=== PATIENT | female | born 1990 | race Caucasian/White ===

== ENCOUNTER 2023-10-29 19:27 | Emergency (ER) | payer OTHER, SELFPAY ==
[2023-10-29 19:37] VITALS: BP 180/134; PULSE 102; RESP 20; TEMP 38.8; O2SAT 100
--- NOTE | 2023-10-29 19:49 | ED.URI ---
HPI - URI/Sore Throat General Chief Complaint: Upper Respiratory Infection Stated Complaint: cough,runny nose,chest congestion Time Seen by Provider: 10/29/23 19:48 Source: patient, RN notes reviewed and old records reviewed Mode of arrival: ambulatory Limitations: no limitations History of Present Illness HPI Narrative: 33-year-old female presents to [facility] for complaint of headache, cough, runny nose, myalgias for 2 days. Patient denies nausea, vomiting, diarrhea, sore throat, any known exposure to illness, allergies, ear pain. Patient endorses history of hypertension and endorses compliance of medication. However, patient does endorse that she did not take her medication today. Related Data Home Medications Medication Instructions Recorded Confirmed losartan 100 mg tablet 100 mg PO DAILY 10/13/20 10/29/23 amlodipine 10 mg tablet 10 mg PO DAILY 10/29/23 10/29/23 Allergies Allergy/AdvReac Type Severity Reaction Status Date / Time No Known Allergies Allergy Verified 10/29/23 19:47 Review of Systems Review of Systems: All systems reviewed & are unremarkable except as noted in HPI and below Constitutional: Constitutional: Reports no additional constitutional complaints Eyes: Eyes: Reports no additional eye complaints ENT: Reports system reviewed and no additional complaints, except as documented, Denies dizziness, Reports headache(s) and Denies sore throat Cardiovascular: Cardiovascular: Reports no additional cardiovascular complaints, Denies chest pain, Denies syncope, Reports rapid heart rate, Denies lightheadedness and Denies dyspnea Respiratory: Respiratory: Reports no additional respiratory complaints, Denies cough and Denies dyspnea Gastrointestinal: Gastrointestinal: Denies change in stool character, Denies diarrhea and Denies vomiting Musculoskeletal: Musculoskeletal: Reports myalgias Integumentary/Breasts: Skin/Breast: Reports system reviewed and no additional complaints, except as docu and Reports as per HPI Neurologic: Reports system reviewed and no additional complaints, except as documented, Reports Normal hearing present, Denies dizziness, Reports headache(s), Denies numbness and Denies tingling Psychiatric: Psychiatric: Reports no additional psychiatric complaints [facility] Social History Social History Smoking status: Never smoker Comments At the time of my signature, I reviewed and agree with the nursing past medical, surgical, social, and family history. There is no relevant family history pertinent to the patient complaint. Exam Const: General: cooperative, healthy appearing, comfortable, no acute distress, alert and well nourished Nutritional Appearance: well nourished Orientation/consciousness: patient oriented x3 Limitations: no limitations HENMT: Head: normal to inspection Ears: external ears normal Face/Nose/Sinus: Normal external nose present, Normal nares present, Nasal discharge present clear, normal facial exam, No erythema and No edema Face and sinus: normal facial exam, no erythema and no edema Mouth: Yes Normal oral and palatal mucosa present Teeth and gingiva: dentition normal and gingiva normal Throat: posterior oropharynx normal, tonsils normal and uvula midline Eyes: General: appearance normal, both eyes and all related structures Conjunctivae: conjunctivae normal Neck: Neck: normal visual inspection, full ROM and no meningeal signs Lymphatic: no lymphadenopathy noted and no lymphedema noted Chest: Chest palpation & inspection: normal inspection of the chest Resp: Effort & Inspection: normal respiratory effort and able to speak in complete sentences Auscultation: clear to auscultation bilaterally Cardio: Jugular venous distension: no JVD Rate: regular rate Rhythm: regular rhythm and other ( tachycardic) GI: GI Palp: No abdominal tenderness, Yes Soft to palpation and No Tenderness to palpation pres
[2023-10-29] MEDS: ACETAMINOPHEN 500 MG TABLET 1000 MG PO (20:04)
[2023-10-29 20:13] VITALS: TEMP 38.8
[2023-10-29] MEDS: ACETAMINOPHEN 500 MG TABLET PO (20:13)
== END 2023-10-29 20:30 | disposition home or self-care (01) ==
PROVIDERS: Nurse Practitioner; Emergency Provider Nurse Practitioner Family; PCP Internal Medicine Cardiovascular Disease
DX: J10.1 Influenza due to other identified influenza virus with other respiratory manifestations (principal); I10 Essential (primary) hypertension; Z20.822 Contact with and (suspected) exposure to COVID-19
CPT/HCPCS: 87426; 87804; 99213; A9270; G0463

== ENCOUNTER 2024-08-18 11:35 | Emergency (ER) | payer OTHER, SELFPAY ==
[2024-08-18 11:44] VITALS: BP 154/118; PULSE 82; RESP 16; TEMP 36.6; O2SAT 100
--- NOTE | 2024-08-18 12:33 | ED_ITS ---
HPI - General Adult General Chief complaint: Unspecified Stated complaint: hemorrhoid Time Seen by Provider: 08/18/24 12:34 Source: patient, RN notes reviewed and old records reviewed Mode of arrival: ambulatory Limitations: no limitations History of Present Illness HPI narrative: Patient presents with complaints of rectal pain. She reports that she has had hemorrhoids in the past. She states current symptoms have been present for 2 days. She denies any constipation, diarrhea, heavy lifting. She voices no other concerns or complaints. She does denies any bleeding. She denies any injury Related Data Home Medications ?Medication ?Instructions ?Recorded ?Confirmed ?Last Taken ?Type amlodipine 10 mg tablet 10 mg PO DAILY 10/29/23 10/29/23 Unknown History Allergies Allergy/AdvReac Type Severity Reaction Status Date / Time No Known Allergies Allergy Verified 08/18/24 12:00 Review of Systems Review of Systems: All systems reviewed & are unremarkable except as noted in HPI and below Constitutional: Constitutional: Reports no additional constitutional complaints ENT: Reports system reviewed and no additional complaints, except as documented Cardiovascular: Cardiovascular: Reports no additional cardiovascular complaints Respiratory: Respiratory: Reports no additional respiratory complaints Gastrointestinal: Gastrointestinal: Reports as per HPI and Reports no additional gastrointestinal complaints [facility] Social History Social History Smoking status: Never smoker Comments At the time of my signature, I reviewed and agree with the nursing past medical, surgical, social, and family history. There is no relevant family history pertinent to the patient complaint. Exam Const: General: cooperative, no acute distress, alert and awake Orientation/consciousness: oriented to person, oriented to place and oriented to time HENMT: Head: normal to inspection Resp: Effort & Inspection: normal respiratory effort and able to speak in complete sentences Auscultation: clear to auscultation bilaterally, no crackles, no rales, no rhonchi and no wheezes Cardio: Palpation: normal PMI Rate: regular rate Rhythm: regular rhythm Heart sounds: S1 normal heart sound present and S2 normal heart sound present GI: Rectal Exam: hemorrhoids Neuro: General: oriented to person, oriented to place and oriented to time Cranial nerves: Yes CN's II-XII intact bilaterally Psych: Appearance: grossly normal Thought process: Normal thought process present Insight: Good insight present (Psych) Judgement: Good judgement present (Psych) Course Course Level of Care: Express Care Visit Vital Signs Vital signs: Vital Signs Temperature 97.8 F 08/18/24 11:44 Pulse Rate 82 08/18/24 11:44 Respiratory Rate 16 08/18/24 11:44 Blood Pressure 154/118 H 08/18/24 11:44 Pulse Oximetry 100 08/18/24 11:44 Oxygen Delivery Room Air 08/18/24 11:44 Temperature 97.8 F 08/18/24 11:44 Pulse Rate 82 08/18/24 11:44 Respiratory Rate 16 08/18/24 11:44 Blood Pressure 154/118 H 08/18/24 11:44 Pulse Oximetry 100 08/18/24 11:44 Oxygen Delivery Room Air 08/18/24 11:44 Reviewed Medical Decision Making MDM Narrative Medical decision making narrative: Discharge instructions reviewed with patient, as well as provided in writing per nursing staff. The instructions also include specific and strict return/GO TO THE ER as well as f/u information. All questions have been answered, and the patient deny any further questions with discharge and discharge plan. Some parts of this dictation were generated by voice recognition software and may contain typographical and/or grammatical inaccuracies. Differential Diagnosis Differential Diagnosis: History and exam consistent with hemorrhoids. Elevated blood pressure noted. Patient admits that she forgot to take her blood pressure medicine earlier today. She was given a list of primary care providers. She she is advised to follow up, go to emergency department with new or worse symptoms. Discharge instructions reviewed with patient, as well as provided in writing per nursing staff. The instructions also include specific and strict return/GO TO THE ER as well as f/u information. All questions have been answered, and the patient deny any further questions with discharge and discharge plan. Some parts of this dictation were generated by voice recognition software and may contain typographical and/or grammatical inaccuracies. Medical Records Medical records reviewed: Yes I reviewed the external patient's medical records. Vital Signs Vital Signs: Vital Signs Temperature 97.8 F 08/18/24 11:44 Pulse Rate 82 08/18/24 11:44 Respiratory Rate 16 08/18/24 11:44 Blood Pressure 154/118 H 08/18/24 11:44 Pulse Oximetry 100 08/18/24 11:44 Oxygen Delivery Room Air 08/18/24 11:44 Temperature 97.8 F 08/18/24 11:44 Pulse Rate 82 08/18/24 11:44 Respiratory Rate 16 08/18/24 11:44 Blood Pressure 154/118 H 08/18/24 11:44 Pulse Oximetry 100 08/18/24 11:44 Oxygen Delivery Room Air 08/18/24 11:44 reviewed Lab Data Lab results reviewed: Yes I reviewed the patient's lab results. Lab results narrative: reviewed Discharge Plan Discharge Clinical Impression: Acute hemorrhoid, Elevated blood pressure reading Patient Disposition: Home, Self-Care Condition: Stable Instructions: Antibiotic Form, Rectal Pain (ED) Additional Instructions: Use medications as directed. Follow with primary care provider. Emergency department for new or worsening symptoms Patient Language: Gibraltarian Prescriptions: New hydrocortisone [Proctosol HC] 2.5 % cream with perineal applicator 1 applic RECTAL HS PRN (Reason: hemorrhoids) 15 Days Qty: 30 0RF No Action amlodipine 10 mg tablet 10 mg PO DAILY Follow-up/Referrals: PHYSICIAN,SENIOR COURT OFFICE ASSISTANT [Primary Care Provider] - Stand Alone Forms: Work/School Release IP Time of Disposition: 12:50
[2024-08-18 12:50] VITALS: BP 167/116
== END 2024-08-18 12:56 | disposition home or self-care (01) ==
PROVIDERS: Emergency Provider Nurse Practitioner Family
DX: K64.9 Unspecified hemorrhoids (principal); R03.0 Elevated blood-pressure reading, without diagnosis of hypertension
CPT/HCPCS: 99213; G0463

== ENCOUNTER 2025-03-23 16:36 | Emergency (ER) | payer OTHER, SELFPAY ==
--- NOTE | ~2025-03-23 | US_ITS ---
EXAMINATION: US OB <=14 wk fetus w TV DATE: 03/23/2025 18:03 INDICATION: 7 week with 1 day pelvic pain TECHNIQUE: Real-time pelvic ultrasound utilizing both a transvaginal and transabdominal probe was pe rformed. The interpreting radiologist was not present for the study. COMPARISON: None. FINDINGS: The uterus measures 9.5 x 5.2 x 5.9 cm. There is an intrauterine gestational sac. A 3 mm yolk sac is identified. Possible 2 mm pole which correlates with an estimated gestational age of 5 weeks a nd 5 days. No evident heart motion which could be due to early stage of or failed pre gnancy. 6 x 2 mm anechoic subchorionic hematoma. The right ovary measures 2.3 x 2.1 x 1.9 cm. The left ovary measures 2.6 x 1.9 x 1.7 cm. There is a s mall amount of anechoic free fluid in the pelvis. IMPRESSION: 1. Single intrauterine gestational sac with 2 mm yolk sac and possible 2 mm pole which is witho ut definitive heart motion which could be due to early stage of , failed or artifa ctual appearance of a pole which remains too small to visualize. 2. Gestational age by ultrasound based upon presumptive pole measurement of 5 weeks 5 day(s) d ay(s) with ultrasound estimated date of delivery (MAKEDA) of 11/18/2025. 3. Small subchorionic hematoma. Reviewed, dictated and finalized at location A. IMPRESSION: 1. Single intrauterine gestational sac with 2 mm yolk sac and possible 2 mm fet al pole which is without definitive heart motion which could be due to early st age of , failed or artifactual appearance of a pole wh ich remains too small to visualize. 2. Gestational age by ultrasound based upon presumptive pole measurement of 5 weeks 5 day(s) day(s) with ultrasound estimated date of delivery (MAKEDA) of 11/18/2025. 3. Small subchorionic hematoma.
[2025-03-23 16:38] VITALS: BP 131/86; PULSE 60; RESP 16; O2SAT 100
--- OUTSIDE RECORDS SUMMARY | 2025-03-23 16:38 | XMS_ITS | Encounter Summary ---
Author Organization [facility] Facility Care Team Providers Care Qc Manager Name Role Phone Cayla Ding MD Primary Care Provider [phone] Gorge Ding MD Primary Care Provider No, Physician Primary Care Provider [phone] Chelsey Fajardo MD Unavailable Encounter Details Date Type Department Care Team (Latest Contact Info) Description 07/01/2018 Orders Only [facility] CLINCONV ProviderElena MD [address] [place], [place] [id number] Social History Tobacco Use Types Packs/Day Years Used Date Smoking Tobacco: Never Assessed Comments Unknown Sex and Gender Information Value Date Recorded Sex Assigned at Not on file 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 10/06/2022 11/22/2022 01/04/2023 3:05 AM C DT documented as of this encounter Care Teams Qc Manager Relationship Specialty Start Date End Date Cayla Ding MD PCP - General 03/30/18 07/29/19 Gorge Ding MD [address] [facility] [address] [place] [address] PCP - General 07/30/19 11/21/22 No, Physician PCP - General 11/22/22 Chelsey Fajardo MD [address] [address] [place] [address] Consulting Physician Obstetrics and Gynecology 04/24/24 documented as of this encounter
--- OUTSIDE RECORDS SUMMARY | 2025-03-23 16:38 | XMS_ITS | Encounter Summary ---
Author Organization [facility] Facility Care Team Providers Care Registered Nurse Post Partum Name Role Phone Cayla Ding MD Primary Care Provider [phone] Gorge Ding MD Primary Care Provider [phone] No, Physician Primary Care Provider [phone] Chelsey Fajardo MD Unavailable Encounter Details Date Type Department Care Team (Latest Contact Info) Description 02/28/2018 Orders Only [facility] CLINCONV ProviderElena MD [address] [place], [place] [phone] Social History Tobacco Use Types Packs/Day Years Used Date Smoking Tobacco: Never Assessed Comments Unknown Sex and Gender Information Value Date Recorded Sex Assigned at Not on file 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 10/06/2022 11/22/2022 01/04/2023 3:05 AM C DT documented as of this encounter Care Teams Registered Nurse Post Partum Relationship Specialty Start Date End Date Cayla Ding MD PCP - General 03/30/18 07/29/19 Gorge Ding MD [address] [facility] [address] [place], [place] [phone] PCP - General 07/30/19 11/21/22 No, Physician PCP - General 11/22/22 Chelsey Fajardo MD [address] [facility] [address] [place] [address] Consulting Physician Obstetrics and Gynecology 04/24/24 documented as of this encounter
--- OUTSIDE RECORDS SUMMARY | 2025-03-23 16:38 | XMS_ITS | Encounter Summary ---
Author Organization [facility] Healthcare Address [address] [place] [address] Care Team Providers Care Weatherization Coordinator Name Role Phone No, Physician Primary Care Provider Chelsey Fajardo MD Unavailable [phone] Reason for Referral * Diagnostic Imaging (Routine) - Pending Review Specialty Diagnoses / Procedures Referred By Contac t Referred To Contact Diagnoses Establish gestational age, ultrasound Procedures US OB Under 14 Weeks W Endovaginal Denia Chaney MD [address] [place] [id number] Phone: tel: fax: [facility] Medical [facility] Obstetrical Gynecology [address] [place] [phone] Phone: tel: fax: Referral ID Status Reason Start Date Expiration Date V isits Requested Visits Authorized [id number] Pending Review 03/16/2025 04/15/2026 1 1 Encounter Details Date Type Department Care Team (Late st Contact Info) Description 03/16/2025 Telephone [facility] Medical [facility] Obstetrical Gynecology [address] [place] [phone] Chelsey Fajardo MD [address] [place] [phone] Social History Tobacco Use Types Packs/Day Years Used Date Smoking Tobacco: Never Smokeless Tobacco: Never Alcohol Use Standard Drinks/Week Comments Yes 0 (1 standard drink = 0.6 oz pur e alcohol) [facility] Utilities Answer Date Recorded In the past 12 months has th e electric, gas, oil, or water company threatened to shut off services in your home? No 09/11/2023 Social Connection and Isolat ion Panel [NHANES] Answer Date Recorded In a typical week, how many times do you talk on the phone with family, friends, or neighbors? More than three times a week 09/11/2023 How often do you get togethe r with friends or relatives? More than three times a week 09/11/2023 How often do you attend chur ch or bahai services? More than 4 times per year 09/11/2023 Do you belong to any clubs o r organizations such as latter-day groups, unions, fraternal or athletic groups, or school groups? No 09/11/2023 How often do you attend meet ings of the clubs or organizations you belong to? Never 09/11/2023 Are you , , di vorced, , never , or living with a partner? Never 09/11/2023 Overall Financial Resource Strain (CARDIA) Answe r Date Recorded How hard is it for you to pa y for the very basics like food, housing, medical care, and heating? Not hard at all 09/11/2023 Hunger Vital Sign Answer Date Recorded Within the past 12 months, y ou worried that your food would run out before you got the money to buy more. Never true 09/11/19 24 Within the past 12 months, t he food you bought just didn't last and you didn't have money to get more. Never true 09/11/2023 PRAPARE - Transportation Answer Date Re corded In the past 12 months, has l ack of transportation kept you from medical appointments or from getting medications? No 11/2023 In the past 12 months, has l ack of transportation kept you from meetings, work, or from getting things needed for daily living? No 09/11/2023 Housing Stability Vital Sign Answer [place] e Recorded In the last 12 months, was t here a time when you were not able to pay the mortgage or rent on time? No 09/11/2023 In the last 12 months, how many places have you lived? 1 09/11/2023 In the last 12 months, was t here a time when you did not have a steady place to sleep or slept in a mcfp (including now)? No 09/11/2023 [place] Depression Scale Answer Date Recorded [place] Depression Scale Total 15 07/19/2023 The thought of harming myself has occurred to me . Never 07/19/2023 Personal Safety Answer Date Recorded Have you ever been in or are you currently in a harmful physical or emotional relationship or is someone making you feel afraid or unsafe? Denies 03/16/2025 Comments Unknown Sex and Gender Information Value Date Recorded Sex Assigned at Not on file Legal Sex Female 6:08 AM RN SANE Gender Identity Not on file Sexual Orientation Not on file documented as of this encounter Miscellaneous Notes * Telephone Encounter - Nani Kaur RN - 03/16/2025 3:03 PM CDT US ordered. Informed the pt we need to know the name of her medication prior to know its okay to continue or not. She will send in a [employer] chart message [employer] once she is home. Pt will also check her BP at home. * Telephone Encounter - Rocio Courtney - 03/16/2025 11:55 AM CDT Last OV: 05/25/24 Next OV: 04/15/25 New OB Need dating u/s order please LMP 01/31/25. +hpt Pt states that she is high risk d/t placenta abruption with last . Pt is also concerned about her blood pressure. Pt states that she's on medication, wasn't sure what it's called but takes 200mg daily. Pt states that she hasn't taken her blood pressure in a while. Preferred Communication: documented in this encounter Plan of Treatment Scheduled Orders Name Type Priority Associated Diagnoses Orde r Schedule US OB Under 14 Weeks W Endovaginal Imaging Schedule Routine, Read Routine (OP Routine) Establish gestational age, ultrasound Expected: 03/16/2025, Expires: 03/16/2026 documented as of this encounter Visit Diagnoses Diagnosis Establish gestational age, ultrasound- Primary Encounter for routine screening for malformation using ultrasonics documented in this encounter Care Teams Weatherization Coordinator Relationship Specialty Start Date End Date No, Physician PCP - General 11/22/22 Chelsey Fajardo MD [address] [place] [id number] Consulting Physician Obstetrics and Gynecology 04/24/24 documented as of this encounter
--- OUTSIDE RECORDS SUMMARY | 2025-03-23 16:38 | XMS_ITS | Encounter Summary ---
Author Organization [facility] Facility Care Team Providers Care Hoof And Shoe Inspector Name Role Phone Cayla Ding MD Primary Care Provider [phone] Gorge Ding MD Primary Care Provider No, Physician Primary Care Provider [phone] Chelsey Fajardo MD Unavailable [phone] Encounter Details Date Type Department Care Team (Latest Contact Info) Description 03/06/2018 Orders Only [facility] CLINCONV ProviderElena MD [address] [place], [place] [phone] Social History Tobacco Use Types Packs/Day Years Used Date Smoking Tobacco: Never Assessed Comments Unknown Sex and Gender Information Value Date Recorded Sex Assigned at Not on file 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 10/06/2022 11/22/2022 01/04/2023 3:05 AM C DT documented as of this encounter Care Teams Hoof And Shoe Inspector Relationship Specialty Start Date End Date Cayla Dnig MD PCP - General 03/30/18 07/29/19 Gorge Ding MD [address] [facility] [address] [place], [place] [id number] PCP - General 07/30/19 11/21/22 No, Physician PCP - General 11/22/22 Chelsey Fajardo MD [address] [facility] [address] [place] [address] Consulting Physician Obstetrics and Gynecology 04/24/24 documented as of this encounter
--- OUTSIDE RECORDS SUMMARY | 2025-03-23 16:38 | XMS_ITS ---
Author Organization Unknown Plan of Treatment Description Planned Activity Planned Timing [facility] is a provider organization who partners directly with Health Plans and provides integrated primary care, behavioral health, and social service agency director for an attributed population Letter encounter to patientTelephone encounter Mar 04, 2025Jul 2024 Encounters Encounter Type Performer Location Encounter Date Encoun ter Notes virtual - - [id number] no notes Patient Care team information Name Category Status Period Participants - - Proposed period not known -
--- OUTSIDE RECORDS SUMMARY | 2025-03-23 16:38 | XMS_ITS | Data Portability ---
Author Organization [facility] , [facility] Address [address] [place] [address] Assessment No assessment recorded. Plan of Treatment Reminders Order Date Submit Date Provider Last Modified By Organization Details Last Modified Time Details Appointments None recorded. Lab test, urine 2023 024 [email or web address] [facility], [address] [place], [address], 4 16:01:13 beta-HCG, quantitati ve, serum or plasma 2023 024 JASON [employer], [address] [place], [address], 4 10:51:23 Referral None recorded. Procedures None recorded. Surgeries None recorded. Imaging None recorded. Medication Orders None recorded. Patient TargetsNo targets recorded. Patient InstructionsNo instructions recorded. Reason for Referral None Reported. Results Created Date Observation Date Name Description Value Unit Range Abnormal Flag Note LastModifiedBy Organization Detail LastModifiedTime 02/20/20 24 02/21/2024 HCG, TOTAL , QUANT HCG, total, quant < 2 mIU/m L < 5 Refer ence Range s are for femal es aged 18 years - Adult Nonpr egnan t or preme nopau quinton <5 Postm enopa usal <10 Value s from diffe rent assay metho ds may vary. The use of this assay to monit or or to diagn ose patie nts with cance r or any other condi tion unrel ated to pregn ashley has not been valid ated by the manuf actur er of this assay . Not Available [employer] [address] [place], [address], 02/21/2024 10:51:23 02/20/20 24 02/20/2024 pregn ashley test, urine HCG negati ve Not Available [facility] [address] [place], [address], 02/20/2024 15:53:28 Result Notes None recorded. Procedures Surgical History Date Name Laterality Status Provider Name and Address Organization Details Recorded Time laparoscopic sleeve gastrectomy completed Navya Lopez Tingz 02/20/2024 15:48:22 Imaging Results None recorded. Procedure Notes None recorded. Medical Equipment None Reported. Allergies No known drug allergies Medications Name Sig Start Date Stop Date Status Note LastModified by Organization Details LastModified Time labetalol 200 mg tablet 02/19 completed Not Available Not Available Not Available nifedipine ER 90 mg tablet,exten ded release 02/19 completed Not Available Not Available Not Available nifedipine ER 30 mg tablet,exten ded release 02/19 completed Not Available Not Available Not Available amlodipine 5 mg tablet 02/19 completed Not Available Not Available Not Available OneTouch Ultra Test strips USE TO TEST BLOOD SUGAR FOUR TIMES DAILY 02/19 completed Not Available Not Available Not Available amlodipine 10 mg tablet active Not Available Not Available Not Available Mary 30 mg tablet TAKE 1 TABLET BY MOUTH NOW 02/19 completed Not Available Not Available Not Available OneTouch Ultra2 Meter USE TO TEST BLOOD SUGAR FOUR TIMES DAILY 02/19 completed Not Available Not Available Not Available OneTouch Delica Plus Lancet 33 gauge USE TO TEST BLOOD SUGAR FOUR TIMES DAILY 02/19 completed Not Available Not Available Not Available Vitals Date Recorded Body weight Body mass index (BMI) Body height Systolic And Diastolic Provider Name and Address Organization Details Last Updated DateTime 02/20/2024 36232.43 g 24.8 kg/m2 167.64 cm 140/110 mm[Hg] Navya Conwaydallassam Tingz 02/20/2024 15:49:49 Social History Question Answer Notes LastModified by Organizat ion Details LastModified Time Tobacco Smoking Status Never Smoker Navya Gutierrezicz null, [facility] 02/20/2024 15:37:18 How Many Years Have You Consumed Alcohol? 5 Information not available 02/20/2024 Are You Blind Or Do You Have Difficulty Seeing? No Information not available 02/20/2024 Are You Deaf Or Do You Have Serious Difficulty Hearing? No Information not available 02/20/2024 What Type Of Diet Are You Following? REGULAR Information not available 02/20/2024 How Many Children Do You Have? 3 Information not available 02/20/2024 Are There Any Occupational Health Risks Where You Work? No Information not available 02/20/2024 What Is Your Relationship Status? Single Information not available 02/20/2024 Are You Sexually Active? Yes Information not available 02/20/2024 Sex: Unknown Functional Status Question Answer Note LastModified by [employer] [place] ion Details LastModified Time Do you use any illicit or recreational drugs? No Information not available 02/20/2024 What is your level of alcohol consumption? Occasional Information not available 02/20/2024 Are you currently employed? Yes Information not available 02/20/2024 What is your exercise level? None Information not available 02/20/2024 Mental Status None recorded. Family History Relationship Description Onset Age of this Age Resolved Age Notes LastModified by Organization Details LastModified Time Mother Hypertensive disorder apietiukiewic z Not available 02/20/2024 15:37:06 Maternal Grandmother Hypertensive disorder apietiukiewic z Not available 02/20/2024 15:37:06 Medical History Condition Response High Blood Pressure Y Gynecological History Statement/Question Response Flow Moderate Date of LMP 01/13/2024 Frequency of Cycle (Q days) 28 Date of Last Pap Smear Duration of Flow (days) 4 Current Control Method Seeking Pre gnancy Age at Menarche 16 Obstetrics History GPAL:G 5 P 3 1 1 3 Type Value Full Term 3 Spontaneous 1 Premature 1 Living 3 Total 5 Past Encounters Encounter ID Performer Location Encounter Start Date Encounter Closed Date Diagnosis/Indication Diagnosis SNOMED-CT Code Diagnosis ICD10 Code Diagnosis Note [id number] ANGELA DOHERTY, ROAD BUILDER [facility] [address] [place] [address] 02/20/2024 15:20:05 02/20/2024 16:59:33 test positive [id number] Z32.01 LMP: 01/13/2024, Positive home UPT 02/13, then started bleeding 02/15 like a normal . 02/16 got negative UPTUPT negative in [facility] , will signs records releaseEdu cation provided on miscarriag e and chemical . Patient is TTC, hx of 33 week demise due to placenta abruptionP t is Trying to Conceive. Education given.-- Reviewed normal fecundity, peak fertility around time of ovulation, and monitoring menses. -- Pt reports menses come every month and last around 5 days. She is not tracking her menses, she will start tracking.- - Discussed intercours e during ovulation Q other day.-- Recommende d starting PNV.-- Discussed following up within 2-4 weeks of first pos UPT and in 1 year if pt has not had positive UPT. Essential hypertension 25450174 I10 CHTN-Conrade ntly on amlodipine , stopped taking when she found out she was . BP elevated today, has not taken medication . Denies any SOB, BP or headaches. Discussed importance of taking BP medication . Also discussed talking with PCP about changing her medication to one that can be used in . Advised that when she finds out she is it is not recommende d to just stop BP medication . Pt voices understand ing and will call PCP to discuss. Health Concerns Section Related Observation LastModified by Organization Detai ls LastModified Time None Recorded Concern Status LastModified by Organization Details LastModified Time None Recorded Advance Directives Directive None Recorded Payers Insurance Date Sequence Insurance Name Policy Number Policy Zurita Covered Member ID Zurita Member ID Guarantor Name 03/25/2024 1 [place] [employer] Edilson Donovan [id number] Edilson Donovan 03/25/2024 2 [facility] - DOS ON OR AFTER 21 (MEDICAID REPLACEMENT - HMO) Edilson Donovan [id number] Edilson Donovan Notes Date Note Type Note Provider Name and Address Organization Details Recorded Time 02/20/2024 text/html Patient is here because she had a Pos Preg test on 02/14/24, she started spotting on Saturday and then started bleeding. The patient took another test Saturday which was negative. She also did a UPT here today which was also negative. Patient's blood pressure is 140/110 now, however patient forgot her B/P Meds today and states this is not abnormal for her. ANGELA DOHERTY, ROAD BUILDER [address] [place], [address], [facility] 02/20/2024 16:47:25 OBGyn Episode Ob Episode Information Episode Created Date Number of Fetuses Patient Bloodtype Patient rh Status Prepregnancy Weight lbs Domestic Partner Domestic Partner Phone Father Name Grain Combiner Status 02/20/20 1 CLOSED Fetus Data First Name Last Name Admitted to NICU Weight (g) Sex Living Outcome Pediatric Complications Fetus ID Race Codes Race Delivery Type 2863.07 2704 F Full Term Lupillo Calculation Initial Lupillo Date Initial Exam Date Initial Exam Provider Initial Ultrasound Date Last Menstrual Period Date Ultra Sound Weeks Gestation 0 Eighteen To Twenty Week Lupillo Update Ultra Sound Date Fundal Height At Umbil Quickening Date Ultra Sound Latest Weeks Gestation Final Lupillo Confirmed By Final Lupillo Confirmed Date Final Lupillo Date Ultra Sound Latest Days Gestation 0 0 Menstrual History Last Menstrual Date Menses Monthly On Bcp Conception Prior Menses Frequency Hcg Plus Date Menarche Onset Age Delivery Information Delivery Date Delivery Type Labor Anesthesia Weeks Gestation Incision Type Labor Labor Length Hrs Delivered By Post Complications Tubal Sterilization Discharge Date Comments 0 Discharge Information Feeding Method Contraceptive Method Maternal HG B and HCT Levels Ob Episode Information Episode Created Date Number of Fetuses Patient Bloodtype Patient rh Status Prepregnancy Weight lbs Domestic Partner Domestic Partner Phone Father Name Grain Combiner Status 02/20/20 1 CLOSED Fetus Data First Name Last Name Admitted to NICU Weight (g) Sex Living Outcome Pediatric Complications Fetus ID Race Codes Race Delivery Type F Prematur e Lupillo Calculation Initial Lupillo Date Initial Exam Date Initial Exam Provider Initial Ultrasound Date Last Menstrual Period Date Ultra Sound Weeks Gestation 0 Eighteen To Twenty Week Lupillo Update Ultra Sound Date Fundal Height At Umbil Quickening Date Ultra Sound Latest Weeks Gestation Final Lupillo Confirmed By Final Lupillo Confirmed Date Final Lupillo Date Ultra Sound Latest Days Gestation 0 0 Menstrual History Last Menstrual Date Menses Monthly On Bcp Conception Prior Menses Frequency Hcg Plus Date Menarche Onset Age Delivery Information Delivery Date Delivery Type Labor Anesthesia Weeks Gestation Incision Type Labor Labor Length Hrs Delivered By Post Complications Tubal Sterilization Discharge Date Comments 3 33 [place], baby was still born. Discharge Information Feeding Method Contraceptive Method Maternal HG B and HCT Levels Ob Episode Information Episode Created Date Number of Fetuses Patient Bloodtype Patient rh Status Prepregnancy Weight lbs Domestic Partner Domestic Partner Phone Father Name Grain Combiner Status 02/20/20 24 1 CLOSED Fetus Data First Name Last Name Admitted to NICU Weight (g) Sex Living Outcome Pediatric Complications Fetus ID Race Codes Race Delivery Type 2267.96 F Full Term Lupillo Calculation Initial Lupillo Date Initial Exam Date Initial Exam Provider Initial Ultrasound Date Last Menstrual Period Date Ultra Sound Weeks Gestation 0 Eighteen To Twenty Week Lupillo Update Ultra Sound Date Fundal Height At Umbil Quickening Date Ultra Sound Latest Weeks Gestation Final Lupillo Confirmed By Final Lupillo Confirmed Date Final Lupillo Date Ultra Sound Latest Days Gestation 0 0 Menstrual History Last Menstrual Date Menses Monthly On Bcp Conception Prior Menses Frequency Hcg Plus Date Menarche Onset Age Delivery Information Delivery Date Delivery Type Labor Anesthesia Weeks Gestation Incision Type Labor Labor Length Hrs Delivered By Post Complications Tubal Sterilization Discharge Date Comments 6 Discharge Information Feeding Method Contraceptive Method Maternal HG B and HCT Levels Ob Episode Information Episode Created Date Number of Fetuses Patient Bloodtype Patient rh Status Prepregnancy Weight lbs Domestic Partner Domestic Partner Phone Father Name Grain Combiner Status 02/20/20 1 CLOSED Fetus Data First Name Last Name Admitted to NICU Weight (g) Sex Living Outcome Pediatric Complications Fetus ID Race Codes Race Delivery Type 3572.03 7 M Full Term Lupillo Calculation Initial Lupillo Date Initial Exam Date Initial Exam Provider Initial Ultrasound Date Last Menstrual Period Date Ultra Sound Weeks Gestation 0 Eighteen To Twenty Week Lupillo Update Ultra Sound Date Fundal Height At Umbil Quickening Date Ultra Sound Latest Weeks Gestation Final Lupillo Confirmed By Final Lupillo Confirmed Date Final Lupillo Date Ultra Sound Latest Days Gestation 0 0 Menstrual History Last Menstrual Date Menses Monthly On Bcp Conception Prior Menses Frequency Hcg Plus Date Menarche Onset Age Delivery Information Delivery Date Delivery Type Labor Anesthesia Weeks Gestation Incision Type Labor Labor Length Hrs Delivered By Post Complications Tubal Sterilization Discharge Date Comments 5 Discharge Information Feeding Method Contraceptive Method Maternal HG B and HCT Levels
--- OUTSIDE RECORDS SUMMARY | 2025-03-23 16:38 | XMS_ITS | Encounter Summary ---
Author Organization [facility] Facility Care Team Providers Care Hospitality Job Titles Name Role Phone Cayla Ding MD Primary Care Provider [phone] Gorge Ding MD Primary Care Provider No, Physician Primary Care Provider [phone] Chelsey Fajardo MD Unavailable [phone] Encounter Details Date Type Department Care Team (Latest Contact Info) Description 04/24/2018 Orders Only [facility] ProviderElena MD [address] [place], [place] [id number] Social History Tobacco Use Types Packs/Day Years Used Date Smoking Tobacco: Never Assessed Comments Unknown Sex and Gender Information Value Date Recorded Sex Assigned at Not on file Legal Sex Female 6:08 AM 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 Historical Provider [facility] DONY ANDERS Final Result documented in this encounter Visit Diagnoses Not on filedocumented in this encounter Additional Health Concerns Infection Onset Date Last Indicated Resolved Time COVID19 10/20/2020 09/26/202210/0610/06/2022 3:05 AM PHLEBOTOMY SUPPORT TECH COVID: Recovered Comment:Added based on recent COVID infection. 10/06/2022 11/22/2022 01/04/2023 3:05 AM C DT documented as of this encounter Care Teams Hospitality Job Titles Relationship Specialty Start Date End Date Cayla Ding MD PCP - General 03/30/18 07/29/19 Gorge Ding MD [address] [facility] [address] [place], [place] [id number] PCP - General 07/30/19 11/21/22 No, Physician PCP - General 11/22/22 Chelsey Fajardo MD [address] [facility] [address] [place] [address] Consulting Physician Obstetrics and Gynecology 04/24/24 documented as of this encounter
--- OUTSIDE RECORDS SUMMARY | 2025-03-23 16:38 | XMS_ITS | Referral Summary ---
Author Organization [facility] Address [address] [place] [address] Care Team Providers Care Tonnage Compilation Clerk Name Role Phone No, Physician Primary Care Provider [phone] Chelsey Fajardo MD Unavailable [phone] Encounters Date Type Department Care Team Description 03/16/2025 7:50 PM CDT - 03/16/2025 9:18 PM CDT Emergency [facility] Emergency Department [address] [place], [place] [id number] Abdominal pain in early (Primary Dx) Discharge Disposition: Discharge to home or self care 03/16/[address] [facility] Obstetrical Gynecology [address] [phone] Chelsey Fajardo MD 02/16/2025 7:18 PM CDT - 02/16/2025 10:44 PM CDT Emergency [facility] Emergency Department [address] [place] [address] Chato Luna DO Acute pancreatitis without infection or necrosis, unspecified pancreatitis type (Primary Dx) Discharge Disposition: Discharge to home or self care from Last 3 Months Allergies No known active allergies Medications vit 73-qsdd-cuato-dha 27mg iron- 800 mcg-250 mg capsule Take by mouth Active OneTouch Ultra2 Meter misc USE TO TEST BLOOD SUGAR FOUR TIMES DAILY 3 Active OneTouch Delica Plus Lancet 33 gauge misc USE TO TEST BLOOD SUGAR FOUR TIMES DAILY 3 Active amLODIPine (NORVASC) 10 mg tablet Take 1 tablet (10 mg total) by mouth daily 30 tablet 4 Active aspirin 81 mg enteric coated tablet Take 1 tablet (81 mg total) by mouth daily 30 tablet 11 4 04/24/20 25 Active ondansetron ODT (ZOFRAN-ODT) 4 mg disintegrating tablet Take 1 tablet (4 mg total) by mouth every 4 (four) hours as needed for nausea 20 tablet 5 Active traMADoL (ULTRAM) 50 mg tablet Take 1 tablet (50 mg total) by mouth every 6 (six) hours as needed for pain 15 tablet 5 Active Active Problems Problem Noted Date Diagnosed Date 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 IV Pepcid Right upper quadrant ultrasound Repeat amylase and lipase levels Monitor LFT levels demise affecting delivery 06/01/2023 Overview (06/01/2023): 06/01/232029 (KR) Patient presented with painful contractions, and was found to have a demise, clinical picture consistent with placental abruption and DIC on presentation. Lack of cardiac activity was confirmed on ultrasound by two physicians Edilson accepts moving forward with induction of labor She does desire PCEA for pain management if Plt stable Expressed condolences, and at this time, she and her partner are still actively processing this news. Offered support. Will need to further address desires for laboratory and genetic evaluation for contributory causes to demise, as well as the option for autopsy Disseminated intravascular coagulopathy 06/01/20 Overview (06/01/2023): 06/01/232029 (KR) Patient's presentation is consistent with placental abruption consistent with demise Admission labs notable for: hgb7.9, fibrinogen 96, Cr 1.3, LFTs WNL, glucose WNL, PT/PTT/INR prolonged, Plt 159 2nd large bore IV being placed Massive transfusion protocol ordered - will plan to transfuse 2u pRBCs, 1u FFP, and plan for plt infusion pending further assessment IUFD at 20 weeks or more of gestation 06/01/2023 Poor growth affecting management of mother in third trimester 05/27/2023 HTN in , chronic 12/26/2022 Supervision of other normal , antepartu m 12/20/2022 Chronic hypertension 12/20/2022 Assessment & Plan (09/11/2023 3:18 AM RECLAMATION KETTLE TENDER): Continue home regimen IV hydralazine p.r.n. History of gastric surgery 12/20/2022 Overview (12/20/2022): Gastric sleeve Social History Tobacco Use Types Packs/Day Years Used Date Smoking Tobacco: Never Smokeless Tobacco: Never Tobacco Cessation:Counseling Given: Not Answered Alcohol Use Standard Drinks/Week Comments Yes 0 (1 standard drink = 0.6 oz pur e alcohol) [facility] Utilities Answer Date Recorded In the past 12 months has [employer] gas, oil, or water [employer] threatened to shut off services in your [...] often do you attend chur ch or islam services? More than 4 times per year 09/11/2023 Do you belong to any clubs o r organizations such as congregational groups, unions, fraternal or athletic groups, or [...] place to sleep or slept in a snf (including now)? No 09/11/2023 [place] Depression Scale Answer Date Recorded [place] Depression Scale Total 15 07/19/2023 The thought [...] on file Legal Sex Female 6:08 AM RECLAMATION KETTLE TENDER Gender Identity Not on file Sexual Orientation Not on file Last Filed Vital Signs Vital Sign Reading Time Taken Comments Blood Pressure 142/100 03/16/2025 9:15 PM CDT Pulse 60 03/16/2025 9:15 PM CDT Temperature 36.2 C (97.2 F) 03/16/2025 6:37 PM CDT Respiratory Rate 16 03/16/2025 9:15 PM CDT Oxygen Saturation 100% 03/16/2025 9:15 PM CDT Inhaled Oxygen Concentration - - Weight 73 kg (160 lb 15 oz) 03/16/2025 6:37 PM C DT Height 167.6 cm (5' 6) 03/16/2025 6:37 PM CDT Body Mass Index 25.98 03/16/2025 6:37 PM CDT Plan of Treatment Not on file Procedures Procedure Name Priority Date/Time Associated Diagnosis Comments US OB TRANSVAGINAL ED 03/16/2025 7: 53 PM CDT POCT HCG, URINE Routine 03/16/2025 6:56 PM CDT EGFR STAT 03/16/2025 6:54 PM CDT HCG, BLOOD, QUANTITATIVE STAT 03/16/2025 6:54 PM CDT URINALYSIS, MICROSCOPIC ONLY STAT 03/16/2025 6:54 PM CDT DIFFERENTIAL AUTO STAT 03/16/2025 6:5 4 PM CDT LIPASE STAT 03/16/2025 6:54 PM CDT COMPREHENSIVE METABOLIC PANEL STAT 03/16/2025 6:54 PM CDT CBC WITH AUTO DIFFERENTIAL STAT 03/16/2025 6:54 PM CDT URINALYSIS AND REFLEX TO MICROSCOPIC AND CULTURE STAT 03/16/2025 6:[address] ABDOMEN PELVIS W CONTRAST ED 02/16/2025 8:36 PM CDT TROPONIN T HIGH-SENSITIVITY 2-HOUR Timed 02/16/2025 8:05 PM CDT ETHANOL STAT 02/16/2025 7:55 PM CDT TRIGLYCERIDES STAT 02/16/2025 7:55 PM CDT URINALYSIS, MICROSCOPIC ONLY STAT 02/16/2025 7:44 PM CDT DRUGS OF ABUSE SCREEN, URINE WITH REFLEX CONFIRMATION STAT 02/16/2025 7:44 PM CDT URINALYSIS AND REFLEX TO MICROSCOPIC AND CULTURE STAT 02/16/2025 7:44 PM CDT POCT HCG, URINE Routine 02/16/2025 7:40 PM CDT ECG 12-LEAD STAT 02/16/2025 7:34 PM CDT EGFR STAT 02/16/2025 6:17 PM CDT DIFFERENTIAL AUTO STAT 02/16/2025 6:1 7 PM CDT TROPONIN T HIGH-SENSITIVITY SERIES (BASELINE, 2HR, 4HR, 6HR) STAT 02/16/2025 6:17 PM CDT LIPASE STAT 02/16/2025 6:17 PM CDT COMPREHENSIVE METABOLIC PANEL STAT 02/16/2025 6:17 PM CDT CBC WITH AUTO DIFFERENTIAL STAT 02/16/2025 6:17 PM CDT HIGH RISK HPV DNA DETECTION WITH GENOTYPING Routine 05/25/2024 1:44 PM CDT Well woman exam with routine gynecological exam HEPATITIS C ANTIBODY Routine 12/06/2022 2:36 PM CDT Missed menses from Last 3 Months or Most Recently Relevant to Health Maintenance Results * US Ob Transvaginal (03/16/2025 7:53 PM CDT) Anatomical Region Laterality Modality Abdomen N/A Ultrasound 03/16/2025 9:00 PM CDT Narrative 03/16/2025 9:06 PM CDT EXAM DESCRIPTION: US OB TRANSVAGINAL REASON FOR STUDY: + preg, pelvic pain Beta-hC TECHNIQUE: Transvaginal images acquired of the pelvis. COMPARISON: CT of the abdomen and pelvis dated 02/16/2025. FINDINGS: Clinical gestational age: 6 weeks 2 days Clinical estimated Due Date: 11/07/2025 Intrauterine gestational sac: Present Yolk sac: Not identified Subchorionic bleed: No Placenta: Not identified Mean sac diameter: 0.32 cm [place]-rump length: Not applicable heart rate: Not applicable Gestational age by this ultrasound: 5 weeks and 0 days MAKEDA by this ultrasound: 11/16/2025 Uterus: The uterus is anteverted , measuring 8.0 x 5.4 x 6.1 cm. Right Ovary/Adnexa: The right ovary measures 3.2 x 2.4 x 2.4 cm. There is documentation of color Doppler flow in the right ovary. The right ovary appears unremarkable. No adnexal mass. Left Ovary/Adnexa: The left ovary measures 2.3 x 1.9 x 1.9 cm. There is documentation of color Doppler flow in the left ovary. The left ovary appears unremarkable. No adnexal mass. Free Fluid: None. Other Findings: None. IMPRESSION: In this patient with a positive beta hCG, there is a potential gestational sac suggestive of an early intrauterine . Correlation with serial beta hCG is recommended as well as follow-up ultrasound to confirm presence of a yolk sac or pole as clinically indicated. THIS IS AN ELECTRONICALLY VERIFIED FINAL REPORT 03/16/2025 9:06 PM - Electronically signed by Sim Sullivan M.D. MF: PHILLIP Report ID: [id number] Reading Location: [id number] Procedure Note Sim Sullivan, - 03/16/2025 EXAM DESCRIPTION: US OB TRANSVAGINAL REASON FOR STUDY: + preg, pelvic pain Beta-hC TECHNIQUE: Transvaginal images acquired of the pelvis. COMPARISON: CT of the abdomen and pelvis dated 02/16/2025. FINDINGS: Clinical gestational age: 6 weeks 2 days Clinical estimated Due Date: 11/07/2025 Intrauterine gestational sac: Present Yolk sac: Not identified Subchorionic bleed: No Placenta: Not identified Mean sac diameter: 0.32 cm [place]-rump length: Not applicable heart rate: Not applicable Gestational age by this ultrasound: 5 weeks and 0 days MAKEDA by this ultrasound: 11/16/2025 Uterus: The uterus is anteverted , measuring 8.0 x 5.4 x 6.1 cm. Right Ovary/Adnexa: The right ovary measures 3.2 x 2.4 x 2.4 cm. Thereis documentation of color Doppler flow in the right ovary. The right ovary appears unremarkable. No adnexal mass. Left Ovary/Adnexa: The left ovary measures 2.3 x 1.9 x 1.9 cm. There is documentation of color Doppler flow in the left ovary. The left ovaryappears unremarkable. No adnexal mass. Free Fluid: None. Other Findings: None. IMPRESSION: In this patient with a positive beta hCG, there is a potential gestational sac suggestive of an early intrauterine .Correlation with serial beta hCG is recommended as well as follow-up ultrasound toconfirm presence of a yolk sac or pole as clinically indicated. THIS IS AN ELECTRONICALLY VERIFIED FINAL REPORT 03/16/2025 9:06 PM - Electronically signed by Sim Sullivan M.D. MF: PHILLIP Report ID: [id number] Reading Location: [place] [address] us Sonal PHAM IMG OB US PROCEDURES Final Result * (ABNORMAL) POCT hCG, urine (03/16/2025 6:56 PM CDT) HCG, ur, POC Positive(A) Negative Comment:Testing performed by : [address] [address] POC Performer [id number] MIGEL VELAZQUEZ Comment:Testing performed by : [address] [address] Urine 03/16/2025 6:56 PM CDT 03/16/2025 6:56 PM CDT us Notinfile Unknown LAB POCT ORDERABLES - DEVICE F inal Result Performing Organization Address [facility] Co de Phone Number MIGEL [facility] [place] [address] * eGFR (03/16/2025 6:54 PM CDT) Pathologist [facility] eGFR >90 >=60 mL/min/1. 73 m2 Comment: Interpretive Data Reference Interval Normal >/= 90 mL/min/1.73m2 Mildly decreased* 60 - 89 mL/min/1.73m2 Mildly to moderately decreased 45 - 59 mL/min/1.73m2 Moderately to severely decreased 30 - 44 mL/min/1.73m2 Severely decreased 15 - 29 mL/min/1.73m2 Kidney Failure < 15 mL/min/1.73m2 *Relative to young adult level Estimated glomerular filtration rate is determined by the 2020 CKD-EPI equation recommended by the National Kidney Foundation (A Unifying Approach to GFR Estimation: Recommendations of the NKF-ASK Task Force on Reassessing the Inclusion of Race in Diagnosing Kidney Disease, JASN 2020). The CKD-EPI equation should not be used for patients with unstable renal function and has not been validated in children and those over 70. Current interpretive data was last reviewed 2021. Testing performed by: [address] [address] Blood 03/16/2025 6:54 PM CDT 03/16/2025 7:02 PM CDT Sonal PHAM LAB BLOOD ORDERABLES Final Result Performing Organization Address [facility] Co de Phone Number [place] [address] [facility] [place] [address] * Differential, auto (03/16/2025 6:54 PM CDT) Pathologist [facility] Neutrophil abs 2.77 1.50 - 6.50 K/cumm Comment:Testing performed by : [address] [address] Imm gran abs 0.01 0.00 - 0.10 K/cumm MIGEL Comment:Testing performed by : [address] [address] Lymphocyte abs 1.53 0.80 - 3.30 K/cumm CERNER Comment:Testing performed by : [address] [address] Monocyte abs 0.48 0.20 - 0.80 K/cumm CERNER Comment:Testing performed by : [address] [address] Eosinophil abs 0.02 0.00 - 0.50 K/cumm [facility] Comment:Testing performed by : [address], [place]., [address] Basophil abs 0.01 0.00 - 0.10 K/cumm [facility] Comment:Testing performed by : [address] [address] Neutrophil pct 57.5 % [facility] Comment: Interpretive Data Percent cell count reference ranges are not reported, since discordance with absolute values may lead to misinterpretation of CBC data. Current Interpretive Data was last revised on 2017. Testing performed by: [address] [address] Imm gran pct 0.2 % [facility] Comment: Interpretive Data Percent cell count reference ranges are not reported, since discordance with absolute values may lead to misinterpretation of CBC data. Current Interpretive Data was last revised on 2017. Testing performed by: [address] [address] Lymphocyte pct 31.7 % [facility] Comment: Interpretive Data Percent cell count reference ranges are not reported, since discordance with absolute values may lead to misinterpretation of CBC data. Current Interpretive Data was last revised on 2017. Testing performed by: [address] [address] Monocyte pct 10.0 % CERNER Comment: Interpretive Data Percent cell count reference ranges are not reported, since discordance with absolute values may lead to misinterpretation of CBC data. Current Interpretive Data was last revised on 2017. Testing performed by: [address] [address] Eosinophil pct 0.4 % [facility] Comment: Interpretive Data Percent cell count reference ranges are not reported, since discordance with absolute values may lead to misinterpretation of CBC data. Current Interpretive Data was last revised on 2017. Testing performed by: [address] [address] Basophil pct 0.2 % MIGEL VELAZQUEZ Comment: Interpretive Data Percent cell count reference ranges are not reported, since discordance with absolute values may lead to misinterpretation of CBC data. Current Interpretive Data was last revised on 2017. Testing performed by: [address] [address] Blood 03/16/2025 6:54 PM CDT 03/16/2025 7:02 PM CDT Sonal PHAM LAB BLOOD ORDERABLES Final Result MIGEL [address] [facility] Department [place] [address] * (ABNORMAL) Urinalysis reflex to microscopic and culture Urine (03/16/2025 6:54 PM CDT) Color, ur Yellow Yellow Comment:Testing performed by : [address] [address] Clarity, ur Clear Clear MIGEL VELAZQUEZ Comment:Testing performed by : [address] [address] Specific gravity, ur 1.023 1.003 - 1.030 MIGEL Comment:Testing performed by : [address] [address] pH, urine 8.0 MIGEL Comment: Interpretive Data U rine pH is affected by diet, medications, systemic acid-base disturbances, and renal tubular function. pH may affect urinary stone formation. For example, urine pH below 6.0 may help reduce the tendency for calcium phosphate stones and pH greater than 6.0 may reduce the tendency for uric acid stone formation. Source: [facility] [place] Current Interpretive Data was last revised on 2017 Testing performed by: [address] [address] Protein, ur ql Trace(A) Negative MIGEL Comment:Testing performed by : [address], [place]., [address] Glucose, ur ql Negative Negative MIGEL Comment:Testing performed by : [address], [place]., [address] Ketones, ur Negative Negative MIGEL Comment:Testing performed by : [address], [place]., [address] Bilirubin, ur Negative Negative MIGEL Comment:Testing performed by : [address], [place]., [address] Blood, ur Negative Negative MIGEL Comment:Testing performed by : [address], [place]., [address] Urobilinogen, ur 2.0(A) <2.0 mg/dL MIGEL Comment:Testing performed by : [address], [place]., [address] Nitrite, ur Negative Negative MIGEL Comment:Testing performed by : [address], [place]., [address] Leukocyte esterase, ur 1+(A) Negative MIGEL Comment:Testing performed by : [address], [place]., [address] UA reflex comment Reflex to microscopic UA will be performed. MIGEL Comment:Testing performed by : [address], [place]., [address] Urine 03/16/2025 6:54 PM CDT 03/16/2025 7:02 PM CDT us Sonal PHAM LAB MICROBIOLOGY - GENERAL ORDERABLES Final Result MIGEL [address] [facility] Department [place] [address] * (ABNORMAL) CBC with auto differential (03/16/2025 6:54 PM CDT) WBC 4.82 3.80 - 9.90 K/cumm Comment:Testing performed by : [address], [place]., [address] Hgb 9.8(L) 11.9 - 15.5 g/dL MIGEL Comment:Testing performed by : [address] [address] Hct 30.4(L) 35.6 - 45.5 % MIGEL Comment:Testing performed by : [address] [address] Plt 282 150 - 400 K/cumm MIGEL Comment:Testing performed by : [address], [address] MPV 9.6 9.1 - 12.3 fL MIGEL Comment:Testing performed by : [address], [address] RBC 3.47(L) 3.90 - 5.20 M/cumm MIGEL Comment:Testing performed by : [address], [address] MCV 87.6 81.3 - 96.4 fL MIGEL Comment:Testing performed by : [address] [address] MCH 28.2 27.1 - 33.3 pg MIGEL Comment:Testing performed by : [address], [address] MCHC 32.2(L) 32.3 - 35.7 g/dL MIGEL Comment:Testing performed by : [address], [address] RDW CV 23.4(H) 11.1 - 14.9 % MIGEL Comment:Testing performed by : [address], [address] RDW SD 74.1(H) 35.7 - 48.1 fL MIGEL Comment:Testing performed by : [address], [address] NRBC abs 0.00 0.00 - 0.01 K/cumm MIGEL Comment:Testing performed by : [address], [address] Blood Venous blood specimen / Unknown 03/16/2025 6:54 PM CDT 03/16/2025 7:02 PM CDT Sonal PHAM LAB BLOOD ORDERABLES Final Result Performing Organization Address [facility] Co de Phone Number [place] [address] * (ABNORMAL) Urinalysis, microscopic only (03/16/2025 6:54 PM CDT) WBC, ur 0-5 0 - 5 /HPF Comment:Testing performed by : [facility], [address] [place] [address]., [address] RBC, ur 0-2 0 - 2 /HPF MIGEL Comment:Testing performed by : [facility], [address] [place] [address]., [address] Epithelial cells, squamous, ur 21-50(A) 0 - 5 /HPF MIGEL Comment:Testing performed by : [address] [address] Culture Reflex Comment Reflex conditions for urine culture (WBC >10) not met. MIGEL Comment:Testing performed by : [address] [address] Urine 03/16/2025 6:54 PM CDT 03/16/2025 7:02 PM CDT Sonal PHAM LAB URINE ORDERABLES Final Result Performing Organization Address [facility] de Phone Number MIGEL [address] [place] [address] * (ABNORMAL) hCG, blood, quantitative (03/16/2025 6:54 PM CDT) hCG, quant 946.0(H) 0.0 - 5.0 IUnits/L Comment: Interpretive Data Male: < 5 IU/L Non- premenopausal Female: <5 IU/L The Nilo hCG Beta Quant assay procedure was used. Results from different manufacturers or methods may not be comparable. Serial testing should be performed using the same method. Interpretive Data was last revised on 2023 Testing performed by: [address] [address] Blood 03/16/2025 6:54 PM CDT 03/16/2025 7:02 PM CDT Sonal PHAM LAB BLOOD ORDERABLES Final Result Performing Organization Address City/[facility]/ZIP Co de Phone Number [address] [place] [address] * Lipase (03/16/2025 6:54 PM CDT) Pathologist [facility] Lipase 37 10 - 99 Units/L Comment:Testing performed by : [address] [address] Blood Venous blood specimen / Unknown 03/16/2025 6:54 PM CDT 03/16/2025 7:02 PM CDT Sonal PHAM LAB BLOOD ORDERABLES Final Result Performing Organization Address City/[facility] Co de Phone Number [address] [address] * (ABNORMAL) Comprehensive metabolic panel (03/16/2025 6:54 PM CDT) Pathologist [facility] Sodium 135 135 - 145 mmol/L Comment:Testing performed by : [address] [address] Potassium, pl 4.2 3.3 - 4.9 mmol/L MIGEL Comment:Testing performed by : [address] [address] Chloride 106 97 - 110 mmol/L MIGEL Comment:Testing performed by : [address] [address] CO2 20(L) 22 - 32 mmol/L MIGEL Comment:Testing performed by : [address] [address] Anion gap 9 2 - 15 mmol/L MIGEL Comment:Testing performed by : [address] [address] BUN 5(L) 6 - 25 mg/dL MIGEL Comment:Testing performed by : [address] [address] Creatinine 0.76 0.60 - 1.10 mg/dL MIGEL Comment:Testing performed by : [address] [address] Glucose 106 70 - 199 mg/dL MIGEL Comment: Interpretive Data Fasting glucose >/= 126 mg/dl is diagnostic for diabetes. Fasting is defined as no caloric intake for at least 8 hours. Fasting glucose between 100 mg/dl to 125 mg/dl is diagnostic of prediabetes. In a patient with classic symptoms of hyperglycemia or hyperglycemic crisis, a random glucose >/= 200 mg/dl is diagnostic for diabetes. In the absence of unequivocal hyperglycemia, results should be confirmed by repeat testing. The classification and Diagnosis of Diabetes Diabetes Care 2021; 46: S19-S40. Current interpretive data was last revised 2022. Testing performed by: [address] [address] Calcium 8.4(L) 8.5 - 10.3 mg/dL MIGEL Comment:Testing performed by : [address] [address] Bilirubin, total 0.2 0.1 - 1.2 mg/dL MIGEL Comment:Testing performed by : [address] [address] Protein, pl 6.8 6.5 - 8.5 g/dL MIGEL Comment:Testing performed by : [address] [address] Albumin 3.7 3.5 - 5.0 g/dL MIGEL Comment:Testing performed by : [address] [address] Alk phos 114 40 - 130 Units/L MIGEL Comment:Testing performed by : [address] [address] ALT 17 7 - 45 Units/L MIGEL Comment:Testing performed by : [address] [address] AST 36 10 - 45 Units/L MARIELAELSA VELAZQUEZ Comment:Testing performed by : [facility], [address] [place]., [address] Blood 03/16/2025 6:54 PM CDT 03/16/2025 7:02 PM CDT us Sonal PHAM LAB BLOOD ORDERABLES Final Result MIGEL MARCUS [address] [facility] Department [place] [address] * CT Abdomen Pelvis W Contrast (02/16/2025 8:36 PM CDT) Anatomical Region Laterality Modality Body N/A Computed Tomogra phy 02/16/2025 9:47 PM CDT Narrative 02/16/2025 9:56 PM CDT EXAM DESCRIPTION: CT ABDOMEN PELVIS W CONTRAST REASON FOR STUDY: Abdominal pain, acute, nonlocalized abd pain and nausea since Saturday, back pain started today. Feels like past episodes of pancreatitis. TECHNIQUE: CT scan of the abdomen and pelvis performed with intravenous and without oral contrast using helical scanning technique with dynamic intravenous contrast injection. Reconstructed coronal and sagittal MPR images reviewed. All images stored on PACS. Automated exposure control was used as a dose optimization technique for this examination. CONTRAST TYPE/DOSE: 100mL of IOVERSOL 350 MG IODINE/ML INTRAVENOUS SYRINGE injected via intravenous COMPARISON: CT of the abdomen and pelvis dated 06/19/2024. FINDINGS: LOWER CHEST: Stable 8 mm pleural-based left lower lobe pulmonary nodule dating back to 2010 which is considered benign. No significant pulmonary abnormalities. No effusion. LIVER: Normal size. No identified cystic or solid masses. GALLBLADDER: No stones identified. No wall thickening or inflammatory changes. BILE DUCTS: No intrahepatic or extrahepatic ductal dilatation. SPLEEN: Normal size. No focal lesions. PANCREAS: No identified cystic or solid masses. No significant calcifications. No adjacent inflammation or peripancreatic fluid collections. Pancreatic duct not dilated. ADRENALS: Normal. KIDNEYS/URINARY TRACT: No identified significant cystic or solid masses. No visualized stones. No hydronephrosis or hydroureter. Symmetric enhancement. Urinary bladder is unremarkable. GI: Sliding-type hiatal hernia. Postsurgical changes of sleeve gastrectomy. No dilated bowel loops. No obvious wall thickening. Normal appendix. No significant diverticular disease. PERITONEUM: No ascites or free air. Small fat containing umbilical and supraumbilical ventral abdominal wall hernias. RETROPERITONEUM: No mass or adenopathy. REPRODUCTIVE: No significant abnormality. VASCULATURE: No abdominal aortic aneurysm. MUSCULOSKELETAL: No significant abnormality. OTHER: No other abnormality. IMPRESSION: 1. No acute intra-abdominal/pelvic abnormality. 2. Additional findings; as detailed. THIS IS AN ELECTRONICALLY VERIFIED FINAL REPORT 02/16/2025 9:56 PM - Electronically signed by Sim Sullivan M.D. MF: PHILLIP Report ID: [id number] Reading Location: [place] [address] Procedure Note Sim Sullivan, DO - 02/16/2025 EXAM DESCRIPTION: CT ABDOMEN PELVIS W CONTRAST REASON FOR STUDY: Abdominal pain, acute, nonlocalized abd pain and nausea since Saturday, back pain started today. Feels like past episodes of pancreatitis. TECHNIQUE: CT scan of the abdomen and pelvis performed with intravenousand without oral contrast using helical scanning technique with dynamic intravenous contrast injection. Reconstructed coronal and sagittal MPRimages reviewed. All images stored on PACS. Automated exposure control was usedas a dose optimization technique for this examination. CONTRAST TYPE/DOSE: 100mL of IOVERSOL 350 MG IODINE/ML INTRAVENOUSSYRINGE injected via intravenous COMPARISON: CT of the abdomen and pelvis dated 06/19/2024. FINDINGS: LOWER CHEST: Stable 8 mm pleural-based left lower lobepulmonary nodule dating back to 2010 which is considered benign. No significant pulmonary abnormalities. No effusion. LIVER: Normal size. No identified cystic or solid masses. GALLBLADDER: No stones identified. No wall thickening or inflammatory changes. BILE DUCTS: No intrahepatic or extrahepatic ductal dilatation. SPLEEN: Normal size. No focal lesions. PANCREAS: No identified cystic or solid masses. No significant calcifications. No adjacent inflammation or peripancreatic fluidcollections. Pancreatic duct not dilated. ADRENALS: Normal. KIDNEYS/URINARY TRACT: No identified significant cystic or solid masses.No visualized stones. No hydronephrosis or hydroureter. Symmetricenhancement. Urinary bladder is unremarkable. GI: Sliding-type hiatal hernia. Postsurgical changes of sleevegastrectomy. No dilated bowel loops. No obvious wall thickening. Normal appendix. No significant diverticular disease. PERITONEUM: No ascites or free air. Small fat containing umbilical and supraumbilical ventral abdominal wall hernias. RETROPERITONEUM: No mass or adenopathy. REPRODUCTIVE: No significant abnormality. VASCULATURE: No abdominal aortic aneurysm. MUSCULOSKELETAL: No significant abnormality. OTHER: No other abnormality. IMPRESSION: 1. No acute intra-abdominal/pelvic abnormality. 2. Additional findings; as detailed. THIS IS AN ELECTRONICALLY VERIFIED FINAL REPORT 02/16/2025 9:56 PM - Electronically signed by Sim Sullivan M.D. MF: PHILLIP Report ID: [id number] Reading Location: [place] [address] [address] Maxine PHAM IMG CT PROCEDURES Final Resu lt * Troponin T high-sensitivity 2-hour (02/16/2025 8:05 PM CDT) Trop T hs <6 <=14 ng/L Comment: Interpretive Data For further hscTnT resources including the diagnostic algorithm and an aid in interpretation, copy and paste this link: [email or web address].[email or web address]/[email or web address] Current Interpretive Data last revised 2020. Testing performed by: [address] [address] Trop T hs delta 0 ng/L MIGEL VELAZQUEZ Comment:Testing performed by : [address] [address] Trop T hs interp Insignificant MIGEL VELAZQUEZ Comment:Testing performed by : [address] [address] Blood 02/16/2025 8:05 PM CDT 02/16/2025 8:08 PM CDT us Solomon Charles MD LAB BLOOD ORDERABLE S Final Result Performing Organization Address [facility] Co de Phone Number MIGEL [facility] [place] [address] * Triglycerides (02/16/2025 7:55 PM CDT) Triglycerides 73 <=149 mg/dL Comment: Interpretive Data Ages < or = 9 years Acceptable: <75 mg/dL Borderline high: 75-99 mg/dL High: >or= 100 mg/dL Ages 10 to 20 years Acceptable: <90 mg/dL Borderline high: 90-129 mg/dL High: >or= 130 mg/dL Ages > or = 20 years Desirable: <150 mg/dL Borderline high: 150-199 mg/dL High: 200-499 mg/dL Very high: >or= 499 mg/dL Literature References: 1. Expert Panel on Integrated Guidelines for Cardiovascular Health and Risk Reduction in Children and Adolescents. Pediatrics 2011;128:S213 2. NCEP Expert Panel. Circulation 2004;110:227 Current Interpretive Data was last revised on 2018. Testing performed by: [address] [address] Blood 02/16/2025 7:55 PM CDT 02/16/2025 7:58 PM CDT us Maxine PHAM LAB BLOOD ORDERABLES Final R esult Performing Organization Address [facility] Co de Phone Number MIGEL [address] [address] * Ethanol (02/16/2025 7:55 PM CDT) Ethanol <10 <=10 mg/dL Comment: Interpretive Data Legal limit of intoxication > or = 80 mg/dL Levels > or = 400 mg/dL are potentially TOXIC. Current interpretive data was last revised on 2018. Testing performed by: [address] [address] Blood 02/16/2025 7:55 PM CDT 02/16/2025 7:58 PM CDT us Maxine PHAM LAB BLOOD ORDERABLES Final R esult MIGEL [address] [facility] Department [place] [address] * Drugs of Abuse Screen, Urine with Reflex Confirmation (02/16/2025 7:44 PM CDT) [facility] Amphetamine, ur Not Detected CutOff 500ng/mL Comment: Interpretive Data - Amphetamines: Samples containing greater than 500 ng/mL d-methamphetamine or other cross-reacting amphetamine compounds are reported as positive. Amphetamine immunoassays are subject to significant false positive rates due to cross-reactivity of non-amphetamine drugs. Confirmatory testing required for definitive results. Current Interpretive Data was last reviewed 2023. Testing performed by: [address] [address] Barbiturates, ur Not Detected CutOff 200ng/mL MIGEL Comment: Interpretive Data - Barbiturates: Samples containing greater than 200 ng/mL secobarbital or other cross-reacting barbiturate compounds are reported as positive. False positive and false negative results are possible. Confirmatory testing required for definitive results. Current Interpretive Data was last reviewed 2023. Testing performed by: [address] [address] Benzodiazepines, ur Not Detected CutOff 100ng/mL MIGEL Comment: Interpretive Data - Benzodiazepines: Samples containing greater than 100 ng/mL nordiazepam or other cross-reacting compounds are reported as positive. False positive and false negative results are possible. Confirmatory testing required for definitive results. Current Interpretive Data was last reviewed 2023. Testing performed by: [address] [address] Cannabinoids, ur Not Detected CutOff 50 ng/mL MIGEL Comment: Interpretive Data - Cannabinoids: Samples containing greater than 50 ng/mL delta-9 THC -COOH or other cross- reacting compounds are reported as positive. False positive and false negative results are possible. Confirmatory testing required for definitive results. Current Interpretive Data was last reviewed 2023. Testing performed by: [address] [address] Cocaine, ur Not Detected CutOff 150ng/mL [facility] Comment: Interpretive Data - Cocaine: Samples containing greater than 150 ng/mL benzoylecgonine or other cross- reacting compounds are reported as positive. False positive and false negative results are possible. Confirmatory testing required for definitive results. Current Interpretive Data was last reviewed 2023. Testing performed by: [address] [address] Fentanyl, Ur Not Detected CutOff 5 ng/mL [facility] Comment: Interpretive Data - Fentanyl: Samples containing greater than 1 ng/mL fentanyl or other cross-reacting fentanyl compounds are reported as positive. False positive and false negative results are possible. Confirmatory testing required for definitive results. Current Interpretive Data was last reviewed 2023. Testing performed by: [address] [address] Methadone, ur Not Detected CutOff 300ng/mL [facility] Comment: Interpretive Data - Methadone: Samples containing greater than 300 ng/mL d,l-methadone or other cross-reacting compounds are reported as positive. False positive and false negative results are possible. Confirmatory testing required for definitive results. Current Interpretive Data was last reviewed 2023. Testing performed by: [address] [address] Opiates, ur Not Detected CutOff 300ng/mL [facility] Comment: Interpretive Data - Opiates: Samples containing greater than 300 ng/mL morphine or other cross-reacting compounds are reported as positive. False positive and false negative results are possible. Confirmatory testing required for definitive results. Current Interpretive Data was last reviewed 2023. Testing performed by: [address] [address] Oxycodone, ur Not Detected CutOff 100ng/mL [facility] Comment: Interpretive Data - Oxycodone: Samples containing greater than 100 ng/mL oxycodone or other cross-reacting compounds are reported as positive. False positive and false negative results are possible. Confirmatory testing required for definitive results. Current Interpretive Data was last reviewed 2023. Testing performed by: [address] [address] Phencyclidine, ur Not Detected CutOff 25 ng/mL MIGEL Comment: Interpretive Data - Phencyclidine: Samples containing greater than 25 ng/mL phencyclidine or other cross-reacting compounds are reported as positive. False positive and false negative results are possible. Confirmatory testing required for definitive results. Current Interpretive Data was last reviewed 2023. Testing performed by: [address] [address] Urine Creatinine 333 mg/dL MIGEL Comment: Interpretive Data Urine Creatinine: < 10 mg/dL is extremely dilute = or > 10 but < 20 mg/dL is dilute = or > 20 mg/dL is normal Current Interpretive Data was last revised on 2017. Testing performed by: [address] [address] Urine 02/16/2025 7:44 PM CDT 02/16/2025 7:47 PM CDT Narrative MIGEL - 02/16/2025 8:11 PM CDT Drug of Abuse screening is performed by immunoassay for medical purposes only. This is not to be used for Pain Management purposes. If Detected, confirmation testing will be performed for Amphetamines, Cocaine, Fentanyl, Methadone, Opiates, Oxycodone or Phencyclidine. Maxine PHAM LAB URINE ORDERABLES Final R esult MIGEL [address] [facility] Department [place] [address] * (ABNORMAL) Urinalysis reflex to microscopic and culture Urine (02/16/2025 7:44 PM CDT) Color, ur Yellow Yellow Comment:Testing performed by : [address] [address] Clarity, ur Clear Clear MIGEL Comment:Testing performed by : [address] [address] Specific gravity, ur 1.029 1.003 - 1.030 MIGEL Comment:Testing performed by : [address] [address] pH, urine 6.5 MIGEL Comment: Interpretive Data U rine pH is affected by diet, medications, systemic acid-base disturbances, and renal tubular function. pH may affect urinary stone formation. For example, urine pH below 6.0 may help reduce the tendency for calcium phosphate stones and pH greater than 6.0 may reduce the tendency for uric acid stone formation. Source: [facility] [place] Current Interpretive Data was last revised on 2017 Testing performed by: [facility], [address] [place] [address], [place]., [address] Protein, ur ql Trace(A) Negative MIGEL Comment:Testing performed by : [facility], [address] [place] [address], [place]., [address] Glucose, ur ql Negative Negative MIGEL Comment:Testing performed by : [address], [place]., [address] Ketones, ur Trace(A) Negative MIGEL Comment:Testing performed by : [address], [place]., [address] Bilirubin, ur Negative Negative MIGEL Comment:Testing performed by : [address], [place]., [address] Blood, ur Negative Negative MIGEL Comment:Testing performed by : [address], [place]., [address] Urobilinogen, ur 2.0(A) <2.0 mg/dL MIGEL Comment:Testing performed by : [address], [place]., [address] Nitrite, ur Negative Negative MIGEL Comment:Testing performed by : [address], [place]., [address] Leukocyte esterase, ur 2+(A) Negative MIGEL Comment:Testing performed by : [address], [place]., [address] UA reflex comment Reflex to microscopic UA will be performed. MIGEL Comment:Testing performed by : [address], [place]., [address] Urine 02/16/2025 7:44 PM CDT 02/16/2025 7:47 PM CDT Chato Luna DO LAB MICROBIOLOGY - GENERAL ORD ERABLES Final Result Performing Organization Address [facility] Co de Phone Number MIGEL [address] [facility] [place] [address] * (ABNORMAL) Urinalysis, microscopic only (02/16/2025 7:44 PM CDT) WBC, ur 0-5 0 - 5 /HPF Comment:Testing performed by : [address] [address] RBC, ur 3-5(A) 0 - 2 /HPF MIGEL Comment:Testing performed by : [address] [address] Epithelial cells, squamous, ur >50(A) 0 - 5 /HPF MIGEL Comment:Testing performed by : [address] [address] Mucous, ur Present(A) MIGEL Comment:Testing performed by : [address] [address] Culture Reflex Comment Reflex conditions for urine culture (WBC >10) not met. MIGEL Comment:Testing performed by : [address] [address] Urine 02/16/2025 7:44 PM CDT 02/16/2025 7:47 PM CDT Chato Luna DO LAB URINE ORDERABLES Final Res ult Performing Organization Address City/[facility] Co de Phone Number MIGEL [address] [employer] [place] [address] * POCT hCG, urine (02/16/2025 7:40 PM CDT) HCG, ur, POC Negative Negative Lot Number [id number] QC Backgroud Clear Acceptable QC Control Line Acceptable Urine 02/16/2025 7:40 PM CDT Chato Luna DO POINT OF CARE TEST ORDERABLES Final Result * ECG 12 lead (02/16/2025 7:34 PM CDT) Ventricular Rate EKG/Min 81 BPM [facility] Atrial Rate 81 BPM [facility] TN-Interval (MSEC) 120 ms [facility] QRS-Interval (MSEC) 76 ms [facility] QT-Interval (MSEC) 400 ms [facility] QTc 464 ms [facility] P [place] 65 degrees [facility] R [place] 37 degrees [facility] T [place] 26 degrees [facility] Diagnosis Normal sinus rhythm Nonspecific T wave abnormality Abnormal ECG When compared with ECG of 10-SEP-2023 18:47, No significant change was found Confirmed by SULTAN COLINDRES M.D. ([id number]) on 02/17/2025 8:09:10 AM [facility] 02/16/2025 7:34 PM CDT 02/17/2025 8:09 AM CDT Chato Luna DO ECG ORDERABLES Final Result Performing Organization Address [facility]/ZIP Co de Phone Number [facility] * Troponin T high-sensitivity series (baseline, 2hr, 4hr, 6hr) (02/16/2025 6:17 PM CDT) Pathologist [facility] Trop T hs <6 <=14 ng/L Comment: Interpretive Data For further hscTnT resources including the diagnostic algorithm and an aid in interpretation, copy and paste this link: [email or web address].[email or web address]/[email or web address] Current Interpretive Data last revised 2020. Testing performed by: [facility], [address] [place] [address]., [address] Blood 02/16/2025 6:17 PM CDT 02/16/2025 6:20 PM CDT Chato Luna DO LAB BLOOD ORDERABLES Final Res ult MIGEL [address] [facility] Department [place] [address] * eGFR (02/16/2025 6:17 PM CDT) Pathologist [facility] eGFR 87 >=60 mL/min/1. 73 m2 Comment: Interpretive Data Reference Interval Normal >/= 90 mL/min/1.73m2 Mildly decreased* 60 - 89 mL/min/1.73m2 Mildly to moderately decreased 45 - 59 mL/min/1.73m2 Moderately to severely decreased 30 - 44 mL/min/1.73m2 Severely decreased 15 - 29 mL/min/1.73m2 Kidney Failure < 15 mL/min/1.73m2 *Relative to young adult level Estimated glomerular filtration rate is determined by the 2020 CKD-EPI equation recommended by the National Kidney Foundation (A Unifying Approach to GFR Estimation: Recommendations of the NKF-ASK Task Force on Reassessing the Inclusion of Race in Diagnosing Kidney Disease, JASN 2020). The CKD-EPI equation should not be used for patients with unstable renal function and has not been validated in children and those over 70. Current interpretive data was last reviewed 2021. Testing performed by: [address] [address] Blood 02/16/2025 6:17 PM CDT 02/16/2025 6:20 PM CDT us Chato Luna DO LAB BLOOD ORDERABLES Final Res ult MIGEL VELAZQUEZ [address] [facility] Department of Laboratories [place], [place] [id number] * Differential, auto (02/16/2025 6:17 PM CDT) Pathologist [facility] Neutrophil abs 2.27 1.50 - 6.50 K/cumm Comment:Testing performed by : [address] [address] Imm gran abs 0.01 0.00 - 0.10 K/cumm MIGEL Comment:Testing performed by : [address] [address] Lymphocyte abs 1.39 0.80 - 3.30 K/cumm MIGEL Comment:Testing performed by : [address] [address] Monocyte abs 0.42 0.20 - 0.80 K/cumm [facility] Comment:Testing performed by : [address] [address] Eosinophil abs 0.02 0.00 - 0.50 K/cumm [facility] Comment:Testing performed by : [address], [place]., [address] Basophil abs 0.01 0.00 - 0.10 K/cumm [facility] Comment:Testing performed by : [address] [address] Neutrophil pct 55.2 % [facility] Comment: Interpretive Data Percent cell count reference ranges are not reported, since discordance with absolute values may lead to misinterpretation of CBC data. Current Interpretive Data was last revised on 2017. Testing performed by: [address] [address] Imm gran pct 0.2 % [facility] Comment: Interpretive Data Percent cell count reference ranges are not reported, since discordance with absolute values may lead to misinterpretation of CBC data. Current Interpretive Data was last revised on 2017. Testing performed by: [address] [address] Lymphocyte pct 33.7 % [facility] Comment: Interpretive Data Percent cell count reference ranges are not reported, since discordance with absolute values may lead to misinterpretation of CBC data. Current Interpretive Data was last revised on 2017. Testing performed by: [address] [address] Monocyte pct 10.2 % [facility] Comment: Interpretive Data Percent cell count reference ranges are not reported, since discordance with absolute values may lead to misinterpretation of CBC data. Current Interpretive Data was last revised on 2017. Testing performed by: [address] [address] Eosinophil pct 0.5 % [facility] Comment: Interpretive Data Percent cell count reference ranges are not reported, since discordance with absolute values may lead to misinterpretation of CBC data. Current Interpretive Data was last revised on 2017. Testing performed by: [address] [address] Basophil pct 0.2 % MIGEL Comment: Interpretive Data Percent cell count reference ranges are not reported, since discordance with absolute values may lead to misinterpretation of CBC data. Current Interpretive Data was last revised on 2017. Testing performed by: [address] [address] Blood 02/16/2025 6:17 PM CDT 02/16/2025 6:20 PM CDT us Chato Luna DO LAB BLOOD ORDERABLES Final Res ult MIGEL [address] [facility] Department [place] [address] * (ABNORMAL) CBC with auto differential (02/16/2025 6:17 PM CDT) WBC 4.12 3.80 - 9.90 K/cumm Comment:Testing performed by : [address] [address] Hgb 11.0(L) 11.9 - 15.5 g/dL MIGEL Comment:Testing performed by : [address] [address] Hct 33.4(L) 35.6 - 45.5 % MIGEL Comment:Testing performed by : [address] [address] Plt 245 150 - 400 K/cumm MIGEL Comment:Testing performed by : [address] [address] MPV 9.9 9.1 - 12.3 fL MIGEL Comment:Testing performed by : [address] [address] RBC 3.91 3.90 - 5.20 M/cumm MIGEL Comment:Testing performed by : [address] [address] MCV 85.4 81.3 - 96.4 fL MIGEL Comment:Testing performed by : [address] [address] MCH 28.1 27.1 - 33.3 pg MIGEL VELAZQUEZ Comment:Testing performed by : [address] [address] MCHC 32.9 32.3 - 35.7 g/dL MIGEL VELAZQUEZ Comment:Testing performed by : [address] [address] RDW CV 21.9(H) 11.1 - 14.9 % MIGEL VELAZQUEZ Comment:Testing performed by : [address] [address] RDW SD 66.5(H) 35.7 - 48.1 fL MIGEL VELAZQUEZ Comment:Testing performed by : [address] [address] NRBC abs 0.00 0.00 - 0.01 K/cumm MIGEL VELAZQUEZ Comment:Testing performed by : [address] [address] Blood Venous blood specimen / Unknown 02/16/2025 6:17 PM CDT 02/16/2025 6:20 PM CDT Chato nuvoTV LAB BLOOD ORDERABLES Final Res ult Performing Organization Address City/[facility]/ZIP Co de Phone Number [address] [place] [email or web address] [address] * (ABNORMAL) Lipase (02/16/2025 6:17 PM CDT) Lipase 216(H) 10 - 99 Units/L Comment:Testing performed by : [address] [address] Blood Venous blood specimen / Unknown 02/16/2025 6:17 PM CDT 02/16/2025 6:20 PM CDT Barre LAB BLOOD ORDERABLES Final Res ult [address] [employer] [place] [address] * (ABNORMAL) Comprehensive metabolic panel (02/16/2025 6:17 PM CDT) Sodium 135 135 - 145 mmol/L Comment:Testing performed by : [address] [address] Potassium, pl 4.6 3.3 - 4.9 mmol/L MIGEL Comment: Hemolyzed; Potassium value may be falsely elevated by as much as 1.0 mmol/L. Suggest redraw and reanalysis. Testing performed by: [address], [place]., [address] Chloride 105 97 - 110 mmol/L [facility] Comment:Testing performed by : [address], [place]., [address] CO2 20(L) 22 - 32 mmol/L MIGEL Comment:Testing performed by : [address], [place]., [address] Anion gap 10 2 - 15 mmol/L [facility] Comment:Testing performed by : [address] [address] BUN 6 6 - 25 mg/dL [facility] Comment:Testing performed by : [address] [address] Creatinine 0.89 0.60 - 1.10 mg/dL [facility] Comment:Testing performed by : [address] [address] Glucose 112 70 - 199 mg/dL [facility] Comment: Interpretive Data Fasting glucose >/= 126 mg/dl is diagnostic for diabetes. Fasting is defined as no caloric intake for at least 8 hours. Fasting glucose between 100 mg/dl to 125 mg/dl is diagnostic of prediabetes. In a patient with classic symptoms of hyperglycemia or hyperglycemic crisis, a random glucose >/= 200 mg/dl is diagnostic for diabetes. In the absence of unequivocal hyperglycemia, results should be confirmed by repeat testing. The classification and Diagnosis of Diabetes Diabetes Care 202; 46: S19-S40. Current interpretive data was last revised 2022. Testing performed by: [address], [place]., [address] Calcium 8.6 8.5 - 10.3 mg/dL MIGEL VELAZQUEZ Comment:Testing performed by : [facility], [address] [place] [address]., [address] Bilirubin, total 0.4 0.1 - 1.2 mg/dL MIGEL VELAQZUEZ Comment:Testing performed by : [address] [address] Protein, pl 7.3 6.5 - 8.5 g/dL MIGEL Comment:Testing performed by : [address] [address] Albumin 3.9 3.5 - 5.0 g/dL MIGEL Comment:Testing performed by : [address] [address] Alk phos 143(H) 40 - 130 Units/L MIGEL Comment:Testing performed by : [address] [address] ALT 35 7 - 45 Units/L MIGEL Comment:Testing performed by : [address] [address] AST 85(H) 10 - 45 Units/L MIGEL Comment: Hemolyzed; result may be falsely elevated Testing performed by: [address] [address] Blood 02/16/2025 6:17 PM CDT 02/16/2025 6:20 PM CDT us Chato Luna DO LAB BLOOD ORDERABLES Final Res ult MIGEL [address] [facility] Department [place] [address] * (ABNORMAL) High Risk HPV DNA Detection with Genotyping (Molecular component) (05/25/2024 1:44 PM CDT) Pathologist [facility] HPV HR 16 Not Detected Not Detected [facility] Comment:Testing performed by : [facility], [address] [place]., [address] HPV HR 18 Not Detected Not Detected MIGEL VELAZQUEZ Comment:Testing performed by : [facility], [address] [place]., [address] HPV HR Non 16/18 Detected(A) Not Detected MIGEL VELAZQUEZ Comment: Interpretive Data Nucleic acid amplification for detection of high-risk Human Papilloma virus (HPV) is performed by the Nilo Wiliam 6800 HPV test. This assay specifically detects HPV-16 and HPV-18 genotypes. The following HPV genotypes are detected as high-risk HPV: HPV-31, 33, 35, ,39, 45, 51, 52, 56, 58, 59, 66, and 68. This assay has been approved by the [place] Food and Drug Administration for detection of HPV in cervical specimens collected by a physician using an endocervical brush/spatula or cervical broom and placed in the ThinPrep Pap Test PreservCyt collection containers. The performance characteristics of this test have been verified by the [facility] Molecular Infectious Disease laboratory. Correlate with separately reported cytology results, as applicable. Interpretive data last revised 23 Testing performed by: [facility], [address] [place]., [address] Endocervical 05/25/2024 1:44 PM CDT 05/26/2024 2:45 PM CDT Narrative MIGEL - 05/26/2024 10:40 PM CDT Clinical history and diagnosis->LP: 2017 Number of vials->1 Testing type->Screening Last menstrual period (date if known)->04/24/2024 Chelsey Fajardo MD LAB BODY FLUIDS AND STOOLS ORDERABLES Final Result MIGEL [address] [facility] Department [place] [address] [facility] * Hepatitis C antibody (12/06/2022 2:36 PM CDT) Hep C Ab Nonreactive Nonreactive MIGEL VELAZQUEZ Comment: Interpretive Data Nonreactive: Antibodies to HCV not detected. Does NOT exclude the possibility of recent exposure to HCV. Equivocal: Equivocal for HCV antibodies. Supplemental molecular testing will be automatically performed to determine infection status in accordance with current CDC screening recommendations. Reactive: Positive for HCV antibodies. This may represent current or past HCV infection. Supplemental molecular testing will be automatically performed to determine current infection status in accordance with current CDC screening recommendations. Interpretive data was last revised on 2019. Blood 12/06/2022 2:36 PM CDT 12/06/2022 6:29 PM CDT Neris Celestin CNM LAB MICROBIOLOGY - GENERAL OR DERABLES Final Result MIGEL [address] [facility] Department [place] [address] from Last 3 Months or Most Recently Relevant to Health Maintenance Insurance [facility] [place] [address] Advance Directives For more information, please contact: [phone] * Full Code (Latest Code Status on File) Date Activated Date Inactivated Comments 06/02/2023 4:53 AM 06/05/2023 10:00 PM * Full Code Date Activated Date Inactivated Comments 06/01/2023 7:55 PM 06/02/2023 1:58 AM Full CPR in case of cardiopulmonary arrest Care Teams Tonnage Compilation Clerk Relationship Specialty Start Date End Date No, Physician PCP - General 11/22/22 Chelsey Fajardo MD [address] [place] [id number] Consulting Physician Obstetrics and Gynecology 04/24/24
--- OUTSIDE RECORDS SUMMARY | 2025-03-23 16:38 | XMS_ITS | Clinical Summary ---
Author Organization [facility] Address [address] [place] [address] Phone Care Team Providers Care Assistant Office Manager Name Role Phone Gorge Ding MD Primary Care Provider [phone] Allergies No known active allergies Medications losartan (COZAAR) 100 mg tablet Take 100 mg by mouth daily. 03/20/2018 Active HYDROcodone-acet aminophen (HYCET) 7.5-325 mg/15 mL Solution Take 15 mL by mouth every 6 hours as needed for Pain, Moderate. Max Daily Amount: 60 mL 360 mL 07/08/2018 Active ondansetron (ZOFRAN) 4 mg Tablet Take 1 Tablet (4 mg) by mouth every 8 hours as needed for Nausea or Nausea/Emes is. 50 Tablet 07/08/2018 Active Active Problems Problem Noted Date Diagnosed Date S/P laparoscopic sleeve gastrectomy 07/07/2018 Generalized abdominal pain 07/07/2018 Severe obesity (BMI 35.0-39.9) with comorbidity 07/07/2018 Essential hypertension Family History Medical History Relation Name Comments No Known Problems Father No Known Problems Mother Relation Name Status Comments Father Alive Mother Alive Social History Tobacco Use Types Packs/Day Years Used Date Smoking Tobacco: Never Smokeless Tobacco: Never Alcohol Use Standard Drinks/Week Comments Yes 0 (1 standard drink = 0.6 oz pur e alcohol) occasionally Comments No Sex and Gender Information Value Date Recorded Sex Assigned at Not on file Legal Sex Female 11:41 PM CDT Gender Identity Not on file Sexual Orientation Not on file Last Filed Vital Signs Vital Sign Reading Time Taken Comments Blood Pressure 129/97 07/08/2018 10:57 AM CDT Pulse 68 07/08/2018 10:57 AM CDT Temperature 36.8 C (98.2 F) 07/08/2018 10:57 AM CDT Respiratory Rate 16 07/08/2018 10:57 AM CDT Oxygen Saturation 100% 07/08/2018 10:57 AM CDT Inhaled Oxygen Concentration - - Weight 105.7 kg (233 lb) 07/07/2018 1:00 PM CDT Height 165.1 cm (5' 5) 07/07/2018 1:00 PM CDT Body Mass Index 38.77 07/07/2018 1:00 PM CDT Plan of Treatment Health Maintenance Due Date Last Done Comments DTAP/TDAP/TD VACCINES (1 - Tdap) 2009 HEPATITIS B VACCINES (1 of 3 - 19+ 3-dose series) 2009 HPV/Cotest (21-29) 2011 CERVICAL CANCER SCREENING 2020 HPV/Cotest (30-65) 2020 PAP SMEAR 2020 INFLUENZA VACCINE (#1) 2025 HPV VACCINES Aged Out No longer eligi ble based on patient's age to complete this topic Medical Devices Implanted Type Area Competitive Intelligence Analyst Device Identifier Shelf Expiration Date Model / Serial / Lot Seamguard Endogia 60 Blck [id number] - [id number] Implanted:Qty : 1 on 07/07/2018 by Bernardino Byrne MD at [facility] N/A: Abdomen [employer] [id number] / / Description:Natalie castillo, nurse Fernanda Kinney not available. Seamguard Endogia 60 Blck [id number] - [id number] Implanted:Qty : 1 on 07/07/2018 by Bernardino Byrne MD at [facility] N/A: Abdomen [employer] [id number] / / Description:Natalie Kinney not available to update record. Seamguard Endogia 60 Prpl [id number] - [id number] Implanted:Qty : 1 on 07/07/2018 by Bernradino Byrne MD at [facility] N/A: Abdomen [employer] [id number] / / Seamguard Endogia 60 Prpl [id number] - [id number] Implanted:Qty : 1 on 07/07/2018 by Bernardino Byrne MD at [facility] N/A: Abdomen [employer] [id number] / / Seamguard Endogia 60 Prpl [id number] - [id number] Implanted:Qty : 1 on 07/07/2018 by Bernardino Byrne MD at [facility] N/A: Abdomen [employer] [id number] / / Insurance [employer] (INTERNAL) [facility] Internal Plans Advance Directives For more information, please contact: [phone] * Full Code (Latest Code Status on File) Date Activated Date Inactivated Comments 07/07/2018 11:58 AM 07/08/2018 7:07 PM Care Teams Assistant Office Manager Relationship Specialty Start Date End Date Gorge Ding MD [address] [facility] [address] [place] [address] PCP - General Internal Medicine 06/30/18
--- OUTSIDE RECORDS SUMMARY | 2025-03-23 16:39 | XMS_ITS | Clinical Summary ---
Author Organization [facility] Address [facility] [place] [address] Care Team Providers Care Rehab Tech Name Role Phone Unavailable Primary Care Provider Unavailabl e Allergies No known active allergies Medications No known medications Active Problems No known active problems Encounters Date Type Department Care Team Description 03/22/2025 6:52 PM CDT - 03/22/2025 7:00 PM CDT Emergency [facility] [place] [address] Radha Machado PA Discharge Disposition: Left Against Medical Advice 03/22/2025 Travel from Last 3 Months Family History Medical History Relation Comments Hypertension Mother Relation Status Comments Mother Social History Tobacco Use Types Packs/Day Years Used Date Smoking Tobacco: Never Smokeless Tobacco: Never Alcohol Use Standard Drinks/Week Comments No 0 (1 standard drink = 0.6 oz pur e alcohol) Comments No Sex and Gender Information Value Date Recorded Sex Assigned at Not on file Legal Sex Female 8:12 PM CDT Gender Identity Not on file Sexual Orientation Not on file Last Filed Vital Signs Vital Sign Reading Time Taken Comments Blood Pressure 151/92 09/03/2017 1:58 PM DRY HEAT CABINET ATTENDANT Pulse 70 09/03/2017 1:58 PM DRY HEAT CABINET ATTENDANT Temperature 37.1 C (98.8 F) 09/03/2017 1:58 PM DRY HEAT CABINET ATTENDANT Respiratory Rate 20 09/03/2017 1:58 PM DRY HEAT CABINET ATTENDANT Oxygen Saturation 100% 09/03/2017 1:58 PM DRY HEAT CABINET ATTENDANT Inhaled Oxygen Concentration - - Weight 94.3 kg (208 lb) 09/03/2017 1:58 PM DRY HEAT CABINET ATTENDANT Height 167.6 cm (5' 6) 09/03/2017 1:58 PM DRY HEAT CABINET ATTENDANT Body Mass Index 33.57 09/03/2017 1:58 PM DRY HEAT CABINET ATTENDANT Plan of Treatment Health Maintenance Due Date Last Done Comments Cervical Cancer Screening Pa p Smear (Age 30 to 64) Every 3 Years 1990 Annual Physical 1993 Hepatitis C 2008 Hepatitis B Vaccines (1 of 3 - 19+ 3-dose series) 2009 Cervical Cancer Screening Pa p with HPV Testing (Age 30 to 64) Every 5 Years 2020 Cervical Cancer Screening wi th HPV 2020 COVID-19 Vaccine (3 - 2023-2 5 season) 2024 11/29/2021, 10/23/2021 DTaP, Tdap and Td Vaccines ( 2 - Td or Tdap) 03/17/2025 03/17/2015 HPV Vaccines Aged Out No longer eligi ble based on patient's age to complete this topic Meningococcal B Vaccine Aged Out No l onger eligible based on patient's age to complete this topic Meningococcal Vaccine Aged Out No philly abdulaziz eligible based on patient's age to complete this topic Pneumococcal Vaccine: Pediatrics (0 to 5 Years) and At-Risk Patients (6 to 49 Years) Aged Out No longer eligible b ased on patient's age to complete this topic RSV Immunizations Under 20 Months Aged Out No longer eligible b ased on patient's age to complete this topic Insurance
--- OUTSIDE RECORDS SUMMARY | 2025-03-23 16:39 | XMS_ITS | Encounter Summary ---
Author Organization [facility] Address [facility] [place] [address] Care Team Providers Care Show Design Supervisor Name Role Phone Unavailable Primary Care Provider Unavailabl e Encounter Details Date Type Department Care Team (Late st Contact Info) Description 03/22/2025 6:52 PM CDT - 03/22/2025 7:00 PM CDT Emergency [facility] [place] [address] Radha Machado PA [address] [place] [address] Discharge Disposition: Left Against Medical Advice Social History Tobacco Use Types Packs/Day Years [...] on file documented as of this encounter ED Notes * VERO Hilario - 03/22/2025 6:59 PM CDT I signed up for patient who was not found in the emergency room when called multiple times for triage. Staff myself were unable to locate patient. I did attempt to call patient on phone number on file without any answer. I was unable to evaluate patient prior to elopement Patient left before triage/treatment complete. VERO Hilario 03/22/25 2901 Cosigned by Leo Medeiros MD at 03/22/2025 7:38 PM CDT * Renae Kign RN - 03/22/2025 6:52 PM CDT Pt called x3 for triage with no answer and not seen in ED WR documented in this encounter Plan of Treatment Not on file documented as of this encounter Visit Diagnoses Not on filedocumented in this encounter
--- OUTSIDE RECORDS SUMMARY | 2025-03-23 16:39 | XMS_ITS | Clinical Summary ---
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 History of gastric surgery 12/20/2022 Overview (12/20/2022): Gastric sleeve Encounters Date Type Department Care Team Description 03/16/2025 7:50 PM CDT - 03/16/2025 9:18 PM CDT Emergency [facility] Emergency Department [address] [place] [address] Abdominal pain in early (Primary Dx) Discharge Disposition: Discharge to home or self care 03/16/2025 Telephone [facility] Obstetrical Gynecology [address] [facility] [address] [place] [address] Chelsey Fajardo MD 02/16/2025 7:18 PM CDT - 02/16/2025 10:44 PM CDT Emergency [facility] Emergency Department [address] [place] [address] Chato Luna, Acute pancreatitis without infection or necrosis, unspecified pancreatitis type (Primary Dx) Discharge Disposition: Discharge to home or self care from Last 3 Months Surgical History Surgery Date Site/Laterality Comments BARIATRIC SURGERY 09/09/2018 - 09/08/2019 gastric sleeve US ABDOMEN COMPLETE W LIVER DOPPLER (C) 10/05/2018 Right Medical History Medical History Date Comments Hypertension Menorrhagia Headache Family History Medical History Relation Name Comments Breast cancer Father's Sister Diabetes Maternal Grandfather Diabetes Maternal Grandmother Heart failure Maternal Grandmother Hypertension Maternal Grandmother Hypertension Mother Colon cancer Neg Hx Ovarian cancer Neg Hx Uterine cancer Neg Hx Relation Name Status Comments Father Alive Father's Sister Maternal Grandfather Alive Maternal Grandmother Alive Mother Alive Social History Tobacco Use Types Packs/Day Years Used Date Smoking Tobacco: Never Smokeless Tobacco: Never Tobacco Cessation:Counseling Given: Not Answered Alcohol Use Standard Drinks/Week Comments Yes 0 (1 standard drink = 0.6 oz pur e alcohol) [facility] Utilities Answer Date Recorded In the past 12 months has [employer], [employer], oil, or water [employer] threatened to shut off services in your [...] week 09/11/2023 How often do you attend [facility] or jainism services? More than 4 times per year 09/11/2023 Do you belong to any clubs o r organizations such as anabaptist groups, unions, fraternal or athletic groups, or [...] in a mcfp (including now)? 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 Gender Identity Not on file Sexual Orientation Not on file Obstetrics History Para Term AB IAB SAB Ectopic Multiple Livin g Live Births 5 4 2 2 1 1 0 3 3 Date Outcome GA Total Labor Labor/2nd/3rd Weight Sex Type Anes PTL Pamela A1 A5 Name Clin SAB 2009 36w 0d 2.863 kg (6 lb 5 oz) F Vag-Sp ont Epidur al N Livin g Complications:Premature Rupt ure of Membranes Delivery Location:Other 2014 Term 37w 0d 3.289 kg (7 lb 4 oz) M Vag-Sp ont Epidur al N Livin g Red Diaz MD Complications:None Delivery Location:[facility] 2015 Term 37w 0d 2.381 kg (5 lb 4 oz) F Vag-Sp ont Epidur al N Livin g Complications:None Delivery Location:[facility] 2022 33w 2d 0h 02m 0h 02m/ 1.765 kg (3 lb 14.3 oz) Vagina l None Y Demis e 0 0 TAYLO R,SERGIO NEYSP ENDIN G FD Shayna anBelem MD Complications:None Delivery Location:[facility] Main C ampus ([facility] 58LD) Comments Age of 1st cycle: 16 Age of 1st delivery: 20 Last Filed Vital Signs Vital Sign Reading [...] 03/16/2025 6:37 PM CDT Plan of Treatment Health Maintenance Due Date Last Done Comments Varicella Vaccines (1 of 2 - 13+ 2-dose series) 2003 Hepatitis B Screening 2008 Covid-19 Vaccine (2 - 2023-2 5 season) 2024 10/23/2021 Depression Screening 07/19/2024 07/19/2023 DTaP/Tdap/Td Vaccine (3 - Td or Tdap) 03/17/2025 03/17/2015, 03/17/2015 Influenza Vaccine (#1) 2025 , 08/12/2006 Cervical Cancer Screening 05/25/20252023, 05/25/2024, 03/15/2017 Regular Well Visit/Exam 18-64 05/25/2025, 12/06/2022, 06/05/2019 Hepatitis C Screening Completed 12/06/2022 HPV Vaccines Aged Out No longer eligi ble based on patient's age to complete this topic Pneumococcal vaccine <65 Aged Out No longer eligible based on patient's age to complete this topic Procedures Procedure Name Priority Date/Time Associated Diagnosis [...] Not identified Mean sac diameter: 0.32 cm [place]roydon-rump length: Not applicable heart rate: Not applicable [...] Sim Sullivan M.D. MF: PHILLIP Report ID: [id number] Reading Location: [id number] Procedure Note Sim Sullivan, DO - 03/16/2025 EXAM DESCRIPTION: US OB TRANSVAGINAL REASON FOR STUDY: + preg, pelvic pain Beta-hC TECHNIQUE: Transvaginal images acquired of the pelvis. COMPARISON: CT of the abdomen and pelvis dated 02/16/2025. FINDINGS: Clinical gestational age: 6 weeks 2 days Clinical estimated Due Date: 11/07/2025 Intrauterine gestational sac: Present Yolk sac: Not identified Subchorionic bleed: No Placenta: Not identified Mean sac diameter: 0.32 cm Croydon-rump length: Not applicable heart rate: Not applicable [...] Sim Sullivan M.D. MF: PHILLIP Report ID: [id number] Reading Location: [id number] us Sonal PHAM IMG OB US PROCEDURES Final Result * (ABNORMAL) POCT hCG, urine (03/16/2025 6:56 PM CDT) [facility] HCG, ur, POC Positive(A) Negative Comment:Testing performed by : [facility], [address] [place] [address]., [address] POC Performer [phone] MIGEL VELAZQUEZ Comment:Testing performed by : [facility], [address] [place] [address]., [address] Urine 03/16/2025 6:56 PM CDT 03/16/2025 6:56 PM CDT us Notinfile Unknown LAB POCT ORDERABLES - DEVICE F inal Result MIGEL VELAZQUEZ [address] [facility] Department [place] [address] * eGFR (03/16/2025 6:54 PM CDT) [facility] eGFR >90 >=60 mL/min/1. 73 m2 Comment: [...] was last reviewed 2021. Testing performed by: [address] [address] Blood 03/16/2025 6:54 PM CDT 03/16/2025 7:02 PM CDT us Sonal PHAM LAB BLOOD ORDERABLES Final Result MIGEL [address] [facility] Department [place] [address] * Differential, auto (03/16/2025 6:54 PM CDT) Neutrophil abs 2.77 1.50 - 6.50 K/cumm Comment:Testing performed by : [address] [address] Imm gran abs 0.01 0.00 - 0.10 K/cumm MIGEL Comment:Testing performed by : [address] [address] Lymphocyte abs 1.53 0.80 - 3.30 K/cumm MIGEL Comment:Testing performed by : [address] [address] Monocyte abs 0.48 0.20 - 0.80 K/cumm MIGEL Comment:Testing performed by : [address] [address] Eosinophil abs 0.02 0.00 - 0.50 K/cumm [facility] Comment:Testing performed by : [address] [address] Basophil abs 0.01 0.00 - 0.10 K/cumm [facility] Comment:Testing performed by : [address] [address] Neutrophil pct 57.5 % BANNERELSA Comment: Interpretive Data Percent cell count reference ranges are not reported, since discordance with absolute values may lead to misinterpretation of CBC data. Current Interpretive Data was last revised on 2017. Testing performed by: [address] [address] Imm gran pct 0.2 % MIGEL Comment: Interpretive Data Percent cell count reference ranges are not reported, since discordance with absolute values may lead to misinterpretation of CBC data. Current Interpretive Data was last revised on 2017. Testing performed by: [address] [address] Lymphocyte pct 31.7 % CERELSA Comment: Interpretive Data Percent cell count reference ranges are not reported, since discordance with absolute values may lead to misinterpretation of CBC data. Current Interpretive Data was last revised on 2017. Testing performed by: [address] [address] Monocyte pct 10.0 % MIGEL Comment: Interpretive Data Percent cell count reference ranges are not reported, since discordance with absolute values may lead to misinterpretation of CBC data. Current Interpretive Data was last revised on 2017. Testing performed by: [address] [address] Eosinophil pct 0.4 % MIGEL Comment: Interpretive Data Percent cell count reference ranges are not reported, since discordance with absolute values may lead to misinterpretation of CBC data. Current Interpretive Data was last revised on 2017. Testing performed by: [address] [address] Basophil pct 0.2 % MIGEL Comment: Interpretive Data Percent cell count reference ranges are not reported, since discordance with absolute values may lead to misinterpretation of CBC data. Current Interpretive Data was last revised on 2017. Testing performed by: [address] [address] Blood 03/16/2025 6:54 PM CDT 03/16/2025 7:02 PM CDT Sonal PHAM LAB BLOOD ORDERABLES Final Result MIGEL [address] [facility] Department [place] [address] * (ABNORMAL) Urinalysis reflex to microscopic and culture Urine (03/16/2025 6:54 PM CDT) Color, ur Yellow Yellow Comment:Testing performed by : [address] [address] Clarity, ur Clear Clear MIGEL Comment:Testing performed by : [address] [address] Specific gravity, ur 1.023 1.003 - 1.030 MIGEL Comment:Testing performed by : [facility], [address] [place] [address], [place]., [address] pH, urine 8.0 MIGEL Comment: Interpretive Data U rine pH is affected by diet, medications, systemic acid-base disturbances, and renal tubular function. pH may affect urinary stone formation. For example, urine pH below 6.0 may help reduce the tendency for calcium phosphate stones and pH greater than 6.0 may reduce the tendency for uric acid stone formation. Source: [facility] Apieron Current Interpretive Data was last revised on 2017 Testing performed by: [facility], [address] [place] [address], [place]., [address] Protein, ur ql Trace(A) Negative MIGEL Comment:Testing performed by : [address], [place]., [address] Glucose, ur ql Negative Negative MIGEL Comment:Testing performed by : [address], [place]., [address] Ketones, ur Negative Negative MIGEL Comment:Testing performed by : [address], [place]., [address] Bilirubin, ur Negative Negative MIGEL Comment:Testing performed by : [address], [place]., [address] Blood, ur Negative Negative MIGEL Comment:Testing performed by : [address], [place]., [address] Urobilinogen, ur 2.0(A) <2.0 mg/dL MIGEL Comment:Testing performed by : [address] [address] Nitrite, ur Negative Negative MIGEL Comment:Testing performed by : [address] [address] Leukocyte esterase, ur 1+(A) Negative MIGEL Comment:Testing performed by : [address] [address] UA reflex comment Reflex to microscopic UA will be performed. MIGEL Comment:Testing performed by : [address], [place]., [address] Urine 03/16/2025 6:54 PM CDT 03/16/2025 7:02 PM CDT us Sonal PHAM LAB MICROBIOLOGY - GENERAL ORDERABLES Final Result MIGEL [address] [facility] Department [place] [address] * (ABNORMAL) CBC with auto differential (03/16/2025 6:54 PM CDT) WBC 4.82 3.80 - 9.90 K/cumm Comment:Testing performed by : [address] [address] Hgb 9.8(L) 11.9 - 15.5 g/dL MIGEL Comment:Testing performed by : [address] [address] Hct 30.4(L) 35.6 - 45.5 % MIGEL Comment:Testing performed by : [address] [address] Plt 282 150 - 400 K/cumm MIGEL Comment:Testing performed by : [address] [address] MPV 9.6 9.1 - 12.3 fL MIGEL Comment:Testing performed by : [address] [address] RBC 3.47(L) 3.90 - 5.20 M/cumm MIGEL Comment:Testing performed by : [address] [address] MCV 87.6 81.3 - 96.4 fL MIGEL Comment:Testing performed by : [address] [address] MCH 28.2 27.1 - 33.3 pg MIGEL VELAZQUEZ Comment:Testing performed by : [address] [address] MCHC 32.2(L) 32.3 - 35.7 g/dL MIGEL Comment:Testing performed by : [address] [address] RDW CV 23.4(H) 11.1 - 14.9 % MIGEL Comment:Testing performed by : [address] [address] RDW SD 74.1(H) 35.7 - 48.1 fL MIGEL Comment:Testing performed by : [address] [address] NRBC abs 0.00 0.00 - 0.01 K/cumm MIGEL Comment:Testing performed by : [address] [address] Blood Venous blood specimen / Unknown 03/16/2025 6:54 PM CDT 03/16/2025 7:02 PM CDT Sonal PHAM LAB BLOOD ORDERABLES Final Result Performing Organization Address City/[facility]/ZIP Co de Phone Number MIGEL [address] [facility] [place] [address] * (ABNORMAL) Urinalysis, microscopic only (03/16/2025 6:54 PM CDT) WBC, ur 0-5 0 - 5 /HPF Comment:Testing performed by : [address] [address] RBC, ur 0-2 0 - 2 /HPF MIGEL Comment:Testing performed by : [address] [address] Epithelial cells, squamous, ur 21-50(A) 0 - 5 /HPF MIGEL Comment:Testing performed by : [address] [address] Culture Reflex Comment Reflex conditions for urine culture (WBC >10) not met. MIGEL Comment:Testing performed by : [address] [address] Urine 03/16/2025 6:54 PM CDT 03/16/2025 7:02 PM CDT Sonal PHAM LAB URINE ORDERABLES Final Result Performing Organization Address City/[facility]/ZIP Co de Phone Number MIGEL [address] [place] [address] * (ABNORMAL) hCG, blood, quantitative (03/16/2025 6:54 PM CDT) [facility] hCG, quant 946.0(H) 0.0 - 5.0 IUnits/L Comment: Interpretive Data Male: < 5 IU/L Non- premenopausal Female: <5 IU/L The Nilo hCG Beta Quant assay procedure was used. Results from different manufacturers or methods may not be comparable. Serial testing should be performed using the same method. Interpretive Data was last revised on 2023 Testing performed by: [address] [address] Blood 03/16/2025 6:54 PM CDT 03/16/2025 7:02 PM CDT Sonal PHAM LAB BLOOD ORDERABLES Final Result Performing Organization Address City/[facility]/ZIP Co de Phone Number MARIELA[address] [address] * Lipase (03/16/2025 6:54 PM CDT) [facility] Lipase 37 10 - 99 Units/L Comment:Testing performed by : [address] [address] Blood Venous blood specimen / Unknown 03/16/2025 6:54 PM CDT 03/16/2025 7:02 PM CDT Sonal PHAM LAB BLOOD ORDERABLES Final Result [address] [address] * (ABNORMAL) Comprehensive metabolic panel (03/16/2025 6:54 PM CDT) [facility] Sodium 135 135 - 145 mmol/L Comment:Testing performed by : [address] [address] Potassium, pl 4.2 3.3 - 4.9 mmol/L [facility] Comment:Testing performed by : [address] [address] Chloride 106 97 - 110 mmol/L [facility] Comment:Testing performed by : [address], [place]., [address] CO2 20(L) 22 - 32 mmol/L [facility] Comment:Testing performed by : [address], [place]., [address] Anion gap 9 2 - 15 mmol/L [facility] Comment:Testing performed by : [address], [place]., [address] BUN 5(L) 6 - 25 mg/dL [facility] Comment:Testing performed by : [address], [place]., [address] Creatinine 0.76 0.60 - 1.10 mg/dL [facility] Comment:Testing performed by : [address] [address] Glucose 106 70 - 199 mg/dL [facility] Comment: Interpretive Data Fasting glucose >/= 126 [...] was last revised 2022. Testing performed by: [address] [address] Calcium 8.4(L) 8.5 - 10.3 mg/dL [facility] Comment:Testing performed by : [address] [address] Bilirubin, total 0.2 0.1 - 1.2 mg/dL [facility] Comment:Testing performed by : [address] [address] Protein, pl 6.8 6.5 - 8.5 g/dL MIGEL Comment:Testing performed by : [facility], [address] [place] [address]., [address] Albumin 3.7 3.5 - 5.0 g/dL MIGEL Comment:Testing performed by : [address] [address] Alk phos 114 40 - 130 Units/L MIGEL Comment:Testing performed by : [address] [address] ALT 17 7 - 45 Units/L MIGEL Comment:Testing performed by : [address] [address] AST 36 10 - 45 Units/L MIGEL Comment:Testing performed by : [address] [address] Blood 03/16/2025 6:54 PM CDT 03/16/2025 7:02 PM CDT Sonal PHAM LAB BLOOD ORDERABLES Final Result MIGEL [address] [facility] Department of Laboratories [place], [place] [id number] * CT Abdomen Pelvis W Contrast (02/16/2025 [...] Sim Sullivan M.D. MF: PHILLIP Report ID: [id number] Reading Location: [place] [address] Procedure Note Sim Sullivan, - 02/16/2025 EXAM DESCRIPTION: CT ABDOMEN PELVIS [...] left lower lobepulmonary nodule dating back to 2011 which is considered benign. No significant pulmonary [...] Sim Sullivan M.D. MF: PHILLIP Report ID: [id number] Reading Location: [place] [address] PROCEDURES Final Resu lt * Troponin T high-sensitivity 2-hour (02/16/2025 8:05 PM CDT) Trop T hs <6 <=14 ng/L Comment: Interpretive Data For further hscTnT resources including the diagnostic algorithm and an aid in interpretation, copy and paste this link: https://nrl.testcatalog.org/show/hsTrop Current Interpretive Data last revised 2020. Testing performed by: [facility], [address] [place] [address]., [address] Trop T hs delta 0 ng/L MIGEL VELAZQUEZ Comment:Testing performed by : [facility], [address] [place] [address]., [address] Trop T hs interp Insignificant MIGEL VELAZQUEZ Comment:Testing performed by : [facility], [address] [place] [address]., [address] Blood 02/16/2025 8:05 PM CDT 02/16/2025 8:08 PM CDT us Solomon Charles MD LAB BLOOD ORDERABLE S Final Result MIGEL [facility] [place] [address] * Triglycerides (02/16/2025 7:55 PM CDT) Triglycerides [...] last revised on 2018. Testing performed by: [facility], [address] [place] [address]., [address] Blood 02/16/2025 7:55 PM CDT 02/16/2025 7:58 PM CDT us Maxine PHAM LAB BLOOD ORDERABLES Final R esult MIGEL [facility] [place] [address] * Ethanol (02/16/2025 7:55 PM CDT) Ethanol <10 <=10 mg/dL Comment: Interpretive Data Legal limit of intoxication > or = 80 mg/dL Levels > or = 400 mg/dL are potentially TOXIC. Current interpretive data was last revised on 2018. Testing performed by: [facility], [address] [place] [address]., [address] Blood 02/16/2025 7:55 PM CDT 02/16/2025 7:58 PM CDT us Maxine PHAM LAB BLOOD ORDERABLES Final R esult MIGEL VELAZQUEZ [address] [facility] Department [place] [address] * Drugs of Abuse Screen, Urine with Reflex Confirmation (02/16/2025 7:44 PM CDT) Amphetamine, ur Not Detected CutOff 500ng/mL Comment: Interpretive Data - Amphetamines: Samples containing greater than 500 ng/mL d-methamphetamine or other cross-reacting amphetamine compounds are reported as positive. Amphetamine immunoassays are subject to significant false positive rates due to cross-reactivity of non-amphetamine drugs. Confirmatory testing required for definitive results. Current Interpretive Data was last reviewed 2023. Testing performed by: [address] [address] Barbiturates, ur Not Detected CutOff 200ng/mL MIGEL VELAZQUEZ Comment: Interpretive Data - Barbiturates: Samples containing greater than 200 ng/mL secobarbital or other cross-reacting barbiturate compounds are reported as positive. False positive and false negative results are possible. Confirmatory testing required for definitive results. Current Interpretive Data was last reviewed 2023. Testing performed by: [address] [address] Benzodiazepines, ur Not Detected CutOff 100ng/mL MIGEL Comment: Interpretive Data - Benzodiazepines: Samples containing greater than 100 ng/mL nordiazepam or other cross-reacting compounds are reported as positive. False positive and false negative results are possible. Confirmatory testing required for definitive results. Current Interpretive Data was last reviewed 2023. Testing performed by: [facility], [address] [place] [address]., [address] Cannabinoids, ur Not Detected CutOff 50 ng/mL [facility] Comment: Interpretive Data - Cannabinoids: Samples containing greater than 50 ng/mL delta-9 THC -COOH or other cross- reacting compounds are reported as positive. False positive and false negative results are possible. Confirmatory testing required for definitive results. Current Interpretive Data was last reviewed 2023. Testing performed by: [facility], [address] [place] [address], [place]., [address] Cocaine, ur Not Detected CutOff 150ng/mL [facility] Comment: Interpretive Data - Cocaine: Samples containing greater than 150 ng/mL benzoylecgonine or other cross- reacting compounds are reported as positive. False positive and false negative results are possible. Confirmatory testing required for definitive results. Current Interpretive Data was last reviewed 2023. Testing performed by: [address], [place]., [address] Fentanyl, Ur Not Detected CutOff 5 ng/mL [facility] Comment: Interpretive Data - Fentanyl: Samples containing greater than 1 ng/mL fentanyl or other cross-reacting fentanyl compounds are reported as positive. False positive and false negative results are possible. Confirmatory testing required for definitive results. Current Interpretive Data was last reviewed 2023. Testing performed by: [address] [address] Methadone, ur Not Detected CutOff 300ng/mL [facility] Comment: Interpretive Data - Methadone: Samples containing greater than 300 ng/mL d,l-methadone or other cross-reacting compounds are reported as positive. False positive and false negative results are possible. Confirmatory testing required for definitive results. Current Interpretive Data was last reviewed 2023. Testing performed by: [address], [place]., [address] Opiates, ur Not Detected CutOff 300ng/mL [facility] Comment: Interpretive Data - Opiates: Samples containing greater than 300 ng/mL morphine or other cross-reacting compounds are reported as positive. False positive and false negative results are possible. Confirmatory testing required for definitive results. Current Interpretive Data was last reviewed 2023. Testing performed by: [address] [address] Oxycodone, ur Not Detected CutOff 100ng/mL MIGEL Comment: Interpretive Data - Oxycodone: Samples containing greater than 100 ng/mL oxycodone or other cross-reacting compounds are reported as positive. False positive and false negative results are possible. Confirmatory testing required for definitive results. Current Interpretive Data was last reviewed 2023. Testing performed by: [address] [address] Phencyclidine, ur Not Detected CutOff 25 ng/mL MIGEL Comment: Interpretive Data - Phencyclidine: Samples containing greater than 25 ng/mL phencyclidine or other cross-reacting compounds are reported as positive. False positive and false negative results are possible. Confirmatory testing required for definitive results. Current Interpretive Data was last reviewed 2023. Testing performed by: [address] [address] Urine Creatinine 333 mg/dL MIGEL Comment: Interpretive Data Urine Creatinine: < 10 mg/dL is extremely dilute = or > 10 but < 20 mg/dL is dilute = or > 20 mg/dL is normal Current Interpretive Data was last revised on 2017. Testing performed by: [address] [address] Urine 02/16/2025 7:44 PM CDT 02/16/2025 7:47 PM CDT Narrative MIGEL - 02/16/2025 8:11 PM CDT Drug of Abuse screening is performed by immunoassay for medical purposes only. This is not to be used for Pain Management purposes. If Detected, confirmation testing will be performed for Amphetamines, Cocaine, Fentanyl, Methadone, Opiates, Oxycodone or Phencyclidine. us Maxine PHAM LAB URINE ORDERABLES Final R esult MIGEL [address] [facility] Department [place] [address] * (ABNORMAL) Urinalysis reflex to microscopic and culture Urine (02/16/2025 7:44 PM CDT) Color, ur Yellow Yellow Comment:Testing performed by : [address] [address] Clarity, ur Clear Clear MIGEL Comment:Testing performed by : [address] [address] Specific gravity, ur 1.029 1.003 - 1.030 MIGEL Comment:Testing performed by : [address] [address] pH, urine 6.5 MIGEL Comment: Interpretive Data U rine pH is affected by diet, medications, systemic acid-base disturbances, and renal tubular function. pH may affect urinary stone formation. For example, urine pH below 6.0 may help reduce the tendency for calcium phosphate stones and pH greater than 6.0 may reduce the tendency for uric acid stone formation. Source: [facility] Apieron Current Interpretive Data was last revised on 2017 Testing performed by: [address] [address] Protein, ur ql Trace(A) Negative MIGEL Comment:Testing performed by : [address] [address] Glucose, ur ql Negative Negative MIGEL Comment:Testing performed by : [address] [address] Ketones, ur Trace(A) Negative MIGEL Comment:Testing performed by : [address] [address] Bilirubin, ur Negative Negative MIGEL Comment:Testing performed by : [address] [address] Blood, ur Negative Negative MIGEL Comment:Testing performed by : [address] [address] Urobilinogen, ur 2.0(A) <2.0 mg/dL MIGEL Comment:Testing performed by : [address] [address] Nitrite, ur Negative Negative MIGEL Comment:Testing performed by : [address] [place] [address] Leukocyte esterase, ur 2+(A) Negative MIGEL Comment:Testing performed by : [address] [address] UA reflex comment Reflex to microscopic UA will be performed. MIGEL Comment:Testing performed by : [address] [address] Urine 02/16/2025 7:44 PM CDT 02/16/2025 7:47 PM CDT Chato Luna DO LAB MICROBIOLOGY - GENERAL ORD ERABLES Final Result Performing Organization Address [facility] Co de Phone Number MIGEL [address] [facility] Department [place] [address] * (ABNORMAL) Urinalysis, microscopic only (02/16/2025 7:44 PM CDT) WBC, ur 0-5 0 - 5 /HPF Comment:Testing performed by : [address] [address] RBC, ur 3-5(A) 0 - 2 /HPF MIGEL Comment:Testing performed by : [address] [address] Epithelial cells, squamous, ur >50(A) 0 - 5 /HPF MIGEL Comment:Testing performed by : [address] [address] Mucous, ur Present(A) MIGEL Comment:Testing performed by : [address] [address] Culture Reflex Comment Reflex conditions for urine culture (WBC >10) not met. MIGEL Comment:Testing performed by : [address] [address] Urine 02/16/2025 7:44 PM CDT 02/16/2025 7:47 PM CDT [employer] Chato Luna DO LAB URINE ORDERABLES Final Res ult Performing Organization Address [facility]/ZIP Co de Phone Number MIGEL [address] [facility] Department [place] [address] * POCT hCG, urine (02/16/2025 7:40 PM CDT) HCG, ur, POC Negative Negative Lot Number [id number] QC Backgroud Clear Acceptable QC Control Line Acceptable Urine 02/16/2025 7:40 PM CDT Chato Luna DO POINT OF CARE TEST ORDERABLES Final Result * ECG 12 lead (02/16/2025 7:34 PM CDT) Pathologist [facility] Ventricular Rate EKG/Min 81 BPM [facility] Atrial Rate 81 BPM [facility] UT-Interval (MSEC) 120 ms [facility] QRS-Interval (MSEC) 76 ms [facility] QT-Interval (MSEC) 400 ms [facility] QTc 464 ms [facility] P [place] 65 degrees [facility] R [place] 37 degrees [facility] T [place] 26 degrees [facility] Diagnosis Normal sinus rhythm Nonspecific T wave abnormality Abnormal ECG When compared with ECG of 10-SEP-2023 18:47, No significant change was found Confirmed by SULTAN COLINDRES M.D. ([id number]) on 02/17/2025 8:09:10 AM [facility] 02/16/2025 7:34 PM CDT 02/17/2025 8:09 AM CDT Chato Luna DO ECG ORDERABLES Final Result [facility] * Troponin T high-sensitivity series (baseline, 2hr, 4hr, 6hr) (02/16/2025 6:17 PM CDT) Pathologist [facility] Trop T hs <6 <=14 ng/L Comment: Interpretive Data For further hscTnT resources including the diagnostic algorithm and an aid in interpretation, copy and paste this link: [email or web address].testcatalog.org/[email or web address] Current Interpretive Data last revised 2020. Testing performed by: [address] [address] Blood 02/16/2025 6:17 PM CDT 02/16/2025 6:20 PM CDT Chato Luna DO LAB BLOOD ORDERABLES Final Res ult Performing Organization Address City/[facility]/ZIP Co de Phone Number MIGEL [address] [place] [address] * eGFR (02/16/2025 6:17 PM CDT) eGFR 87 >=60 mL/min/1. 73 m2 Comment: [...] was last reviewed 2021. Testing performed by: [address] [address] Blood 02/16/2025 6:17 PM CDT 02/16/2025 6:20 PM CDT Chato Luna DO LAB BLOOD ORDERABLES Final Res ult MIGEL [facility] [place] [address] * Differential, auto (02/16/2025 6:17 PM CDT) [facility] Neutrophil abs 2.27 1.50 - 6.50 K/cumm Comment:Testing performed by : [address] [address] Imm gran abs 0.01 0.00 - 0.10 K/cumm [facility] Comment:Testing performed by : [address], [place]., [address] Lymphocyte abs 1.39 0.80 - 3.30 K/cumm [facility] Comment:Testing performed by : [address], [place]., [address] Monocyte abs 0.42 0.20 - 0.80 K/cumm [facility] Comment:Testing performed by : [address] [address] Eosinophil abs 0.02 0.00 - 0.50 K/cumm [facility] Comment:Testing performed by : [address] [address] Basophil abs 0.01 0.00 - 0.10 K/cumm [facility] Comment:Testing performed by : [address] [address] Neutrophil pct 55.2 % [facility] Comment: Interpretive Data Percent cell count reference ranges are not reported, since discordance with absolute values may lead to misinterpretation of CBC data. Current Interpretive Data was last revised on 2017. Testing performed by: [address] [address] Imm gran pct 0.2 % [facility] Comment: Interpretive Data Percent cell count reference ranges are not reported, since discordance with absolute values may lead to misinterpretation of CBC data. Current Interpretive Data was last revised on 2017. Testing performed by: [address] [address] Lymphocyte pct 33.7 % [facility] Comment: Interpretive Data Percent cell count reference ranges are not reported, since discordance with absolute values may lead to misinterpretation of CBC data. Current Interpretive Data was last revised on 2017. Testing performed by: [address] [address] Monocyte pct 10.2 % [facility] Comment: Interpretive Data Percent cell count reference ranges are not reported, since discordance with absolute values may lead to misinterpretation of CBC data. Current Interpretive Data was last revised on 2017. Testing performed by: [address] [address] Eosinophil pct 0.5 % MIGEL VELAZQUEZ Comment: Interpretive Data Percent cell count reference ranges are not reported, since discordance with absolute values may lead to misinterpretation of CBC data. Current Interpretive Data was last revised on 2017. Testing performed by: [address] [address] Basophil pct 0.2 % MIGEL Comment: Interpretive Data Percent cell count reference ranges are not reported, since discordance with absolute values may lead to misinterpretation of CBC data. Current Interpretive Data was last revised on 2017. Testing performed by: [address] [address] Blood 02/16/2025 6:17 PM CDT 02/16/2025 6:20 PM CDT us Chato Luna DO LAB BLOOD ORDERABLES Final Res ult MIGEL [address] [facility] Department [place] [address] * (ABNORMAL) CBC with auto differential (02/16/2025 6:17 PM CDT) WBC 4.12 3.80 - 9.90 K/cumm Comment:Testing performed by : [address] [address] Hgb 11.0(L) 11.9 - 15.5 g/dL MIGEL VELAZQUEZ Comment:Testing performed by : [address] [address] Hct 33.4(L) 35.6 - 45.5 % MIGEL VELAZQUEZ Comment:Testing performed by : [address] [address] Plt 245 150 - 400 K/cumm MIGEL VELAZQUEZ Comment:Testing performed by : [address] [address] MPV 9.9 9.1 - 12.3 fL MIGEL VELAZQUEZ Comment:Testing performed by : [address] [address] RBC 3.91 3.90 - 5.20 M/cumm MIGEL VELAZQUEZ Comment:Testing performed by : [address] [address] MCV 85.4 81.3 - 96.4 fL MIGEL Comment:Testing performed by : [address] [address] MCH 28.1 27.1 - 33.3 pg MIGEL Comment:Testing performed by : [address] [address] MCHC 32.9 32.3 - 35.7 g/dL MIGEL Comment:Testing performed by : [address], [address] RDW CV 21.9(H) 11.1 - 14.9 % MIGEL Comment:Testing performed by : [address] [address] RDW SD 66.5(H) 35.7 - 48.1 fL MIGEL Comment:Testing performed by : [address], [address] NRBC abs 0.00 0.00 - 0.01 K/cumm MIGEL Comment:Testing performed by : [address] [address] Blood Venous blood specimen / Unknown 02/16/2025 6:17 PM CDT 02/16/2025 6:20 PM CDT us Chato Luna DO LAB BLOOD ORDERABLES Final Res ult MIGEL VELAZQUEZ [address] [facility] Department of Laboratories [place], [place] [id number] * (ABNORMAL) Lipase (02/16/2025 6:17 PM CDT) Lipase 216(H) 10 - 99 Units/L Comment:Testing performed by : [address] [address] Blood Venous blood specimen / Unknown 02/16/2025 6:17 PM CDT 02/16/2025 6:20 PM CDT us Chato Cheryl DO LAB BLOOD ORDERABLES Final Res ult MIGEL 45[address] [facility] Department [place] [address] * (ABNORMAL) Comprehensive metabolic panel (02/16/2025 6:17 PM CDT) Sodium 135 135 - 145 mmol/L Comment:Testing performed by : [address] [address] Potassium, pl 4.6 3.3 - 4.9 mmol/L MIGEL Comment: Hemolyzed; Potassium value may be falsely elevated by as much as 1.0 mmol/L. Suggest redraw and reanalysis. Testing performed by: [address] [address] Chloride 105 97 - 110 mmol/L MIGEL Comment:Testing performed by : [address] [address] CO2 20(L) 22 - 32 mmol/L MIGEL Comment:Testing performed by : [address] [address] Anion gap 10 2 - 15 mmol/L MIGEL Comment:Testing performed by : [address] [address] BUN 6 6 - 25 mg/dL MIGEL Comment:Testing performed by : [address] [address] Creatinine 0.89 0.60 - 1.10 mg/dL MIGEL Comment:Testing performed by : [address] [address] Glucose 112 70 - 199 mg/dL MIGEL Comment: Interpretive [...] was last revised 2022. Testing performed by: [address] [address] Calcium 8.6 8.5 - 10.3 mg/dL MIGEL Comment:Testing performed by : [address] [address] Bilirubin, total 0.4 0.1 - 1.2 mg/dL MIGEL Comment:Testing performed by : [address] [address] Protein, pl 7.3 6.5 - 8.5 g/dL MIGEL Comment:Testing performed by : [address] [address] Albumin 3.9 3.5 - 5.0 g/dL MIGEL Comment:Testing performed by : [address] [address] Alk phos 143(H) 40 - 130 Units/L MIGEL Comment:Testing performed by : [address] [address] ALT 35 7 - 45 Units/L MIGEL Comment:Testing performed by : [address] [address] AST 85(H) 10 - 45 Units/L MIGEL Comment: Hemolyzed; result may be falsely elevated Testing performed by: [address] [address] Blood 02/16/2025 6:17 PM CDT 02/16/2025 6:20 PM CDT us Chato Luna DO LAB BLOOD ORDERABLES Final Res ult MIGEL VELAZQUEZ [address] [facility] [place] [address] * (ABNORMAL) High Risk HPV DNA Detection with Genotyping (Molecular component) (05/25/2024 1:44 PM CDT) HPV HR 16 Not Detected Not Detected [facility] Comment:Testing performed by : [facility], [address] [place]., [address] HPV HR 18 Not Detected Not Detected MIGEL VELAZQUEZ Comment:Testing performed by : [facility], [address] [facility], [address] HPV HR Non 16/18 Detected(A) Not Detected [...] this test have been verified by the [facility] Molecular Infectious Disease laboratory. Correlate with separately reported cytology results, as applicable. Interpretive data last revised 23 Testing performed by: [facility], [address] [place]., [address] Endocervical 05/25/2024 1:44 PM CDT 05/26/2024 2:45 PM CDT Narrative MIGEL - 05/26/2024 10:40 PM CDT Clinical history and diagnosis->LP: 2017 Number of vials->1 Testing type->Screening Last menstrual period (date if known)->04/24/2024 Chelsey Fajardo MD LAB BODY FLUIDS AND STOOLS ORDERABLES Final Result Performing Organization Address City/State/[facility] de Phone Number MIGEL [address] [facility] [place] [address] [facility] * Hepatitis C antibody (12/06/2022 2:36 [...] MICROBIOLOGY - GENERAL OR DERABLES Final Result Performing Organization Address [facility] de Phone Number MIGEL [address] [facility] [place] [address] from Last 3 Months or Most Recently Relevant to Health Maintenance Insurance [facility] Advance Directives For more information, please contact: [phone] * Full Code (Latest Code Status on File) Date Activated Date Inactivated Comments 06/02/2023 4:53 AM 06/05/2023 10:00 PM * Full Code Date Activated Date Inactivated Comments 06/01/2023 7:55 PM 06/02/2023 1:58 AM Full CPR in case of cardiopulmonary arrest Care Teams Workers Compensation Consultant Relationship Specialty Start Date End Date No, Physician PCP - General 11/22/22 Chelsey Fajardo MD [address] [place] [id number] Consulting Physician Obstetrics and Gynecology 04/24/24
--- OUTSIDE RECORDS SUMMARY | 2025-03-23 16:39 | XMS_ITS | Encounter Summary ---
Author Organization [facility] Address [address] [place] [id number] Care Team Providers Care Otr Owner Operator Name Role Phone Unavailable Primary Care Provider Unavailabl e Encounter Details Date Type Department Care Team (Latest Contact Info) Description 03/22/2025 Travel Social History Tobacco Use Types Packs/Day Years [...]
[2025-03-23 16:53] LABS: BEDSIDEPREGUCG Positive (Negative)
[2025-03-23 17:07] LABS: Add Urine Microscopic? YES; Appearance Urine Clear (Clear); Glucose Urine UA Negative (Negative); Leukocyte Esterase Ur 1+ LEU/UL (Negative); Need Manual Microscopic Reviewed; Nitrate Urine Negative (Negative); Non Pathogenic Casts 0-2; Specific Grav Ur 1.024 (1.001-1.035)
--- OUTSIDE RECORDS SUMMARY | 2025-03-23 17:55 | XMS_ITS | Clinical Summary ---
Author Organization [facility] Address [address] [place] [address] Phone Care Team Providers Care Appliance Sales Associate Name Role Phone Gorge Ding MD Primary Care Provider [phone] Allergies No known active allergies Medications losartan [...] this topic Medical Devices Implanted Type Area President [employer] Device Identifier Shelf Expiration Date Model / Serial / Lot Seamguard Endogia 60 Blck [id number] - [id number] Implanted:Qty : 1 on 07/07/2018 by Bernardino Byrne MD at [facility] N/A: Abdomen [employer] [id number] / / Description:Natalie castillo, nurse Fernanda Kinney not available. Seamguard Endogia 60 Blck [id number] - [id number] Implanted:Qty : 1 on 07/07/2018 by Bernardino Byrne MD at [facility] N/A: Abdomen [employer] [id number] / / Description:Natalie Kinney not available to update record. Seamguard Endogia 60 Prpl [id number] - [id number] Implanted:Qty : 1 on 07/07/2018 by Bernardino Byrne MD at [facility] N/A: Abdomen [employer] [id number] [id number] / / Seamguard Endogia 60 Prpl [id number] - [id number] Implanted:Qty : 1 on 07/07/2018 by Bernardino Byrne MD at [facility] N/A: Abdomen [employer] [id number] 0P / / Seamguard Endogia 60 Prpl [id number] - [id number] Implanted:Qty : 1 on 07/07/2018 by Bernardino Byrne MD at [facility] N/A: Abdomen [employer] [id number] 0P / / Insurance [employer] (INTERNAL) [facility] Internal Plans Advance Directives For more information, please contact: [phone] * Full Code (Latest Code Status on File) Date Activated Date Inactivated Comments 07/07/2018 11:58 AM 07/08/2018 7:07 PM Care Teams Appliance Sales Associate Relationship Specialty Start Date End Date Gorge Ding MD [address] [facility] [address] [place] [address] PCP - General Internal Medicine 06/30/18
--- OUTSIDE RECORDS SUMMARY | 2025-03-23 17:55 | XMS_ITS | Encounter Summary ---
Author Organization [facility] Address [facility] [place] [address] Care Team Providers Care Rescue Boat Operator Name Role Phone Unavailable Primary Care Provider Unavailabl e Encounter Details Date Type Department Care Team (Late st Contact Info) Description 03/22/2025 6:52 PM CDT - 03/22/2025 7:00 PM CDT Emergency [facility] [place] [address] Radha Machado PA [address] [place] [address] Discharge Disposition: Left Against Medical Advice Social [...] left before triage/treatment complete. VERO Hilario 03/22/25 1657 Cosigned by Leo Medeiros MD at 03/22/2025 7:38 PM CDT * Renae King RN - 03/22/2025 6:52 PM CDT Pt called x3 for triage with no answer and not seen in ED WR documented in this encounter Plan of Treatment Not on file documented as of this encounter Visit Diagnoses Not on filedocumented in this encounter
--- OUTSIDE RECORDS SUMMARY | 2025-03-23 17:55 | XMS_ITS ---
Author Organization Unknown Plan of Treatment Description Planned Activity Planned Timing [facility] is a provider organization who partners directly with Health Plans and provides integrated primary care, behavioral health, and secondary social studies teacher for an attributed population Letter encounter to patientTelephone encounter Mar 04, 2025Jul 2024 Encounters Encounter Type Performer Location Encounter Date Encoun ter Notes virtual - - [id number] no notes Patient Care team information Name Category Status Period Participants - - Proposed period not known -
--- OUTSIDE RECORDS SUMMARY | 2025-03-23 17:55 | XMS_ITS | Referral Summary ---
Author Organization [facility] Address [address] [place] [address] Care Team Providers Care Us Customs And Border Officer Name Role Phone No, Physician Primary Care Provider [phone] Chelsey Fajardo MD Unavailable [phone] Encounters Date Type Department Care Team Description 03/16/2025 7:50 PM CDT - 03/16/2025 9:18 PM CDT Emergency [facility] Emergency Department [address] [place], [place] [address] Abdominal pain in early (Primary Dx) Discharge Disposition: Discharge to home or self care 03/16/[address] [facility] Obstetrical Gynecology [address] [address] Chelsey Fajardo MD 02/16/2025 7:18 PM CDT - 02/16/2025 10:44 PM CDT Emergency [facility] Emergency Department [address] [place] [id number] Chato Luna DO Acute pancreatitis without infection or necrosis, unspecified pancreatitis type (Primary Dx) Discharge Disposition: Discharge to home or self care from Last 3 Months Allergies No known active allergies Medications vit [id number] 27mg iron- 800 mcg-250 mg capsule Take [...] 09/11/2023 Assessment & Plan (09/11/2023 3:18 AM DIRECTOR OF QUALITY): As seen on CT imaging NPO IV [...] 12/20/2022 Assessment & Plan (09/11/2023 3:18 AM DIRECTOR OF QUALITY): Continue home regimen IV hydralazine p.r.n. History of gastric surgery 12/20/2022 Overview (12/20/2022): Gastric sleeve Social History Tobacco Use Types Packs/Day Years Used Date Smoking Tobacco: Never Smokeless Tobacco: Never Tobacco Cessation:Counseling Given: Not Answered Alcohol Use Standard Drinks/Week Comments Yes 0 (1 standard drink = 0.6 oz pur e alcohol) [facility] Utilities Answer Date Recorded In the past 12 months has [employer], gas, oil, or water [employer] threatened to shut off services in your [...] often do you attend chur ch or pentecostalism services? More than 4 times per year 09/11/2023 Do you belong to any clubs o r organizations such as jewish groups, unions, fraternal or athletic groups, or [...] place to sleep or slept in a fci (including now)? No 09/11/2023 Aragon Depression Scale Answer Date Recorded Aragon Depression Scale Total 15 07/19/2023 The thought [...] on file Legal Sex Female 6:08 AM DIRECTOR OF QUALITY Gender Identity Not on file Sexual Orientation [...] Not identified Mean sac diameter: 0.32 cm [place]-rump length: Not applicable heart rate: Not applicable [...] Sim Sullivan M.D. MF: PHILLIP Report ID: [id number] Reading Location: [id number] Procedure Note Sim Sullivan, - 03/16/2025 EXAM [...] Not identified Mean sac diameter: 0.32 cm [place]-rump length: Not applicable heart rate: Not applicable [...] Sim Sullivan M.D. MF: PHILLIP Report ID: [id number] Reading Location: [place] [address] us Sonal PHAM IMG OB US PROCEDURES Final Result * (ABNORMAL) POCT hCG, urine (03/16/2025 6:56 PM CDT) HCG, ur, POC Positive(A) Negative Comment:Testing performed by : [address] [address] POC Performer [id number] MIGEL VELAZQUEZ Comment:Testing performed by : [address] [address] Urine 03/16/2025 6:56 PM CDT 03/16/2025 6:56 PM CDT us Notinfile Unknown LAB POCT ORDERABLES - DEVICE F inal Result Performing Organization Address [facility] Co de Phone Number MIGEL [facility] [place] [address] * eGFR (03/16/2025 6:54 PM CDT) Pathologist [facility] eGFR >90 >=60 mL/min/1. 73 m2 Comment: [...] was last reviewed 2021. Testing performed by: [address] [address] Blood 03/16/2025 6:54 PM CDT 03/16/2025 7:02 PM CDT Sonal PHAM LAB BLOOD ORDERABLES Final Result Performing Organization Address [facility] Co de Phone Number [place] [phone] [facility] [place] [address] * Differential, auto (03/16/2025 6:54 PM CDT) Pathologist [facility] Neutrophil abs 2.77 1.50 - 6.50 K/cumm Comment:Testing performed by : [address] [address] Imm gran abs 0.01 0.00 - 0.10 K/cumm MIGEL Comment:Testing performed by : [address] [address] Lymphocyte abs 1.53 0.80 - 3.30 K/cumm CERNER Comment:Testing performed by : [address] [address] Monocyte abs 0.48 0.20 - 0.80 K/cumm CERNER Comment:Testing performed by : [address] [address] Eosinophil abs 0.02 0.00 - 0.50 K/cumm [facility] Comment:Testing performed by : [address], [place]., [address] Basophil abs 0.01 0.00 - 0.10 K/cumm [facility] Comment:Testing performed by : [address] [address] Neutrophil pct 57.5 % [facility] Comment: Interpretive Data Percent cell count reference ranges are not reported, since discordance with absolute values may lead to misinterpretation of CBC data. Current Interpretive Data was last revised on 2017. Testing performed by: [address] [address] Imm gran pct 0.2 % [facility] Comment: Interpretive Data Percent cell count reference ranges are not reported, since discordance with absolute values may lead to misinterpretation of CBC data. Current Interpretive Data was last revised on 2017. Testing performed by: [address] [address] Lymphocyte pct 31.7 % [facility] Comment: Interpretive Data Percent cell count reference ranges are not reported, since discordance with absolute values may lead to misinterpretation of CBC data. Current Interpretive Data was last revised on 2017. Testing performed by: [address] [address] Monocyte pct 10.0 % CERNER Comment: Interpretive Data Percent cell count reference ranges are not reported, since discordance with absolute values may lead to misinterpretation of CBC data. Current Interpretive Data was last revised on 2017. Testing performed by: [address] [address] Eosinophil pct 0.4 % [facility] Comment: Interpretive Data Percent cell count reference ranges are not reported, since discordance with absolute values may lead to misinterpretation of CBC data. Current Interpretive Data was last revised on 2017. Testing performed by: [address] [address] Basophil pct 0.2 % MIGEL VELAZQUEZ Comment: Interpretive Data Percent cell count reference ranges are not reported, since discordance with absolute values may lead to misinterpretation of CBC data. Current Interpretive Data was last revised on 2017. Testing performed by: [address] [address] Blood 03/16/2025 6:54 PM CDT 03/16/2025 7:02 PM CDT Sonal PHAM LAB BLOOD ORDERABLES Final Result MIGEL [address] [facility] Department [place] [address] * (ABNORMAL) Urinalysis reflex to microscopic and culture Urine (03/16/2025 6:54 PM CDT) Color, ur Yellow Yellow Comment:Testing performed by : [address] [address] Clarity, ur Clear Clear MIGEL VELAZQUEZ Comment:Testing performed by : [address] [address] Specific gravity, ur 1.023 1.003 - 1.030 MIGEL Comment:Testing performed by : [address] [address] pH, urine 8.0 MIGEL Comment: Interpretive Data U rine pH is affected by diet, medications, systemic acid-base disturbances, and renal tubular function. pH may affect urinary stone formation. For example, urine pH below 6.0 may help reduce the tendency for calcium phosphate stones and pH greater than 6.0 may reduce the tendency for uric acid stone formation. Source: [facility] Current Interpretive Data was last revised on 2017 Testing performed by: [address] [address] Protein, ur ql Trace(A) Negative MIGEL Comment:Testing performed by : [address], [place]., [address] Glucose, ur ql Negative Negative MIGEL Comment:Testing performed by : [address], [place]., [address] Ketones, ur Negative Negative MIGEL Comment:Testing performed by : [address], [place]., [address] Bilirubin, ur Negative Negative MIGEL Comment:Testing performed by : [address], [place]., [address] Blood, ur Negative Negative MIGEL Comment:Testing performed by : [address], [place]., [address] Urobilinogen, ur 2.0(A) <2.0 mg/dL MIGEL Comment:Testing performed by : [address], [place]., [address] Nitrite, ur Negative Negative MIGEL Comment:Testing performed by : [address], [place]., [address] Leukocyte esterase, ur 1+(A) Negative MIGEL Comment:Testing performed by : [address], [place]., [address] UA reflex comment Reflex to microscopic UA will be performed. MIGEL Comment:Testing performed by : [address], [place]., [address] Urine 03/16/2025 6:54 PM CDT 03/16/2025 7:02 PM CDT us Sonal PHAM LAB MICROBIOLOGY - GENERAL ORDERABLES Final Result MIGEL [address] [facility] Department [place] [address] * (ABNORMAL) CBC with auto differential (03/16/2025 6:54 PM CDT) WBC 4.82 3.80 - 9.90 K/cumm Comment:Testing performed by : [address], [place]., [address] Hgb 9.8(L) 11.9 - 15.5 g/dL MIGEL Comment:Testing performed by : [address] [address] Hct 30.4(L) 35.6 - 45.5 % MIGEL Comment:Testing performed by : [address] [address] Plt 282 150 - 400 K/cumm MIGEL Comment:Testing performed by : [address], [address] MPV 9.6 9.1 - 12.3 fL MIGEL Comment:Testing performed by : [address], [address] RBC 3.47(L) 3.90 - 5.20 M/cumm MIGEL Comment:Testing performed by : [address], [address] MCV 87.6 81.3 - 96.4 fL MIGEL Comment:Testing performed by : [address] [address] MCH 28.2 27.1 - 33.3 pg MIGEL Comment:Testing performed by : [address], [address] MCHC 32.2(L) 32.3 - 35.7 g/dL MIGEL Comment:Testing performed by : [address], [address] RDW CV 23.4(H) 11.1 - 14.9 % MIGEL Comment:Testing performed by : [address], [address] RDW SD 74.1(H) 35.7 - 48.1 fL MIGEL Comment:Testing performed by : [address], [address] NRBC abs 0.00 0.00 - 0.01 K/cumm MIGEL Comment:Testing performed by : [address], [address] Blood Venous blood specimen / Unknown 03/16/2025 6:54 PM CDT 03/16/2025 7:02 PM CDT Sonal PHAM LAB BLOOD ORDERABLES Final Result Performing Organization Address [facility] Co de Phone Number MIGEL [facility] [place] [address] * (ABNORMAL) Urinalysis, microscopic only (03/16/2025 6:54 PM CDT) WBC, ur 0-5 0 - 5 /HPF Comment:Testing performed by : [facility], [address] [place] [address]., [address] RBC, ur 0-2 0 - 2 /HPF MIGEL Comment:Testing performed by : [facility], [address] [place] [address]., [address] Epithelial cells, squamous, ur 21-50(A) 0 - 5 /HPF MIGEL Comment:Testing performed by : [address] [address] Culture Reflex Comment Reflex conditions for urine culture (WBC >10) not met. MIGEL Comment:Testing performed by : [address] [address] Urine 03/16/2025 6:54 PM CDT 03/16/2025 7:02 PM CDT Sonal PHAM LAB URINE ORDERABLES Final Result Performing Organization Address [facility] de Phone Number MIGEL [address] [place] [address] * (ABNORMAL) hCG, blood, quantitative (03/16/2025 6:54 [...] last revised on 2023 Testing performed by: [address] [address] Blood 03/16/2025 6:54 PM CDT 03/16/2025 7:02 PM CDT Sonal PHAM LAB BLOOD ORDERABLES Final Result Performing Organization Address City/[facility]/ZIP Co de Phone Number [address] [place] [address] * Lipase (03/16/2025 6:54 PM CDT) Pathologist [facility] Lipase 37 10 - 99 Units/L Comment:Testing performed by : [address] [address] Blood Venous blood specimen / Unknown 03/16/2025 6:54 PM CDT 03/16/2025 7:02 PM CDT Sonal PHAM LAB BLOOD ORDERABLES Final Result Performing Organization Address [facility] Co de Phone Number [address] [address] * (ABNORMAL) Comprehensive metabolic panel (03/16/2025 6:54 PM CDT) Pathologist [facility] Sodium 135 135 - 145 mmol/L Comment:Testing performed by : [address] [address] Potassium, pl 4.2 3.3 - 4.9 mmol/L MIGEL Comment:Testing performed by : [address] [address] Chloride 106 97 - 110 mmol/L MIGEL Comment:Testing performed by : [address] [address] CO2 20(L) 22 - 32 mmol/L MIGEL Comment:Testing performed by : [address] [address] Anion gap 9 2 - 15 mmol/L MIGEL Comment:Testing performed by : [address] [address] BUN 5(L) 6 - 25 mg/dL MIGEL Comment:Testing performed by : [address] [address] Creatinine 0.76 0.60 - 1.10 mg/dL MIGEL Comment:Testing performed by : [address] [address] Glucose 106 70 - 199 mg/dL MIGEL [...] was last revised 2022. Testing performed by: [address] [address] Calcium 8.4(L) 8.5 - 10.3 mg/dL MIGEL Comment:Testing performed by : [address] [address] Bilirubin, total 0.2 0.1 - 1.2 mg/dL MIGEL Comment:Testing performed by : [address] [address] Protein, pl 6.8 6.5 - 8.5 g/dL MIGEL Comment:Testing performed by : [address] [address] Albumin 3.7 3.5 - 5.0 g/dL MIGEL Comment:Testing performed by : [address] [address] Alk phos 114 40 - 130 Units/L MIGEL Comment:Testing performed by : [address] [address] ALT 17 7 - 45 Units/L MIGEL Comment:Testing performed by : [address] [address] AST 36 10 - 45 Units/L MARIELAELSA VELAZQUEZ Comment:Testing performed by : [facility], [address] [place]., [address] Blood 03/16/2025 6:54 PM CDT 03/16/2025 7:02 PM CDT us Sonal PHAM LAB BLOOD ORDERABLES Final Result MIGEL MARCUS [address] [facility] Department [place] [address] * CT Abdomen Pelvis W Contrast (02/16/2025 [...] Sim Sullivan M.D. MF: PHILLIP Report ID: [id number] Reading Location: [place] [address] Procedure Note Sim Sullivan, DO - 02/16/2025 [...] Sim Sullivan M.D. MF: PHILLIP Report ID: [id number] Reading Location: [place] [address] IM[address] PROCEDURES Final Resu lt * Troponin T high-sensitivity 2-hour (02/16/2025 8:05 PM CDT) Trop T hs <6 <=14 ng/L Comment: Interpretive Data For further hscTnT resources including the diagnostic algorithm and an aid in interpretation, copy and paste this link: https://nrl.testcatalog.org/show/hsTrop Current Interpretive Data last revised 2020. Testing performed by: [address] [address] Trop T hs delta 0 ng/L MIGEL VELAZQUEZ Comment:Testing performed by : [address] [address] Trop T hs interp Insignificant MIGEL VELAZQUEZ Comment:Testing performed by : [address] [address] Blood 02/16/2025 8:05 PM CDT 02/16/2025 8:08 PM CDT us Solomon Charles MD LAB BLOOD ORDERABLE S Final Result Performing Organization Address [facility] Co de Phone Number MIGEL [facility] [place] [address] * Triglycerides (02/16/2025 7:55 PM CDT) Triglycerides [...] last revised on 2018. Testing performed by: [address] [address] Blood 02/16/2025 7:55 PM CDT 02/16/2025 7:58 PM CDT us Maxine PHAM LAB BLOOD ORDERABLES Final R esult Performing Organization Address [facility] Co de Phone Number MIGEL [address] [address] * Ethanol (02/16/2025 7:55 PM CDT) Ethanol <10 <=10 mg/dL Comment: Interpretive Data Legal limit of intoxication > or = 80 mg/dL Levels > or = 400 mg/dL are potentially TOXIC. Current interpretive data was last revised on 2018. Testing performed by: [address] [address] Blood 02/16/2025 7:55 PM CDT 02/16/2025 7:58 PM CDT us Mxaine PHAM LAB BLOOD ORDERABLES Final R esult MIGEL [address] [facility] Department [place] [address] * Drugs of Abuse Screen, Urine with Reflex Confirmation (02/16/2025 7:44 PM CDT) [facility] Amphetamine, ur Not Detected CutOff 500ng/mL Comment: Interpretive Data - Amphetamines: Samples containing greater than 500 ng/mL d-methamphetamine or other cross-reacting amphetamine compounds are reported as positive. Amphetamine immunoassays are subject to significant false positive rates due to cross-reactivity of non-amphetamine drugs. Confirmatory testing required for definitive results. Current Interpretive Data was last reviewed 2023. Testing performed by: [address] [address] Barbiturates, ur Not Detected CutOff 200ng/mL MIGEL Comment: Interpretive Data - Barbiturates: Samples containing greater than 200 ng/mL secobarbital or other cross-reacting barbiturate compounds are reported as positive. False positive and false negative results are possible. Confirmatory testing required for definitive results. Current Interpretive Data was last reviewed 2023. Testing performed by: [address] [address] Benzodiazepines, ur Not Detected CutOff 100ng/mL MIGEL Comment: Interpretive Data - Benzodiazepines: Samples containing greater than 100 ng/mL nordiazepam or other cross-reacting compounds are reported as positive. False positive and false negative results are possible. Confirmatory testing required for definitive results. Current Interpretive Data was last reviewed 2023. Testing performed by: [address] [address] Cannabinoids, ur Not Detected CutOff 50 ng/mL MIGEL Comment: Interpretive Data - Cannabinoids: Samples containing greater than 50 ng/mL delta-9 THC -COOH or other cross- reacting compounds are reported as positive. False positive and false negative results are possible. Confirmatory testing required for definitive results. Current Interpretive Data was last reviewed 2023. Testing performed by: [address] [address] Cocaine, ur Not Detected CutOff 150ng/mL [facility] Comment: Interpretive Data - Cocaine: Samples containing greater than 150 ng/mL benzoylecgonine or other cross- reacting compounds are reported as positive. False positive and false negative results are possible. Confirmatory testing required for definitive results. Current Interpretive Data was last reviewed 2023. Testing performed by: [address] [address] Fentanyl, Ur Not Detected CutOff 5 ng/mL [facility] Comment: Interpretive Data - Fentanyl: Samples containing greater than 1 ng/mL fentanyl or other cross-reacting fentanyl compounds are reported as positive. False positive and false negative results are possible. Confirmatory testing required for definitive results. Current Interpretive Data was last reviewed 2023. Testing performed by: [address] [address] Methadone, ur Not Detected CutOff 300ng/mL [facility] Comment: Interpretive Data - Methadone: Samples containing greater than 300 ng/mL d,l-methadone or other cross-reacting compounds are reported as positive. False positive and false negative results are possible. Confirmatory testing required for definitive results. Current Interpretive Data was last reviewed 2023. Testing performed by: [address] [address] Opiates, ur Not Detected CutOff 300ng/mL [facility] Comment: Interpretive Data - Opiates: Samples containing greater than 300 ng/mL morphine or other cross-reacting compounds are reported as positive. False positive and false negative results are possible. Confirmatory testing required for definitive results. Current Interpretive Data was last reviewed 2023. Testing performed by: [address] [address] Oxycodone, ur Not Detected CutOff 100ng/mL [facility] Comment: Interpretive Data - Oxycodone: Samples containing greater than 100 ng/mL oxycodone or other cross-reacting compounds are reported as positive. False positive and false negative results are possible. Confirmatory testing required for definitive results. Current Interpretive Data was last reviewed 2023. Testing performed by: [address] [address] Phencyclidine, ur Not Detected CutOff 25 ng/mL MIGEL Comment: Interpretive Data - Phencyclidine: Samples containing greater than 25 ng/mL phencyclidine or other cross-reacting compounds are reported as positive. False positive and false negative results are possible. Confirmatory testing required for definitive results. Current Interpretive Data was last reviewed 2023. Testing performed by: [address] [address] Urine Creatinine 333 mg/dL MIGEL Comment: Interpretive Data Urine Creatinine: < 10 mg/dL is extremely dilute = or > 10 but < 20 mg/dL is dilute = or > 20 mg/dL is normal Current Interpretive Data was last revised on 2017. Testing performed by: [address] [address] Urine 02/16/2025 7:44 PM CDT 02/16/2025 7:47 PM CDT Narrative MIGEL - 02/16/2025 8:11 PM CDT Drug of Abuse screening is performed by immunoassay for medical purposes only. This is not to be used for Pain Management purposes. If Detected, confirmation testing will be performed for Amphetamines, Cocaine, Fentanyl, Methadone, Opiates, Oxycodone or Phencyclidine. Maxine PHAM LAB URINE ORDERABLES Final R esult MIGEL [address] [facility] Department [place] [address] * (ABNORMAL) Urinalysis reflex to microscopic and culture Urine (02/16/2025 7:44 PM CDT) Color, ur Yellow Yellow Comment:Testing performed by : [address] [address] Clarity, ur Clear Clear MIGEL Comment:Testing performed by : [address] [address] Specific gravity, ur 1.029 1.003 - 1.030 MIGEL Comment:Testing performed by : [address] [address] pH, urine 6.5 MIGEL Comment: Interpretive Data U rine pH is affected by diet, medications, systemic acid-base disturbances, and renal tubular function. pH may affect urinary stone formation. For example, urine pH below 6.0 may help reduce the tendency for calcium phosphate stones and pH greater than 6.0 may reduce the tendency for uric acid stone formation. Source: [facility] Current Interpretive Data was last revised on 2017 Testing performed by: [facility], [address] [place] [address], [place]., [address] Protein, ur ql Trace(A) Negative MIGEL Comment:Testing performed by : [facility], [address] [place] [address], [place]., [address] Glucose, ur ql Negative Negative MIGEL Comment:Testing performed by : [address], [place]., [address] Ketones, ur Trace(A) Negative MIGEL Comment:Testing performed by : [address], [place]., [address] Bilirubin, ur Negative Negative MIGEL Comment:Testing performed by : [address], [place]., [address] Blood, ur Negative Negative MIGEL Comment:Testing performed by : [address], [place]., [address] Urobilinogen, ur 2.0(A) <2.0 mg/dL MIGEL Comment:Testing performed by : [address], [place]., [address] Nitrite, ur Negative Negative MIGEL Comment:Testing performed by : [address], [place]., [address] Leukocyte esterase, ur 2+(A) Negative MIGEL Comment:Testing performed by : [address], [place]., [address] UA reflex comment Reflex to microscopic UA will be performed. MIGEL Comment:Testing performed by : [address], [place]., [address] Urine 02/16/2025 7:44 PM CDT 02/16/2025 7:47 PM CDT Chato Luna DO LAB MICROBIOLOGY - GENERAL ORD ERABLES Final Result Performing Organization Address [facility] Co de Phone Number MIGEL [address] [facility] [place] [address] * (ABNORMAL) Urinalysis, microscopic only (02/16/2025 7:44 PM CDT) WBC, ur 0-5 0 - 5 /HPF Comment:Testing performed by : [address] [address] RBC, ur 3-5(A) 0 - 2 /HPF MIGEL Comment:Testing performed by : [address] [address] Epithelial cells, squamous, ur >50(A) 0 - 5 /HPF MIGEL Comment:Testing performed by : [address] [address] Mucous, ur Present(A) MIGEL Comment:Testing performed by : [address] [address] Culture Reflex Comment Reflex conditions for urine culture (WBC >10) not met. MIGEL Comment:Testing performed by : [address] [address] Urine 02/16/2025 7:44 PM CDT 02/16/2025 7:47 PM CDT Chato Luna DO LAB URINE ORDERABLES Final Res ult Performing Organization Address City/[facility] Co de Phone Number MIGEL [address] [place] [address] * POCT hCG, urine (02/16/2025 7:40 PM CDT) HCG, ur, POC Negative Negative Lot Number [id number] QC Backgroud Clear Acceptable QC Control Line Acceptable Urine 02/16/2025 7:40 PM CDT Chato Luna DO POINT OF CARE TEST ORDERABLES Final Result * ECG 12 lead (02/16/2025 7:34 PM CDT) Ventricular Rate EKG/Min 81 BPM [facility] Atrial Rate 81 BPM [facility] TN-Interval (MSEC) 120 ms [facility] QRS-Interval (MSEC) 76 ms [facility] QT-Interval (MSEC) 400 ms [facility] QTc 464 ms [facility] P [place] 65 degrees [facility] R [place] 37 degrees [facility] T [place] 26 degrees [facility] Diagnosis Normal sinus rhythm Nonspecific T wave abnormality Abnormal ECG When compared with ECG of 10-SEP-2023 18:47, No significant change was found Confirmed by SULTAN COLINDRES M.D. ([id number]) on 02/17/2025 8:09:10 AM [facility] 02/16/2025 7:34 PM CDT 02/17/2025 8:09 AM CDT Chato Luna DO ECG ORDERABLES Final Result Performing Organization Address [facility]/ZIP Co de Phone Number [facility] * Troponin T high-sensitivity series (baseline, 2hr, 4hr, 6hr) (02/16/2025 6:17 PM CDT) Pathologist [facility] Trop T hs <6 <=14 ng/L Comment: Interpretive Data For further hscTnT resources including the diagnostic algorithm and an aid in interpretation, copy and paste this link: [email or web address].testcatalog.org/show/[email or web address] Current Interpretive Data last revised 2020. Testing performed by: [facility], [address] [place] [address]., [id number] Blood 02/16/2025 6:17 PM CDT 02/16/2025 6:20 PM CDT Chato Luna DO LAB BLOOD ORDERABLES Final Res ult MIGEL [address] [facility] Department [place] [address] * eGFR (02/16/2025 6:17 PM CDT) Pathologist [facility] eGFR 87 >=60 mL/min/1. 73 m2 Comment: [...] was last reviewed 2021. Testing performed by: [address] [address] Blood 02/16/2025 6:17 PM CDT 02/16/2025 6:20 PM CDT us Chato Luna DO LAB BLOOD ORDERABLES Final Res ult MIGEL VELAZQUEZ [address] [facility] Department of Laboratories [place], [place] [id number] * Differential, auto (02/16/2025 6:17 PM CDT) Pathologist [facility] Neutrophil abs 2.27 1.50 - 6.50 K/cumm Comment:Testing performed by : [address] [address] Imm gran abs 0.01 0.00 - 0.10 K/cumm MIGEL Comment:Testing performed by : [address] [address] Lymphocyte abs 1.39 0.80 - 3.30 K/cumm MIGEL Comment:Testing performed by : [address] [address] Monocyte abs 0.42 0.20 - 0.80 K/cumm [facility] Comment:Testing performed by : [address] [address] Eosinophil abs 0.02 0.00 - 0.50 K/cumm [facility] Comment:Testing performed by : [address], [place]., [address] Basophil abs 0.01 0.00 - 0.10 K/cumm [facility] Comment:Testing performed by : [address] [address] Neutrophil pct 55.2 % [facility] Comment: Interpretive Data Percent cell count reference ranges are not reported, since discordance with absolute values may lead to misinterpretation of CBC data. Current Interpretive Data was last revised on 2017. Testing performed by: [address] [address] Imm gran pct 0.2 % [facility] Comment: Interpretive Data Percent cell count reference ranges are not reported, since discordance with absolute values may lead to misinterpretation of CBC data. Current Interpretive Data was last revised on 2017. Testing performed by: [address] [address] Lymphocyte pct 33.7 % [facility] Comment: Interpretive Data Percent cell count reference ranges are not reported, since discordance with absolute values may lead to misinterpretation of CBC data. Current Interpretive Data was last revised on 2017. Testing performed by: [address] [address] Monocyte pct 10.2 % [facility] Comment: Interpretive Data Percent cell count reference ranges are not reported, since discordance with absolute values may lead to misinterpretation of CBC data. Current Interpretive Data was last revised on 2017. Testing performed by: [address] [address] Eosinophil pct 0.5 % [facility] Comment: Interpretive Data Percent cell count reference ranges are not reported, since discordance with absolute values may lead to misinterpretation of CBC data. Current Interpretive Data was last revised on 2017. Testing performed by: [address] [address] Basophil pct 0.2 % MIGEL Comment: Interpretive Data Percent cell count reference ranges are not reported, since discordance with absolute values may lead to misinterpretation of CBC data. Current Interpretive Data was last revised on 2017. Testing performed by: [address] [address] Blood 02/16/2025 6:17 PM CDT 02/16/2025 6:20 PM CDT us Chato Luna DO LAB BLOOD ORDERABLES Final Res ult MIGEL [address] [facility] Department [place] [address] * (ABNORMAL) CBC with auto differential (02/16/2025 6:17 PM CDT) WBC 4.12 3.80 - 9.90 K/cumm Comment:Testing performed by : [address] [address] Hgb 11.0(L) 11.9 - 15.5 g/dL MIGEL Comment:Testing performed by : [address] [address] Hct 33.4(L) 35.6 - 45.5 % MIGEL Comment:Testing performed by : [address] [address] Plt 245 150 - 400 K/cumm MIGEL Comment:Testing performed by : [address] [address] MPV 9.9 9.1 - 12.3 fL MIGEL Comment:Testing performed by : [address] [address] RBC 3.91 3.90 - 5.20 M/cumm MIGEL Comment:Testing performed by : [address] [address] MCV 85.4 81.3 - 96.4 fL MIGEL Comment:Testing performed by : [address] [address] MCH 28.1 27.1 - 33.3 pg MIGEL VELAZQUEZ Comment:Testing performed by : [address] [address] MCHC 32.9 32.3 - 35.7 g/dL MIGEL VELAZQUEZ Comment:Testing performed by : [address] [address] RDW CV 21.9(H) 11.1 - 14.9 % MIGEL VELAZQUEZ Comment:Testing performed by : [address] [address] RDW SD 66.5(H) 35.7 - 48.1 fL MIGEL VELAZQUEZ Comment:Testing performed by : [address] [address] NRBC abs 0.00 0.00 - 0.01 K/cumm MIGEL VELAZQUEZ Comment:Testing performed by : [address] [address] Blood Venous blood specimen / Unknown 02/16/2025 6:17 PM CDT 02/16/2025 6:20 PM CDT Chato [employer] LAB BLOOD ORDERABLES Final Res ult Performing Organization Address City/[facility]/ZIP Co de Phone Number [address] [employer] [place] [address] * (ABNORMAL) Lipase (02/16/2025 6:17 PM CDT) Lipase 216(H) 10 - 99 Units/L Comment:Testing performed by : [address] [address] Blood Venous blood specimen / Unknown 02/16/2025 6:17 PM CDT 02/16/2025 6:20 PM CDT [employer] LAB BLOOD ORDERABLES Final Res ult [address] [place] [address] * (ABNORMAL) Comprehensive metabolic panel (02/16/2025 6:17 PM CDT) Sodium 135 135 - 145 mmol/L Comment:Testing performed by : [address] [address] Potassium, pl 4.6 3.3 - 4.9 mmol/L MIGEL Comment: Hemolyzed; Potassium value may be falsely elevated by as much as 1.0 mmol/L. Suggest redraw and reanalysis. Testing performed by: [address], [place]., [address] Chloride 105 97 - 110 mmol/L [facility] Comment:Testing performed by : [address], [place]., [address] CO2 20(L) 22 - 32 mmol/L MIGEL Comment:Testing performed by : [address], [place]., [address] Anion gap 10 2 - 15 mmol/L [facility] Comment:Testing performed by : [address] [address] BUN 6 6 - 25 mg/dL [facility] Comment:Testing performed by : [address] [address] Creatinine 0.89 0.60 - 1.10 mg/dL [facility] Comment:Testing performed by : [address] [address] Glucose 112 70 - 199 mg/dL [facility] Comment: Interpretive Data Fasting glucose >/= [...] was last revised 2022. Testing performed by: [address], [place]., [address] Calcium 8.6 8.5 - 10.3 mg/dL MIGEL VELAZQUEZ Comment:Testing performed by : [facility], [address] [place] [address]., [address] Bilirubin, total 0.4 0.1 - 1.2 mg/dL MIGEL VELAZQUEZ Comment:Testing performed by : [address] [address] Protein, pl 7.3 6.5 - 8.5 g/dL MIGEL Comment:Testing performed by : [address] [address] Albumin 3.9 3.5 - 5.0 g/dL MIGEL Comment:Testing performed by : [address] [address] Alk phos 143(H) 40 - 130 Units/L MIGEL Comment:Testing performed by : [address] [address] ALT 35 7 - 45 Units/L MIGEL Comment:Testing performed by : [address] [address] AST 85(H) 10 - 45 Units/L MIGEL Comment: Hemolyzed; result may be falsely elevated Testing performed by: [address] [address] Blood 02/16/2025 6:17 PM CDT 02/16/2025 6:20 PM CDT us Chato Luna DO LAB BLOOD ORDERABLES Final Res ult MIGEL [address] [facility] Department [place] [address] * (ABNORMAL) High Risk HPV DNA Detection with Genotyping (Molecular component) (05/25/2024 1:44 PM CDT) Pathologist [facility] HPV HR 16 Not Detected Not Detected [facility] Comment:Testing performed by : [facility], [address] [place]., [address] HPV HR 18 Not Detected Not Detected MIGEL VELAZQUEZ Comment:Testing performed by : [facility], [address] [place]., [address] HPV HR Non 16/18 Detected(A) Not Detected [...] this test have been verified by the [facility] Molecular Infectious Disease laboratory. Correlate with separately reported cytology results, as applicable. Interpretive data last revised 23 Testing performed by: [facility], [address] [place]., [address] Endocervical 05/25/2024 1:44 PM CDT 05/26/2024 2:45 PM CDT Narrative MIGEL - 05/26/2024 10:40 PM CDT Clinical history and diagnosis->LP: 2017 Number of vials->1 Testing type->Screening Last menstrual period (date if known)->04/24/2024 Chelsey Fajardo MD LAB BODY FLUIDS AND STOOLS ORDERABLES Final Result MIGEL [address] [facility] Department [place] [address] [facility] * Hepatitis C antibody (12/06/2022 2:36 [...] GENERAL OR DERABLES Final Result MIGEL [address] [facility] Department [place] [address] from Last 3 Months or Most Recently Relevant to Health Maintenance Insurance [facility] Advance Directives For more information, please contact: [phone] * Full Code (Latest Code Status on File) Date Activated Date Inactivated Comments 06/02/2023 4:53 AM 06/05/2023 10:00 PM * Full Code Date Activated Date Inactivated Comments 06/01/2023 7:55 PM 06/02/2023 1:58 AM Full CPR in case of cardiopulmonary arrest Care Teams [employer] Relationship Specialty Start Date End Date No, Physician PCP - General 11/22/22 Chelsey Fajardo MD [address] [place] [id number] Consulting Physician Obstetrics and Gynecology 04/24/24
--- OUTSIDE RECORDS SUMMARY | 2025-03-23 17:55 | XMS_ITS | Encounter Summary ---
Author Organization [facility] Facility Care Team Providers Care Database Report Writer Name Role Phone Cayla Ding MD Primary Care Provider [phone] Gorge Ding MD Primary Care Provider No, Physician Primary Care Provider [phone] Chelsey Fajardo MD Unavailable [phone] Encounter Details Date Type Department Care Team (Latest Contact Info) Description 03/06/2018 Orders Only [facility] CLINCON[facility] ProviderElena MD [address] [place], [place] [id number] Social History Tobacco Use Types Packs/Day Years Used Date Smoking Tobacco: Never Assessed Comments Unknown Sex and Gender Information Value Date Recorded Sex Assigned at Not on file Legal Sex Female 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 10/06/2022 11/22/2022 01/04/2023 3:05 AM C DT documented as of this encounter Care Teams Database Report Writer Relationship Specialty Start Date End Date Cayla Ding MD PCP - General 03/30/18 07/29/19 Gorge Ding MD [address] [facility] [address] [place], [place] [id number] PCP - General 07/30/19 11/21/22 No, Physician PCP - General 11/22/22 Chelsey Fajardo MD [address] [facility] [address] [place] [address] Consulting Physician Obstetrics and Gynecology 04/24/24 documented as of this encounter
--- OUTSIDE RECORDS SUMMARY | 2025-03-23 17:55 | XMS_ITS | Encounter Summary ---
Author Organization [facility] Address [address] [place] [address] Care Team Providers Care Slip Feeder Name Role Phone Unavailable Primary Care Provider [...]
--- OUTSIDE RECORDS SUMMARY | 2025-03-23 17:55 | XMS_ITS | Encounter Summary ---
Author Organization [facility] Facility Care Team Providers Care Physician Office Secretary Name Role Phone Cayla Ding MD Primary Care Provider [phone] Gorge Ding MD Primary Care Provider No, Physician Primary Care Provider [phone] Chelsey Fajardo MD Unavailable Encounter Details Date Type Department Care Team (Latest Contact Info) Description 02/28/2018 Orders Only [facility] CLINCONV ProviderElena MD [address] [place], [place] [id number] Social History Tobacco Use Types Packs/Day Years Used Date Smoking Tobacco: Never Assessed Comments Unknown Sex and Gender Information Value Date Recorded Sex Assigned at Not on file Legal Sex Female 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 10/06/2022 11/22/2022 01/04/2023 3:05 AM C DT documented as of this encounter Care Teams Physician Office Secretary Relationship Specialty Start Date End Date Cayla Ding MD PCP - General 03/30/18 07/29/19 Gorge Ding MD [address] [facility] [address] [place], [place] [id number] PCP - General 07/30/19 11/21/22 No, Physician PCP - General 11/22/22 Chelsey Fajardo MD [address] [facility] [address] [place] [address] Consulting Physician Obstetrics and Gynecology 04/24/24 documented as of this encounter
--- OUTSIDE RECORDS SUMMARY | 2025-03-23 17:55 | XMS_ITS | Clinical Summary ---
Author Organization [facility] Address [address] [place] [address] Care Team Providers Care Print Finishing Worker Name Role Phone No, Physician Primary Care Provider [phone] Chelsey Fajardo MD Unavailable [phone] Allergies No known active allergies Medications vit [id number] 27mg iron- 800 mcg-250 mg capsule Take [...] 09/11/2023 Assessment & Plan (09/11/2023 3:18 AM SPEECH LANGUAGE PATHOLOGIST ASSISTANT): As seen on CT imaging NPO IV [...] 12/20/2022 Assessment & Plan (09/11/2023 3:18 AM SPEECH LANGUAGE PATHOLOGIST ASSISTANT): Continue home regimen IV hydralazine p.r.n. History of gastric surgery 12/20/2022 Overview (12/20/2022): Gastric sleeve Encounters Date Type Department Care Team Description 03/16/2025 7:50 PM CDT - 03/16/2025 9:[address] [facility] Emergency Department [address] [place] [address] Abdominal pain in early (Primary Dx) Discharge Disposition: Discharge to home or self care 03/16/2025 Telephone [facility] Obstetrical Gynecology [address] [place] [address] Chelsey Fajardo MD 02/16/2025 7:18 PM CDT - 02/16/2025 10:[address] [facility] Emergency Department [address] [place] [address] Chato Luna, Acute pancreatitis without infection or [...] drink = 0.6 oz pur e alcohol) [facility] Utilities Answer Date Recorded In the past 12 months has [employer], [employer], oil, or water [employer] threatened to shut off services in your [...] week 09/11/2023 How often do you attend [facility] or confucianism services? More than 4 times per year 09/11/2023 Do you belong to any clubs o r organizations such as catholic groups, unions, fraternal or athletic groups, or [...] place to sleep or slept in a [place] facility (including now)? No 09/11/2023 [place] Depression Scale Answer Date Recorded [place] Depression Scale Total 15 07/19/2023 The thought [...] on file Legal Sex Female 6:08 AM SPEECH LANGUAGE PATHOLOGIST ASSISTANT Gender Identity Not on file Sexual Orientation [...] G FD Shayna anBelem MD Complications:None Delivery Location:[facility] Main C ampus ([facility]LD) Comments Age of 1st cycle: 16 [...] Not identified Mean sac diameter: 0.32 cm Garrochales-rump length: Not applicable heart rate: Not applicable [...] Sim Sullivan M.D. MF: PHILLIP Report ID: [id number] Reading Location: [id number] Procedure Note Sim Sullivan, DO - 03/16/2025 [...] Not identified Mean sac diameter: 0.32 cm Garrochales-rump length: Not applicable heart rate: Not applicable [...] Sim Sullivan M.D. MF: PHILLIP Report ID: [id number] Reading Location: [id number] us Sonal PHAM IMG OB US PROCEDURES Final Result * (ABNORMAL) POCT hCG, urine (03/16/2025 6:56 PM CDT) [facility] HCG, ur, POC Positive(A) Negative Comment:Testing performed by : [facility], [address] [place] [address]., [address] POC Performer [id number] MIGEL VELAZQUEZ Comment:Testing performed by : [facility], [address] [place] [address]., [address] Urine 03/16/2025 6:56 PM CDT 03/16/2025 6:56 PM CDT us Notinfile Unknown LAB POCT ORDERABLES - DEVICE F inal Result MIGEL VELAZQUEZ [address] [facility] [place] [address] * eGFR (03/16/2025 6:54 PM CDT) [facility] eGFR >90 >=60 mL/min/1. 73 [...] was last reviewed 2021. Testing performed by: [address] [address] Blood 03/16/2025 6:54 PM CDT 03/16/2025 7:02 PM CDT us Sonal PHAM LAB BLOOD ORDERABLES Final Result MIGEL 228[address] [facility] Department [place] [address] * Differential, auto (03/16/2025 6:54 PM CDT) Neutrophil abs 2.77 1.50 - 6.50 K/cumm Comment:Testing performed by : [address] [address] Imm gran abs 0.01 0.00 - 0.10 K/cumm MIGEL Comment:Testing performed by : [address] [address] Lymphocyte abs 1.53 0.80 - 3.30 K/cumm MIGEL Comment:Testing performed by : [address] [address] Monocyte abs 0.48 0.20 - 0.80 K/cumm MIGEL Comment:Testing performed by : [address] [address] Eosinophil abs 0.02 0.00 - 0.50 K/cumm [facility] Comment:Testing performed by : [address] [address] Basophil abs 0.01 0.00 - 0.10 K/cumm [facility] Comment:Testing performed by : [address] [address] Neutrophil pct 57.5 % [facility] Comment: Interpretive Data Percent cell count reference ranges are not reported, since discordance with absolute values may lead to misinterpretation of CBC data. Current Interpretive Data was last revised on 2017. Testing performed by: [address] [address] Imm gran pct 0.2 % MIGEL Comment: Interpretive Data Percent cell count reference ranges are not reported, since discordance with absolute values may lead to misinterpretation of CBC data. Current Interpretive Data was last revised on 2017. Testing performed by: [address] [address] Lymphocyte pct 31.7 % CERELSA Comment: Interpretive Data Percent cell count reference ranges are not reported, since discordance with absolute values may lead to misinterpretation of CBC data. Current Interpretive Data was last revised on 2017. Testing performed by: [address] [address] Monocyte pct 10.0 % MIGEL Comment: Interpretive Data Percent cell count reference ranges are not reported, since discordance with absolute values may lead to misinterpretation of CBC data. Current Interpretive Data was last revised on 2017. Testing performed by: [address] [address] Eosinophil pct 0.4 % MIGEL Comment: Interpretive Data Percent cell count reference ranges are not reported, since discordance with absolute values may lead to misinterpretation of CBC data. Current Interpretive Data was last revised on 2017. Testing performed by: [address] [address] Basophil pct 0.2 % MIGEL Comment: Interpretive Data Percent cell count reference ranges are not reported, since discordance with absolute values may lead to misinterpretation of CBC data. Current Interpretive Data was last revised on 2017. Testing performed by: [address] [address] Blood 03/16/2025 6:54 PM CDT 03/16/2025 7:02 PM CDT Sonal PHAM LAB BLOOD ORDERABLES Final Result MIGEL 0904 [facility] [place] [address] * (ABNORMAL) Urinalysis reflex to microscopic and culture Urine (03/16/2025 6:54 PM CDT) Color, ur Yellow Yellow Comment:Testing performed by : [address] [address] Clarity, ur Clear Clear MIGEL Comment:Testing performed by : [address] [address] Specific gravity, ur 1.023 1.003 - 1.030 MIGEL Comment:Testing performed by : [facility], [address] [place] [address], [place]., [address] pH, urine 8.0 MIGEL Comment: Interpretive Data U rine pH is affected by diet, medications, systemic acid-base disturbances, and renal tubular function. pH may affect urinary stone formation. For example, urine pH below 6.0 may help reduce the tendency for calcium phosphate stones and pH greater than 6.0 may reduce the tendency for uric acid stone formation. Source: [facility] Current Interpretive Data was last revised on 2017 Testing performed by: [facility], [address] [place] [address], [place]., [address] Protein, ur ql Trace(A) Negative MIGEL Comment:Testing performed by : [address], [place]., [address] Glucose, ur ql Negative Negative MIGEL Comment:Testing performed by : [address], [place]., [address] Ketones, ur Negative Negative MIGEL Comment:Testing performed by : [address], [place]., [address] Bilirubin, ur Negative Negative MIGEL Comment:Testing performed by : [address], [place]., [address] Blood, ur Negative Negative MIGEL Comment:Testing performed by : [address], [place]., [address] Urobilinogen, ur 2.0(A) <2.0 mg/dL MIGEL Comment:Testing performed by : [address] [address] Nitrite, ur Negative Negative MIGEL Comment:Testing performed by : [address] [address] Leukocyte esterase, ur 1+(A) Negative MIGEL Comment:Testing performed by : [address] [address] UA reflex comment Reflex to microscopic UA will be performed. MIGEL Comment:Testing performed by : [address], [place]., [address] Urine 03/16/2025 6:54 PM CDT 03/16/2025 7:02 PM CDT us Sonal PHAM LAB MICROBIOLOGY - GENERAL ORDERABLES Final Result MIGEL 8531 [facility] Department [place] [address] * (ABNORMAL) CBC with auto differential (03/16/2025 6:54 PM CDT) WBC 4.82 3.80 - 9.90 K/cumm Comment:Testing performed by : [address] [address] Hgb 9.8(L) 11.9 - 15.5 g/dL MIGEL Comment:Testing performed by : [address] [address] Hct 30.4(L) 35.6 - 45.5 % MIGEL Comment:Testing performed by : [address] [address] Plt 282 150 - 400 K/cumm MIGEL Comment:Testing performed by : [address] [address] MPV 9.6 9.1 - 12.3 fL MIGEL Comment:Testing performed by : [address] [address] RBC 3.47(L) 3.90 - 5.20 M/cumm MIGEL Comment:Testing performed by : [address] [address] MCV 87.6 81.3 - 96.4 fL MIGEL Comment:Testing performed by : [address] [address] MCH 28.2 27.1 - 33.3 pg MIGEL VELAZQUEZ Comment:Testing performed by : [address] [address] MCHC 32.2(L) 32.3 - 35.7 g/dL MIGEL Comment:Testing performed by : [address] [address] RDW CV 23.4(H) 11.1 - 14.9 % MIGEL Comment:Testing performed by : [address] [address] RDW SD 74.1(H) 35.7 - 48.1 fL MIGEL Comment:Testing performed by : [address] [address] NRBC abs 0.00 0.00 - 0.01 K/cumm MIGEL Comment:Testing performed by : [address] [address] Blood Venous blood specimen / Unknown 03/16/2025 6:54 PM CDT 03/16/2025 7:02 PM CDT Sonal PHAM LAB BLOOD ORDERABLES Final Result Performing Organization Address City/[facility]/ZIP Co de Phone Number MIGEL [address] [facility] [place] [address] * (ABNORMAL) Urinalysis, microscopic only (03/16/2025 6:54 PM CDT) WBC, ur 0-5 0 - 5 /HPF Comment:Testing performed by : [address] [address] RBC, ur 0-2 0 - 2 /HPF MIGEL Comment:Testing performed by : [address] [address] Epithelial cells, squamous, ur 21-50(A) 0 - 5 /HPF MIGEL Comment:Testing performed by : [address] [address] Culture Reflex Comment Reflex conditions for urine culture (WBC >10) not met. MIGEL Comment:Testing performed by : [address] [address] Urine 03/16/2025 6:54 PM CDT 03/16/2025 7:02 PM CDT Sonal PHAM LAB URINE ORDERABLES Final Result Performing Organization Address City/[facility]/ZIP Co de Phone Number MIGEL [address] [place] [address] * (ABNORMAL) hCG, blood, quantitative (03/16/2025 6:54 PM CDT) [facility] hCG, quant 946.0(H) 0.0 - 5.0 IUnits/L Comment: Interpretive Data Male: < 5 IU/L Non- premenopausal Female: <5 IU/L The [employer] hCG Beta Quant assay procedure was used. Results from different manufacturers or methods may not be comparable. Serial testing should be performed using the same method. Interpretive Data was last revised on 2023 Testing performed by: [address] [address] Blood 03/16/2025 6:54 PM CDT 03/16/2025 7:02 PM CDT Sonal PHAM LAB BLOOD ORDERABLES Final Result Performing Organization Address City/[facility]/ZIP Co de Phone Number MARIELA[address] [address] * Lipase (03/16/2025 6:54 PM CDT) [facility] Lipase 37 10 - 99 Units/L Comment:Testing performed by : [address] [address] Blood Venous blood specimen / Unknown 03/16/2025 6:54 PM CDT 03/16/2025 7:02 PM CDT Sonal PHAM LAB BLOOD ORDERABLES Final Result [address] [address] * (ABNORMAL) Comprehensive metabolic panel (03/16/2025 6:54 PM CDT) [facility] Sodium 135 135 - 145 mmol/L Comment:Testing performed by : [address] [address] Potassium, pl 4.2 3.3 - 4.9 mmol/L [facility] Comment:Testing performed by : [address] [address] Chloride 106 97 - 110 mmol/L [facility] Comment:Testing performed by : [address], [place]., [address] CO2 20(L) 22 - 32 mmol/L [facility] Comment:Testing performed by : [address], [place]., [address] Anion gap 9 2 - 15 mmol/L [facility] Comment:Testing performed by : [address], [place]., [address] BUN 5(L) 6 - 25 mg/dL [facility] Comment:Testing performed by : [address], [place]., [address] Creatinine 0.76 0.60 - 1.10 mg/dL [facility] Comment:Testing performed by : [address] [address] Glucose 106 70 - 199 mg/dL [facility] Comment: Interpretive Data Fasting glucose >/= 126 [...] was last revised 2022. Testing performed by: [address] [address] Calcium 8.4(L) 8.5 - 10.3 mg/dL [facility] Comment:Testing performed by : [address] [address] Bilirubin, total 0.2 0.1 - 1.2 mg/dL [facility] Comment:Testing performed by : [address] [address] Protein, pl 6.8 6.5 - 8.5 g/dL MIGEL Comment:Testing performed by : [facility], [address] [place] [address]., [address] Albumin 3.7 3.5 - 5.0 g/dL MIGEL Comment:Testing performed by : [address] [address] Alk phos 114 40 - 130 Units/L MIGEL Comment:Testing performed by : [address] [address] ALT 17 7 - 45 Units/L MIGEL Comment:Testing performed by : [address] [address] AST 36 10 - 45 Units/L MIGEL Comment:Testing performed by : [address] [address] Blood 03/16/2025 6:54 PM CDT 03/16/2025 7:02 PM CDT Sonal PHAM LAB BLOOD ORDERABLES Final Result MIGEL 83[address] [facility] Department of Laboratories [place], [place] [id number] * CT Abdomen Pelvis W Contrast (02/16/2025 [...] Sim Sullivan M.D. MF: PHILLIP Report ID: [id number] Reading Location: [place] [address] Procedure Note Sim Sullivan, - 02/16/2025 EXAM [...] Sim Sullivan M.D. MF: PHILLIP Report ID: [id number] Reading Location: [place] [address] PROCEDURES Final Resu lt * Troponin T high-sensitivity 2-hour (02/16/2025 8:05 PM CDT) Trop T hs <6 <=14 ng/L Comment: Interpretive Data For further hscTnT resources including the diagnostic algorithm and an aid in interpretation, copy and paste this link: https://nrl.testcatalog.org/show/hsTrop Current Interpretive Data last revised 2020. Testing performed by: [facility], [address] [place] [address]., [address] Trop T hs delta 0 ng/L MIGEL VELAZQUEZ Comment:Testing performed by : [facility], [address] [place] [address]., [address] Trop T hs interp Insignificant MIGEL VELAZQUEZ Comment:Testing performed by : [facility], [address] [place] [address]., [address] Blood 02/16/2025 8:05 PM CDT 02/16/2025 8:08 PM CDT us Solomon Charles MD LAB BLOOD ORDERABLE S Final Result MIGEL [facility] [place] [address] * Triglycerides (02/16/2025 7:55 PM CDT) Triglycerides [...] last revised on 2018. Testing performed by: [facility], [address] [place] [address]., [address] Blood 02/16/2025 7:55 PM CDT 02/16/2025 7:58 PM CDT us Maxine PHAM LAB BLOOD ORDERABLES Final R esult MIGEL [facility] [place] [address] * Ethanol (02/16/2025 7:55 PM CDT) Ethanol <10 <=10 mg/dL Comment: Interpretive Data Legal limit of intoxication > or = 80 mg/dL Levels > or = 400 mg/dL are potentially TOXIC. Current interpretive data was last revised on 2018. Testing performed by: [facility], [address] [place] [address]., [address] Blood 02/16/2025 7:55 PM CDT 02/16/2025 7:58 PM CDT us Maxine PHAM LAB BLOOD ORDERABLES Final R esult MIGEL VELAZQUEZ 45[address] [facility] Department [place] [address] * Drugs of Abuse Screen, Urine with [...] was last reviewed 2023. Testing performed by: [address] [address] Barbiturates, ur Not Detected CutOff 200ng/mL MIGEL VELAZQUEZ Comment: Interpretive Data - Barbiturates: Samples containing greater than 200 ng/mL secobarbital or other cross-reacting barbiturate compounds are reported as positive. False positive and false negative results are possible. Confirmatory testing required for definitive results. Current Interpretive Data was last reviewed 2023. Testing performed by: [address] [address] Benzodiazepines, ur Not Detected CutOff 100ng/mL MIGEL Comment: Interpretive Data - Benzodiazepines: Samples containing greater than 100 ng/mL nordiazepam or other cross-reacting compounds are reported as positive. False positive and false negative results are possible. Confirmatory testing required for definitive results. Current Interpretive Data was last reviewed 2023. Testing performed by: [facility], [address] [place] [address]., [address] Cannabinoids, ur Not Detected CutOff 50 ng/mL [facility] Comment: Interpretive Data - Cannabinoids: Samples containing greater than 50 ng/mL delta-9 THC -COOH or other cross- reacting compounds are reported as positive. False positive and false negative results are possible. Confirmatory testing required for definitive results. Current Interpretive Data was last reviewed 2023. Testing performed by: [facility], [address] [place] [address], [place]., [address] Cocaine, ur Not Detected CutOff 150ng/mL [facility] Comment: Interpretive Data - Cocaine: Samples containing greater than 150 ng/mL benzoylecgonine or other cross- reacting compounds are reported as positive. False positive and false negative results are possible. Confirmatory testing required for definitive results. Current Interpretive Data was last reviewed 2023. Testing performed by: [address], [place]., [address] Fentanyl, Ur Not Detected CutOff 5 ng/mL [facility] Comment: Interpretive Data - Fentanyl: Samples containing greater than 1 ng/mL fentanyl or other cross-reacting fentanyl compounds are reported as positive. False positive and false negative results are possible. Confirmatory testing required for definitive results. Current Interpretive Data was last reviewed 2023. Testing performed by: [address] [address] Methadone, ur Not Detected CutOff 300ng/mL [facility] Comment: Interpretive Data - Methadone: Samples containing greater than 300 ng/mL d,l-methadone or other cross-reacting compounds are reported as positive. False positive and false negative results are possible. Confirmatory testing required for definitive results. Current Interpretive Data was last reviewed 2023. Testing performed by: [address], [place]., [address] Opiates, ur Not Detected CutOff 300ng/mL [facility] Comment: Interpretive Data - Opiates: Samples containing greater than 300 ng/mL morphine or other cross-reacting compounds are reported as positive. False positive and false negative results are possible. Confirmatory testing required for definitive results. Current Interpretive Data was last reviewed 2023. Testing performed by: [address] [address] Oxycodone, ur Not Detected CutOff 100ng/mL MIGEL Comment: Interpretive Data - Oxycodone: Samples containing greater than 100 ng/mL oxycodone or other cross-reacting compounds are reported as positive. False positive and false negative results are possible. Confirmatory testing required for definitive results. Current Interpretive Data was last reviewed 2023. Testing performed by: [address] [address] Phencyclidine, ur Not Detected CutOff 25 ng/mL MIGEL Comment: Interpretive Data - Phencyclidine: Samples containing greater than 25 ng/mL phencyclidine or other cross-reacting compounds are reported as positive. False positive and false negative results are possible. Confirmatory testing required for definitive results. Current Interpretive Data was last reviewed 2023. Testing performed by: [address] [address] Urine Creatinine 333 mg/dL MIGEL Comment: Interpretive Data Urine Creatinine: < 10 mg/dL is extremely dilute = or > 10 but < 20 mg/dL is dilute = or > 20 mg/dL is normal Current Interpretive Data was last revised on 2017. Testing performed by: [address] [address] Urine 02/16/2025 7:44 PM CDT 02/16/2025 7:47 [...] LAB URINE ORDERABLES Final R esult MIGEL 55[address] [facility] Department [place] [address] * (ABNORMAL) Urinalysis reflex to microscopic and culture Urine (02/16/2025 7:44 PM CDT) Color, ur Yellow Yellow Comment:Testing performed by : [address] [address] Clarity, ur Clear Clear MIGEL Comment:Testing performed by : [address] [address] Specific gravity, ur 1.029 1.003 - 1.030 MIGEL Comment:Testing performed by : [address] [address] pH, urine 6.5 MIGEL Comment: Interpretive Data U rine pH is affected by diet, medications, systemic acid-base disturbances, and renal tubular function. pH may affect urinary stone formation. For example, urine pH below 6.0 may help reduce the tendency for calcium phosphate stones and pH greater than 6.0 may reduce the tendency for uric acid stone formation. Source: [facility] Current Interpretive Data was last revised on 2017 Testing performed by: [address] [address] Protein, ur ql Trace(A) Negative MIGEL Comment:Testing performed by : [address] [address] Glucose, ur ql Negative Negative MIGEL Comment:Testing performed by : [address] [address] Ketones, ur Trace(A) Negative MIGEL Comment:Testing performed by : [address] [address] Bilirubin, ur Negative Negative MIGEL Comment:Testing performed by : [address] [address] Blood, ur Negative Negative MIGEL Comment:Testing performed by : [address] [address] Urobilinogen, ur 2.0(A) <2.0 mg/dL MIGEL Comment:Testing performed by : [address] [address] Nitrite, ur Negative Negative MIGEL Comment:Testing performed by : [address] [place] [address] Leukocyte esterase, ur 2+(A) Negative MIGEL Comment:Testing performed by : [address] [address] UA reflex comment Reflex to microscopic UA will be performed. MIGEL Comment:Testing performed by : [address] [address] Urine 02/16/2025 7:44 PM CDT 02/16/2025 7:47 PM CDT Chato Luna DO LAB MICROBIOLOGY - GENERAL ORD ERABLES Final Result Performing Organization Address [facility] Co de Phone Number MIGEL [address] [facility] Department [place] [address] * (ABNORMAL) Urinalysis, microscopic only (02/16/2025 7:44 PM CDT) WBC, ur 0-5 0 - 5 /HPF Comment:Testing performed by : [address] [address] RBC, ur 3-5(A) 0 - 2 /HPF MIGEL Comment:Testing performed by : [address] [address] Epithelial cells, squamous, ur >50(A) 0 - 5 /HPF MIGEL Comment:Testing performed by : [address] [address] Mucous, ur Present(A) MIGEL Comment:Testing performed by : [address] [address] Culture Reflex Comment Reflex conditions for urine culture (WBC >10) not met. MIGEL Comment:Testing performed by : [address] [address] Urine 02/16/2025 7:44 PM CDT 02/16/2025 7:47 PM CDT [employer] Chato Luna DO LAB URINE ORDERABLES Final Res ult Performing Organization Address [facility]/ZIP Co de Phone Number MIGEL [address] [facility] Department [place] [address] * POCT hCG, urine (02/16/2025 7:40 PM CDT) HCG, ur, POC Negative Negative Lot Number [id number] QC Backgroud Clear Acceptable QC Control Line Acceptable Urine 02/16/2025 7:40 PM CDT Chato Luna DO POINT OF CARE TEST ORDERABLES Final Result * ECG 12 lead (02/16/2025 7:34 PM CDT) Pathologist [facility] Department Ventricular Rate EKG/Min 81 BPM [facility] Atrial Rate 81 BPM [facility] MS-Interval (MSEC) 120 ms [facility] QRS-Interval (MSEC) 76 ms [facility] QT-Interval (MSEC) 400 ms [facility] QTc 464 ms [facility] P [place] 65 degrees [facility] R [place] 37 degrees [facility] T [place] 26 degrees [facility] Diagnosis Normal sinus rhythm Nonspecific T wave abnormality Abnormal ECG When compared with ECG of 10-SEP-2023 18:47, No significant change was found Confirmed by SULTAN COLINDRES M.D. ([id number]) on 02/17/2025 8:09:10 AM [facility] 02/16/2025 7:34 PM CDT 02/17/2025 8:09 AM CDT Chato Luna DO ECG ORDERABLES Final Result [facility] * Troponin T high-sensitivity series (baseline, 2hr, 4hr, 6hr) (02/16/2025 6:17 PM CDT) Pathologist [facility] Trop T hs <6 <=14 ng/L Comment: Interpretive Data For further hscTnT resources including the diagnostic algorithm and an aid in interpretation, copy and paste this link: [email or web address].testcatalog.org/show/[email or web address] Current Interpretive Data last revised 2020. Testing performed by: [address] [address] Blood 02/16/2025 6:17 PM CDT 02/16/2025 6:20 PM CDT Chato Luna DO LAB BLOOD ORDERABLES Final Res ult Performing Organization Address City/[facility]/ZIP Co de Phone Number MIGEL [address] [place] [address] * eGFR (02/16/2025 6:17 PM CDT) eGFR [...] was last reviewed 2021. Testing performed by: [address] [address] Blood 02/16/2025 6:17 PM CDT 02/16/2025 6:20 PM CDT Chato Luna DO LAB BLOOD ORDERABLES Final Res ult MIGEL [facility] [place] [address] * Differential, auto (02/16/2025 6:17 PM CDT) [facility] Neutrophil abs 2.27 1.50 - 6.50 K/cumm Comment:Testing performed by : [address] [address] Imm gran abs 0.01 0.00 - 0.10 K/cumm [facility] Comment:Testing performed by : [address], [place]., [address] Lymphocyte abs 1.39 0.80 - 3.30 K/cumm [facility] Comment:Testing performed by : [address], [place]., [address] Monocyte abs 0.42 0.20 - 0.80 K/cumm [facility] Comment:Testing performed by : [address] [address] Eosinophil abs 0.02 0.00 - 0.50 K/cumm [facility] Comment:Testing performed by : [address] [address] Basophil abs 0.01 0.00 - 0.10 K/cumm [facility] Comment:Testing performed by : [address] [address] Neutrophil pct 55.2 % [facility] Comment: Interpretive Data Percent cell count reference ranges are not reported, since discordance with absolute values may lead to misinterpretation of CBC data. Current Interpretive Data was last revised on 2017. Testing performed by: [address] [address] Imm gran pct 0.2 % [facility] Comment: Interpretive Data Percent cell count reference ranges are not reported, since discordance with absolute values may lead to misinterpretation of CBC data. Current Interpretive Data was last revised on 2017. Testing performed by: [address] [address] Lymphocyte pct 33.7 % [facility] Comment: Interpretive Data Percent cell count reference ranges are not reported, since discordance with absolute values may lead to misinterpretation of CBC data. Current Interpretive Data was last revised on 2017. Testing performed by: [address] [address] Monocyte pct 10.2 % [facility] Comment: Interpretive Data Percent cell count reference ranges are not reported, since discordance with absolute values may lead to misinterpretation of CBC data. Current Interpretive Data was last revised on 2017. Testing performed by: [address] [address] Eosinophil pct 0.5 % [facility] Comment: Interpretive Data Percent cell count reference ranges are not reported, since discordance with absolute values may lead to misinterpretation of CBC data. Current Interpretive Data was last revised on 2017. Testing performed by: [address] [address] Basophil pct 0.2 % MIGEL Comment: Interpretive Data Percent cell count reference ranges are not reported, since discordance with absolute values may lead to misinterpretation of CBC data. Current Interpretive Data was last revised on 2017. Testing performed by: [address] [address] Blood 02/16/2025 6:17 PM CDT 02/16/2025 6:20 PM CDT us Chato Luna DO LAB BLOOD ORDERABLES Final Res ult MIGEL [address] [facility] [place] [address] * (ABNORMAL) CBC with auto differential (02/16/2025 6:17 PM CDT) WBC 4.12 3.80 - 9.90 K/cumm Comment:Testing performed by : [address] [address] Hgb 11.0(L) 11.9 - 15.5 g/dL [facility] Comment:Testing performed by : [address] [address] Hct 33.4(L) 35.6 - 45.5 % [facility] Comment:Testing performed by : [address] [address] Plt 245 150 - 400 K/cumm [facility] Comment:Testing performed by : [address] [address] MPV 9.9 9.1 - 12.3 fL [facility] Comment:Testing performed by : [address] [address] RBC 3.91 3.90 - 5.20 M/cumm [facility] Comment:Testing performed by : [address] [address] MCV 85.4 81.3 - 96.4 fL MIGEL Comment:Testing performed by : [address] [address] MCH 28.1 27.1 - 33.3 pg MIGEL Comment:Testing performed by : [address] [address] MCHC 32.9 32.3 - 35.7 g/dL MIGEL Comment:Testing performed by : [address], [address] RDW CV 21.9(H) 11.1 - 14.9 % MIGEL Comment:Testing performed by : [address] [address] RDW SD 66.5(H) 35.7 - 48.1 fL MIGEL Comment:Testing performed by : [address], [address] NRBC abs 0.00 0.00 - 0.01 K/cumm MIGEL Comment:Testing performed by : [address] [address] Blood Venous blood specimen / Unknown 02/16/2025 6:17 PM CDT 02/16/2025 6:20 PM CDT us Chato Luna DO LAB BLOOD ORDERABLES Final Res ult MIGEL [facility] [address] [facility] Department of Laboratories [place], [place] [id number] * (ABNORMAL) Lipase (02/16/2025 6:17 PM CDT) Lipase 216(H) 10 - 99 Units/L Comment:Testing performed by : [address] [address] Blood Venous blood specimen / Unknown 02/16/2025 6:17 PM CDT 02/16/2025 6:20 PM CDT us Chato Cheryl DO LAB BLOOD ORDERABLES Final Res ult MIGEL [address] [facility] Department [place] [address] * (ABNORMAL) Comprehensive metabolic panel (02/16/2025 6:17 PM CDT) Sodium 135 135 - 145 mmol/L Comment:Testing performed by : [address] [address] Potassium, pl 4.6 3.3 - 4.9 mmol/L MIGEL Comment: Hemolyzed; Potassium value may be falsely elevated by as much as 1.0 mmol/L. Suggest redraw and reanalysis. Testing performed by: [address] [address] Chloride 105 97 - 110 mmol/L MIGEL Comment:Testing performed by : [address] [address] CO2 20(L) 22 - 32 mmol/L MIGEL Comment:Testing performed by : [address] [address] Anion gap 10 2 - 15 mmol/L MIGEL Comment:Testing performed by : [address] [address] BUN 6 6 - 25 mg/dL MIGEL Comment:Testing performed by : [address] [address] Creatinine 0.89 0.60 - 1.10 mg/dL MIGEL Comment:Testing performed by : [address] [address] Glucose 112 70 - 199 mg/dL MIGEL [...] was last revised 2022. Testing performed by: [address] [address] Calcium 8.6 8.5 - 10.3 mg/dL MIGEL Comment:Testing performed by : [address] [address] Bilirubin, total 0.4 0.1 - 1.2 mg/dL MIGEL Comment:Testing performed by : [address] [address] Protein, pl 7.3 6.5 - 8.5 g/dL MIGEL Comment:Testing performed by : [address] [address] Albumin 3.9 3.5 - 5.0 g/dL MIGEL Comment:Testing performed by : [address] [address] Alk phos 143(H) 40 - 130 Units/L MIGEL Comment:Testing performed by : [address] [address] ALT 35 7 - 45 Units/L MIGEL Comment:Testing performed by : [address] [address] AST 85(H) 10 - 45 Units/L MIGEL Comment: Hemolyzed; result may be falsely elevated Testing performed by: [address] [address] Blood 02/16/2025 6:17 PM CDT 02/16/2025 6:20 PM CDT us Chato Luna DO LAB BLOOD ORDERABLES Final Res ult MIGEL [facility] [address] [facility] [place] [address] * (ABNORMAL) High Risk HPV DNA Detection with Genotyping (Molecular component) (05/25/2024 1:44 PM CDT) HPV HR [address] [facility] Comment:Testing performed by : [facility], [address] [place]., [address] HPV HR 18 Not Detected Not Detected [facility]EL [facility] Comment:Testing performed by : [facility], [address] [facility], [address] HPV HR Non 16/18 Detected(A) Not Detected [...] this test have been verified by the [facility] Molecular Infectious Disease laboratory. Correlate with separately reported cytology results, as applicable. Interpretive data last revised 23 Testing performed by: [facility], [address] [place]., [address] Endocervical 05/25/2024 1:44 PM CDT 05/26/2024 2:45 PM CDT Narrative MIGEL - 05/26/2024 10:40 PM CDT Clinical history and diagnosis->LP: 2017 Number of vials->1 Testing type->Screening Last menstrual period (date if known)->04/24/2024 Chelsey Fajardo MD LAB BODY FLUIDS AND STOOLS ORDERABLES Final Result Performing Organization Address City/State/[facility] de Phone Number MIGEL [address] [facility] [place] [address] [facility] * Hepatitis C antibody (12/06/2022 2:36 PM [...] OR DERABLES Final Result Performing Organization Address [facility] de Phone Number MIGEL [address] [facility] [place] [address] from Last 3 Months or Most Recently Relevant to Health Maintenance Insurance [facility] Advance Directives For more information, please contact: [phone] * Full Code (Latest Code Status on File) Date Activated Date Inactivated Comments 06/02/2023 4:53 AM 06/05/2023 10:00 PM * Full Code Date Activated Date Inactivated Comments 06/01/2023 7:55 PM 06/02/2023 1:58 AM Full CPR in case of cardiopulmonary arrest Care Teams Print Finishing Worker Relationship Specialty Start Date End Date No, Physician PCP - General 11/22/22 Chelsey Fajardo MD [address] [place] [address] Consulting Physician Obstetrics and Gynecology 04/24/24
--- OUTSIDE RECORDS SUMMARY | 2025-03-23 17:55 | XMS_ITS | Encounter Summary ---
Author Organization [facility] Healthcare Address [address] [place] [address] Care Team Providers Care Supervisor Malt House Name Role Phone No, Physician Primary Care Provider [phone] Chelsey Fajardo MD Unavailable [phone] Reason for Referral * Diagnostic Imaging (Routine) - Pending Review Specialty Diagnoses / Procedures Referred By Contac t Referred To Contact Diagnoses Establish gestational age, ultrasound Procedures US OB Under 14 Weeks W Endovaginal Denia Chaney MD [address] [place] [phone] Phone: tel: fax: [facility] Medical [facility] Obstetrical Gynecology [address] [place] [phone] Phone: tel: fax: Referral ID Status Reason Start Date Expiration Date V isits Requested Visits Authorized [id number] Pending Review 03/16/2025 04/15/2026 1 1 Encounter Details Date Type Department Care Team (Late st Contact Info) Description 03/16/2025 Telephone [facility] Medical [facility] Obstetrical Gynecology [address] [place] [phone] Chelsey Fajardo MD [address] [place] [phone] Social History Tobacco Use Types Packs/Day Years Used Date Smoking Tobacco: Never Smokeless Tobacco: Never Alcohol Use Standard Drinks/Week Comments Yes 0 (1 standard drink = 0.6 oz pur e alcohol) [facility] Utilities Answer Date Recorded In the [...] often do you attend chur ch or taoism services? More than 4 times per year 09/11/2023 Do you belong to any clubs o r organizations such as methodist groups, unions, fraternal or athletic groups, or [...] place to sleep or slept in a custodial (including now)? No 09/11/2023 [place] Depression Scale Answer Date Recorded [place] Depression Scale Total 15 07/19/2023 The thought [...] on file Legal Sex Female 6:08 AM ED TRANSPORTER Gender Identity Not on file Sexual Orientation Not on file documented as of this encounter Miscellaneous Notes * Telephone Encounter - Nani Kaur RN - 03/16/2025 3:03 PM CDT US ordered. Informed the pt we need to know the name of her medication prior to know its okay to continue or not. She will send in a HangIt chart message Qustodian once she is home. Pt will also [...] ultrasonics documented in this encounter Care Teams Supervisor Malt House Relationship Specialty Start Date End Date No, Physician PCP - General 11/22/22 Chelsey Fajardo MD [address] [place] [id number] Consulting Physician Obstetrics and Gynecology 04/24/24 documented as of this encounter
--- OUTSIDE RECORDS SUMMARY | 2025-03-23 17:55 | XMS_ITS | Encounter Summary ---
Author Organization [facility] Facility Care Team Providers Care Perfect Binder Operator Name Role Phone Cayla Ding MD Primary Care Provider [phone] Gorge Ding MD Primary Care Provider No, Physician Primary Care Provider [phone] Chelsey Fajardo MD Unavailable [phone] Encounter Details Date Type Department Care Team (Latest Contact Info) Description 07/01/2018 Orders Only [facility] ProviderElena MD [address] [place], [place] [id number] Social History Tobacco Use Types Packs/Day Years Used Date Smoking Tobacco: Never Assessed Comments Unknown Sex and Gender Information Value Date Recorded Sex Assigned at Not on file Legal Sex Female 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 10/06/2022 11/22/2022 01/04/2023 3:05 AM C DT documented as of this encounter Care Teams Perfect Binder Operator Relationship Specialty Start Date End Date Cayla Ding MD PCP - General 03/30/18 07/29/19 Gorge Ding MD [address] [facility] [address] [place] [address] PCP - General 07/30/19 11/21/22 No, Physician PCP - General 11/22/22 Chelsey Fajardo MD [address] [address] [place] [address] Consulting Physician Obstetrics and Gynecology 04/24/24 documented as of this encounter
--- OUTSIDE RECORDS SUMMARY | 2025-03-23 17:55 | XMS_ITS | Clinical Summary ---
Author Organization [facility] Address [facility] [place] [address] Care Team Providers Care Differential Specialist Name Role Phone Unavailable Primary Care Provider Unavailabl e Allergies No known active allergies Medications No known medications Active Problems No known active problems Encounters Date Type Department Care Team Description 03/22/2025 6:52 PM CDT - 03/22/2025 7:00 PM CDT Emergency [facility] [place] [address] Radha Machado PA Discharge Disposition: Left Against [...] Comments Blood Pressure 151/92 09/03/2017 1:58 PM CRANE SERVICE TECHNICIAN Pulse 70 09/03/2017 1:58 PM CRANE SERVICE TECHNICIAN Temperature 37.1 C (98.8 F) 09/03/2017 1:58 PM CRANE SERVICE TECHNICIAN Respiratory Rate 20 09/03/2017 1:58 PM CRANE SERVICE TECHNICIAN Oxygen Saturation 100% 09/03/2017 1:58 PM CRANE SERVICE TECHNICIAN Inhaled Oxygen Concentration - - Weight 94.3 kg (208 lb) 09/03/2017 1:58 PM CRANE SERVICE TECHNICIAN Height 167.6 cm (5' 6) 09/03/2017 1:58 PM CRANE SERVICE TECHNICIAN Body Mass Index 33.57 09/03/2017 1:58 PM CRANE SERVICE TECHNICIAN Plan of Treatment Health Maintenance Due Date [...]
--- OUTSIDE RECORDS SUMMARY | 2025-03-23 17:55 | XMS_ITS | Encounter Summary ---
Author Organization [facility] Facility Care Team Providers Care Cnmt Name Role Phone Cayla Ding MD Primary Care Provider [phone] Gorge Ding MD Primary Care Provider No, Physician Primary Care Provider [phone] Chelsey Fajardo MD Unavailable [phone] Encounter Details Date Type Department Care Team (Latest Contact Info) Description 04/24/2018 Orders Only [facility]INCON[facility] ProviderElena MD [address] [place], [place] [id number] Social History Tobacco Use Types Packs/Day Years Used Date Smoking Tobacco: Never Assessed Comments Unknown Sex and Gender Information Value Date Recorded Sex Assigned at Not on file Legal Sex Female 6:08 AM DESK REPRESENTATIVE Gender Identity Not on file Sexual Orientation [...] Resolved Time COVID19 10/20/2020 09/26/202210/0610/06/2022 3:05 AM DESK REPRESENTATIVE COVID: Recovered Comment:Added based on recent COVID infection. 10/06/2022 11/22/2022 01/04/2023 3:05 AM C DT documented as of this encounter Care Teams Cnmt Relationship Specialty Start Date End Date Cayla Ding MD PCP - General 03/30/18 07/29/19 Gorge Ding MD [address] [facility] [address] [place], [place] [id number] PCP - General 07/30/19 11/21/22 No, Physician PCP - General 11/22/22 Chelsey Fajardo MD [address] [facility] [address] [place] [address] Consulting Physician Obstetrics and Gynecology 04/24/24 documented as of this encounter
--- NOTE | 2025-03-23 18:12 | ED_ITS ---
HPI - General Chief complaint: Abdominal Pain Stated complaint: stomach cramps, 7 weeks Time Seen by Provider: 03/23/25 17:03 History of Present Illness HPI Narrative: Patient presenting with pelvic cramps that started this morning, she is around 7 weeks , high-risk due to prior abruption. No vaginal bleeding. Related Data Home Medications ?Medication ?Instructions ?Recorded ?Confirmed ?Last Taken ?Type amlodipine 10 mg tablet 10 mg PO DAILY 10/29/23 10/29/23 Unknown History Allergies Allergy/AdvReac Type Severity Reaction Status Date / Time No Known Allergies Allergy Verified 03/23/25 16:40 Review of Systems Review of Systems: All systems reviewed & are unremarkable except as noted in HPI and below PMFSH Social History Social History Smoking status: Never smoker Exam Narrative: EXAMINATION OF ORGAN SYSTEMS/BODY AREAS: Constitutional: Vital signs per nursing GENERAL:[No acute distress, non-toxic appearing.] HEAD: Normal with no signs of head trauma. EYES: EOMI, conjunctiva normal ENT: Hearing grossly intact LUNGS: Nonlabored breathing. HEART: [Regular rate and rhythm] ABD: [Soft], [nontender to palpation] EXT: Normal range of motion SKIN: [No rashes or lesions.] NEURO: [Alert and oriented x 3. No gross focal sensory or strength deficits.] PSYCH: Normal affect Course Vital Signs Vital signs: Vital Signs Pulse Rate 60 03/23/25 16:38 Respiratory Rate 16 03/23/25 16:38 Blood Pressure 131/86 03/23/25 16:38 Pulse Oximetry 100 03/23/25 16:38 Oxygen Delivery Room Air 03/23/25 16:38 Pulse Rate 60 03/23/25 16:38 Respiratory Rate 16 03/23/25 16:38 Blood Pressure 131/86 03/23/25 16:38 Pulse Oximetry 100 03/23/25 16:38 Oxygen Delivery Room Air 03/23/25 16:38 MDM - OB/Uterine Contractions MDM Narrative Medical decision making narrative: Patient presents here at 7 weeks with pelvic pain, has not had a confirmed IUP. I did perform bedside ultrasound, did see a yolk sac intrauterine however no heartbeat, therefore obtained Ob ultrasound. This is showing very early versus failed , intrauterine, yolk sac without definitive heartbeat, and a subchorionic hemorrhage. Discussed this with patient and she will need to follow-up with her label press operator with strict return precautions. Patient agreeable to plan Lab Data Labs: Lab Results 03/23/25 03/23/25 Range/Units 16:51 16:52 Urine Color Yellow (Yellow) Urine Appearance Clear (Clear) Urine pH 6.5 (5.0-9.0) Ur Specific [place] 1.024 (1.001-1.035) Urine Protein Negative (Negative) mg/dL Urine Glucose (UA) Negative (Negative) mg/dL Urine Ketones Trace H (Negative) mg/dL Ur Blood (Man) Negative (Negative) Urine Nitrate Negative (Negative) Urine Bilirubin Negative (Negative) Urine Urobilinogen 1.0 (<2.0) mg/dL Add Ur Microanalysis Reviewed Leukocyte Esterase Rfl 1+ H (Negative) ANAND/UL Urine RBC 0-2 (0-2) /hpf Urine WBC 0-5 (0-3) /hpf Ur Squamous Epith Cells Occasional (Few) /hpf Urine Bacteria None seen /hpf Urine Casts 0-2 POC Urine HCG, Qual Positive (Negative) Discharge Plan Discharge Clinical Impression: Pelvic pain during Patient Disposition: Home Condition: Stable Instructions: Abdominal Pain in (ED), Subchorionic Hemorrhage (ED) Additional Instructions: Please follow up with your OB; you can take tylenol for pain; please return if you experience severe pain or bleeding. Patient Language: Bengali Prescriptions: New acetaminophen [Tylenol Extra Strength] 500 mg tablet 1,000 mg PO Q6H PRN (Reason: pain) Qty: 50 0RF No Action hydrocortisone [Proctosol HC] 2.5 % cream with perineal applicator 1 applic RECTAL HS PRN (Reason: hemorrhoids) 15 Days Qty: 30 0RF amlodipine 10 mg tablet 10 mg PO DAILY Follow-up/Referrals: PHYSICIAN,SENIOR ENLISTED ADVISOR [Primary Care Provider] -
== END 2025-03-23 18:43 | disposition home or self-care (01) ==
PROVIDERS: Emergency Medicine; Emergency Provider Emergency Medicine
DX: O26.91 Pregnancy related conditions, unspecified, first trimester (principal); R10.2 Pelvic and perineal pain; Z3A.01 Less than 8 weeks gestation of pregnancy
CPT/HCPCS: 76801; 76817; 81001; 81025; 87086; 99284

== ENCOUNTER 2025-06-15 09:12 | Emergency (ER) | payer OTHER, SELFPAY ==
[2025-06-15 09:16] VITALS: BP 142/105; PULSE 97; RESP 18; TEMP 36.8; O2SAT 100
--- OUTSIDE RECORDS SUMMARY | 2025-06-15 09:33 | XMS_ITS | Encounter Summary ---
Author Organization [facility] Facility Care Team Providers Care Dynamite Shooter Name Role Phone Cayla Ding MD Primary Care Provider [phone] Gorge Ding MD Primary Care Provider No, Physician Primary Care Provider [phone] Chelsey Fajardo MD Unavailable [phone] Encounter Details Date Type Department Care Team (Latest Contact Info) Description 03/06/2018 Orders Only [facility]IN[facility] ProviderElena MD [address] [place] [address] Social History Tobacco Use Types Packs/Day Years Used Date Smoking Tobacco: Never Assessed Comments Unknown Sex and Gender Information Value Date Recorded Sex Assigned at Not on file Legal Sex Female 6:08 AM WELDING OPERATOR Gender Identity Not on file Sexual Orientation Not on file documented as of this encounter Plan of Treatment Upcoming Encounters Date Type Department Care Team (Late st Contact Info) Description 11/18/2025 6:00 PM CDT Hospital Encounter [facility] [address] [place], [place] [phone] Red Dewey MD [address] [address] documented as of this encounter Procedures Procedure Name Priority Date/Time Associated Diagnosis Comments CARDIOLOGY REPORT 06/30/2018 12: 00 AM CDT documented in this encounter Results * CARDIOLOGY REPORT (06/30/2018 12:00 AM CDT) Anatomical Region Laterality Modality Other Narrative 06/30/2018 12:00 AM CDT Ordered by an unspecified provider. us Historical Provider [facility] AND[facility] Final Result documented in this encounter Visit Diagnoses Not on filedocumented in this encounter Additional Health Concerns Infection Onset Date Last Indicated Resolved Time COVID19 10/20/2020 09/26/2022 10/06/2022 3:05 AM WELDING OPERATOR COVID: Recovered Comment:Added based on recent COVID infection. 10/06/2022 11/22/2022 01/04/2023 3:05 AM C DT documented as of this encounter Care Teams Dynamite Shooter Relationship Specialty Start Date End Date Cayla Ding MD PCP - General 03/30/18 07/29/19 Gorge Ding MD [address] [facility] [address] [place], [place] [phone] PCP - General 07/30/19 11/21/22 No, Physician PCP - General 11/22/22 [place] [address] [place] [id number] Consulting Physician Obstetrics and Gynecology 04/24/24 documented as of this encounter
--- OUTSIDE RECORDS SUMMARY | 2025-06-15 09:33 | XMS_ITS | Encounter Summary ---
Author Organization [facility] Facility Care Team Providers Care Bench Grinder Name Role Phone Cayla Ding MD Primary Care Provider [phone] Gorge Ding MD Primary Care Provider No, Physician Primary Care Provider Chelsey Fajardo MD Unavailable [phone] Encounter Details Date Type Department Care Team (Latest Contact Info) Description 02/28/2018 Orders Only [facility] CLINCON[facility] ProviderElena MD [address] [place] [address] Social History Tobacco Use Types Packs/Day Years Used Date Smoking Tobacco: Never Assessed Comments Unknown Sex and Gender Information Value Date Recorded Sex Assigned at Not on file Legal Sex Female 6:08 AM FLAT SURFACER JEWEL Gender Identity Not on file Sexual Orientation Not on file documented as of this encounter Plan of Treatment Upcoming Encounters Date Type Department Care Team (Late st Contact Info) Description 11/18/2025 6:00 PM CDT Hospital Encounter [facility] [address] [place], [place] [phone] Red Dewey MD [address] [address] documented as of this encounter [...] Time COVID19 10/20/2020 09/26/2022 10/06/2022 3:05 AM FLAT SURFACER JEWEL COVID: Recovered Comment:Added based on recent COVID infection. 10/06/2022 11/22/2022 01/04/2023 3:05 AM C DT documented as of this encounter Care Teams Bench Grinder Relationship Specialty Start Date End Date Cayla Ding MD PCP - General 03/30/18 07/29/19 Gorge Ding MD [address] [facility] [address] [place], [place] [phone] PCP - General 07/30/19 11/21/22 No, Physician PCP - General 11/22/22 [place] [address] [place] [phone] Consulting Physician Obstetrics and Gynecology 04/24/24 documented as of this encounter
--- OUTSIDE RECORDS SUMMARY | 2025-06-15 09:33 | XMS_ITS | Encounter Summary ---
Author Organization [facility] Facility Care Team Providers Care Inspector Mechanical Name Role Phone Cayla Ding MD Primary Care Provider [phone] Gorge Ding MD Primary Care Provider No, Physician Primary Care Provider [phone] Chelsey Fajardo MD Unavailable [phone] Encounter Details Date Type Department Care Team (Latest Contact Info) Description 04/24/2018 Orders Only [facility] CLINCON[facility] ProviderElena MD [address] [place] [address] Social History Tobacco Use Types Packs/Day Years Used Date Smoking Tobacco: Never Assessed Comments Unknown Sex and Gender Information Value Date Recorded Sex Assigned at Not on file 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 10/06/2022 11/22/2022 01/04/2023 3:05 AM C DT documented as of this encounter Care Teams Inspector Mechanical Relationship Specialty Start Date End Date Cayla Ding MD PCP - General 03/30/18 07/29/19 Gorge Ding MD [address] [facility] [address] [place], [place] [phone] PCP - General 07/30/19 11/21/22 No, Physician PCP - General 11/22/22 [place] [address] [place] [phone] Consulting Physician Obstetrics and Gynecology 04/24/24 documented as of this encounter
--- OUTSIDE RECORDS SUMMARY | 2025-06-15 09:33 | XMS_ITS | Encounter Summary ---
Author Organization [facility] Facility Care Team Providers Care Skin Care Specialist Name Role Phone Cayla Ding MD Primary Care Provider [phone] Gorge Ding MD Primary Care Provider No, Physician Primary Care Provider [phone] Chelsey Fajardo MD Unavailable [phone] Encounter Details Date Type Department Care Team (Latest Contact Info) Description 07/01/2018 Orders Only [facility] CLINCONV ProviderElena MD [address] [place] [address] Social History Tobacco Use Types Packs/Day Years Used Date Smoking Tobacco: Never Assessed Comments Unknown Sex and Gender Information Value Date Recorded Sex Assigned at Not on file 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 Gender Identity Not on file Sexual Orientation Not on file documented as of this encounter Plan of Treatment Upcoming Encounters Date Type Department Care Team (Late st Contact Info) Description 11/18/2025 6:00 PM CDT Hospital Encounter [facility] [address] [place], [place] [phone] Red Dewey MD [address] [address] documented as of this encounter Procedures Procedure Name Priority Date/Time Associated Diagnosis Comments PROCEDURE - RESULT 07/01/2018 12 :00 AM CDT documented in this encounter Results * PROCEDURE - RESULT (07/01/2018 12:00 AM CDT) Narrative 07/01/2018 12:00 AM CDT Ordered by an unspecified provider. 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 10/06/2022 11/22/2022 01/04/2023 3:05 AM C DT documented as of this encounter Care Teams Skin Care Specialist Relationship Specialty Start Date End Date Cayla Ding MD PCP - General 03/30/18 07/29/19 Gorge Ding MD [address] [facility] [address] [place], [place] [phone] PCP - General 07/30/19 11/21/22 No, Physician PCP - General 11/22/22 Chelsey Fajardo MD [address] [address] Consulting Physician Obstetrics and Gynecology 04/24/24 documented as of this encounter
--- OUTSIDE RECORDS SUMMARY | 2025-06-15 09:33 | XMS_ITS | Clinical Summary ---
Author Organization [facility] Address [address] [address] Care Team Providers Care Link Cutter Name Role Phone Unavailable Primary Care Provider Unavailabl e Source Comments [facility],non-owned Affiliates and Associated Physician Practices is amultiple site organization consisting of ambulatory clinics and hospital sitesin [place], [place], [place] and [place]. This disclosure is being madepursuant to the Care Everywhere program and may not contain all information available regarding this patient. Last updated 18.[facility] Allergies No known active allergies Encounters Date Type Department Care Team Description 03/24/2025 5:20 PM CDT - 03/24/2025 9:36 PM CDT Emergency ER at [address] [address] Augie Mason DO Pelvic pain in female; Asymptomatic bacteriuria during (HCC) Discharge Disposition: Home or Self Care 03/24/2025 Travel from Last 3 Months Social History Tobacco Use Types Packs/Day Years Used Date Smoking Tobacco: Never Assessed Comments Unknown Sex and Gender Information Value Date Recorded Sex Assigned at Not on file Legal Sex Female 9:48 AM CDT Gender Identity Not on file Sexual Orientation Not on file Last Filed Vital Signs Vital Sign Reading Time Taken Comments Blood Pressure 132/85 03/24/2025 4:00 PM CDT Pulse 60 03/24/2025 4:00 PM CDT Temperature 36.6 C (97.9 F) 03/24/2025 4:00 PM CDT Respiratory Rate 16 03/24/2025 4:00 PM CDT Oxygen Saturation 100% 03/24/2025 4:00 PM CDT Inhaled Oxygen Concentration - - Weight 72.6 kg (160 lb) 03/24/2025 4:00 PM CDT Height 167.6 cm (5' 6) 03/24/2025 4:00 PM CDT Body Mass Index 25.82 03/24/2025 4:00 PM CDT Plan of Treatment Health Maintenance Due Date Last Done Comments HIV SCREENING 2005 HEPATITIS C SCREENING 08/27/2008 DTAP/TDAP/TD VACCINES (1 - Tdap) 2009 HEPATITIS B VACCINE (1 of 3 - 19+ 3-dose series) 2009 PAP SMEAR 2011 HPV VACCINE (1 - 3-dose SCDM series) 2017 DEPRESSION SCREENING 09/09/2024 COVID-19 VACCINE (1 - 2023-2 5 season) 2025 INFLUENZA VACCINE (#1) 2025 , 07/26/2023, 07/13/2022 ZOSTER VACCINE (1 of 2) 2040 HIB VACCINE Aged Out No longer eligi ble based on patient's age to complete this topic MENINGOCOCCAL (Group B) VACCINE SHARED DECISION-MAKING Aged Out No longer eligible based on patient's age to complete this topic MENINGOCOCCAL GROUPS A/C/Y/W VACCINE Aged Out No longer eligible b ased on patient's age to complete this topic PNEUMOCOCCAL VACCINE Aged Out No long er eligible based on patient's age to complete this topic Procedures Procedure Name Priority Date/Time Associated Diagnosis Comments US OB LESS 14 WKS W TRANSV W DOPP STAT 03/24/2025 7:31 PM CDT Pelvic pain in female URINALYSIS REFLEX MICROSCOPIC REFLEX CULTURE STAT 03/24/2025 6:33 PM CDT CULTURE URINE STAT 03/24/2025 6:33 PM CDT TYPE + SCREEN PANEL STAT 03/24/2025 6 :12 PM CDT DIFFERENTIAL MANUAL STAT 03/24/2025 6 :12 PM CDT LIPASE BLOOD STAT 03/24/2025 6:12 PM CDT HCG BETA BLOOD QUANTITATIVE STAT 03/24/2025 6:12 PM CDT CBC W AUTO DIFFERENTIAL STAT 03/24/2025 6:12 PM CDT COMPREHENSIVE METABOLIC PANEL STAT 03/24/2025 6:12 PM CDT from Last 3 Months Results * US OB Less 14 Wks W Transv W Dopp (03/24/2025 7:31 PM CDT) Anatomical Region Laterality Modality Pelvis Ultrasound 03/24/2025 7:51 PM CDT Impressions 03/24/2025 7:59 PM CDT IMPRESSION: 1. Single, live intrauterine gestation, 5 weeks 3 days. > Interpreting Provider: Jessica Torres MD on 03/24/2025 7:59 PM Narrative 03/24/2025 7:59 PM CDT PROCEDURE: US OB LESS 14 WKS W TRANSV W DOPP DATE/TIME OF EXAM: 03/24/2025 7:31 PM CLINICAL INFORMATION: None relevant/not provided if blank. Indication: R10.2: Pelvic pain in female Additional History: Beta hCG of 8300 COMPARISON: None. TECHNIQUE: Ultrasound of the pelvis was performed utilizing transabdominal and transvaginal protocol. Grayscale images were obtained; additionally, Color Doppler and pulse wave Spectral Doppler interrogation was performed and interpreted. FINDINGS: The uterus measures 12.4 x 6.2 x 6.6 cm. Within the fundal endometrial canal there is a gestational sac containing a yolk sac and embryonic pole. Based on crown-rump length gestational age is 5 weeks and 3 days with estimated date of delivery of 11/21/2025. Embryonic cardiac motion measures 118 bpm. There is a small anechoic cystic space within the endometrium near the gestational sac. Favor this is incidental cyst rather than small subchorionic hemorrhage. The right ovary measures 3.4 x 1.8 x 1.4 cm and contains a corpus luteum cysts up to 1.4 cm and is normally perfused as seen on color Doppler with spectral analysis. The left ovary measures 2.9 x 2.1 x 1.8 cm and contains small simple follicles and is normally perfused as seen on color Doppler with spectral analysis. There is small posterior free fluid. The maternal urinary bladder is normal. Procedure Note Jessica Torres MD - 03/24/2025 PROCEDURE: US OB LESS 14 WKS W TRANSV W DOPP DATE/TIME OF EXAM: 03/24/2025 7:31 PM CLINICAL INFORMATION: None relevant/not provided if blank. Indication: R10.2: Pelvic pain in female Additional History: Beta hCG of 8300 COMPARISON: None. TECHNIQUE: Ultrasound of the pelvis was performed utilizing transabdominal and transvaginal protocol. Grayscale images were obtained; additionally,Color Doppler and pulse wave Spectral Doppler interrogation was performed and interpreted. FINDINGS: The uterus measures 12.4 x 6.2 x 6.6 cm. Within the fundal endometrial canal there is a gestational sac containing a yolk sac and embryonic pole. Based on crown-rump length gestational age is 5 weeks and 3 days with estimated date of delivery of 11/21/2025. Embryonic cardiac motionmeasures 118 bpm. There is a small anechoic cystic space within the endometrium near the gestational sac. Favor this is incidental cyst rather thansmall subchorionic hemorrhage. The right ovary measures 3.4 x 1.8 x 1.4 cm and contains a corpus luteum cysts up to 1.4 cm and is normally perfused as seen on color Dopplerwith spectral analysis. The left ovary measures 2.9 x 2.1 x 1.8 cm and contains small simple follicles and is normally perfused as seen on color Doppler withspectral analysis. There is small posterior free fluid. The maternal urinary bladder is normal. IMPRESSION: 1. Single, live intrauterine gestation, 5 weeks 3 days. > Interpreting Provider: Jessica Torres MD on 03/24/2025 7:59 PM us Leno Mercer PA-C US ORDERABLES Final Res ult * (ABNORMAL) URINALYSIS REFLEX MICROSCOPIC REFLEX CULTURE (03/24/2025 6:33 PM CDT) Color UA Yellow Yellow, Straw 03/24/2025 6:42 PM CDT [facility] Clarity UA Clear Clear 03/24/2025 6:42 PM CDT [facility] Glucose UA Normal Normal 03/24/2025 6:42 PM CDT [facility] Bilirubin UA Negative Negative 03/24/2025 6:42 PM CDT [facility] Ketone UA Negative Negative 03/24/2025 6:42 PM CDT [facility] Specific [place] UA 1.015 1.005 - 1.030 03/24/2025 6:42 PM CDT [facility] Blood UA Negative Negative 03/24/2025 6:42 PM CDT [facility] pH UA 6.5 5.0 - 8.0 03/24/2025 6:42 PM CDT [facility] Protein UA Negative Negative 03/24/2025 6:42 PM CDT [facility] Urobilinogen UA Normal Normal mg/dL 03/24/2025 6:42 PM CDT [facility] Nitrite UA Negative Negative 03/24/2025 6:42 PM CDT [facility] Leukocyte Esterase UA 75 ANAND/uL(A) Negative 03/24/2025 6:42 PM CDT [facility] RBC UA 3-5 0 - 5 # /hpf 03/24/2025 6:42 PM CDT [facility] WBC UA 0-5 0 - 5 # /hpf 03/24/2025 6:42 PM CDT [facility] Bacteria UA Trace(A) None Seen 03/24/2025 6:42 PM CDT [facility] Squamous Epithelial Cells 3-5 0 - 5 /hpf 03/24/2025 6:42 PM CDT [facility] Mucus UA 1+ /LPF 03/24/2025 6:42 PM CDT [facility] Reflex Status Culture to follow 03/24/2025 6:42 PM CDT [facility] Urine URINE SPECIMEN OBTAINED BY CLEAN CATCH PROCEDURE / Unknown Collection / Unknown 03/24/2025 6:33 PM CDT 03/24/2025 6:36 PM CDT [facility] - 03/24/2025 6:42 PM CDT us Leno Mercer PA-C LAB - URINALYSIS ORDERABL ES Final Result [facility] [address] [place] [address] * CULTURE URINE (03/24/2025 6:33 PM CDT) Pathologist [facility] Culture Urine More than 2 organisms seen at >=50,000 CFU/mL. Recollect if clinically indicated. REJI 03/26/2025 9:40 AM CDT [facility] Urine URINE SPECIMEN OBTAINED BY CLEAN CATCH PROCEDURE / Unknown Collection / Unknown 03/24/2025 6:33 PM CDT 03/24/2025 6:36 PM CDT Narrative [facility] - 03/26/2025 9:40 AM CDT Leno Mercer PA-C LAB - MICROBIOLOGY ORDERA BLES Final Result [facility] [address] [place] [address], [place] [phone] * TYPE + SCREEN PANEL (03/24/2025 6:12 PM CDT) Pathologist [facility] ABO Rh B POS 03/24/2025 7:02 PM CDT [facility] Comment:No history; collect retype. Antibody Screen NEG 7:02 PM CDT [facility] Blood Bank BLOOD SPECIMEN / Unknown Venipuncture / Unknown 03/24/2025 6:12 PM CDT 03/24/2025 6:22 PM CDT Leno Mercer PA-C LAB - BLOOD BANK ORDERABL ES Final Result [facility] [address] [place] [address], [place] [phone] * DIFFERENTIAL MANUAL (03/24/2025 6:12 PM CDT) Pathologist [facility] Neutrophil % 60 41 - 74 % 03/24/2025 6:53 PM CDT [facility] Lymphocyte % 36 17 - 47 % 03/24/2025 6:53 PM CDT [facility] Monocyte % 4 3 - 11 % 03/24/2025 6:53 PM CDT [facility] Neutrophil Absolute 2.64 1.60 - 7.50 x10E9/L 03/24/2025 6:53 PM CDT [facility] Lymphocyte Absolute 1.58 1.00 - 4.40 x10E9/L 03/24/2025 6:53 PM CDT [facility] Monocyte Absolute 0.18 0.15 - 1.00 x10E9/L 03/24/2025 6:53 PM CDT [facility] RBC Morphology NORMAL 03/24/2025 6:53 PM CDT [facility] Blood BLOOD SPECIMEN / Unknown Venipuncture / Unknown 03/24/2025 6:12 PM CDT 03/24/2025 6:22 PM CDT Leno Mercer PA-C LAB - HEMATOLOGY ORDERABL ES Final Result Performing Organization Address City/State/[facility] Co de Phone Number [facility] [address] [place], [place] [id number] * (ABNORMAL) CBC W AUTO DIFFERENTIAL (03/24/2025 6:12 PM CDT) WBC 4.4 4.0 - 10.7 x10E9/L 03/24/2025 6:53 PM CDT [facility] RBC Count 3.37(L) 3.90 - 5.20 x10E12/L 03/24/2025 6:53 PM CDT [facility] Hemoglobin 9.6(L) 11.9 - 15.8 g/dL 03/24/2025 6:53 PM CDT [facility] Hematocrit 29.3(L) 34.8 - 46.1 % 03/24/2025 6:53 PM CDT [facility] MCV 86.9 80.0 - 98.0 fL 03/24/2025 6:53 PM CDT [facility] MCH 28.5 26.7 - 33.6 pg 03/24/2025 6:53 PM CDT [facility] MCHC 32.8 31.7 - 36.3 g/dL 03/24/2025 6:53 PM CDT [facility] RDW-CV 22.7(H) 11.3 - 14.8 % 03/24/2025 6:53 PM CDT [facility] Platelet Count 275 150 - 420 x10E9/L 03/24/2025 6:53 PM CDT [facility] MPV 9.7 7.8 - 11.4 fL 03/24/2025 6:53 PM CDT [facility] Blood BLOOD SPECIMEN / Unknown Venipuncture / Unknown 03/24/2025 6:12 PM CDT 03/24/2025 6:22 PM CDT Leno Mercer PA-C LAB - HEMATOLOGY ORDERABL ES Final Result [facility] [address] [place] [address] * (ABNORMAL) COMPREHENSIVE METABOLIC PANEL (03/24/2025 6:12 PM CDT) Glucose 87 70 - 99 mg/dL 03/24/2025 6:41 PM CDT [facility] Sodium 139 136 - 145 mmol/L 03/24/2025 6:41 PM CDT [facility] Potassium 3.8 3.5 - 5.1 mmol/L 03/24/2025 6:41 PM CDT [facility] Chloride 111(H) 98 - 107 mmol/L 03/24/2025 6:41 PM CDT [facility] CO2 20(L) 22 - 29 mmol/L 03/24/2025 6:41 PM T [facility] Calcium 8.5 8.4 - 10.4 mg/dL 03/24/2025 6:41 PM T [facility] Anion Gap 8 6 - 16 mmol/L 03/24/2025 6:41 PM CDT [facility] BUN 5(L) 5.3 - 18.7 mg/dL 03/24/2025 6:41 PM CDT [facility] Creatinine 0.76 0.57 - 1.11 mg/dL 03/24/2025 6:41 PM T [facility] Alkaline Phosphatase 86 40 - 150 U/L 03/24/2025 6:41 PM CDT [facility] ALT 28 6 - 57 U/L 03/24/2025 6:41 PM CDT [facility] AST 28 10 - 48 U/L 03/24/2025 6:41 PM CDT [facility] Protein Total 6.5 6.4 - 8.3 gm/dL 03/24/2025 6:41 PM CDT [facility] Albumin 3.4 3.1 - 4.5 gm/dL 03/24/2025 6:41 PM CDT [facility] Bilirubin Total 0.2 0.2 - 1.2 mg/dL 03/24/2025 6:41 PM CDT [facility] eGFR by CKD-EPI >90 >=90 mL/min/1.7 3 m2 03/24/2025 6:41 PM CDT [facility] Comment:Estimated Glomerular Filtration Rate (eGFR) calculated using the CKD-EPI Creatinine Equation (2020), per the National Kidney Foundation and [place] Society of Nephrology recommendations. Blood BLOOD SPECIMEN / Unknown Venipuncture / Unknown 03/24/2025 6:12 PM CDT 03/24/2025 6:22 PM CDT Leno Mercer PA-C LAB - CHEMISTRY ORDERABLE S Final Result [facility] [address] [place] [address] * HCG BETA BLOOD QUANTITATIVE (03/24/2025 6:12 PM CDT) [facility] hCG Quantitative 8,303.87 mIU/mL 03/24/20 6:45 PM CDT [facility] Blood BLOOD SPECIMEN / Unknown Venipuncture / Unknown 03/24/2025 6:12 PM CDT 03/24/2025 6:22 PM CDT Narrative [facility] - 03/24/2025 6:45 PM CDT hCG Reference Range, mIU/mL: Non Females 0-6.0 Perimenopausal Females ages 41-55* 0-7.7 Postmenopausal Females age >55* 0-14 Females, Weeks after Last Menstrual Period 0.2-1 week 5-50 1 - 2 weeks 50-500 2 - 3 weeks 100-5000 3 - 4 weeks 500-10,000 4 - 5 weeks 1000-50,000 5 - 6 weeks 10,000-100,000 6 - 8 weeks 15,000-200,000 2 - 3 months 10,000-100,000 Trophoblastic Disease >100,000 *In higher than expected hCG in females > age 40, a serum FSH >20 IU/L makes unlikely. Leno Mercer PA-C LAB - CHEMISTRY ORDERABLE S Final Result Performing Organization Address City/[facility]/ZIP Co de Phone Number [facility] [address] [place] [address] * LIPASE BLOOD (03/24/2025 6:12 PM CDT) Lipase 33 <60 U/L 03/24/2025 7:45 PM CDT [facility] Blood BLOOD SPECIMEN / Unknown Venipuncture / Unknown 03/24/2025 6:12 PM CDT 03/24/2025 6:22 PM CDT Augie Mason DO LAB - CHEMISTRY ORDERABLES Genet l Result Performing Organization Address City/[facility]/ZIP Co de Phone Number [facility] [address] [place] [address] from Last 3 Months Insurance [facility]
--- OUTSIDE RECORDS SUMMARY | 2025-06-15 09:34 | XMS_ITS | Encounter Summary ---
Author Organization [facility] Healthcare Address [address] [place] [address] Care Team Providers Care House Director Name Role Phone No, Physician Primary Care Provider Chelsey Fajardo MD Unavailable [phone] Encounter Details Date Type Department Care Team (Latest Contact Info) Description 04/19/2025 Results Follow-Up [facility] Obstetrical Gynecology [address] [phone] Randa Her, JIM [address] [address] Comprehensive metabolic panel, Varicella Zoster IgG antibody Blood, Urine culture Urine, clean voided, Additional followed-up results: 11 Social History Tobacco Use Types Packs/Day Years Used Date Smoking Tobacco: Never Smokeless Tobacco: Never Alcohol Use Standard Drinks/Week Comments Yes 0 (1 standard drink = 0.6 oz pur e alcohol) [facility] Utilities Answer Date Recorded In the past 12 months has [employer], gas, oil, or water [employer] threatened to shut off services in your home? No 09/11/2023 Social Connection and Isolation Panel Answer Date Recorded In a typical week, how many times do you talk on the phone with family, friends, or neighbors? More than three times a week 09/11/2023 How often do you get togethe r with friends or relatives? More than three times a week 09/11/2023 How often do you attend chur or congregational services? More than 4 times per year 09/11/2023 Do you belong to any clubs o r organizations such as quaker groups, unions, fraternal or athletic groups, or [...] place to sleep or slept in a senior living (including now)? No 09/11/2023 Coronado Depression Scale Answer Date Recorded Coronado Depression Scale Total 1 04/15/2025 The thought of harming myself has occurred to me . Never 04/15/2025 Personal Safety Answer Date Recorded Have you ever been in or are you currently in a harmful physical or emotional relationship or is someone making you feel afraid or unsafe? Denies 03/16/2025 Estimated Date of Delivery Comme nts Yes 11/18/2025 Based on Ultraso und, CRL report under Imaging Sex and Gender Information Value Date Recorded Sex Assigned at Not on file Legal Sex Female 6:08 AM [employer] Gender Identity Not on file Sexual Orientation Not on file documented as of this encounter Plan of Treatment Upcoming Encounters Date Type Department Care Team (Late st Contact Info) Description 11/18/2025 6:00 PM CDT Hospital Encounter [facility] [address] [place] [address] Red Dewey MD [address] [phone] documented as of this encounter Visit Diagnoses Not on filedocumented in this encounter Care Teams House Director Relationship Specialty Start Date End Date No, Physician PCP - General 11/22/22 Chelsey Fajardo MD [facility] [phone] Consulting Physician Obstetrics and Gynecology 04/24/24 documented as of this encounter
--- OUTSIDE RECORDS SUMMARY | 2025-06-15 09:34 | XMS_ITS | Clinical Summary ---
Author Organization [facility] Address [facility] [place] [address] Care Team Providers Care Catalogue Compiler Name Role Phone Unavailable Primary Care Provider Unavailabl e Allergies No known active allergies Medications No known medications Active Problems No known active problems Encounters Date Type Department Care Team Description 03/22/2025 6:52 PM CDT - 03/22/2025 7:00 PM CDT Emergency [facility] [place] [address] Radha Machado PA Discharge Disposition: Left Against [...] Comments Blood Pressure 151/92 09/03/2017 1:58 PM [employer] Pulse 70 09/03/2017 1:58 PM [employer] Temperature 37.1 C (98.8 F) 09/03/2017 1:58 PM [employer]ER Respiratory Rate 20 09/03/2017 1:58 PM [employer]ER Oxygen Saturation 100% 09/03/2017 1:58 PM [employer]ER Inhaled Oxygen Concentration - - Weight 94.3 kg (208 lb) 09/03/2017 1:58 PM [employer]ER Height 167.6 cm (5' 6) 09/03/2017 1:58 PM [employer]ER Body Mass Index 33.57 09/03/2017 1:58 PM [employer]OUR [employer]ER Plan of Treatment Health Maintenance Due Date Last Done Comments Cervical Cancer Screening Pap Smear (Age 30 to 64) Every 3 Years 1990 Annual Physical 1993 Hepatitis C 2008 Hepatitis B Vaccines (1 of 3 - 19+ 3-dose series) 2009 HPV Vaccines (1 - 3-dose SCDM series) 2017 Cervical Cancer Screening Pap with HPV Testing (Age 30 to 64) Every 5 Years 2020 Cervical Cancer Screening with HPV 2020 DTaP, Tdap and Td Vaccines (2 - Td or Tdap) 03/17/2025 03/17/2015 COVID-19 Vaccine (3 - season) 2025 11/29/2021, 10/23/2021 Influenza Adult (#1) 2025 06/09/2024, 07/26/2023, 07/13/2022, Additional history exists Meningococcal B Vaccine Aged Out No l onger eligible based on patient's age to complete this topic Meningococcal Vaccine Aged Out No philly abdulaziz eligible based on patient's age to complete this topic Pneumococcal Vaccine: Pediatrics (0 to 5 Years) and At-Risk Patients (6 to 49 Years) Aged Out No longer eligible based on patient's age to complete this topic RSV Immunizations Under 20 Months Aged Out No longer eligible based on patient's age to complete this topic Insurance
--- OUTSIDE RECORDS SUMMARY | 2025-06-15 09:34 | XMS_ITS | Clinical Summary ---
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 Name Role Phone No, Physician Primary Care Provider [phone] Chelsey Fajardo MD Unavailable [phone] Allergies No known active allergies Medications aspirin 81 mg enteric coated tabletIndication s:Encounter for supervision of other normal in first trimester,Chroni c hypertension Take 1 tablet (81 mg total) by mouth daily 30 tablet 04/15/20 026 Active vitamin ferrous fumarate-folic () 28 mg iron- 800 mcg tabletIndication s: Take 1 tablet by mouth daily 1 po qd 90 tablet 04/15/20 026 Active acetaminophen (TYLENOL) 500 mg tabletIndication s:Encounter for supervision of other normal in first trimester,Chroni c hypertension Take 2 tablets (1,000 mg total) by mouth every 6 (six) hours as needed for pain or headaches 30 tablet 04/15/20 026 Active thiamine (VITAMIN B1) 100 mg tablet Take 1 tablet (100 mg total) by mouth daily 90 tablet 1 05/24/20 25 026 Active cholecalciferol (VITAMIN D-3) 25 mcg (1,000 unit) tablet Take 1 tablet (1,000 Units total) by mouth daily 90 tablet 3 05/24/20 25 026 Active labetaloL (NORMODYNE,TRAND ATE) 300 mg tablet Take 1 tablet (300 mg total) by mouth 3 (three) times a day 90 tablet 3 05/24/20 25 Active miconazole 200 mg suppositoryIndic ations:Vulvovagi nal Candidiasis Insert 1 suppository (200 mg total) into the vagina nightly for 5 days 5 suppository 06/10/20 25 025 Active labetaloL (NORMODYNE,TRAND ATE) 200 mg tabletIndication s:Encounter for supervision of other normal in first trimester,Chroni c hypertension Take 1 tablet (200 mg total) by mouth daily 30 tablet 11 04/15/20 25 025 Discontin ued(Alter starr therapy) Active Problems Problem Noted Date Diagnosed Date Chronic hypertension affecting Overview (05/24/2025): History Diagnosis: during last Pre- medications: labetalol 200mg bid Counseling 05/24/2025: We counseled the patient that chronic hypertension is associated with an increased risk of adverse outcomes, including growth restriction and stillbirth. Additionally, we discussed that hypertension is associated with development of superimposed preeclampsia with severe features and placental abruption, which can result in iatrogenic delivery in up to 30% of individuals with mild chronic hypertension. Baseline serum preeclampsia labs (CBC, creatinine, BUN, AST, ALT) are recommended in all patients with a history of hypertension. A workup for end organ damage is also recommended, including an EKG and urine protein/creatinine ratio. A fundoscopic exam by ophthalmology is recommended as well, if one has not been performed within the last 12 months. Low dose aspirin is recommended to start at 12 weeks for preeclampsia prophylaxis. Preeclampsia symptoms (headache, scotomata, epigastric pain) were reviewed. We reviewed the course of blood pressures in , specifically that patients usually experience a decrease in systemic pressure in the first trimester followed by a gradual rise starting at around 28 weeks. Recent data from the CHAP study recommends a treatment BP goal of <140/90 antepartum to improve maternal and outcomes, especially in reducing the risk of preeclampsia. Mildly elevated blood pressures in patients with chronic hypertension have not been associated with poor outcomes in the fetus or the mother. However, a preeclampsia workup would be recommended if blood pressures are elevated and significantly above usual baseline or in the severe range for . Current medication regimen: increased to labetalol 300mg tid Plan: [x] Low dose ASA 81 mg starting at 12 weeks [x] Baseline preeclampsia labs (CBC, CMP, UPC) - CBC normal. CMP and UPC 104.6. Baseline cr of 1.02, recommend repeat and nephrology referral if remains >1.0 [x] Baseline EKG [] Serial growth ultrasounds every 4 weeks starting at 24 weeks [] Weekly surveillance starting at 30 weeks per hx IUFD problem [] Delivery at 37w0d - 39w6d is recommended, (with the possibility of earlier delivery for uncontrolled hypertension or preeclampsia) Rubella non-immune status, antepartum 05/17/2025 AMA (advanced maternal age) multigravida 35+, second trimester 05/17/2025 Overview (05/24/2025): Age at MAKEDA: 35 Counseling 05/24/2025: We discussed that advanced maternal age (AMA) is associated with increased risks of spontaneous , aneuploidy, gestational diabetes, and hypertensive disorders of . Additionally, we discussed the added risks for individuals over the age of 40 years, including growth restriction and stillbirth. She is s/p low risk NIPT in this . For the increased risk of preeclampsia, we recommend starting low dose aspirin at 12 weeks daily if other moderate risk factors are present. Recommendations: [x] Genetic screening plan: s/p low risk NIPT [x] Low dose ASA starting at 12 weeks Supervision of high-risk , second trime ster 05/17/2025 Overview (05/24/2025): [] OB consult only, [x] Co-management vs. [] Full M Care; [] Red Team [x] Blue Team Referring Provider: Randa Her [phone] [] or Medicare Insurance [x] Dating Criteria: [place] 04/15/25 with MAKEDA 11/18/25 [x] Labs: Rh [B+], Ab [negative], Rubella [non-immune], HIV [non- reactive], HepBSAg [non-reactive], HepBSAb [not done], HepBCAb [not done], RPR [non- reactive], Hep C [non-reactive], Varicella [not done], GC/CT [not done] [x] Aneuploidy Screening: NIPT low risk [] Carrier Screening: [x] Hgb electrophoresis: normal [x] CBC/Hgb: 9.8/30.0/plt 274 [x] Hgb A1c 04/16/25: 5.3 [x] UCx: 04/16/25: negative [x] Pap: 05/25/24: NILM; HPV HR Non 16/18 positive. [x] LD ASA (if indicated): 2nd Trimester [] Anatomy ultrasound: [] CBC/1hr gtt at 24-28wks: [] Rhogam at 28 wks (if Rh neg): 3rd Trimester [] CBC/HIV/RPR/T&S: [] GBS: [] GC/CT (if indicated): [] testing: Counseling [] MOD: [] Place of delivery: [] Epidural: [] Accepts Blood Products: [] Stop ASA: [] MOC: [] Method of feeding: [] Chemistry Physics Teacher (specifically which provider): [] PP Depression Discussed: [] PP visits scheduled: Vaccines [] Flu Shot (May-Aug): [] COVID vaccine: [] Tdap (27-36wks): [] RSV vaccine (32-36wks): [] PP HPV vaccine counseling (<=26 yo): Thrombosis of ovarian vein 04/23/2024 Overview (05/24/2025): History: 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 The patient's VTE history is questionable given she was incidentally diagnosed with an ovarian vein thrombosis 1 year ago. It was not treated nor should it warrant a thrombophilia workup. We reviewed signs and risks of VTE in , but she does not currently warrant further workup or management. Current regimen: none Recommendations: [] No anticoagulation in or further workup Prior with d emise and current in second trimester 06/01/2023 Overview (05/24/2025): History - 05/2023 presented with placental abruption and demise. Had anemia, low fibrinogen, and elevated Cr. Transferred to [facility] and underwent IOL. Had PPH w/ blood loss >2L. Also diagnosed with preeclampsia with severe features. Declined autopsy and cytogenetics. Prior work-up - Autopsy: not performed - Cytogenetics: not performed - Placental pathology: yes:no abnormalities found - -maternal hemorrhage screen: yes:negative - RPR: negative - Antiphospholipid antibodies: negative - Glucose screening: not performed - Toxicology screen: not performed Counseling Counseled patient that stillbirth is one of the most common adverse outcomes, occurring in 1 in 160 deliveries in the [place]. In developed countries, the most prevalent risk factors associated with stillbirth are non- black race, nulliparity, advanced maternal age, obesity, preexisting diabetes, chronic hypertension, smoking, alcohol use, having a using assisted reproductive technology, multiple gestation, male sex, unmarried status, and past obstetric history. Although some of these factors may be modifiable (such as smoking), many are not. Data on management of pregnancies after an unexplained stillbirth are scarce. Women should be encouraged to minimize the risk of stillbirth attributable to modifiable risk factors (eg, optimize glycemic control in the setting of diabetes). She does not have any modifiable risk factors at this time. There is an increased risk of stillbirth was found among women with a history of any stillbirth (2.5%) compared with those with a history of live (0.4%) and the risk of recurrence is higher in women with medical complications such as diabetes or hypertension or in those with obstetric problems with a significant recurrence risk, such as placental abruption. Plan [x] Smoking cessation - n/a [x] Antiphospholipid antibody testing (if not already performed) [] Serial growth scans every 4 weeks starting at 28 weeks [] Once or twice weekly surveillance at 32 0/7 weeks or starting at 1- 2 weeks before the gestational age of the previous stillbirth. Will start at 30 weeks [] Delivery at term (maternal anxiety with a history of stillbirth should be considered and may warrant an early term delivery (37 0/7 weeks to 38 6/7 weeks) History of preeclampsia, placental abruption, an d DIC 06/01/2023 Overview (05/24/2025): History - 05/2023 presented with placental abruption and demise. Had anemia, low fibrinogen, and elevated Cr. Transferred to [facility] and underwent IOL. Had PPH w/ blood loss >2L. Also diagnosed with preeclampsia with severe features. Declined autopsy and cytogenetics. Counseling Patients who have had pre-eclampsia in a prior are at increased risk to develop pre-eclampsia in a subsequent . The earlier preeclampsia is diagnosed in the prior pregnancies, the higher likelihood of recurrence. If diagnosed <30 weeks gestation, the recurrence risk is as high as 40%, while if it was at 37 weeks, the recurrence rate is 20-25%. With these risks, there is also a risk of iatrogenic and growth restriction. We recommend low dose ASA to reduce the risk of preeclampsia starting at 12 weeks gestation. Discussed with patient that placental abruption occurs when the placenta detaches from the wall of the uterus before or after . The most common signs and symptoms are vaginal bleeding and abdominal or back pain. We discussed that the major risk factors for placental abruption are hypertension, smoking, rupture of membranes, cocaine use, fibroids and history of abruption. Her abruption in her last likely occurred because of preeclampsia. The recurrence risk for placental abruption is 15-20% with one prior. She does not currently have any modifiable risk factors. Recommendations: [x] Baseline PIH labs: CMP and UPC wnl. Cr improved from >1.0 to 0.9. Will CTM [x] Low dose ASA at 12 weeks [x] APLS testing negative History of gastric sleeve surgery 12/20/2022 Overview (05/24/2025): History Type of procedure Restrictive. Laparoscopic sleeve gastrectomy in 2019 Peak weight: 200lbs Juan weight: 160lbs Counseling 05/24/2025: We discussed the patient s history of bariatric surgery with a Restrictive procedure. Since obesity is associated with adverse outcomes such as miscarriage, preeclampsia, gestational diabetes, stillbirth, and delivery, bariatric surgery has been associated with an improvement in many of these outcomes. Specifically, the prevalence of preeclampsia and GDM is lower in patients with a history of bariatric surgery compared to obese patients without prior surgery. It is reasonable to avoid for 12-18 months following bariatric surgery as she has done. We reviewed the following risks due to her history of bariatric surgery. There is an increased concern for poor growth There is a concern for increased difficulty in diagnosing a surgical complication of bariatric surgery during due to the overlap of non-specific abdominal symptoms with common obstetric complaints such as nausea and vomiting of , GERD, and uterine contractions. For example, bowel obstruction due to intraabdominal intestinal herniation may be difficult to diagnose. There are also case reports of intussusception with necrosis, volvulus, anastomotic leaks and bleeding. The growing gravid uterus increases intraabdominal pressure and displaces abdominal contents cephalad with a theoretical increased risk of herniation. Lastly, we reviewed that individuals with a history of bariatric surgery have an increased risk of nutritional deficiencies, particularly in iron, folate, vitamin B12, calcium, and Vitamin D. Restrictive bariatric surgery should not cause dumping syndrome, so the standard GTT may be used in these patients. Recommendations: [x] Continue pre- micronutrient supplementation [] Screen for micronutrient deficiencies (CBC with MCV, ferritin, iron, B12, B1, folate, calcium and Vitamin D levels) every trimester and supplement accordingly [x] 1st T: B1, Vitamin D low, ordered supplementation [] 2nd T: [] 3rd T: [x] First trimester HgbA1C [] Screen for GDM at 24-28 weeks, standard GTT OK with restrictive procedures [] Serial ultrasounds every 4 weeks after 24 weeks for growth Estimated Date of Delivery Comme nts Yes 11/18/2025 Based on Ultraso und, CRL report under Imaging Resolved Problems Problem Noted Date Diagnosed Date Resolved Date History of placenta abruption 04/15/2025 05/24/2025 Acute pancreatitis with unin fected necrosis, unspecified pancreatitis type 09/11/2023 04/15/2025 Assessment & Plan (09/11/2023 3:18 AM [employer]): As seen on CT imaging NPO IV fluids Pain management p.r.n. IV Pepcid Right upper quadrant ultrasound Repeat amylase and lipase levels Monitor LFT levels IUFD at 20 weeks or more of gestation 06/01/2023 04/15/2025 Poor growth affecting management of mother in third trimester 05/27/2023 04/15/2025 HTN in , chronic 12/26/2022 Supervision of other normal , antepartum 12/20/2022 04/15/2025 Chronic hypertension 12/20/2022 025 Assessment & Plan (09/11/2023 3:18 AM [employer]): Continue home regimen IV hydralazine p.r.n. Encounters Date Type Department Care Team Description 06/10/2025 Orders Only [facility] Obstetrical Gynecology [address] [phone] Namrata Jansen RN 06/03/2025 1:00 PM CDT Office Visit [facility] Obstetrical Gynecology [facility] [address] [place] [phone] Randa Her NP Supervision of high-risk , second trimester (Primary Dx) 05/31/2025 6:57 PM CDT - 05/31/2025 8:05 PM CDT Hospital Encounter [facility] [address] [place] [address] Red Dewey MD Discharge Disposition: Discharge to home or self care 05/24/2025 11:29 AM CDT - 05/24/2025 11:59 PM CDT Hospital Encounter [facility] [address] [place] [address] Chronic hypertension affecting Discharge Disposition: Discharge to home or self care 05/24/2025 9:35 AM CDT Lab [facility] [address] [place] [address] [place] [address] Chronic hypertension affecting 05/24/2025 8:30 AM CDT Office Visit [facility] Medicine Maternal- Medicine [address] [place] [address] Outpatient Health 7th Floor [address] [place] [address] Chronic hypertension affecting (Primary Dx); Supervision of high-risk , second trimester; Hx of preeclampsia, prior , currently , second trimester; Prior with demise and current in second trimester 05/24/2025 8:00 AM CDT - 05/24/2025 11:59 PM CDT Hospital Encounter [facility] - Ultrasound [address] [facility], 7th Floor, [address] [place] [address] Supervision of high-risk , unspecified trimester Discharge Disposition: Discharge to home or self care 05/24/2025 Orders Only [facility] Medicine Maternal- Medicine [address] [facility] 7th Floor [address] [place] [phone] Angela Benavidez RN 05/19/2025 1:52 PM CDT - 05/19/2025 2:49 PM CDT Hospital Encounter [facility] [address] [place] [phone] Red Dewey MD Discharge Disposition: Discharge to home or self care 05/17/[address] [facility] Medical [facility] Family Medicine at [address] [place] [phone] Carlo Rene MD 1st No Show Letter sent to patient 05/07/2025 Telephone [facility] Medicine Maternal- Medicine [address] [facility] 7th Floor [address] [place] [phone] Donna Lee [facility] Scheduling US/OBC 05/07/2025 Results Follow-Up [facility] [address] [place] [phone] Devonte Merrill MD PANORAMA TEST 05/06/2025 9:00 AM CDT Office Visit [facility] Group Obstetrical Gynecology [address] [place] [phone] Randa Her NP HTN in , chronic (Primary Dx); demise affecting delivery; History of gastric surgery 04/28/2025 3:00 PM CDT Clinical Support [facility] Obstetrical Gynecology [address] [place] [phone] Encounter for supervision of other normal in first trimester (Primary Dx) 04/27/2025 6:04 PM CDT - 04/27/2025 7:21 PM CDT Hospital Encounter [facility] [address] [place] [address] Mira Ring MD Discharge Disposition: Discharge to home or self care 04/19/2025 Results Follow-Up [facility] Obstetrical Gynecology [address] [place] [phone] Randa Her NP Comprehensive metabolic panel, Varicella Zoster IgG antibody Blood, Urine culture Urine, clean voided, Additional followed-up results: 11 04/16/2025 1:00 PM CDT Lab [facility] Outpatient Health [address] [place] [address] [place] [address] Encounter for supervision of other normal in first trimester; Chronic hypertension 04/16/2025 Telephone [facility] Obstetrical Gynecology [address] [place] [phone] Devonte Merrill MD 04/15/2025 1:18 PM CDT - 04/15/2025 11:59 PM CDT Hospital Encounter [facility] [address] [place] [phone] Encounter for supervision of other normal in first trimester Discharge Disposition: Discharge to home or self care 04/15/2025 1:00 PM CDT Office Visit [facility] Obstetrical Gynecology [address] [place] [phone] Randa Her NP HTN in , chronic (Primary Dx); Encounter for supervision of other normal in first trimester; Chronic hypertension; Hx of bariatric surgery 04/15/2025 12:00 PM CDT Lab [facility] Office Building [address] [place] [phone] Encounter for supervision of other normal in first trimester; Hx of bariatric surgery 04/15/2025 11:15 AM CDT Clinical Support [facility] Obstetrical Gynecology [address] [place] [phone] 04/15/2025 10:30 AM CDT Ancillary Procedure [facility] Obstetrical Gynecology [address] [facility] [address] [place] [phone] Establish gestational age, ultrasound 04/15/2025 Telephone [facility] Obstetrical Gynecology [facility] [address] [place] [phone] Red Dewey MD 03/16/2025 7:50 PM CDT - 03/16/2025 9:18 PM CDT Emergency [facility] [address] [place] [address] Abdominal pain in early (Primary Dx) Discharge Disposition: Discharge to home or self care 03/16/2025 Telephone [facility] Obstetrical Gynecology [address] [place] [address] [place] [phone] Chelsey Fajardo MD from Last 3 Months Surgical History Surgery Date Site/Laterality Comments BARIATRIC SURGERY gastric sleeve US ABDOMEN COMPLETE W LIVER DOPPLER (C) 10/05/2018 R ight Medical History Medical History Date Comments Hypertension Menorrhagia Headache Placenta abruptio Iron deficiency anemia during Family History Medical History Relation Name Comments Breast cancer Father's Sister Diabetes Maternal Grandfather Diabetes Maternal Grandmother Holly Quiroz Heart failure Maternal Grandmother Holly Quiroz Hypertension Maternal Grandmother Holly Quiroz Hypertension Mother Colon cancer Neg Hx Ovarian cancer Neg Hx Uterine cancer Neg Hx Relation Name Status Comments Father Alive Father's Sister Maternal Grandfather Alive Maternal Grandmother Holly Quiroz Alive Mother Alive Social History Tobacco Use Types Packs/Day Years Used Date Smoking Tobacco: Never Smokeless Tobacco: Never Tobacco Cessation:Counseling Given: Not Answered Alcohol Use Standard Drinks/Week Comments Yes 0 (1 standard drink = 0.6 oz pur e alcohol) [facility] Utilities Answer Date Recorded In the past 12 months has [employer], gas, oil, or water company threatened to [...] often do you attend chur ch or faith services? More than 4 times per year 09/11/2023 Do you belong to any clubs o r organizations such as episcopalian groups, unions, fraternal or athletic groups, or [...] in a custodial (including now)? No 09/11/2023 Alba Depression Scale Answer Date Recorded Alba Depression Scale Total 1 04/15/2025 The thought [...] on file Legal Sex Female 6:08 AM [employer] Gender Identity Not on file Sexual Orientation Not on file Obstetrics History Para Term AB IAB SAB Ectopic Multiple Livin g Live Births 6 4 2 2 1 1 0 0 3 3 Date Outcome GA Total Labor Labor/2nd/3rd Weight Sex Type Anes PTL Mario A1 A5 Name Clin IAB 2009 36w 0d 2.863 kg (6 lb [...] 0 TAYLO R,SERGIO NEYSP ENDIN G FD Sahyna anBelem MD Complications:None Delivery Location:[facility] Main C ampus ([facility]LD) Current Comments Age of 1st cycle: 16 Age of 1st delivery: 20 Summary Episode Dates Number of Fetuses Estimated Date of Delivery 04/15/2025 - Present (06/15/2025) 1 11/18/2025 (set by Mercedes Oden MD on 05/24/2025 based on Ultrasound on 04/15/2025) Dating Summary Based On MAKEDA GA Diff Last Menstrual Period on 01/31/2025 (Exact Date) 11/07/2025 +1w4d Ultrasound on 04/15/2025 11/18/2025 Working GA:9w0d Comment:CRL report under Isabella ging Overview and Plan :Garcia Support person:Arthur Delivery Plans Planned delivery method:Vaginal Planned delivery location:[facility] Overview Surveillance of EDC by 9 week US B+/I/-/-, HIV and RPR NR Genetics: NIPT LR, male Anatomy: 20 weeks GCT: 26-28 weeks 3rd trim CBC/HIV/RPR Tdap: 27+ weeks GBS: 36 weeks, or sooner if early delivery indicated Social Barriers: none Mode of feeding: Method of contraception: Delivery Planning: TBD cHTN: labs ordered, labetalol 200 mg daily H/o IUFD at 33 weeks: placenta abruption and DIC Iron infusions scheduled for 04/27, 05/04 and 05/11 Vitals Pregravid Weight Height TWG (As of 06/15/2025) Pregrav id BMI 76.7 kg (169 lb) 167.6 cm (5' 6) 0.272 kg (9.6 oz) 27 .29 Date GA Fund Present FHR Mvmt BP Weight Edema Alb Glu Ket Dil/ Eff/Sta 5 10w5d Inpatient data not displayed here. See encounter summary. 5 13w6d Inpatient data not displayed here. See encounter summary. 5 14w4d Inpatient data not displayed here. See encounter summary. 5 15w4d Inpatient data not displayed here. See encounter summary. Notes Progress Notes - Orders Only - 06/10/2025 - GA:17w0d 06/10/2025 - 17w0d - Namrata Bellamy RN Rx sent to pharmacy Progress Notes - Office Visi t - 06/03/2025 - GA:16w0d 06/03/2025 - 16w0d - Randa Her NP Return OB Visit Edilson Donovan is a 34 y.o. at 16w0d Feeling well today. Denies vaginal bleeding, abnormal discharge. Has occasional cramping. Met with MFM last week, Labetalol increased to 300mg daily. Objective BP 100/70 Ht 167.6 cm (5' 6) Wt 169 lb 9.6 oz (76.9 kg) LMP 01/31/2025 (Exact Date) BMI 27.37 kg/m TW.6 oz (0.272 kg) FHR-145 via doppler Assessment and Plan -Discussed anatomy for next visit. -Has iron infusions scheduled. -Reviewed precautions and when to present to [facility]. Surveillance of (prefers Dr. Dewey for delivery) EDC by 9 week US Labs: B+/I/-/-, HIV and RPR NR Genetics: low risk, XY Anatomy: 20 weeks GCT: 26-28 weeks 3rd trim CBC/HIV/RPR Tdap: 27+ weeks GBS: 36 weeks, or sooner if early delivery indicated Social Barriers: none Mode of feeding: Method of contraception: Delivery Planning: TBD Hx of gastric sleeve: labs ordered-reviewed, continue vitamin supplementation Anemia: . Iron infusions scheduled. cHTN: labs WNL UPC-: labetalol 300 mg daily, encouraged bp home monitoring -dASA -serial growth us starting at 24w - weekly testing at 30w per IUFD hx H/o IUFD at 33 weeks: placenta abruption and DIC MFM consult (05/06)- co-management. RTC in 4wk Randa Her NP Cosigned by Red Dewey MD at 06/06/2025 5:57 PM CDT Progress Notes - Orders Only - 05/24/2025 - GA:14w4d 05/24/2025 - w - Marleni Benavidez RN RX labetalol 300mg TID Progress Notes - Office Visi t - 05/24/2025 - GA:14w4d 05/24/2025 - w - Deondre Ortiz MD Maternal Medicine Consult Note Reason for Consult: chronic hypertension Requesting Provider: Randa Her NP Dear Randa Her, We had the pleasure of seeing your patient Edilson Donovan in our office today. As you know, she is a 34 y.o. at 14w4d by 1st trimester Ultrasound here today for a consult regarding chronic hypertension. 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 Today she is doing well, she reports no complaints. Patient denies YBARRA, vision changes, SOB, or RUQ pain. Had some severe range BPs on home cuff over the weekend. In terms of chronic hypertension: - diagnosed during last - currently poorly controlled on labetalol 200mg bid with severes over the weekend. Normal BP in clinic and asx. In terms of history of preeclampsia complicated by placental abruption, DIC, and IUFD - 05/2023 presented with placental abruption and demise. Had anemia, low fibrinogen, and elevated Cr. Transferred to [facility] and underwent IOL. Had PPH w/ blood loss >2L requiring product administration. Also diagnosed with preeclampsia with severe features. Declined autopsy and cytogenetics. Prior work-up - Autopsy: not performed - Cytogenetics: not performed - Placental pathology: yes:no abnormalities found - -maternal hemorrhage screen: yes:negative - RPR: negative - Antiphospholipid antibodies: negative - Glucose screening: not performed - Toxicology screen: not performed In terms of history of gastric sleeve - underwent laparoscopic sleeve gastrectomy in 2019 - peak weight of 200, and now down to 160s - no issues, doing well In terms of ovarian vein thrombosis - incidentally diagnosed in 04/[address] scan Patient Active Problem List Diagnosis History of gastric surgery Prior with demise and current in second trimester History of preeclampsia, placental abruption, and DIC Thrombosis of ovarian vein History of placenta abruption Chronic hypertension affecting Rubella non-immune status, antepartum AMA (advanced maternal age) multigravida 35+, second trimester Supervision of high-risk , second trimester Past Medical History: Diagnosis Date Headache Hypertension Iron deficiency anemia during Menorrhagia Placenta abruptio Past Surgical History: Procedure Laterality Date BARIATRIC SURGERY gastric sleeve US ABDOMEN COMPLETE W LIVER DOPPLER (C) Right 10/05/2018 Past Gynecologic History: Patient's last menstrual period was 01/31/2025 (exact date)., Menses: regular, Prior STIs: none. Her last pap smear was cotest 05/2024 normal. She has no history of infertility, ART treatment, gynecologic surgery, or breast cancer. She has a history of blood transfusions during last delivery as above OB History Para Term AB Living 6 4 2 2 1 3 SAB IAB Ectopic Multiple Live Births 0 1 0 3 # Outcome Date GA Lbr Leandro/2nd Weight Sex Type Anes PTL Lv 6 Current 5 06/02/23 33w2d / 00:02 1.765 kg (3 lb 14.3 oz) Vaginal None Y FD 4 Term 05/19/16 37w0d 2.381 kg (5 lb 4 oz) F Vag-Spont EPI N MARIO 3 Term 03/15/15 37w0d 3.289 kg (7 lb 4 oz) M Vag-Spont EPI N MARIO 2 07/06/10 36w0d 2.863 kg (6 lb 5 oz) F Vag-Spont EPI N MARIO Complications: Premature Rupture of Membranes 1 IAB Obstetric Comments Age of 1st cycle: 16 Age of 1st delivery: 20 Medications: Current Outpatient Medications Medication Instructions acetaminophen (TYLENOL) 1,000 mg, oral, Every 6 hours PRN aspirin 81 mg, oral, Daily cholecalciferol (VITAMIN D-3) 1,000 Units, oral, Daily labetaloL (NORMODYNE,TRANDATE) 300 mg, oral, 3 times daily vitamin ferrous fumarate-folic () 28 mg iron- 800 mcg tablet 1 tablet, oral, Daily, 1 po qd thiamine (VITAMIN B1) 100 mg, oral, Daily Family History: Family History Problem Relation Age of Onset Diabetes Maternal Grandmother Hypertension Maternal Grandmother Heart failure Maternal Grandmother Diabetes Maternal Grandfather Hypertension Mother Breast cancer Father's Sister Colon cancer Neg Hx Ovarian cancer Neg Hx Uterine cancer Neg Hx Specifically, she denies a family history of defects including spina bifida, congenital heart defects, limb defects, or kidney defects. She denies a family history of genetic abnormalities including Down Syndrome, cognitive delays, or learning disabilities including autism spectrum disorders. She denies a family history of inherited disorders including cystic fibrosis, thalassemia, sickle cell disease, or muscular dystrophy. No Known Allergies Social History Tobacco Use Smoking status: Never Smokeless tobacco: Never Substance and Sexual Activity Drug use: Not Currently Sexual activity: Yes Partners: Male control/protection: None Alcohol Use: Not on file Review of Systems All review of systems are negative except for what is documented above Physical Exam Vitals BP 119/75 (BP Location: Left arm, Patient Position: Sitting) Pulse 60 Ht 167.6 cm (5' 6) Wt 168 lb (76.2 kg) LMP 01/31/2025 (Exact Date) SpO2 100% BMI 27.12 kg/m General: Healthy, alert, active, cooperative, and in no distress Heart: regular rate Lungs: no increased work of breathing Abdomen: soft, nontender Extremities: warm, well-perfused without cyanosis, clubbing or edema Pelvic: deferred Heart Rate: + on US Labs: Rh [B+], Ab [negative], Rubella [non-immune], HIV [non-reactive], HepBSAg [non-reactive], HepBSAb [not done], HepBCAb [not done], RPR [non-reactive], Hep C [non-reactive], Varicella [not done], GC/CT [not done] Aneuploidy Screening: NIPT low risk Hgb electrophoresis: normal CBC/Hgb: 9.8/30.0/plt 274 Hgb A1c 04/16/25: 5.3 UCx: 04/16/25: negative Pap: 05/25/24: NILM; HPV HR Non 16/18 positive. Outside Imaging: Ultrasound 04/15/25: Single living intrauterine gestation measuring 9 weeks and 0 days by crown-rump length for an MAKEDA of 11/18/2025. This represents an 11 day discrepancy when compared to the reported last menstrual period. Final MAKEDA based on today's ultrasound measurements. The adnexae appear normal. Ultrasound at our [facility]: Ultrasound 05/24/2025: 14w4d IUP, normal uterus and ovaries Assessment: Ms. Edilson Donovan is a mae 34 y.o. at 14w4d here today for a consult regarding cHTN. 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 Recommendations: Problem List Cardiac and Vasculature Chronic hypertension affecting - Primary Overview History Diagnosis: during last Pre- medications: labetalol 200mg bid Counseling 05/24/2025: We counseled the patient that chronic hypertension is associated with an increased risk of adverse outcomes, including growth restriction and stillbirth. Additionally, we discussed that hypertension is associated with development of superimposed preeclampsia with severe features and placental abruption, which can result in iatrogenic delivery in up to 30% of individuals with mild chronic hypertension. Baseline serum preeclampsia labs (CBC, creatinine, BUN, AST, ALT) are recommended in all patients with a history of hypertension. A workup for end organ damage is also recommended, including an EKG and urine protein/creatinine ratio. A fundoscopic exam by ophthalmology is recommended as well, if one has not been performed within the last 12 months. Low dose aspirin is recommended to start at 12 weeks for preeclampsia prophylaxis. Preeclampsia symptoms (headache, scotomata, epigastric pain) were reviewed. We reviewed the course of blood pressures in , specifically that patients usually experience a decrease in systemic pressure in the first trimester followed by a gradual rise starting at around 28 weeks. Recent data from the CHAP study recommends a treatment BP goal of <140/90 antepartum to improve maternal and outcomes, especially in reducing the risk of preeclampsia. Mildly elevated blood pressures in patients with chronic hypertension have not been associated with poor outcomes in the fetus or the mother. However, a preeclampsia workup would be recommended if blood pressures are elevated and significantly above usual baseline or in the severe range for . Current medication regimen: increased to labetalol 300mg tid Plan: [x] Low dose ASA 81 mg starting at 12 weeks [x] Baseline preeclampsia labs (CBC, CMP, UPC) - CBC normal. CMP and UPC to be collected. Baseline cr of 1.02, recommend repeat and nephrology referral if remains >1.0 [x] Baseline EKG [] Serial growth ultrasounds every 4 weeks starting at 24 weeks [] Weekly surveillance starting at 30 weeks per hx IUFD problem [] Delivery at 37w0d - 39w6d is recommended, (with the possibility of earlier delivery for uncontrolled hypertension or preeclampsia) Relevant Orders Comprehensive metabolic panel Protein / creatinine ratio, urine, random US Ob Detail Anatomy Single Or First Gestation Coag and Thromboembolic Thrombosis of ovarian vein Overview History: 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 The patient's VTE history is questionable given she was incidentally diagnosed with an ovarian vein thrombosis 1 year ago. It was not treated nor should it warrant a thrombophilia workup. We reviewed signs and risks of VTE in , but she does not currently warrant further workup or management. Current regimen: none Recommendations: [] No anticoagulation in or further workup History of preeclampsia, placental abruption, and DIC Overview History - 05/2023 presented with placental abruption and demise. Had anemia, low fibrinogen, and elevated Cr. Transferred to [facility] and underwent IOL. Had PPH w/ blood loss >2L. Also diagnosed with preeclampsia with severe features. Declined autopsy and cytogenetics. Counseling Patients who have had pre-eclampsia in a prior are at increased risk to develop pre-eclampsia in a subsequent . The earlier preeclampsia is diagnosed in the prior pregnancies, the higher likelihood of recurrence. If diagnosed <30 weeks gestation, the recurrence risk is as high as 40%, while if it was at 37 weeks, the recurrence rate is 20-25%. With these risks, there is also a risk of iatrogenic and growth restriction. We recommend low dose ASA to reduce the risk of preeclampsia starting at 12 weeks gestation. Discussed with patient that placental abruption occurs when the placenta detaches from the wall of the uterus before or after . The most common signs and symptoms are vaginal bleeding and abdominal or back pain. We discussed that the major risk factors for placental abruption are hypertension, smoking, rupture of membranes, cocaine use, fibroids and history of abruption. Her abruption in her last likely occurred because of preeclampsia. The recurrence risk for placental abruption is 15-20% with one prior. She does not currently have any modifiable risk factors. Recommendations: [] Baseline PIH labs: CMP and UPC to be collected. Baseline cr of 1.02, recommend repeat and nephrology referral if remains >1.0 [x] Low dose ASA at 12 weeks [x] APLS testing negative Gastrointestinal and Abdominal History of gastric surgery Overview History Type of procedure Restrictive. Laparoscopic sleeve gastrectomy in 2019 Peak weight: 200lbs Juan weight: 160lbs Counseling 05/24/2025: We discussed the patient s history of bariatric surgery with a Restrictive procedure. Since obesity is associated with adverse outcomes such as miscarriage, preeclampsia, gestational diabetes, stillbirth, and delivery, bariatric surgery has been associated with an improvement in many of these outcomes. Specifically, the prevalence of preeclampsia and GDM is lower in patients with a history of bariatric surgery compared to obese patients without prior surgery. It is reasonable to avoid for 12-18 months following bariatric surgery as she has done. We reviewed the following risks due to her history of bariatric surgery. There is an increased concern for poor growth There is a concern for increased difficulty in diagnosing a surgical complication of bariatric surgery during due to the overlap of non-specific abdominal symptoms with common obstetric complaints such as nausea and vomiting of , GERD, and uterine contractions. For example, bowel obstruction due to intraabdominal intestinal herniation may be difficult to diagnose. There are also case reports of intussusception with necrosis, volvulus, anastomotic leaks and bleeding. The growing gravid uterus increases intraabdominal pressure and displaces abdominal contents cephalad with a theoretical increased risk of herniation. Lastly, we reviewed that individuals with a history of bariatric surgery have an increased risk of nutritional deficiencies, particularly in iron, folate, vitamin B12, calcium, and Vitamin D. Restrictive bariatric surgery should not cause dumping syndrome, so the standard GTT may be used in these patients. Recommendations: [x] Continue pre- micronutrient supplementation [] Screen for micronutrient deficiencies (CBC with MCV, ferritin, iron, B12, B1, folate, calcium and Vitamin D levels) every trimester and supplement accordingly [x] 1st T: B1, Vitamin D low, ordered supplementation [] 2nd T: [] 3rd T: [x] First trimester HgbA1C [] Screen for GDM at 24-28 weeks, standard GTT OK with restrictive procedures [] Serial ultrasounds every 4 weeks after 24 weeks for growth Gravid and Supervision of high-risk , second trimester Overview [] OB consult only, [x] Co-management vs. [] Full MFM Care; [] Red Team [x] Blue Team Referring Provider: Randa Her [phone] [] [employer] or Medicare Insurance [x] Dating Criteria: US 04/15/25 with MAKEDA 11/18/25 [x] Labs: Rh [B+], Ab [negative], Rubella [non-immune], HIV [non- reactive], HepBSAg [non-reactive], HepBSAb [not done], HepBCAb [not done], RPR [non- reactive], Hep C [non-reactive], Varicella [not done], GC/CT [not done] [x] Aneuploidy Screening: NIPT low risk [] Carrier Screening: [x] Hgb electrophoresis: normal [x] CBC/Hgb: 9.8/30.0/plt 274 [x] Hgb A1c 04/16/25: 5.3 [x] UCx: 04/16/25: negative [x] Pap: 05/25/24: NILM; HPV HR Non 16/18 positive. [x] LD ASA (if indicated): 2nd Trimester [] Anatomy ultrasound: [] CBC/1hr gtt at 24-28wks: [] Rhogam at 28 wks (if Rh neg): 3rd Trimester [] CBC/HIV/RPR/T&S: [] GBS: [] GC/CT (if indicated): [] testing: Counseling [] MOD: [] Place of delivery: [] Epidural: [] Accepts Blood Products: [] Stop ASA: [] MOC: [] Method of feeding: [] Chemistry Physics Teacher (specifically which provider): [] PP Depression Discussed: [] PP visits scheduled: Vaccines [] Flu Shot (Sep-Aug): [] COVID vaccine: [] Tdap (27-36wks): [] RSV vaccine (32-36wks): [] PP HPV vaccine counseling (<=26 yo): Relevant Orders US Ob Detail Anatomy Single Or First Gestation Prior with demise and current in second trimester Overview History - 05/2023 presented with placental abruption and demise. Had anemia, low fibrinogen, and elevated Cr. Transferred to [facility] and underwent IOL. Had PPH w/ blood loss >2L. Also diagnosed with preeclampsia with severe features. Declined autopsy and cytogenetics. Prior work-up - Autopsy: not performed - Cytogenetics: not performed - Placental pathology: yes:no abnormalities found - -maternal hemorrhage screen: yes:negative - RPR: negative - Antiphospholipid antibodies: negative - Glucose screening: not performed - Toxicology screen: not performed Counseling Counseled patient that stillbirth is one of the most common adverse outcomes, occurring in 1 in 160 deliveries in the [place]. In developed countries, the most prevalent risk factors associated with stillbirth are non- black race, nulliparity, advanced maternal age, obesity, preexisting diabetes, chronic hypertension, smoking, alcohol use, having a using assisted reproductive technology, multiple gestation, male sex, unmarried status, and past obstetric history. Although some of these factors may be modifiable (such as smoking), many are not. Data on management of pregnancies after an unexplained stillbirth are scarce. Women should be encouraged to minimize the risk of stillbirth attributable to modifiable risk factors (eg, optimize glycemic control in the setting of diabetes). She does not have any modifiable risk factors at this time. There is an increased risk of stillbirth was found among women with a history of any stillbirth (2.5%) compared with those with a history of live (0.4%) and the risk of recurrence is higher in women with medical complications such as diabetes or hypertension or in those with obstetric problems with a significant recurrence risk, such as placental abruption. Plan [x] Smoking cessation - n/a [x] Antiphospholipid antibody testing (if not already performed) [] Serial growth scans every 4 weeks starting at 28 weeks [] Once or twice weekly surveillance at 32 0/7 weeks or starting at 1- 2 weeks before the gestational age of the previous stillbirth. Will start at 30 weeks [] Delivery at term (maternal anxiety with a history of stillbirth should be considered and may warrant an early term delivery (37 0/7 weeks to 38 6/7 weeks) AMA (advanced maternal age) multigravida 35+, second trimester Overview Age at MAKEDA: 35 Counseling 05/24/2025: We discussed that advanced maternal age (AMA) is associated with increased risks of spontaneous , aneuploidy, gestational diabetes, and hypertensive disorders of . Additionally, we discussed the added risks for individuals over the age of 40 years, including growth restriction and stillbirth. She is s/p low risk NIPT in this . For the increased risk of preeclampsia, we recommend starting low dose aspirin at 12 weeks daily if other moderate risk factors are present. Recommendations: [x] Genetic screening plan: s/p low risk NIPT [x] Low dose ASA starting at 12 weeks Relevant Orders US Ob Detail Anatomy Single Or First Gestation Thank you for involving the Maternal- Medicine practice in the care of this mae patient. In the interim, Ms. Donovan should continue her routine care with you. We would like to see Ms. Donovan again in approximately 6 weeks' time for a follow up visit and specialized anatomy ultrasound. Should you have any further questions or concerns, please do not hesitate to contact our office. She was discussed with Dr. Oden who is in agreement with the documented assessment and plan. Deondre Ortiz MD Maternal Medicine Fellow Department of Obstetrics and Gynecology, PGY-7 Cosigned by Navya Oden MD at 05/24/2025 3:24 PM CDT Associated attestation - Navya Oden MD - 05/24/2025 3:24 PM CDT I have reviewed the resident/fellow's note. Unfortunately the patient left clinic without being seen/evaluated by an attending. Attempted to call back but was unable to return. Agree with plan documented by Fellow Dr. Ortiz. Adjusting labetalol to 300 mg TID due to multiple severe range BPs reported. Follow up with MFM in 4-6 weeks. Navya Oden MD University Manager Division of Maternal- Medicine Progress Notes - Abstract - 05/17/2025 - GA:13w4d 05/17/2025 - 13w4d - Maggie Sanabria RMA Current OB records are in [facility]. 2022 OB and delivery records are also in [facility]. 2018 gastric sleeve op note is copied below. Further records are under Care Everywhere dated 07/07/18. 04/23/24 admission records for ovarian vein thrombosis are also in [facility]. 06/02/23 and 04/24/24 APLS labs are also in [facility]. 05/17/2025 - 13w4d - Maggie Sanabria RMA DATE OF SURGERY: 07/07/2018 PREOPERATIVE DIAGNOSIS: Morbid Obesity with Comorbidities POSTOPERATIVE DIAGNOSIS: Morbid Obesity with Comorbidities PROCEDURE: Laparoscopic Vertical Sleeve Gastrectomy with Insertion of Tunneled Abdominal Wall Catheters x2 SURGEON: Bernardino Byrne MD HORTICULTURE SUPERINTENDENT: Dr. Parrish ANESTHESIA: General Endotracheal SPECIMEN: Unremarkable remnant stomach was discarded. ESTIMATED BLOOD LOSS: 50 ml COMPLICATIONS: None OPERATIVE PROCEDURE: The patient was given intravenous antibiotics, sequential stockings, subcutaneous heparin in the preoperative area. After informed consent, the patient was brought to the operating room, placed in a supine position, and underwent general anesthesia. An oral ViSiGi gastric calibration tube was placed. The abdomen was prepped and draped in the usual sterile fashion using ChloraPrep. A Right paramedian incision was made with a scalpel. A 5 mm non-bladed obturator was placed into the peritoneal cavity under direct vision. Pneumoperitoneum was established with CO2 to a maximum pressure of 15. The camera was placed. The exposed liver was unremarkable without mass, and there was no protruding pelvic mass. Next a 5 mm trocar in the RUQ, a 5 mm left paramedian then a 5 mm LUQ trocars were placed. The right paramedian was replaced with a 15 mm trocar. A long 45 degree scope was used. The patient was placed in a reverse Trendelenburg position. The diaphragmatic hiatus was inspected, and no dimpling was identified. The greater curvature of the stomach was dissected into the lesser sac using the harmonic scalpel. The greater curvature was devascularized with the harmonic scalpel and extended to the region of the spleen. The short gastric vessels were carefully taken down as dissection continued to the angle of His. Posterior attachments were freed up, the dissection was continued until about 5 cm of the left diaphragmatic nir was well visualized. The pylorus was then identified and marked approximately 4 cm proximally. The greater curvature dissection was extended distally to that area. The sleeve dissection was completed and inspected, and all posterior attachments were freed up. Next the ViSiGi gastric calibration tube was advanced to the antrum. The first two staple lines were performed using a 60 mm Covidien linear stapler with black loads and SeamGuard. Subsequent staple loads were using the purple linear staplers with SeamGuard. Care was taken near the incisura to minimize encroachment, and the final staple load was fired approximately 1 cm away from the esophagus, to minimize injury to the esophagus. The gastric calibration tube was slowly withdrawn, and there was no twisting or kinking of the gastric sleeve. There was a technically good gastric sleeve formation and staple line, and with good hemostasis. There was no indication for a leak test. The patient was flattened. There remained good hemostasis. An abdominal wall introducer was placed through a separate incision in the xiphoid region. It was tunneled through the subcutaneous fat, the abdominal wall fascia, into the preperitoneal plane along the right subcostal margin. A catheter was placed, the sheath was removed, and the catheter was irrigated with half percent Marcaine. A second abdominal wall introducer was placed through a separate incision in the xiphoid region. The second was tunneled through the subcutaneous fat, through the abdominal wall fascia into the preperitoneal plane along the left subcostal margin. A catheter was placed, the sheath was removed, and the catheter was irrigated with half percent Marcaine. Both catheters had good patency, they were secured to the skin with Dermabond, Steri-Strips, and Tegaderm. Both catheters were placed under direct laparoscopic visualization. The remnant stomach was then removed through the 15 mm trocar site under direct vision. The removed stomach was carefully inspected, it was unremarkable, and it was discarded. There was no leakage or spillage within the abdomen. The 15 mm trocar site was closed with an 0 Vicryl suture using the David-Pinky II system. Then the pneumoperitoneum was released, as the trochars were removed, and there was no bleeding. The wound was irrigated, there was good hemostasis, and the skin edges were approximated with interrupted subcuticular 4-0 PDS suture. Dermabond was applied. The patient did tolerate the procedure well, there were no complications, the patient was brought to the recovery room awake and in stable condition.. Bernardino Byrne MD Progress Notes - Office Visi t - 05/06/2025 - GA:12w0d 05/06/2025 - 12w0d - Randa Her NP Return OB Visit Edilson Donovan is a 34 y.o. at 12w0d Feeling well today. Denies vaginal bleeding, abnormal discharge. Has occasional cramping. Has noticed and increase in headaches. Not taking anything for relief. Desires MFM high risk consult due to medical history. Objective BP 128/88 Ht 167.6 cm (5' 6) Wt 168 lb 12.8 oz (76.6 kg) LMP 01/31/2025 (Exact Date) BMI 27.25 kg/m TWG: -3.2 oz (-0.091 kg) FHR: +V-Scan Assessment and Plan 34 y.o. at 12w0d. -Discussed headache treatment options, tylenol, magnesium. -Discussed Pre-E sx -Encouraged baseline UPC. Lab orders placed -BP cuff given in office for daily home monitoring -MFM consult placed -Reviewed precautions and when to present to [facility]. Surveillance of EDC by 9 week Labs: B+/I/-/-, HIV and RPR NR Genetics: low risk, XY Anatomy: 20 weeks GCT: 26-28 weeks 3rd trim CBC/HIV/RPR Tdap: 27+ weeks GBS: 36 weeks, or sooner if early delivery indicated Social Barriers: none Mode of feeding: Method of contraception: Delivery Planning: TBD Hx of gastric sleeve: labs ordered-reviewed, continue vitamin supplementation cHTN: labs WNL UPC-pending: labetalol 200 mg daily, encouraged bp home monitoring H/o IUFD at 33 weeks: placenta abruption and DIC MFM consult (05/06)-pt desires co-management. RTC in 4wk Randa Her NP Progress Notes - Clinical [facility] pport - 04/28/2025 - GA:10w6d 04/28/2025 - wd - Nani Dougherty, RN Panorama drawn in office. Progress Notes - Clinical [facility] pport - 04/15/2025 - GA:9w0d 04/15/2025 - 9w0d - Nani Kaur RN Pt is doing well today. No issues to report. cHTN, BP in office elevated. Pt did not take her Labetalol today. Dating US completed in office. MAKEDA reviewed with the pt. PNL and BP labs ordered today. NIPT discussed with the pt. She would like to complete at 11 weeks. Pap is up to date. STI urine to be sent to the lab if she is able to leave a sample. Tdap recommendations reviewed with the pt. cHTN, pt does not check her BP regularly are home. Rx sent for BP cuff to be mailed to pt. H/o IUFD at 33 weeks, placenta abruption and DIC. EPDS and REYNA 7 completed in office. OB call schedule reviewed with the pt. NOB packet reviewed with the pt and her questions were answered. Progress Notes - Office Visi t - 04/15/2025 - GA:9w0d 04/15/2025 - 9wd - Shasha Her NP Images from the original note were not included. New OB Visit Edilson Donovan is a 34 y.o. at 9w0d by 1TUS. Her is c/b cHTN (Labetalol), hx of gastric sleeve, hx of ovarian thrombosis in 2023, hx of placental abruption in setting of DIC and severe Pre-E with 32 week demise in 2022. Her blood pressure is elevated today with a reading of 150/100. She reports not taking Labetalol today. Desires refill. is unplanned and desired. Patient already taking PNV. Nausea/Vomiting: No movement: Not yet Vaginal Bleeding: No LOF: No Contractions/cramping: none Histories Medical has a past medical history of Headache, Hypertension, Menorrhagia, and Placenta abruptio. Surgical has a past surgical history that includes Bariatric Surgery (2019) and US Abdomen Complete W Liver Doppler (C) (Right, 10/05/2018). Social reports that she has never smoked. She has never used smokeless tobacco. No alcohol history on file. reports that she does not currently use drugs. reports being sexually active and has had partner(s) who are male. She reports using the following method of control/protection: None. Meds Current Outpatient Medications: acetaminophen (TYLENOL) 500 mg tablet, Take 2 tablets (1,000 mg total) by mouth every 6 (six) hours as needed for pain or headaches, Disp: 30 tablet, Rfl: 11 aspirin 81 mg enteric coated tablet, Take 1 tablet (81 mg total) by mouth daily, Disp: 30 tablet, Rfl: 11 labetaloL (NORMODYNE,TRANDATE) 200 mg tablet, Take 1 tablet (200 mg total) by mouth daily, Disp: 30 tablet, Rfl: 11 vitamin ferrous fumarate-folic () 28 mg iron- 800 mcg tablet, Take 1 tablet by mouth daily 1 po qd, Disp: 90 tablet, Rfl: 3 Allergies Patient has no known allergies. Objective Vitals BP 150/100 Ht 167.6 cm (5' 6) Wt 169 lb (76.7 kg) LMP 01/31/2025 (Exact Date) BMI 27.28 kg/m Body mass index is 27.28 kg/m . Ultrasound: Indication: confirmation and dating. IUP confirmed on US at today's appointment with CRL 23.2mm corresponding to MAKEDA of 11/18/25. heart rate: 176 bpm Normal adnexa, uterus, ovaries. -Formal interpretation pending Physical Exam General: NAD, mood appropriate Pulmonary: Non-labored Cardiovascular: Regular rate Extremities: Warm and well perfused GENITAL EXAM: Deferred Assessment/Plan Encouraged hypertension control, taking medication as prescribed. Encouraged daily bp monitoring. Send logs weekly via [employer] Reviewed US and MAKEDA Discussed genetic testing via [employer] and carrier screening Discussed group approach to PNC, director ambulatory vs MD management options Encouraged to complete labs, reviewed lab locations and hours Reviewed bleeding/SAB precautions and location of [facility] Surveillance of *Desires Zuleima for delivery* EDC by 9 week US Labs: ordered Genetics: Anatomy: 20 weeks GCT: 26-28 weeks 3rd trim CBC/HIV/RPR Tdap: 27+ weeks GBS: 36 weeks, or sooner if early delivery indicated Social Barriers: none Mode of feeding: Method of contraception: Delivery Planning: TBD Hx of gastric sleeve: labs ordered, continue vitamin supplementation cHTN: labs ordered, labetalol 200 mg daily, encouraged bp home monitoring H/o IUFD at 33 weeks: placenta abruption and DIC Diagnoses and all orders for this visit: HTN in , chronic (O10.919) (Primary) Encounter for supervision of other normal in first trimester (Z34.81) - CBC without differential; Future - Drugs of Abuse Screen, Urine with Reflex Confirmation; Future - Hemoglobin A1c; Future - Hepatitis B Surface Antigen Blood; Future - Hemoglobin analysis by electrophoresis; Future - Hepatitis C antibody Blood; Future - HIV 1/2 Antibody plus p24 Antigen Blood; Future - Measles IgG antibody Blood; Future - Protein / creatinine ratio, urine, random; Future - RPR Blood; Future - Rubella IgG antibody Blood; Future - Type and screen; Future - Urine culture Urine, clean voided; Future - Varicella Zoster IgG antibody Blood; Future - Comprehensive metabolic panel; Future - N. gonorrhoeae/C. trachomatis Amplification Urine; Future - Trichomonas vaginalis PCR Urine; Future - Iron profile w/ IBC; Future - Zinc; Future - Folate; Future - Vitamin K; Future - Vitamin D 25 hydroxy; Future - Vitamin B12; Future - Vitamin B1; Future - aspirin 81 mg enteric coated tablet; Take 1 tablet (81 mg total) by mouth daily - labetaloL (NORMODYNE,TRANDATE) 200 mg tablet; Take 1 tablet (200 mg total) by mouth daily - vitamin ferrous fumarate-folic () 28 mg iron- 800 mcg tablet; Take 1 tablet by mouth daily 1 po qd - acetaminophen (TYLENOL) 500 mg tablet; Take 2 tablets (1,000 mg total) by mouth every 6 (six) hours as needed for pain or headaches Chronic hypertension (I10) - Protein / creatinine ratio, urine, random; Future - Comprehensive metabolic panel; Future - aspirin 81 mg enteric coated tablet; Take 1 tablet (81 mg total) by mouth daily - labetaloL (NORMODYNE,TRANDATE) 200 mg tablet; Take 1 tablet (200 mg total) by mouth daily - acetaminophen (TYLENOL) 500 mg tablet; Take 2 tablets (1,000 mg total) by mouth every 6 (six) hours as needed for pain or headaches Hx of bariatric surgery (Z98.84) - Iron profile w/ IBC; Future - Zinc; Future - Folate; Future - Vitamin K; Future - Vitamin D 25 hydroxy; Future - Vitamin B12; Future - Vitamin B1; Future Randa Her NP Cosigned by Red Dewey MD at 04/17/2025 4:52 PM CDT Last Filed Vital Signs Vital Sign Reading Time Taken Comments Blood Pressure 100/70 06/03/2025 1:04 PM CDT Pulse 73 05/31/2025 7:22 PM CDT Temperature 36.9 C (98.4 F) 05/31/2025 7:22 PM CDT Respiratory Rate 16 05/31/2025 7:22 PM CDT Oxygen Saturation 100% 05/31/2025 7:22 PM CDT Inhaled Oxygen Concentration - - Weight 76.9 kg (169 lb 9.6 oz) 06/03/2025 1:04 P M CDT Height 167.6 cm (5' 6) 06/03/2025 1:04 PM CDT Body Mass Index 27.37 06/03/2025 1:04 PM CDT Plan of Treatment Upcoming Encounters Date Type Department Care Team (Late st Contact Info) Description 11/18/2025 6:00 PM CDT Hospital Encounter [facility] [address] [place] [address] Red Dewey MD [address] [address] Health Maintenance Due Date Last Done Comments Varicella Vaccines (1 of 2 - 13+ 2-dose series) 2003 Hepatitis B Screening 2008 HPV Vaccines (1 - 3-dose SCD M series) 2017 DTaP/Tdap/Td Vaccine (3 - Td or Tdap) 03/17/2025 03/17/2015, 03/17/2015 Covid-19 Vaccine (2 - 2024-2 6 season) 2025 10/23/2021 Influenza Vaccine (#1) 2025 2, 08/12/2006 Cervical Cancer Screening 05/25/20252023, 05/25/2024, 03/15/2017 Regular Well Visit/Exam 18-64 05/25/2025, 12/06/2022, 06/05/2019 Depression Screening 04/15/2026 04/15/2025 Hepatitis C Screening Completed 04/16/2025 , 12/06/2022 Pneumococcal vaccine <65 Aged Out No longer eligible based on patient's age to complete this topic Procedures Procedure Name Priority Date/Time Associated Diagnosis Comments PROTEIN / CREATININE RATIO, URINE, RANDOM Routine 05/24/2025 12:52 PM CDT Chronic hypertension affecting EGFR Routine 05/24/2025 9:44 AM CDT Chronic hypertension affecting COMPREHENSIVE METABOLIC PANEL Routine 05/24/2025 9:44 AM CDT Chronic hypertension affecting US OB LIMITED Schedule Routine, Read Routine (OP Routine) 05/24/2025 8:17 AM CDT Supervision of high-risk , unspecified trimester PANORAMA TEST Routine 04/28/2025 2:01 PM CDT Encounter for supervision of other normal in first trimester EGFR Routine 04/16/2025 1:40 PM CDT Encounter for supervision of other normal in first trimester Chronic hypertension CBC WITHOUT DIFFERENTIAL Routine 04/16/2025 1:40 PM CDT Encounter for supervision of other normal in first trimester HEMOGLOBIN A1C Routine 04/16/2025 1:40 PM CDT Encounter for supervision of other normal in first trimester HEMOGLOBIN ANALYSIS BY ELECTROPHORESIS Routine 04/16/2025 1:40 PM CDT Encounter for supervision of other normal in first trimester TYPE AND SCREEN Routine 04/16/2025 1:40 PM CDT Encounter for supervision of other normal in first trimester COMPREHENSIVE METABOLIC PANEL Routine 04/16/2025 1:40 PM CDT Encounter for supervision of other normal in first trimester Chronic hypertension HEPATITIS B SURFACE ANTIGEN Routine 04/16/2025 1:40 PM CDT Encounter for supervision of other normal in first trimester HEPATITIS C ANTIBODY Routine 04/16/2025 1:40 PM CDT Encounter for supervision of other normal in first trimester HIV 1/2 ANTIBODY PLUS P24 ANTIGEN Routine 04/16/2025 1:40 PM CDT Encounter for supervision of other normal in first trimester MEASLES IGG ANTIBODY Routine 04/16/2025 1:40 PM CDT Encounter for supervision of other normal in first trimester RPR Routine 04/16/2025 1:40 PM CDT Encounter for supervision of other normal in first trimester RUBELLA IGG Routine 04/16/2025 1:40 PM CDT Encounter for supervision of other normal in first trimester URINE CULTURE Routine 04/16/2025 1:40 PM CDT Encounter for supervision of other normal in first trimester VARICELLA ZOSTER ANTIBODY, IGG Routine 04/16/2025 1:40 PM CDT Encounter for supervision of other normal in first trimester IRON PROFILE W/ IBC Routine 04/15/2025 12:11 PM CDT Encounter for supervision of other normal in first trimester Hx of bariatric surgery ZINC Routine 04/15/2025 12:11 PM CDT Encounter for supervision of other normal in first trimester Hx of bariatric surgery FOLATE Routine 04/15/2025 12:11 PM CDT Encounter for supervision of other normal in first trimester Hx of bariatric surgery VITAMIN K Routine 04/15/2025 12:11 PM CDT Encounter for supervision of other normal in first trimester Hx of bariatric surgery VITAMIN D 25 HYDROXY Routine 04/15/2025 12:11 PM CDT Encounter for supervision of other normal in first trimester Hx of bariatric surgery VITAMIN B12 Routine 04/15/2025 12:11 PM CDT Encounter for supervision of other normal in first trimester Hx of bariatric surgery VITAMIN B1 Routine 04/15/2025 12:11 PM CDT Encounter for supervision of other normal in first trimester Hx of bariatric surgery DRUGS OF ABUSE SCREEN, URINE WITH REFLEX CONFIRMATION Routine 04/15/2025 11:53 AM CDT Encounter for supervision of other normal in first trimester URINE CULTURE Routine 04/15/2025 11:53 AM CDT Encounter for supervision of other normal in first trimester US OB UNDER 14 WEEKS W ENDOVAGINAL Schedule Routine, Read Routine (OP Routine) 04/15/2025 10:11 AM CDT Establish gestational age, ultrasound US OB TRANSVAGINAL ED 03/16/2025 7: 53 [...] AND CULTURE STAT 03/16/2025 6:54 PM CDT HIGH RISK HPV DNA DETECTION WITH GENOTYPING Routine 05/25/2024 1:44 PM CDT Well woman exam with routine gynecological exam from Last 3 Months or Most Recently Relevant to Health Maintenance Results * Protein / creatinine ratio, urine, random (05/24/2025 12:52 PM CDT) Protein, ur, quant 22.9 mg/dL Comment: Interpretive Data No reference range established. Current interpretive data was last revised 2019. Creatinine Ur 218.9 mg/dL [facility] Comment: Interpretive Data No reference range established. Current interpretive data was last revised 2019. Protein/creatinin e ratio 104.6 0.0 - 180.0 mg/g CR [facility] Urine 05/24/2025 12:5 2 PM CDT 05/24/2025 1:12 PM CDT Deondre Ortiz MD LAB URINE ORDERABLES Genet eaton Result [facility] [place] [address] * eGFR (05/24/2025 9:44 AM CDT) eGFR 86 >=60 mL/min/1. 73 m2 Comment: Interpretive Data [...] Current interpretive data was last reviewed 2021. Blood 05/24/2025 9:44 AM CDT 05/24/2025 10:53 AM CDT us Deondre Ortiz MD LAB BLOOD ORDERABLES Genet eaton Result [facility] [place] [address] * Comprehensive metabolic panel (05/24/2025 9:44 AM CDT) Pathologist [facility] Sodium 136 135 - 145 mmol/L Potassium, pl 4.2 3.3 - 4.9 mmol/L [facility] Chloride 103 97 - 110 mmol/L [facility] CO2 23 22 - 32 mmol/L [facility] Anion gap 10 2 - 15 mmol/L [facility] BUN 7 6 - 25 mg/dL [facility] Creatinine 0.90 0.60 - 1.10 mg/dL [facility] Glucose 82 70 - 199 mg/dL [facility] Comment: Interpretive Data Fasting glucose >/= 126 [...] Current interpretive data was last revised 2022. Calcium 8.8 8.5 - 10.3 mg/dL [facility] Bilirubin, total 0.3 0.1 - 1.2 mg/dL [facility] Protein, pl 7.2 6.5 - 8.5 g/dL [facility] Albumin 3.8 3.5 - 5.0 g/dL [facility] Alk phos 101 40 - 130 Units/L [facility] ALT 16 7 - 45 Units/L [facility] AST 20 10 - 45 Units/L [facility] Blood 05/24/2025 9:44 AM CDT 05/24/2025 10:47 AM CDT us Deondre Ortiz MD LAB BLOOD ORDERABLES Genet l Result [facility] [place] [address] * US Ob Limited (05/24/2025 8:17 AM CDT) Fetus# Fetus1 VIEWPOINT Placenta Details anterior VIEWPOINT Presentation Breech VIEWPOINT Anatomical Region Laterality Modality Abdomen N/A Ultrasound 05/24/2025 8:18 AM CDT Impressions 05/24/2025 9:08 AM CDT Single, live IUP at 14w4d. Normal uterus and ovaries. Narrative Procedure Note Belem Delgado MD - 05/24/2025 IMPRESSION: Single, live IUP at 14w4d. Normal uterus and ovaries. us Randa Her SENIOR ANDROID SOFTWARE ENGINEER IMG OB US PROCEDURES Fin al Result * PANORAMA TEST (04/28/2025 2:01 PM CDT) REPORT SUMMARY LOW RISK 05/06/2025 4:38 AM CDT [facility] Comment:LOW RISK REPORT NOTE See Notes 05/06/2025 4:38 AM CDT [facility] GENDER OF FETUS Male 4:38 AM CDT [facility] FRACTION 5.5% 05/06/2025 4:38 AM CDT [facility] TRISOMY 21 RESULT TEXT Low Risk 05/06/2025 4:38 AM CDT [facility] TRISOMY 21 AGE-BASED RISK TEXT 1/229 (0.44%) 05/06/2025 4:38 AM CDT [facility] TRISOMY 21 RISK SCORE TEXT <1/10,000 (<0.01%) 05/06/2025 4:38 AM CDT [facility] TRISOMY 18 RESULT TEXT Low Risk 05/06/2025 4:38 AM CDT [facility] TRISOMY 18 AGE-BASED RISK TEXT 1/465 (0.22%) 05/06/2025 4:38 AM CDT [facility] TRISOMY 18 RISK SCORE TEXT <1/10,000 (<0.01%) 05/06/2025 4:38 AM CDT [facility] TRISOMY 13 RESULT TEXT Low Risk 05/06/2025 4:38 AM CDT [facility] TRISOMY 13 AGE-BASED RISK TEXT 1/1,481 (0.07%) 05/06/2025 4:38 AM CDT [facility] TRISOMY 13 RISK SCORE TEXT <1/10,000 (<0.01%) 05/06/2025 4:38 AM CDT [facility] MONOSOMY X RESULT TEXT Low Risk 05/06/2025 4:38 AM CDT [facility] MONOSOMY X AGE-BASED RISK TEXT 1/255 (0.39%) 05/06/2025 4:38 AM CDT [facility] MONOSOMY X RISK SCORE TEXT <1/10,000 (<0.01%) 05/06/2025 4:38 AM CDT [facility] TRIPLOIDY RESULT TEXT Low Risk 4:38 AM CDT [facility] 22Q11.2 DELETION SYNDROME RESULT TEXT Low Risk 05/06/2025 4:38 AM CDT [facility] 22Q11.2 DELETION SYNDROME POPULATION-BASED RISK TEXT 12,000 05/06/2025 4:38 AM CDT [facility] 22Q11.2 DELETION SYNDROME RISK SCORE TEXT 3,100 05/06/2025 4:38 AM CDT [facility] FOOTNOTES See Notes 05/06/2025 4:38 AM CDT [facility] Comment: Testing Methodology DNA isolated from maternal blood, which contains placental DNA, is amplified at specific loci using a targeted PCR assay and is sequenced using a high- throughput sequencer. fraction is determined using a proprietary algorithm incorporating data from single nucleotide polymorphism-based (SNP-based) next-generation sequencing [Cody Dominguez et al. Obstet Gynecol. 2014 Apr;124(2 Pt 1):210-8]. If there is sufficient fraction, sequencing data is analyzed using a proprietary SNP- based algorithm to determine the copy number for chromosomes 13, 18, 21, X and Y. If ordered, specific microdeletions will be evaluated using similar methodology [Monty HAWKINS et al. Am J Obstet Gynecol. 2015 Nov;212(3):332.e1-9]. If the fraction is insufficient, an additional algorithm to determine whether there is an increased risk for triploidy, trisomy 18, and trisomy 13 may be utilized, known as fraction based risk assessment (FFBR) [Judith et al. Ultrasound Obstet Gynecol 2019; 53:73-79]. If ordered on a vanishing twin , a proprietary analysis will be performed to differentiate between the viable/living fetus and the vanished fetus to allow for risk assessment of copy number of chromosomes 13,18, 21, X, Y, and specific microdeletions in the viable/living twin using the above described SNP- based algorithm. If ordered, and patient is RHD negative by genotype, RHD status will be evaluated using a proprietary algorithm if fraction is sufficient [Kathleen Mccullough et al. Obstet Gynecol 2023;145:1?7]. However, some samples will not produce a result due to failure to meet the necessary quality thresholds. This test has been validated on women with a garcia, twin, vanishing twin, or egg donor of at least nine weeks gestation. A result will not be available for higher order multiples and multiple gestation pregnancies with an egg donor or surrogate, or bone marrow transplant recipients. Complete test panel is not available for twin gestations and pregnancies achieved with an egg donor or surrogate. For twin pregnancies with a fraction value below the threshold for analysis, a sum of the fractions for both twins will be reported. As this assay is a screening test and not diagnostic, false positives and false negatives can occur. High risk test results need diagnostic confirmation by alternative testing methods. Low risk results do not fully exclude the diagnosis of any of the syndromes nor do they exclude the possibility of other chromosomal abnormalities or defects, which are not a part of this test. Potential sources of inaccurate results include, but are not limited to, mosaicism, low fraction, limitations of current diagnostic techniques, or misidentification of samples. This test will not identify all deletions associated with each microdeletion syndrome. This test has been validated for deletions ?0.5 Mb within the 22q11.2 A-D region. This test has been validated on full region deletions only for 1p36 deletion syndrome, Cri-du-chat syndrome, Prader Willi syndrome and Angelman syndrome and may be unable to detect smaller deletions. Microdeletion risk score may be dependent upon fraction, as deletions on the maternally inherited copy are difficult to identify at lower fractions. Test results should always be interpreted by a clinician in the context of clinical and familial data with the availability of genetic counseling when appropriate. Disclaimers The extraction, library preparation, and sequencing of this test were performed by [facility] [employer] [address] [place] [address] (CLIA ID [id number]). The data analysis and reporting of this test were performed by [employer] [address] [place] [address], [place] [address] (CLIA ID [id number]). The performance characteristics of this test were developed by [employer] [employer].(CLIA ID [id number]). This test has not been cleared or approved by the U.S. Food and Drug Administration (FDA). These laboratories are regulated under CLIA as qualified to perform high-complexity testing. 2024 [employer]. All Rights Reserved. Please refer to the attached PDF report Reviewed By: Miguel Galindo M.D., Ph.D., [facility], Senior [employer] [facility] Lean Manufacturing Engineer: Aurelia Crystal, Ph.D., [facility] IF THE ORDERING PROVIDER HAS QUESTIONS OR WISHES TO DISCUSS THE RESULTS, PLEASE CONTACT US AT [phone], option 2. Ask for the NIPT genetic counselor geospatial applications developer. Blood specimen (specimen) Venous blood specimen / Unknown 04/28/2025 2:01 PM CDT 04/30/2025 2:00 AM CDT us Devonte Merrill MD LAB GENETIC TESTING Genet l Result [facility] [address] [place] [address], [facility] * eGFR (04/16/2025 1:40 PM CDT) eGFR 74 >=60 mL/min/1. 73 m2 Comment: Interpretive Data [...] Current interpretive data was last reviewed 2021. Blood 04/16/2025 1:40 PM CDT 04/16/2025 2:44 PM CDT us Randa Her SENIOR ANDROID SOFTWARE ENGINEER LAB BLOOD ORDERABLES Fin al Result [facility] [place] [address] * HIV 1/2 Antibody plus p24 Antigen Blood (04/16/2025 1:40 PM CDT) HIV 1/2 ab + p24 ag Nonreactive Nonreactive Comment:Nonreactive for HIV- 1 antigen and HIV-1/HIV-2 antibodies. No laboratory evidence of HIV infection. If acute HIV infection is suspected, consider testing for HIV-1 RNA. Current interpretive data was last revised on 22. Blood 04/16/2025 1:40 PM CDT 04/16/2025 2:39 PM CDT Randa Her SENIOR ANDROID SOFTWARE ENGINEER LAB MICROBIOLOGY - GENER AL ORDERABLES Final Result Performing Organization Address City/[facility]/ZIP Co de Phone Number MIGEL [facility] [place] [address] * (ABNORMAL) Hemoglobin analysis by electrophoresis (04/16/2025 1:40 PM CDT) Pathologist [facility] RBC 3.66(L) 3.90 - 5.20 M/cumm Hgb 9.8(L) 11.9 - 15.5 g/dL [facility] MCV 82.8 81.3 - 96.4 fL [facility] Rdw 21.7(H) 11.1 - 14.9 % [facility] Hgb electrophoresis , interp Please see comment [facility] Comment: Normal hemoglobin pattern for age Reviewed and signed by Duong Patricia MD, PhD 04/20/2025 Hgb A 97.4 96.0 - 98.5 % [facility] Hgb A2 2.6 1.5 - 3.2 % [facility] Blood 04/16/2025 1:40 PM CDT 04/16/2025 2:39 PM CDT Randa Her SENIOR ANDROID SOFTWARE ENGINEER LAB BLOOD ORDERABLES Fin al Result Performing Organization Address [facility]/ZIP Co de Phone Number MIGEL [facility] One [facility] [place] [address] * Hepatitis C antibody Blood (04/16/2025 1:40 PM CDT) Pathologist [facility] Hep C Ab Nonreactive Nonreactive Comment:Antibodies to HCV no t detected. Does NOT exclude the possibility of recent exposure to HCV. Current interpretive data was last revised on 22 Blood 04/16/2025 1:4 0 PM CDT 04/16/2025 2:39 PM CDT Randa Her SENIOR ANDROID SOFTWARE ENGINEER LAB MICROBIOLOGY - GENER AL ORDERABLES Final Result Performing Organization Address [facility] de Phone Number MIGEL [facility] [place] [address] * Measles IgG antibody Blood (04/16/2025 1:40 PM CDT) Measles IgG Reactive Comment:Reactive: Results watson ggest response to immunization or prior exposure to the virus. Blood 04/16/2025 1:40 PM CDT 04/16/2025 2:39 PM CDT Randa Her SENIOR ANDROID SOFTWARE ENGINEER LAB MICROBIOLOGY - GENER AL ORDERABLES Final Result Performing Organization Address [facility] de Phone Number [facility] [place] [address] * (ABNORMAL) Rubella IgG antibody Blood (04/16/2025 1:40 PM CDT) Pathologist [facility] Rubella IgG Nonreactiv e(A) Comment:Nonreactive: No dete ctable antibody to rubella. Such individuals are presumed to be uninfected with rubella and to be susceptible to primary infection. Blood 04/16/2025 1:40 PM CDT 04/16/2025 2:39 PM CDT Randa Her SENIOR ANDROID SOFTWARE ENGINEER LAB MICROBIOLOGY - GENER AL ORDERABLES Final Result Performing Organization Address [facility] de Phone Number [facility] [place] [address] * RPR Blood (04/16/2025 1:40 PM CDT) Pathologist [facility] RPR Nonreactive Nonreactive Blood 04/16/2025 1:40 PM CDT 04/16/2025 2:39 PM CDT Randa Her SENIOR ANDROID SOFTWARE ENGINEER LAB MICROBIOLOGY - GENER AL ORDERABLES Final Result Performing Organization Address City/[facility]/ZIP Co de Phone Number [facility] [place] [address] * Hepatitis B Surface Antigen Blood (04/16/2025 1:40 PM CDT) [facility] HepBsAg Nonreactive Nonreactive Blood 04/16/2025 1:40 PM CDT 04/16/2025 2:39 PM CDT Randa Her SENIOR ANDROID SOFTWARE ENGINEER LAB MICROBIOLOGY - GENER AL ORDERABLES Final Result Performing Organization Address [facility] de Phone Number [facility] [place] [address] * (ABNORMAL) CBC without differential (04/16/2025 1:40 PM CDT) [facility] WBC 5.92 3.80 - 9.90 K/cumm Hgb 9.8(L) 11.9 - 15.5 g/dL [facility] Hct 30.0(L) 35.6 - 45.5 % [facility] Plt 274 150 - 400 K/cumm [facility] MPV 12.1 9.1 - 12.3 fL [facility] RBC 3.64(L) 3.90 - 5.20 M/cumm [facility] MCV 82.4 81.3 - 96.4 fL [facility] MCH 26.9(L) 27.1 - 33.3 pg [facility] MCHC 32.7 32.3 - 35.7 g/dL [facility] RDW CV 21.5(H) 11.1 - 14.9 % [facility] RDW SD 64.5(H) 35.7 - 48.1 fL [facility] NRBC abs 0.00 0.00 - 0.01 K/cumm [facility] Blood 04/16/2025 1:40 PM CDT 04/16/2025 2:40 PM CDT Randa Her SENIOR ANDROID SOFTWARE ENGINEER LAB BLOOD ORDERABLES Fin al Result [facility] [place] [address] * Type and screen (04/16/2025 1:40 PM CDT) Jaycee, indirect Negative ABO Rh B Positive [facility] Blood 04/16/2025 1:40 PM CDT 04/16/2025 2:43 PM CDT Narrative [facility] - 04/16/2025 3:35 PM CDT Has the patient had Daratumumab or Isatuximab in the past 6 months?->Unknown Hx of or candidate for Bone Marrow/Stem Cell transplant?->No Randa Her SENIOR ANDROID SOFTWARE ENGINEER LAB BLOOD BANK TEST ORDE RABLES Final Result Performing Organization Address [facility] Co de Phone Number [facility] [place] [address] * Urine culture Urine, clean voided (04/16/2025 1:40 PM CDT) Report Final Report: Less than 100,000 colonies/mL (clinically insignificant growth based on current clinical standards) Organism (CLINICALLY INSIGNIFICANT GROWTH [facility] Urine, clean voided 04/16/2025 1:40 PM CDT 04/16/2025 2:42 PM CDT Narrative [facility] - 04/17/2025 4:11 PM CDT Testing performed by [facility] ([phone]) Randa Her SENIOR ANDROID SOFTWARE ENGINEER LAB MICROBIOLOGY - GENER AL ORDERABLES Final Result Performing Organization Address City/[facility]/ZIP Co de Phone Number [facility] [place] [address] * Varicella Zoster IgG antibody Blood (04/16/2025 1:40 PM CDT) [facility] VZV IgG Reactive Reactive Comment:Reactive: Results watson ggest response to immunization or prior exposure to the virus. Blood 04/16/2025 1:40 PM CDT 04/16/2025 2:39 PM CDT Randa Her SENIOR ANDROID SOFTWARE ENGINEER LAB MICROBIOLOGY - GENER AL ORDERABLES Final Result Performing Organization Address [facility] [place] [place] de Phone Number [facility] [place] [address] * Hemoglobin A1c (04/16/2025 1:40 PM CDT) [facility] Hgb A1C 5.3 4.0 - 5.6 % Estimated Average Glucose 105 mg/dL [facility] Comment: The ADA recommends reporting an estimated Average Glucose (eAG) with all Hemoglobin A1c results using the equation derived from a study of 507 normal and diabetic adults. Minority populations were underrepresented and children were not included. (Diabetes Care 2020; 43(S1): S66-S76). The eAG is not equivalent to a fasting glucose. Blood 04/16/2025 1:40 PM CDT 04/16/2025 2:39 PM CDT Randa Her NP LAB BLOOD ORDERABLES Fin al Result Performing Organization Address [facility] de Phone Number [facility] [place] [address] * Comprehensive metabolic panel (04/16/2025 1:40 PM CDT) [facility] Sodium 139 135 - 145 mmol/L Potassium, pl 3.8 3.3 - 4.9 mmol/L [facility] Chloride 107 97 - 110 mmol/L [facility] CO2 22 22 - 32 mmol/L [facility] Anion gap 10 2 - 15 mmol/L [facility] BUN 6 6 - 25 mg/dL [facility] Creatinine 1.02 0.60 - 1.10 mg/dL [facility] Glucose 108 70 - 199 mg/dL [facility] Comment: Interpretive Data Fasting glucose >/= 126 [...] Current interpretive data was last revised 2022. Calcium 9.2 8.5 - 10.3 mg/dL [facility] Bilirubin, total 0.3 0.1 - 1.2 mg/dL [facility] Protein, pl 7.0 6.5 - 8.5 g/dL [facility] Albumin 3.7 3.5 - 5.0 g/dL [facility] Alk phos 119 40 - 130 Units/L [facility] ALT 43 7 - 45 Units/L [facility] AST 38 10 - 45 Units/L [facility] Blood 04/16/2025 1:40 PM CDT 04/16/2025 2:40 PM CDT us Randa Her SENIOR ANDROID SOFTWARE ENGINEER LAB BLOOD ORDERABLES Fin al Result Performing Organization Address City/State/[facility] Co de Phone Number [facility] One [facility] [place] [address] * (ABNORMAL) Iron profile w/ IBC (04/15/2025 12:11 PM CDT) [facility] Signature Iron 40 35 - 145 mcg/dL Comment:Testing performed by : [facility], [address] [place] [address]., [id number] TIBC 386 250 - 400 mcg/dL MIGEL Comment:Testing performed by : [address] [address] Transferrin saturation 10(L) 20 - 50 % MIGEL Comment:Testing performed by : [facility], [address] [place] [address]., [id number] Blood 04/15/2025 12:1 1 PM CDT 04/15/2025 12:41 PM CDT Randa Her SENIOR ANDROID SOFTWARE ENGINEER LAB BLOOD ORDERABLES Fin al Result Performing Organization Address [facility] de Phone Number MIGEL [facility] [place] [address] * (ABNORMAL) Zinc (04/15/2025 12:11 PM CDT) Pathologist [facility] Zinc 48(L) 60 - 106 mcg/dL [facility] Comment: ADDITIONAL INFORMATION This test was developed and its performance characteristics determined by [facility] in a manner consistent with CLIA requirements. This test has not been cleared or approved by the U.S. Food and Drug Administration. Test Performed by: [facility][Note 2] [address] [place] [address] Lean Manufacturing Engineer: Dinora Richard Ph.D.; CLIA# [id number] Testing performed by: [facility], [address] [place] [address]., [address] Blood 04/15/2025 12:1 1 PM CDT 04/15/2025 12:43 PM CDT Randa Her SENIOR ANDROID SOFTWARE ENGINEER LAB BLOOD ORDERABLES Fin al Result Performing Organization Address [facility] de Phone Number MGIEL [address] [facility] [place] [address] [facility] * Vitamin K (04/15/2025 12:11 PM CDT) Phylloquinone (Vit K) 0.17 0.10 - 2.20 ng/mL [facility] Comment: ADDITIONAL INFORMATION This test was developed and its performance characteristics determined by [facility] in a manner consistent with CLIA requirements. This test has not been cleared or approved by the U.S. Food and Drug Administration. Test Performed by: [facility] [address] [place] [address] Lean Manufacturing Engineer: Dinora Richard Ph.D.; CLIA# [id number] Testing performed by: [facility], [address] [place] [address], [id number] Blood 04/15/2025 12:1 1 PM CDT 04/15/2025 12:43 PM CDT Randa Her LAB BLOOD ORDERABLES Fin al Result Performing Organization Address [facility] Co de Phone Number [address] [address] [facility] * (ABNORMAL) Vitamin D 25 hydroxy (04/15/2025 12:11 PM CDT) Vitamin D 25-OH 21.0(L) 30.0 - 80.0 ng/mL Blood 04/15/2025 12:1 1 PM CDT 04/15/2025 2:28 PM CDT Randa Her LAB BLOOD ORDERABLES Fin al Result Performing Organization Address [facility] Co de Phone Number [address] [address] * (ABNORMAL) Vitamin B1 (04/15/2025 12:11 PM CDT) Thiamine (Vit B1) 63(L) 70 - 180 nmol/L [facility] Comment: ADDITIONAL INFORMATION This test was developed and its performance characteristics determined by [facility] in a manner consistent with CLIA requirements. This test has not been cleared or approved by the U.S. Food and Drug Administration. Test Performed by: [facility] [place][Note 2] [address] [place] [address] Lean Manufacturing Engineer: Dinora Richard Ph.D.; CLIA# [id number] Testing performed by: [address] [address] Blood 04/15/2025 12:1 1 PM CDT 04/15/2025 12:41 PM CDT Randa Her SENIOR ANDROID SOFTWARE ENGINEER LAB BLOOD ORDERABLES Fin al Result Performing Organization Address City/[facility]/ZIP Co de Phone Number MARIELA[address] [place] [address] [facility] * Folate (04/15/2025 12:11 PM CDT) Folic acid 15.3 >=5.0 ng/mL Comment:Testing performed by : [address] [address] Blood 04/15/2025 12:1 1 PM CDT 04/15/2025 12:41 PM CDT Randa Her SENIOR ANDROID SOFTWARE ENGINEER LAB BLOOD ORDERABLES Fin al Result Performing Organization Address City/[facility] Co de Phone Number [address] [place] [address] * Vitamin B12 (04/15/2025 12:11 PM CDT) Vitamin B12 407 230 - 1,250 pg/mL Comment:Testing performed by : [address] [address] Blood 04/15/2025 12:1 1 PM CDT 04/15/2025 12:41 PM CDT Randa Her SENIOR ANDROID SOFTWARE ENGINEER LAB BLOOD ORDERABLES Fin al Result Performing Organization Address City/[facility]/ZIP Co de Phone Number CER[address] [place] [address] * Drugs of Abuse Screen, Urine with Reflex Confirmation (04/15/2025 11:53 AM CDT) [facility] Amphetamine, ur Not Detected CutOff 500ng/mL Comment: Interpretive Data - Amphetamines: Samples containing greater than 500 ng/mL d-methamphetamine or other cross-reacting amphetamine compounds are reported as positive. Amphetamine immunoassays are subject to significant false positive rates due to cross-reactivity of non-amphetamine drugs. Confirmatory testing required for definitive results. Current Interpretive Data was last reviewed 2023. Testing performed by: [address] [address] Barbiturates, ur Not Detected CutOff 200ng/mL MIGEL Comment: Interpretive Data - Barbiturates: Samples containing greater than 200 ng/mL secobarbital or other cross-reacting barbiturate compounds are reported as positive. False positive and false negative results are possible. Confirmatory testing required for definitive results. Current Interpretive Data was last reviewed 2023. Testing performed by: [address] [address] Benzodiazepines, ur Not Detected CutOff 100ng/mL MIGEL Comment: Interpretive Data - Benzodiazepines: Samples containing greater than 100 ng/mL nordiazepam or other cross-reacting compounds are reported as positive. False positive and false negative results are possible. Confirmatory testing required for definitive results. Current Interpretive Data was last reviewed 2023. Testing performed by: [address] [address] Cannabinoids, ur Not Detected CutOff 50 ng/mL [facility] Comment: Interpretive Data - Cannabinoids: Samples containing greater than 50 ng/mL delta-9 THC -COOH or other cross- reacting compounds are reported as positive. False positive and false negative results are possible. Confirmatory testing required for definitive results. Current Interpretive Data was last reviewed 2023. Testing performed by: [address] [address] Cocaine, ur Not Detected CutOff 150ng/mL [facility] Comment: Interpretive Data - Cocaine: Samples containing greater than 150 ng/mL benzoylecgonine or other cross- reacting compounds are reported as positive. False positive and false negative results are possible. Confirmatory testing required for definitive results. Current Interpretive Data was last reviewed 2023. Testing performed by: [address] [address] Fentanyl, Ur Not Detected CutOff 5 ng/mL [facility] Comment: Interpretive Data - Fentanyl: Samples containing greater than 1 ng/mL fentanyl or other cross-reacting fentanyl compounds are reported as positive. False positive and false negative results are possible. Confirmatory testing required for definitive results. Current Interpretive Data was last reviewed 2023. Testing performed by: [address] [address] Methadone, ur Not Detected CutOff 300ng/mL [facility] Comment: Interpretive Data - Methadone: Samples containing greater than 300 ng/mL d,l-methadone or other cross-reacting compounds are reported as positive. False positive and false negative results are possible. Confirmatory testing required for definitive results. Current Interpretive Data was last reviewed 2023. Testing performed by: [address] [address] Opiates, ur Not Detected CutOff 300ng/mL [facility] Comment: Interpretive Data - Opiates: Samples containing greater than 300 ng/mL morphine or other cross-reacting compounds are reported as positive. False positive and false negative results are possible. Confirmatory testing required for definitive results. Current Interpretive Data was last reviewed 2023. Testing performed by: [address] [address] Oxycodone, ur Not Detected CutOff 100ng/mL [facility] Comment: Interpretive Data - Oxycodone: Samples containing greater than 100 ng/mL oxycodone or other cross-reacting compounds are reported as positive. False positive and false negative results are possible. Confirmatory testing required for definitive results. Current Interpretive Data was last reviewed 2023. Testing performed by: [address] [address] Phencyclidine, ur Not Detected CutOff 25 ng/mL [facility] Comment: Interpretive Data - Phencyclidine: Samples containing greater than 25 ng/mL phencyclidine or other cross-reacting compounds are reported as positive. False positive and false negative results are possible. Confirmatory testing required for definitive results. Current Interpretive Data was last reviewed 2023. Testing performed by: [address] [address] Urine Creatinine 132 mg/dL MIGEL VEL[facility] Comment: Interpretive Data Urine Creatinine: < 10 mg/dL is extremely dilute = or > 10 but < 20 mg/dL is dilute = or > 20 mg/dL is normal Current Interpretive Data was last revised on 2017. Testing performed by: [facility], [address] [place] [address]., [address] Urine 04/15/2025 11:5 3 AM CDT 04/15/2025 4:12 PM CDT Narrative MIGEL - 04/15/2025 4:46 PM CDT Drug of Abuse screening is performed by immunoassay for medical purposes only. This is not to be used for Pain Management purposes. If Detected, confirmation testing will be performed for Amphetamines, Cocaine, Fentanyl, Methadone, Opiates, Oxycodone or Phencyclidine. Randa Her NP LAB URINE ORDERABLES Fin al Result MIGEL [address] [facility] [place] [address] * Urine culture Urine, clean voided (04/15/2025 11:53 AM CDT) Report Final Report: Less than 100,000 colonies/mL (clinically insignificant growth based on current clinical standards) Comment:Testing performed by : [facility], [address] [facility], [place]., [address] Organism (CLINICALLY INSIGNIFICANT GROWTH MIGEL VELAZQUEZ Urine, clean voided 04/15/2025 11:53 AM CDT 04/15/2025 9:30 PM CDT Narrative MIGEL [facility] - 04/17/2025 4:07 AM CDT Testing performed by [facility] ([phone]) Randa Her NP LAB MICROBIOLOGY - [facility] ORDERABLES Final Result MIGEL [address] [facility] Department [place] [address] * US OB Under 14 Weeks W Endovaginal (04/15/2025 10:11 AM CDT) Anatomical Region Laterality Modality Abdomen N/A Ultrasound 04/15/2025 10:1 2 AM CDT Impressions 04/21/2025 1:12 PM CDT Physician interpretation: Single living intrauterine gestation measuring 9 weeks and 0 days by crown-rump length for an MAKEDA of 11/18/2025. This represents an 11 day discrepancy when compared to the reported last menstrual period. Final MAKEDA based on today's ultrasound measurements. The adnexae appear normal. Narrative Procedure Note Red Dewey MD - 04/21/2025 IMPRESSION: Physician interpretation: Single living intrauterine gestation measuring9 weeks and 0 days by crown-rump length for an MAKEDA of 11/18/2025. Thisrepresents an 11 day discrepancy when compared to the reported lastmenstrual period. Final MAKEDA based on today's ultrasound measurements.The adnexae appear normal. us Denia Chaney MD IMG OB US PROCEDURES Final Result * US Ob Transvaginal (03/16/2025 7:53 PM [...] Not identified Mean sac diameter: 0.32 cm [place]-rump length: Not applicable heart rate: Not applicable [...] Sim Sullivan M.D. MF: PHILLIP Report ID: [id number] Reading Location: [id number] Procedure Note Sim Sullivan, DO - 03/16/2025 [...] Not identified Mean sac diameter: 0.32 cm [place]-rump length: Not applicable heart rate: Not applicable [...] Sim Sullivan M.D. MF: PHILLIP Report ID: [id number] Reading Location: [place] [address] us Sonal [facility] IMG OB US PROCEDURES Final Result * (ABNORMAL) POCT hCG, urine (03/16/2025 6:56 PM CDT) [facility] HCG, ur, POC Positive(A) Negative Comment:Testing performed by : [address] [address] POC Performer [id number] MIGEL [facility]EL[facility] Comment:Testing performed by : [address] [address] Urine 03/16/2025 6:56 PM CDT 03/16/2025 6:56 PM CDT us Notinfile Unknown LAB POCT ORDERABLES - DEVICE F inal Result MIGEL VELAZ[facility]Z [address] [facility] Department [place] [address] * eGFR (03/16/2025 6:54 PM CDT) [facility] eGFR >90 >=60 mL/min/1. 73 m2 Comment: [...] was last reviewed 2021. Testing performed by: [address] [address] Blood 03/16/2025 6:54 PM CDT 03/16/2025 7:02 PM CDT us Sonal PHAM LAB BLOOD ORDERABLES Final Result MIGEL [address] [facility] Department [place] [address] * Differential, auto (03/16/2025 6:54 PM CDT) Neutrophil abs 2.77 1.50 - 6.50 K/cumm Comment:Testing performed by : [address] [address] Imm gran abs 0.01 0.00 - 0.10 K/cumm MIGEL Comment:Testing performed by : [address] [address] Lymphocyte abs 1.53 0.80 - 3.30 K/cumm MIGEL Comment:Testing performed by : [address] [address] Monocyte abs 0.48 0.20 - 0.80 K/cumm MIGEL Comment:Testing performed by : [address] [address] Eosinophil abs 0.02 0.00 - 0.50 K/cumm MIGEL Comment:Testing performed by : [address] [address] Basophil abs 0.01 0.00 - 0.10 K/cumm MIGEL Comment:Testing performed by : [address] [address] Neutrophil pct 57.5 % [facility] Comment: Interpretive Data Percent cell count reference ranges are not reported, since discordance with absolute values may lead to misinterpretation of CBC data. Current Interpretive Data was last revised on 2017. Testing performed by: [address] [address] Imm gran pct 0.2 % [facility] Comment: Interpretive Data Percent cell count reference ranges are not reported, since discordance with absolute values may lead to misinterpretation of CBC data. Current Interpretive Data was last revised on 2017. Testing performed by: [address] [address] Lymphocyte pct 31.7 % [facility] Comment: Interpretive Data Percent cell count reference ranges are not reported, since discordance with absolute values may lead to misinterpretation of CBC data. Current Interpretive Data was last revised on 2017. Testing performed by: [address] [address] Monocyte pct 10.0 % [facility] Comment: Interpretive Data Percent cell count reference ranges are not reported, since discordance with absolute values may lead to misinterpretation of CBC data. Current Interpretive Data was last revised on 2017. Testing performed by: [address] [address] Eosinophil pct 0.4 % [facility] Comment: Interpretive Data Percent cell count reference ranges are not reported, since discordance with absolute values may lead to misinterpretation of CBC data. Current Interpretive Data was last revised on 2017. Testing performed by: [address] [address] Basophil pct 0.2 % [facility] Comment: Interpretive Data Percent cell count reference ranges are not reported, since discordance with absolute values may lead to misinterpretation of CBC data. Current Interpretive Data was last revised on 2017. Testing performed by: [address] [address] Blood 03/16/2025 6:54 PM CDT 03/16/2025 7:02 PM CDT Sonal [facility] LAB BLOOD ORDERABLES Final Result [facility] [address] [facility] [place] [address] * (ABNORMAL) Urinalysis reflex to microscopic and culture Urine (03/16/2025 6:54 PM CDT) Color, ur Yellow Yellow Comment:Testing performed by : [address] [address] Clarity, ur Clear Clear MIGEL Comment:Testing performed by : [address] [address] Specific gravity, ur 1.023 1.003 - 1.030 MIGEL Comment:Testing performed by : [address] [address] pH, urine 8.0 MIGEL Comment: Interpretive Data U rine pH is affected by diet, medications, systemic acid-base disturbances, and renal tubular function. pH may affect urinary stone formation. For example, urine pH below 6.0 may help reduce the tendency for calcium phosphate stones and pH greater than 6.0 may reduce the tendency for uric acid stone formation. Source: [facility] Current Interpretive Data was last revised on 2017 Testing performed by: [address] [address] Protein, ur ql Trace(A) Negative MIGEL Comment:Testing performed by : [address] [address] Glucose, ur ql Negative Negative MIGEL Comment:Testing performed by : [address] [address] Ketones, ur Negative Negative MIGEL VELAZQUEZ Comment:Testing performed by : [address] [address] Bilirubin, ur Negative Negative MIGEL VELAZQUEZ Comment:Testing performed by : [address], [place]., [address] Blood, ur Negative Negative MIGEL VELAZQUEZ Comment:Testing performed by : [address], [place]., [address] Urobilinogen, ur 2.0(A) <2.0 mg/dL MIGEL VELAZQUEZ Comment:Testing performed by : [address], [place]., [address] Nitrite, ur Negative Negative MIGEL VELAZQUEZ Comment:Testing performed by : [address] [address] Leukocyte esterase, ur 1+(A) Negative MIGEL VELAZQUEZ Comment:Testing performed by : [address] [address] UA reflex comment Reflex to microscopic UA will be performed. MIGEL VELAZQUEZ Comment:Testing performed by : [address] [address] Urine 03/16/2025 6:54 PM CDT 03/16/2025 7:02 PM CDT us Sonal [facility] LAB MICROBIOLOGY - GENERAL ORDERABLES Final Result MIGEL [address] [facility] Department of Laboratories [place], [place] [id number] * (ABNORMAL) CBC with auto differential (03/16/2025 6:54 PM CDT) WBC 4.82 3.80 - 9.90 K/cumm Comment:Testing performed by : [address] [address] Hgb 9.8(L) 11.9 - 15.5 g/dL MIGEL VELAZQUEZ Comment:Testing performed by : [address] [address] Hct 30.4(L) 35.6 - 45.5 % MIGEL VELAZQUEZ Comment:Testing performed by : [address] [address] Plt 282 150 - 400 K/cumm MIGEL VELAZQUEZ Comment:Testing performed by : [address] [address] MPV 9.6 9.1 - 12.3 fL MIGEL VELAZQUEZ Comment:Testing performed by : [address] [address] RBC 3.47(L) 3.90 - 5.20 M/cumm MIGEL VELAZQUEZ Comment:Testing performed by : [address] [address] MCV 87.6 81.3 - 96.4 fL MIGEL VELAZQUEZ Comment:Testing performed by : [address] [address] MCH 28.2 27.1 - 33.3 pg MIGEL VELAZQUEZ Comment:Testing performed by : [address] [address] MCHC 32.2(L) 32.3 - 35.7 g/dL MIGEL VELAZQUEZ Comment:Testing performed by : [address] [address] RDW CV 23.4(H) 11.1 - 14.9 % MIGEL VELAZQUEZ Comment:Testing performed by : [address] [address] RDW SD 74.1(H) 35.7 - 48.1 fL MIGEL VELAZQUEZ Comment:Testing performed by : [address] [address] NRBC abs 0.00 0.00 - 0.01 K/cumm MIGEL VELAZQUEZ Comment:Testing performed by : [address] [address] Blood Venous blood specimen / Unknown 03/16/2025 6:54 PM CDT 03/16/2025 7:02 PM CDT Sonal [facility] LAB BLOOD ORDERABLES Final Result MIGEL VELAZQUEZ [address] [facility] Department [place] [address] * (ABNORMAL) Urinalysis, microscopic only (03/16/2025 6:54 PM CDT) WBC, ur 0-5 0 - 5 /HPF Comment:Testing performed by : [address] [address] RBC, ur 0-2 0 - 2 /HPF MIGEL Comment:Testing performed by : [address] [address] Epithelial cells, squamous, ur 21-50(A) 0 - 5 /HPF MIGEL Comment:Testing performed by : [address] [address] Culture Reflex Comment Reflex conditions for urine culture (WBC >10) not met. MIGEL Comment:Testing performed by : [address] [address] Urine 03/16/2025 6:54 PM CDT 03/16/2025 7:02 PM CDT Sonal [facility] LAB URINE ORDERABLES Final Result MIGEL [address] [facility] [place] [address] * (ABNORMAL) hCG, blood, quantitative (03/16/2025 6:54 [...] last revised on 2023 Testing performed by: [address] [address] Blood 03/16/2025 6:54 PM CDT 03/16/2025 7:02 PM CDT Sonal [facility] LAB BLOOD ORDERABLES Final Result MIGEL [address] [place] [address] * Lipase (03/16/2025 6:54 PM CDT) Pathologist [facility] Lipase 37 10 - 99 Units/L Comment:Testing performed by : [address] [address] Blood Venous blood specimen / Unknown 03/16/2025 6:54 PM CDT 03/16/2025 7:02 PM CDT Sonal [facility] LAB BLOOD ORDERABLES Final Result Performing Organization Address City/[facility] Co de Phone Number MIGEL [address] [address] * (ABNORMAL) Comprehensive metabolic panel (03/16/2025 6:54 PM CDT) [facility] Sodium 135 135 - 145 mmol/L Comment:Testing performed by : [address] [address] Potassium, pl 4.2 3.3 - 4.9 mmol/L MIGEL Comment:Testing performed by : [address] [address] Chloride 106 97 - 110 mmol/L MIGEL Comment:Testing performed by : [address] [address] CO2 20(L) 22 - 32 mmol/L MIGLE Comment:Testing performed by : [address] [address] Anion gap 9 2 - 15 mmol/L MIGEL Comment:Testing performed by : [address] [address] BUN 5(L) 6 - 25 mg/dL MIGEL Comment:Testing performed by : [address] [address] Creatinine 0.76 0.60 - 1.10 mg/dL MIGEL Comment:Testing performed by : [address] [address] Glucose 106 70 - 199 mg/dL MIGEL [...] was last revised 2022. Testing performed by: [address] [address] Calcium 8.4(L) 8.5 - 10.3 mg/dL MIGEL Comment:Testing performed by : [address] [address] Bilirubin, total 0.2 0.1 - 1.2 mg/dL MIGEL Comment:Testing performed by : [address] [address] Protein, pl 6.8 6.5 - 8.5 g/dL MIGEL Comment:Testing performed by : [address] [address] Albumin 3.7 3.5 - 5.0 g/dL MIGEL Comment:Testing performed by : [address] [address] Alk phos 114 40 - 130 Units/L MIGEL Comment:Testing performed by : [address] [address] ALT 17 7 - 45 Units/L MIGEL Comment:Testing performed by : [address] [address] AST 36 10 - 45 Units/L MIGEL Comment:Testing performed by : [address] [address] Blood 03/16/2025 6:54 PM CDT 03/16/2025 7:02 PM CDT Sonal [facility] LAB BLOOD ORDERABLES Final Result MIGEL VELAZQUEZ [address] [facility] Department [place] [address] * (ABNORMAL) High Risk HPV DNA Detection with Genotyping (Molecular component) (05/25/2024 1:44 PM CDT) HPV HR 16 Not Detected Not Detected [facility] Comment:Testing performed by : [facility], [address] [place]., [address] HPV HR 18 Not Detected Not Detected MIGEL VELAZQUEZ Comment:Testing performed by : [facility], [address] [facility], [address] HPV HR Non 16/18 Detected(A) Not Detected [...] this test have been verified by the [facility] Molecular Infectious Disease laboratory. Correlate with separately reported cytology results, as applicable. Interpretive data last revised 23 Testing performed by: [facility], [address] [place]., [address] Endocervical 05/25/2024 1:44 PM CDT 05/26/2024 2:45 PM CDT Narrative MIGEL VELAZQUEZ - 05/26/2024 10:40 PM CDT Clinical history and diagnosis->LP: 2017 Number of vials->1 Testing type->Screening Last menstrual period (date if known)->04/24/2024 Chelsey Fajardo MD LAB BODY FLUIDS AND STOOLS ORDERABLES Final Result MIGEL MH [address] [facility] Department [place] [address] [facility] from Last 3 Months or Most Recently Relevant to Health Maintenance Insurance [facility] Member Subscriber Plan / Payer ( fective 2021-Present) Name:Edilson Donovan Relation to Subscriber:Self Name:Edilson Donovan Payer ID:[id number] (NAIC) Group ID:Not on file Type:MEDICAID RISK OTHER Address: ATTN: CLAIMS DEPT [address] [facility] [place] [id number] [facility] Advance Directives For more information, please contact: [phone] * Full Code (Latest Code Status on File) Date Activated Date Inactivated Comments 06/02/2023 4:53 AM 06/05/2023 10:00 PM * Full Code Date Activated Date Inactivated Comments 06/01/2023 7:55 PM 06/02/2023 1:58 AM Full CPR in case of cardiopulmonary arrest Care Teams Cuprous Chloride Operator Relationship Specialty Start Date End Date No, Physician PCP - General 11/22/22 Chelsey Fajardo MD [address] [place] [id number] Consulting Physician Obstetrics and Gynecology 04/24/24
--- OUTSIDE RECORDS SUMMARY | 2025-06-15 09:34 | XMS_ITS | Clinical Summary ---
Author Organization [facility] Address [address] [place] [address] Phone Care Team Providers Care Owner/Photographer Name Role Phone Gorge Ding MD Primary Care Provider [phone] Allergies No known active allergies Medications losartan [...] (1 of 3 - 19+ 3-dose series) 08/10 HPV/Cotest (21-29) 2011 HPV VACCINES (1 - 3-dose SCDM series) 2017 CERVICAL CANCER SCREENING 2020 HPV/Cotest (30-65) 2020 PAP SMEAR 2020 INFLUENZA VACCINE (#1) 2025 Medical Devices Implanted Type Area Environmental Services Floor Tech Device Identifier Shelf Expiration Date Model / Serial / Lot Seamguard Endogia 60 Blck [id number] - [id number] Implanted:Qty : 1 on 07/07/2018 by Bernardino Byrne MD at [facility] N/A: Abdomen [employer] [id number] / / Description:Natalie castillo, nurse Fernanda Kinney not available. Seamguard Endogia 60 Blck [id number] - [id number] Implanted:Qty : 1 on 07/07/2018 by Bernardino Byrne MD at [facility] N/A: Abdomen [employer] [id number] / / Description:Natalie Kinney not available to update record. Seamguard Endogia 60 Prpl [id number] - [id number] Implanted:Qty : 1 on 07/07/2018 by Bernardino Byrne MD at [facility] N/A: Abdomen [employer] [id number] / / Seamguard Endogia 60 Prpl [id number] - [id number] Implanted:Qty : 1 on 07/07/2018 by Bernardino Byrne MD at [facility] N/A: Abdomen [employer] [id number] [id number] / / Seamguard Endogia 60 Prpl [id number] - [id number] Implanted:Qty : 1 on 07/07/2018 by Bernardino Byrne MD at [facility] N/A: Abdomen [employer] [id number] [id number] / / Insurance [employer] (INTERNAL) [facility] Internal Plans Advance Directives For more information, please contact: [phone] * Full Code (Latest Code Status on File) Date Activated Date Inactivated Comments 07/07/2018 11:58 AM 07/08/2018 7:07 PM Care Teams Owner/Photographer Relationship Specialty Start Date End Date Gorge Ding MD [address] [facility] [address] [place] [address] PCP - General Internal Medicine 06/30/18
--- OUTSIDE RECORDS SUMMARY | 2025-06-15 09:34 | XMS_ITS | Encounter Summary ---
Author Organization [facility] Address [address] [place] [address] Care Team Providers Care Director Blood Bank Name Role Phone No, Physician Primary Care Provider Chelsey Fajardo MD Unavailable [phone] Encounter Details Date Type Department Care Team ([facility] st Contact Info) Description 05/07/2025 Results Follow-Up [facility] [address] [place] [address] Devonte Merrill MD [address] [address] PANORAMA TEST Social History Tobacco Use Types Packs/Day Years Used Date Smoking Tobacco: Never Smokeless Tobacco: Never Alcohol Use Standard Drinks/Week Comments Yes 0 (1 standard drink = 0.6 oz pur e alcohol) [facility] Utilities Answer Date Recorded In the past 12 months has [employer], [employer] Information, oil, or water [employer] threatened to shut off services in your [...] How often do you attend chur or lutheran services? More than 4 times per year 09/11/2023 Do you belong to any clubs o r organizations such as amish groups, unions, fraternal or athletic groups, or [...] place to sleep or slept in a correction (including now)? 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 Gender Identity Not on file Sexual Orientation Not on file documented as of this encounter Plan of Treatment Upcoming Encounters Date Type Department Care Team (Late st Contact Info) Description 11/18/2025 6:00 PM CDT Hospital Encounter [facility] [address] [place] [address] Red Dewey MD [address] [id number] documented as of this encounter Visit Diagnoses Not on filedocumented in this encounter Care Teams Director Blood Bank Relationship Specialty Start Date End Date No, Physician PCP - General 11/22/22 Chelsey Fajardo MD [facility] [address] [id number] Consulting Physician Obstetrics and Gynecology 04/24/24 documented as of this encounter
--- OUTSIDE RECORDS SUMMARY | 2025-06-15 10:20 | XMS_ITS | Clinical Summary ---
Author Organization [facility] Address [address] [place] [address] Care Team Providers Care Sanitation Superintendent Name Role Phone Unavailable Primary Care Provider Unavailabl e Source Comments [facility],non-owned Affiliates and Associated Physician Practices is amultiple site organization consisting of ambulatory clinics and hospital sitesin [place], [place], [place] and [place]. This disclosure is being madepursuant to the Care Everywhere program and may not contain all information available regarding this patient. Last updated 18.[facility] Allergies No known active allergies Encounters Date Type Department Care Team Description 03/24/2025 5:20 PM CDT - 03/24/2025 9:36 PM CDT Emergency ER at [address] [address] Augie Mason DO Pelvic pain in female; [...] Yellow Yellow, Straw 03/24/2025 6:42 PM CDT [facility] Clarity UA Clear Clear 03/24/2025 6:42 PM CDT [facility] Glucose UA Normal Normal 03/24/2025 6:42 PM CDT [facility] Bilirubin UA Negative Negative 03/24/2025 6:42 PM CDT [facility] Ketone UA Negative Negative 03/24/2025 6:42 PM CDT [facility] Specific [place] UA 1.015 1.005 - 1.030 03/24/2025 6:42 PM CDT [facility] Blood UA Negative Negative 03/24/2025 6:42 PM CDT [facility] pH UA 6.5 5.0 - 8.0 03/24/2025 6:42 PM CDT [facility] Protein UA Negative Negative 03/24/2025 6:42 PM CDT [facility] Urobilinogen UA Normal Normal mg/dL 03/24/2025 6:42 PM CDT [facility] Nitrite UA Negative Negative 03/24/2025 6:42 PM CDT [facility] Leukocyte Esterase UA 75 ANAND/uL(A) Negative 03/24/2025 6:42 PM CDT [facility] RBC UA 3-5 0 - 5 # /hpf 03/24/2025 6:42 PM CDT [facility] WBC UA 0-5 0 - 5 # /hpf 03/24/2025 6:42 PM CDT [facility] Bacteria UA Trace(A) None Seen 03/24/2025 6:42 PM CDT [facility] Squamous Epithelial Cells 3-5 0 - 5 /hpf 03/24/2025 6:42 PM CDT [facility] Mucus UA 1+ /LPF 03/24/2025 6:42 PM CDT [facility] Reflex Status Culture to follow 03/24/2025 6:42 PM CDT [facility] Urine URINE SPECIMEN OBTAINED BY CLEAN CATCH PROCEDURE / Unknown Collection / Unknown 03/24/2025 6:33 PM CDT 03/24/2025 6:36 PM CDT [facility]ORAT[facility] - 03/24/2025 6:42 PM CDT us Leno Mercer PA-C LAB - URINALYSIS ORDERABL ES Final Result [facility] [address] [place] [address] * CULTURE URINE (03/24/2025 6:33 PM CDT) Pathologist [facility] Culture Urine More than 2 organisms seen at >=50,000 CFU/mL. Recollect if clinically indicated. REJI 03/26/2025 9:40 AM CDT [facility]CRO[facility] Urine URINE SPECIMEN OBTAINED BY CLEAN CATCH PROCEDURE / Unknown Collection / Unknown 03/24/2025 6:33 PM CDT 03/24/2025 6:36 PM CDT Narrative [facility] MICROBIOLOGY - 03/26/2025 9:40 AM CDT Leno Mercer PA-C LAB - MICROBIOLOGY ORDERA BLES Final Result [facility] MICRO[facility]Y [address] [place] [address], [facility] [phone] * TYPE + SCREEN PANEL (03/24/2025 6:12 PM CDT) Pathologist [facility] ABO Rh B POS 03/24/2025 7:02 PM CDT [facility] Comment:No history; collect retype. Antibody Screen NEG 7:02 PM CDT [facility] Blood Bank BLOOD SPECIMEN / Unknown Venipuncture / Unknown 03/24/2025 6:12 PM CDT 03/24/2025 6:22 PM CDT Leno Mercer PA-C LAB - BLOOD BANK ORDERABL ES Final Result [facility] [address] [place] [address], [facility] [phone] * DIFFERENTIAL MANUAL (03/24/2025 6:12 PM CDT) Pathologist [facility] Neutrophil % 60 41 - 74 % 03/24/2025 6:53 PM CDT [facility] Lymphocyte % 36 17 - 47 % 03/24/2025 6:53 PM CDT [facility] Monocyte % 4 3 - 11 % 03/24/2025 6:53 PM CDT [facility] Neutrophil Absolute 2.64 1.60 - 7.50 x10E9/L 03/24/2025 6:53 PM CDT [facility] Lymphocyte Absolute 1.58 1.00 - 4.40 x10E9/L 03/24/2025 6:53 PM CDT [facility] Monocyte Absolute 0.18 0.15 - 1.00 x10E9/L 03/24/2025 6:53 PM CDT [facility] RBC Morphology NORMAL 03/24/2025 6:53 PM CDT [facility] Blood BLOOD SPECIMEN / Unknown Venipuncture / Unknown 03/24/2025 6:12 PM CDT 03/24/2025 6:22 PM CDT Leno Mercer PA-C LAB - HEMATOLOGY ORDERABL ES Final Result Performing Organization Address City/State/[facility] Co de Phone Number [facility] [address] [place], [place] [id number] * (ABNORMAL) CBC W AUTO DIFFERENTIAL (03/24/2025 6:12 PM CDT) WBC 4.4 4.0 - 10.7 x10E9/L 03/24/2025 6:53 PM CDT [facility] RBC Count 3.37(L) 3.90 - 5.20 x10E12/L 03/24/2025 6:53 PM CDT [facility] Hemoglobin 9.6(L) 11.9 - 15.8 g/dL 03/24/2025 6:53 PM CDT [facility] Hematocrit 29.3(L) 34.8 - 46.1 % 03/24/2025 6:53 PM CDT [facility] MCV 86.9 80.0 - 98.0 fL 03/24/2025 6:53 PM CDT [facility] MCH 28.5 26.7 - 33.6 pg 03/24/2025 6:53 PM CDT [facility] MCHC 32.8 31.7 - 36.3 g/dL 03/24/2025 6:53 PM CDT [facility] RDW-CV 22.7(H) 11.3 - 14.8 % 03/24/2025 6:53 PM CDT [facility] Platelet Count 275 150 - 420 x10E9/L 03/24/2025 6:53 PM CDT [facility] MPV 9.7 7.8 - 11.4 fL 03/24/2025 6:53 PM CDT [facility] Blood BLOOD SPECIMEN / Unknown Venipuncture / Unknown 03/24/2025 6:12 PM CDT 03/24/2025 6:22 PM CDT Leno Mercer PA-C LAB - HEMATOLOGY ORDERABL ES Final Result [facility] [address] [place] [address] * (ABNORMAL) COMPREHENSIVE METABOLIC PANEL (03/24/2025 6:12 PM CDT) Glucose 87 70 - 99 mg/dL 03/24/2025 6:41 PM CDT [facility] Sodium 139 136 - 145 mmol/L 03/24/2025 6:41 PM CDT [facility] Potassium 3.8 3.5 - 5.1 mmol/L 03/24/2025 6:41 PM CDT [facility] Chloride 111(H) 98 - 107 mmol/L 03/24/2025 6:41 PM CDT [facility] CO2 20(L) 22 - 29 mmol/L 03/24/2025 6:41 PM T [facility] Calcium 8.5 8.4 - 10.4 mg/dL 03/24/2025 6:41 PM T [facility] Anion Gap 8 6 - 16 mmol/L 03/24/2025 6:41 PM CDT [facility] BUN 5(L) 5.3 - 18.7 mg/dL 03/24/2025 6:41 PM CDT [facility] Creatinine 0.76 0.57 - 1.11 mg/dL 03/24/2025 6:41 PM T [facility] Alkaline Phosphatase 86 40 - 150 U/L 03/24/2025 6:41 PM CDT [facility] ALT 28 6 - 57 U/L 03/24/2025 6:41 PM CDT [facility] AST 28 10 - 48 U/L 03/24/2025 6:41 PM CDT [facility] Protein Total 6.5 6.4 - 8.3 gm/dL 03/24/2025 6:41 PM CDT [facility] Albumin 3.4 3.1 - 4.5 gm/dL 03/24/2025 6:41 PM CDT [facility] Bilirubin Total 0.2 0.2 - 1.2 mg/dL 03/24/2025 6:41 PM CDT [facility] eGFR by CKD-EPI >90 >=90 mL/min/1.7 3 m2 03/24/2025 6:41 PM CDT [facility] Comment:Estimated Glomerular Filtration Rate (eGFR) calculated using the CKD-EPI Creatinine Equation (2020), per the National Kidney Foundation and [place] [employer] Nephrology recommendations. Blood BLOOD SPECIMEN / Unknown Venipuncture / Unknown 03/24/2025 6:12 PM CDT 03/24/2025 6:22 PM CDT Leno Mercer PA-C LAB - CHEMISTRY ORDERABLE S Final Result [facility] [address] [place] [address] * HCG BETA BLOOD QUANTITATIVE (03/24/2025 6:12 PM CDT) [facility] hCG Quantitative 8,303.87 mIU/mL 03/24/20 6:45 PM CDT [facility] Blood BLOOD SPECIMEN / Unknown Venipuncture / Unknown 03/24/2025 6:12 PM CDT 03/24/2025 6:22 PM CDT Narrative [facility] - 03/24/2025 6:45 PM CDT [...] ORDERABLE S Final Result Performing Organization Address City/[facility]/ZIP Co de Phone Number [facility] [address] [place] [address] * LIPASE BLOOD (03/24/2025 6:12 PM CDT) Lipase 33 <60 U/L 03/24/2025 7:45 PM CDT [facility] Blood BLOOD SPECIMEN / Unknown Venipuncture / Unknown 03/24/2025 6:12 PM CDT 03/24/2025 6:22 PM CDT Augie Mason DO LAB - CHEMISTRY ORDERABLES Genet l Result Performing Organization Address City/[facility]/ZIP Co de Phone Number [facility] [address] [place] [address] from Last 3 Months Insurance [facility]
--- OUTSIDE RECORDS SUMMARY | 2025-06-15 10:20 | XMS_ITS | Encounter Summary ---
Author Organization [facility] [place] Facility Care Team Providers Care Shell Mold Bonding Machine Operator Name Role Phone Cayla Ding MD Primary Care Provider [phone] Gorge Ding MD Primary Care Provider No, Physician Primary Care Provider [phone] Chelsey Fajardo MD Unavailable [phone] Encounter Details Date Type Department Care Team (Latest Contact Info) Description 02/28/2018 Orders Only [facility] CLINCONV ProviderElena MD [address] [place] [address] Social History Tobacco Use Types Packs/Day Years Used Date Smoking Tobacco: Never Assessed Comments Unknown Sex and Gender Information Value Date Recorded Sex Assigned at Not on file 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 10/06/2022 11/22/2022 01/04/2023 3:05 AM C DT documented as of this encounter Care Teams Shell Mold Bonding Machine Operator Relationship Specialty Start Date End Date Cayla Ding MD PCP - General 03/30/18 07/29/19 Gorge Ding MD [address] [facility] [address] [place], [place] [phone] PCP - General 07/30/19 11/21/22 No, Physician PCP - General 11/22/22 [place] [address] [place] [id number] Consulting Physician Obstetrics and Gynecology 04/24/24 documented as of this encounter
--- OUTSIDE RECORDS SUMMARY | 2025-06-15 10:20 | XMS_ITS | Encounter Summary ---
Author Organization [facility] Facility Care Team Providers Care Education Program Manager Name Role Phone Cayla Ding MD Primary Care Provider [phone] Gorge Ding MD Primary Care Provider No, Physician Primary Care Provider [phone] Chelsey Fajardo MD Unavailable Encounter Details Date Type Department Care Team (Latest Contact Info) Description 07/01/2018 Orders Only [facility] CLINCONV ProviderElena MD [address] [place] [address] Social History Tobacco Use Types Packs/Day Years Used Date Smoking Tobacco: Never Assessed Comments Unknown Sex and Gender Information Value Date Recorded Sex Assigned at Not on file 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 10/06/2022 11/22/2022 01/04/2023 3:05 AM C DT documented as of this encounter Care Teams Education Program Manager Relationship Specialty Start Date End Date Cayla Ding MD PCP - General 03/30/18 07/29/19 Gorge Ding MD [address] [facility] [address] [place], [place] [phone] PCP - General 07/30/19 11/21/22 No, Physician PCP - General 11/22/22 Chelsey Fajardo MD [address] [address] Consulting Physician Obstetrics and Gynecology 04/24/24 documented as of this encounter
--- OUTSIDE RECORDS SUMMARY | 2025-06-15 10:20 | XMS_ITS | Encounter Summary ---
Author Organization [facility] Facility Care Team Providers Care Loan Auditor Name Role Phone Cayla Ding MD Primary Care Provider [phone] Gorge Ding MD Primary Care Provider No, Physician Primary Care Provider [phone] Chelsey Fajardo MD Unavailable Encounter Details Date Type Department Care Team (Latest Contact Info) Description 04/24/2018 Orders Only [facility] CLINCONV ProviderElena MD [address] [place] [address] Social History Tobacco Use Types Packs/Day Years Used Date Smoking Tobacco: Never Assessed Comments Unknown Sex and Gender Information Value Date Recorded Sex Assigned at Not on file 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 10/06/2022 11/22/2022 01/04/2023 3:05 AM C DT documented as of this encounter Care Teams Loan Auditor Relationship Specialty Start Date End Date Cayla Ding MD PCP - General 03/30/18 07/29/19 Gorge Ding MD [address] [facility] [address] [place], [place] [phone] PCP - General 07/30/19 11/21/22 No, Physician PCP - General 11/22/22 [place] [address] [place] [phone] Consulting Physician Obstetrics and Gynecology 04/24/24 documented as of this encounter
--- OUTSIDE RECORDS SUMMARY | 2025-06-15 10:20 | XMS_ITS | Encounter Summary ---
Author Organization [facility] Facility Care Team Providers Care Sole Stainer Name Role Phone Cayla Ding MD Primary Care Provider [phone] Gorge Ding MD Primary Care Provider [phone] No, Physician Primary Care Provider [phone] Chelsey Fajardo MD Unavailable [phone] Encounter Details Date Type Department Care Team (Latest Contact Info) Description 03/06/2018 Orders Only [facility] CLINCONV ProviderElena MD [address] [place] [address] Social History Tobacco Use Types Packs/Day Years Used Date Smoking Tobacco: Never Assessed Comments Unknown Sex and Gender Information Value Date Recorded Sex Assigned at Not on file Legal Sex Female 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 10/06/2022 11/22/2022 01/04/2023 3:05 AM C DT documented as of this encounter Care Teams Sole Stainer Relationship Specialty Start Date End Date Cayla Ding MD PCP - General 03/30/18 07/29/19 Gorge Ding MD [address] [facility] [address] [place], [place] [phone] PCP - General 07/30/19 11/21/22 No, Physician PCP - General 11/22/22 [place] [address] [place] [phone] Consulting Physician Obstetrics and Gynecology 04/24/24 documented as of this encounter
--- OUTSIDE RECORDS SUMMARY | 2025-06-15 10:21 | XMS_ITS | Encounter Summary ---
Author Organization [facility] Healthcare Address [address] [place] [address] Care Team Providers Care Shutdown Coordinator Name Role Phone No, Physician Primary Care Provider [phone] Chelsey Fajardo MD Unavailable [phone] Encounter Details Date Type Department Care Team ([facility] st Contact Info) Description 05/07/2025 Results Follow-Up [facility] [address] [place] [address] Devonte Merrill MD [address] [address] PANORAMA TEST Social History Tobacco Use Types Packs/Day Years Used Date Smoking Tobacco: Never Smokeless Tobacco: Never Alcohol Use Standard Drinks/Week Comments Yes 0 (1 standard drink = 0.6 oz pur e alcohol) [facility] Utilities Answer Date Recorded In the past 12 months has [employer], [employer], oil, or water Rapp[employer]ive threatened to shut off services in your [...] How often do you attend chur or confucianist services? More than 4 times per year 09/11/2023 Do you belong to any clubs o r organizations such as hoahaoism groups, unions, fraternal or athletic groups, or [...] place to sleep or slept in a long term (including now)? 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 [address] [place] [address] Red Dewey MD [address] [phone] documented as of this encounter Visit Diagnoses Not on filedocumented in this encounter Care Teams Shutdown Coordinator Relationship Specialty Start Date End Date No, Physician PCP - General 11/22/22 Chelsey Fajardo MD [facility] [phone] Consulting Physician Obstetrics and Gynecology 04/24/24 documented as of this encounter
--- OUTSIDE RECORDS SUMMARY | 2025-06-15 10:21 | XMS_ITS | Clinical Summary ---
Author Organization [facility] Address [facility] [place] [address] Care Team Providers Care Backend Python Developer Name Role Phone Unavailable Primary Care Provider Unavailabl e Allergies No known active allergies Medications No known medications Active Problems No known active problems Encounters Date Type Department Care Team Description 03/22/2025 6:52 PM CDT - 03/22/2025 7:00 PM CDT Emergency [facility] [place] [address] Radha Machado PA Discharge Disposition: Left Against [...] Comments Blood Pressure 151/92 09/03/2017 1:58 PM WINE SALES REPRESENTATIVE Pulse 70 09/03/2017 1:58 PM WINE SALES REPRESENTATIVE Temperature 37.1 C (98.8 F) 09/03/2017 1:58 PM WINE SALES REPRESENTATIVE Respiratory Rate 20 09/03/2017 1:58 PM WINE SALES REPRESENTATIVE Oxygen Saturation 100% 09/03/2017 1:58 PM WINE SALES REPRESENTATIVE Inhaled Oxygen Concentration - - Weight 94.3 kg (208 lb) 09/03/2017 1:58 PM WINE SALES REPRESENTATIVE Height 167.6 cm (5' 6) 09/03/2017 1:58 PM WINE SALES REPRESENTATIVE Body Mass Index 33.57 09/03/2017 1:58 PM WINE SALES REPRESENTATIVE Plan of Treatment Health Maintenance Due Date [...]
--- OUTSIDE RECORDS SUMMARY | 2025-06-15 10:21 | XMS_ITS | Clinical Summary ---
Author Organization [facility] Address [address] [place] [address] Care Team Providers Care Licsw Name Role Phone No, Physician Primary Care Provider [phone] Chelsey Fajardo MD Unavailable [phone] Allergies No known active allergies Medications aspirin [...] [x] Blue Team Referring Provider: Randa Her [phone] [] or Medicare Insurance [x] Dating Criteria: [...] [] MOC: [] Method of feeding: [] Wood Heel Fitter Machine (specifically which provider): [] PP Depression Discussed: [...] low fibrinogen, and elevated Cr. Transferred to [facility] and underwent IOL. Had PPH w/ blood [...] low fibrinogen, and elevated Cr. Transferred to [facility] and underwent IOL. Had PPH w/ blood [...] 04/15/2025 Assessment & Plan (09/11/2023 3:18 AM PREFORMER IMPREGN[employer]ABR[employer]): As seen on CT imaging NPO IV [...] 025 Assessment & Plan (09/11/2023 3:18 AM PREFORMER IMPREGN[employer]): Continue home regimen IV hydralazine p.r.n. Encounters Date Type Department Care Team Description 06/10/2025 Orders Only [facility] Obstetrical Gynecology [address] [phone] Namrata Jansen RN 06/03/2025 1:00 PM CDT Office Visit [facility] Obstetrical Gynecology [facility] [address] [place] [phone] Randa Her NP Supervision of high-risk , second trimester (Primary Dx) 05/31/2025 6:57 PM CDT - 05/31/2025 8:05 PM CDT Hospital Encounter [facility] [address] [place] [address] Red Dewey MD Discharge Disposition: Discharge to home or self care 05/24/2025 11:29 AM CDT - 05/24/2025 11:59 PM CDT Hospital Encounter [facility] [address] [place] [address] Chronic hypertension affecting Discharge Disposition: Discharge to home or self care 05/24/2025 9:35 AM CDT Lab [facility] [address] [place] [address] [place] [address] Chronic hypertension affecting 05/24/2025 8:30 AM CDT Office Visit [facility] Medicine Maternal- Medicine [address] [place] [address] Outpatient Health 7th Floor [address] [place] [address] Chronic hypertension affecting (Primary Dx); Supervision of high-risk , second trimester; Hx of preeclampsia, prior , currently , second trimester; Prior with demise and current in second trimester 05/24/2025 8:00 AM CDT - 05/24/2025 11:59 PM CDT Hospital Encounter [facility] - Ultrasound [address] [facility], 7th Floor, [address] [place] [address] Supervision of high-risk , unspecified trimester Discharge Disposition: Discharge to home or self care 05/24/[address] [facility] Medicine Maternal- Medicine [address] [facility] 7th Floor [address] [place] [phone] Angela Benavidez RN 05/19/2025 1:52 PM CDT - 05/19/2025 2:49 PM CDT Hospital Encounter [facility] [address] [place] [address] Red Dewey MD Discharge Disposition: Discharge to home or self care 05/17/2025 Telephone [facility] Medical [facility] Family Medicine at [address] [place] [address] Carlo Rene MD 1st No Show Letter sent to patient 05/07/[address] [facility] Medicine Maternal- Medicine [address] [facility] 7th Floor [address] [place] [phone] Donna Lee [facility] Scheduling US/OBC 05/07/2025 Results Follow-Up [facility] [address] [place] [phone] Devonte Merrill MD PANORAMA TEST 05/06/2025 9:00 AM CDT Office Visit [facility] Medical Group Obstetrical Gynecology [address] [place] [phone] Randa Her NP HTN in , chronic (Primary Dx); demise affecting delivery; History of gastric surgery 04/28/2025 3:00 PM CDT Clinical Support [facility] Obstetrical Gynecology [address] [place] [phone] Encounter for supervision of other normal in first trimester (Primary Dx) 04/27/2025 6:04 PM CDT - 04/27/2025 7:21 PM CDT Hospital Encounter [facility] [address] [place] [address] Mira Ring MD Discharge Disposition: Discharge to home or self care 04/19/2025 Results Follow-Up [facility] Obstetrical Gynecology [address] [place] [phone] Randa Her NP Comprehensive metabolic panel, Varicella Zoster IgG antibody Blood, Urine culture Urine, clean voided, Additional followed-up results: 11 04/16/2025 1:00 PM CDT Lab [facility] Outpatient Health [address] [place] [address] [place] [address] Encounter for supervision of other normal in first trimester; Chronic hypertension 04/16/2025 Telephone [facility] Obstetrical Gynecology [address] [place] [phone] Devonte Merrill MD 04/15/2025 1:18 PM CDT - 04/15/2025 11:59 PM CDT Hospital Encounter [facility] Medical Office Building [address] [place] [address] Encounter for supervision of other normal in first trimester Discharge Disposition: Discharge to home or self care 04/15/2025 1:00 PM CDT Office Visit [facility] Obstetrical Gynecology [address] [place] [phone] Randa Her NP HTN in , chronic (Primary Dx); Encounter for supervision of other normal in first trimester; Chronic hypertension; Hx of bariatric surgery 04/15/2025 12:00 PM CDT Lab [facility] Office Building [address] [place] [address] Encounter for supervision of other normal in first trimester; Hx of bariatric surgery 04/15/2025 11:15 AM CDT Clinical Support [facility] Obstetrical Gynecology [address] [place] [phone] 04/15/2025 10:30 AM CDT Ancillary Procedure [facility] Obstetrical Gynecology [address] [facility] [address] [place] [phone] Establish gestational age, ultrasound 04/15/2025 Telephone [facility] Obstetrical Gynecology [facility] [address] [place] [phone] Red Dewey MD 03/16/2025 7:50 PM CDT - 03/16/2025 9:18 PM CDT Emergency [facility] Emergency Department 140[address] [place] [address] Abdominal pain in early (Primary Dx) Discharge Disposition: Discharge to home or self care 03/16/2025 Telephone [facility] Obstetrical Gynecology [address] [place] [address] [place] [phone] Chelsey Fajardo MD from Last 3 [...] drink = 0.6 oz pur e alcohol) [facility] Utilities Answer Date Recorded In the past 12 months has [employer], gas, oil, or water company threatened to [...] often do you attend chur ch or muslim services? More than 4 times per year 09/11/2023 Do you belong to any clubs o r organizations such as samaritan groups, unions, fraternal or athletic groups, or [...] place to sleep or slept in a intermediate (including now)? No 09/11/2023 [place] Depression Scale Answer Date Recorded [place] Depression Scale Total 1 04/15/2025 The thought [...] on file Legal Sex Female 6:08 AM PREFORMER [employer]REGN[employer] Gender Identity Not on file Sexual Orientation [...] G FD Shayna anBelem MD Complications:None Delivery Location:[facility] Main C ampus ([facility] 58LD) Current Comments Age of 1st cycle: [...] Isabella ging Overview and Plan :Garcia Support person:rAthur Delivery Plans Planned delivery method:Vaginal Planned delivery location:[facility] Overview Surveillance of EDC by 9 week [...] low fibrinogen, and elevated Cr. Transferred to [facility] and underwent IOL. Had PPH w/ blood [...] low fibrinogen, and elevated Cr. Transferred to [facility] and underwent IOL. Had PPH w/ blood [...] [x] Blue Team Referring Provider: Randa Her [phone] [] [employer] or Medicare Insurance [x] Dating Criteria: US [...] [] MOC: [] Method of feeding: [] Wood Heel Fitter Machine (specifically which provider): [] PP Depression Discussed: [...] low fibrinogen, and elevated Cr. Transferred to [facility] and underwent IOL. Had PPH w/ blood [...] MFM in 4-6 weeks. Navya Oden MD [facility] Division of Maternal- Medicine Progress Notes - Abstract - 05/17/2025 - GA:13w4d 05/17/2025 - 13w4d - Maggie Sanabria RMA Current OB records are in [facility]. 2022 OB and delivery records are also in [facility]. 2018 gastric sleeve op note is copied below. Further records are under Care Everywhere dated 07/07/18. 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 06/02/23 and 04/24/24 APLS labs are also in [facility]. 05/17/2025 - 13w4d - Maggie Sanabria RMA DATE OF SURGERY: 07/07/2018 PREOPERATIVE DIAGNOSIS: Morbid Obesity with Comorbidities POSTOPERATIVE DIAGNOSIS: Morbid Obesity with Comorbidities PROCEDURE: Laparoscopic Vertical Sleeve Gastrectomy with Insertion of Tunneled Abdominal Wall Catheters x2 SURGEON: Bernardino Byrne MD PRECINCT POLICE CAPTAIN: Dr. Parrish ANESTHESIA: General Endotracheal SPECIMEN: Unremarkable [...] daily bp monitoring. Send logs weekly via [employer] Reviewed US and MAKEDA Discussed genetic testing via [employer] and carrier screening Discussed group approach to PNC, elementary instructional coach vs MD management options Encouraged to complete [...] Description 11/18/2025 6:00 PM CDT Hospital Encounter [facility] [address] [place] [address] Rde Dewey MD [address] [address] Health Maintenance Due Date Last Done Comments [...] last revised 2019. Creatinine Ur 218.9 mg/dL [facility] Comment: Interpretive Data No reference range established. Current interpretive data was last revised 2019. Protein/creatinin e ratio 104.6 0.0 - 180.0 mg/g CR [facility] Urine 05/24/2025 12:5 2 PM CDT 05/24/2025 1:12 PM CDT Deondre Ortiz MD LAB URINE ORDERABLES Genet eaton Result [facility] [place] [address] * eGFR (05/24/2025 9:44 AM CDT) eGFR [...] MD LAB BLOOD ORDERABLES Genet eaton Result [facility] [place] [address] * Comprehensive metabolic panel (05/24/2025 9:44 AM CDT) Pathologist [facility] Sodium 136 135 - 145 mmol/L Potassium, pl 4.2 3.3 - 4.9 mmol/L [facility] Chloride 103 97 - 110 mmol/L [facility] CO2 23 22 - 32 mmol/L [facility] Anion gap 10 2 - 15 mmol/L [facility] BUN 7 6 - 25 mg/dL [facility] Creatinine 0.90 0.60 - 1.10 mg/dL [facility] Glucose 82 70 - 199 mg/dL [facility] Comment: Interpretive Data Fasting glucose [...] 2022. Calcium 8.8 8.5 - 10.3 mg/dL [facility] Bilirubin, total 0.3 0.1 - 1.2 mg/dL [facility] Protein, pl 7.2 6.5 - 8.5 g/dL [facility] Albumin 3.8 3.5 - 5.0 g/dL [facility] Alk phos 101 40 - 130 Units/L [facility] ALT 16 7 - 45 Units/L [facility] AST 20 10 - 45 Units/L [facility] Blood 05/24/2025 9:44 AM CDT 05/24/2025 10:47 AM CDT us Deondre Ortiz MD LAB BLOOD ORDERABLES Genet l Result [facility] [place] [address] * US Ob Limited (05/24/2025 8:17 AM [...] Normal uterus and ovaries. us Randa Her OUTREACH ASSOCIATE IMG OB US PROCEDURES Fin al Result [...] sequencing of this test were performed by [facility] [address] [place] [address] (CLIA ID [id number]). The data analysis and reporting of this test were performed by [facility] [address] [place] [address], [place] [address] (CLIA ID [id number]). The performance characteristics of this test were developed by [facility].(CLIA ID [id number]). This test has not been cleared or approved by the U.S. Food and Drug Administration (FDA). These laboratories are regulated under CLIA as qualified to perform high-complexity testing. 2024 [facility]. All Rights Reserved. Please refer to the attached PDF report Reviewed By: Miguel Galindo M.D., Ph.D., [facility], Senior Household Appliance Mechanic [facility] Line Assigner: Aurelia Crystal, Ph.D., [facility] IF THE ORDERING PROVIDER HAS QUESTIONS OR WISHES TO DISCUSS THE RESULTS, PLEASE CONTACT US AT [phone], option 2. Ask for the NIPT genetic counselor integration manager. Blood specimen (specimen) Venous blood specimen / Unknown 04/28/2025 2:01 PM CDT 04/30/2025 2:00 AM CDT us Devonte Merrill MD LAB GENETIC TESTING Genet l Result [facility] [address] [place] [address], [facility] * eGFR (04/16/2025 1:40 PM CDT) eGFR [...] 04/16/2025 2:44 PM CDT us Randa Her OUTREACH ASSOCIATE LAB BLOOD ORDERABLES Fin al Result [facility] [place] [address] * HIV 1/2 Antibody plus p24 Antigen [...] CDT 04/16/2025 2:39 PM CDT Randa Her OUTREACH ASSOCIATE LAB MICROBIOLOGY - GENER AL ORDERABLES Final Result Performing Organization Address City/[facility]/ZIP Co de Phone Number MIGEL [facility] [place] [address] * (ABNORMAL) Hemoglobin analysis by electrophoresis (04/16/2025 1:40 PM CDT) Pathologist [facility] RBC 3.66(L) 3.90 - 5.20 M/cumm Hgb 9.8(L) 11.9 - 15.5 g/dL [facility] MCV 82.8 81.3 - 96.4 fL [facility] Rdw 21.7(H) 11.1 - 14.9 % [facility] Hgb electrophoresis , interp Please see comment [facility] Comment: Normal hemoglobin pattern for age Reviewed and signed by Duong Patricia MD, PhD 04/20/2025 Hgb A 97.4 96.0 - 98.5 % [facility] Hgb A2 2.6 1.5 - 3.2 % [facility] Blood 04/16/2025 1:40 PM CDT 04/16/2025 2:39 PM CDT Randa Her OUTREACH ASSOCIATE LAB BLOOD ORDERABLES Fin al Result Performing Organization Address [facility]/ZIP Co de Phone Number MIGEL [facility] [place] [address] * Hepatitis C antibody Blood (04/16/2025 1:40 PM CDT) Pathologist [facility] Hep C Ab Nonreactive Nonreactive Comment:Antibodies to HCV no t detected. Does NOT exclude the possibility of recent exposure to HCV. Current interpretive data was last revised on 22 Blood 04/16/2025 1:4 0 PM CDT 04/16/2025 2:39 PM CDT Randa Her OUTREACH ASSOCIATE LAB MICROBIOLOGY - GENER AL ORDERABLES Final Result Performing Organization Address [facility] de Phone Number MIGEL [facility] [place] [address] * Measles IgG antibody Blood (04/16/2025 1:40 PM CDT) Measles IgG Reactive Comment:Reactive: Results watson ggest response to immunization or prior exposure to the virus. Blood 04/16/2025 1:40 PM CDT 04/16/2025 2:39 PM CDT Randa Her OUTREACH ASSOCIATE LAB MICROBIOLOGY - GENER AL ORDERABLES Final Result Performing Organization Address [facility] de Phone Number [facility] [place] [address] * (ABNORMAL) Rubella IgG antibody Blood (04/16/2025 1:40 PM CDT) Pathologist [facility] Rubella IgG Nonreactiv e(A) Comment:Nonreactive: No dete ctable antibody to rubella. Such individuals are presumed to be uninfected with rubella and to be susceptible to primary infection. Blood 04/16/2025 1:40 PM CDT 04/16/2025 2:39 PM CDT Randa Her OUTREACH ASSOCIATE LAB MICROBIOLOGY - GENER AL ORDERABLES Final Result Performing Organization Address [facility] de Phone Number [facility] [place] [address] * RPR Blood (04/16/2025 1:40 PM CDT) Pathologist [facility] RPR Nonreactive Nonreactive Blood 04/16/2025 1:40 PM CDT 04/16/2025 2:39 PM CDT Randa Her OUTREACH ASSOCIATE LAB MICROBIOLOGY - GENER AL ORDERABLES Final Result Performing Organization Address City/[facility]/ZIP Co de Phone Number [facility] [place] [place] [address] * Hepatitis B Surface Antigen Blood (04/16/2025 1:40 PM CDT) [facility] HepBsAg Nonreactive Nonreactive Blood 04/16/2025 1:40 PM CDT 04/16/2025 2:39 PM CDT Randa Her OUTREACH ASSOCIATE LAB MICROBIOLOGY - GENER AL ORDERABLES Final Result Performing Organization Address [facility] de Phone Number [facility] [place] [address] * (ABNORMAL) CBC without differential (04/16/2025 1:40 PM CDT) [facility] WBC 5.92 3.80 - 9.90 K/cumm Hgb 9.8(L) 11.9 - 15.5 g/dL [facility] Hct 30.0(L) 35.6 - 45.5 % [facility] Plt 274 150 - 400 K/cumm [facility] MPV 12.1 9.1 - 12.3 fL [facility] RBC 3.64(L) 3.90 - 5.20 M/cumm [facility] MCV 82.4 81.3 - 96.4 fL [facility] MCH 26.9(L) 27.1 - 33.3 pg [facility] MCHC 32.7 32.3 - 35.7 g/dL [facility] RDW CV 21.5(H) 11.1 - 14.9 % [facility] RDW SD 64.5(H) 35.7 - 48.1 fL [facility] NRBC abs 0.00 0.00 - 0.01 K/cumm [facility] Blood 04/16/2025 1:40 PM CDT 04/16/2025 2:40 PM CDT Randa Her OUTREACH ASSOCIATE LAB BLOOD ORDERABLES Fin al Result [facility] [place] [address] * Type and screen (04/16/2025 1:40 PM CDT) Jaycee, indirect Negative ABO Rh B Positive [facility] Blood 04/16/2025 1:40 PM CDT 04/16/2025 2:43 PM CDT Narrative [facility] - 04/16/2025 3:35 PM CDT Has the patient had Daratumumab or Isatuximab in the past 6 months?->Unknown Hx of or candidate for Bone Marrow/Stem Cell transplant?->No Randa Her OUTREACH ASSOCIATE LAB BLOOD BANK TEST ORDE RABLES Final Result Performing Organization Address [facility] Co de Phone Number [facility] [place] [place] [address] * Urine culture Urine, clean voided (04/16/2025 1:40 PM CDT) Report Final Report: Less than 100,000 colonies/mL (clinically insignificant growth based on current clinical standards) Organism (CLINICALLY INSIGNIFICANT GROWTH [facility] Urine, clean voided 04/16/2025 1:40 PM CDT 04/16/2025 2:42 PM CDT Narrative [facility] - 04/17/2025 4:11 PM CDT Testing performed by [facility] Microbiology Laboratory ([phone]) Randa Her OUTREACH ASSOCIATE LAB MICROBIOLOGY - GENER AL ORDERABLES Final Result Performing Organization Address City/[facility]/ZIP Co de Phone Number [facility] [place] [address] * Varicella Zoster IgG antibody Blood (04/16/2025 1:40 PM CDT) [facility] VZV IgG Reactive Reactive Comment:Reactive: Results watson ggest response to immunization or prior exposure to the virus. Blood 04/16/2025 1:40 PM CDT 04/16/2025 2:39 PM CDT Randa Her OUTREACH ASSOCIATE LAB MICROBIOLOGY - GENER AL ORDERABLES Final Result Performing Organization Address [facility] de Phone Number [facility] [place] [address] * Hemoglobin A1c (04/16/2025 1:40 PM CDT) [facility] Hgb A1C 5.3 4.0 - 5.6 % Estimated Average Glucose 105 mg/dL [facility] Comment: The ADA recommends reporting an estimated [...] ORDERABLES Fin al Result Performing Organization Address [facility] de Phone Number [facility] [place] [address] * Comprehensive metabolic panel (04/16/2025 1:40 PM CDT) [facility] Sodium 139 135 - 145 mmol/L Potassium, pl 3.8 3.3 - 4.9 mmol/L [facility] Chloride 107 97 - 110 mmol/L [facility] CO2 22 22 - 32 mmol/L [facility] Anion gap 10 2 - 15 mmol/L [facility] BUN 6 6 - 25 mg/dL [facility] Creatinine 1.02 0.60 - 1.10 mg/dL [facility] Glucose 108 70 - 199 mg/dL [facility] Comment: Interpretive Data Fasting glucose [...] 2022. Calcium 9.2 8.5 - 10.3 mg/dL [facility] Bilirubin, total 0.3 0.1 - 1.2 mg/dL [facility] Protein, pl 7.0 6.5 - 8.5 g/dL [facility] Albumin 3.7 3.5 - 5.0 g/dL [facility] Alk phos 119 40 - 130 Units/L [facility] ALT 43 7 - 45 Units/L [facility] AST 38 10 - 45 Units/L [facility] Blood 04/16/2025 1:40 PM CDT 04/16/2025 2:40 PM CDT us Randa Her OUTREACH ASSOCIATE LAB BLOOD ORDERABLES Fin al Result Performing Organization Address City/State/[facility] Co de Phone Number [facility] [place] [address] * (ABNORMAL) Iron profile w/ IBC (04/15/2025 12:11 PM CDT) [facility] Signature Iron 40 35 - 145 mcg/dL Comment:Testing performed by : [facility], [address] [place] [address]., [id number] TIBC 386 250 - 400 mcg/dL MIGEL Comment:Testing performed by : [address] [address] Transferrin saturation 10(L) 20 - 50 % MIGEL Comment:Testing performed by : [facility], [address] [place] [address]., [id number] Blood 04/15/2025 12:1 1 PM CDT 04/15/2025 12:41 PM CDT Randa Her OUTREACH ASSOCIATE LAB BLOOD ORDERABLES Fin al Result Performing Organization Address [facility] de Phone Number MIGEL [facility] [place] [address] * (ABNORMAL) Zinc (04/15/2025 12:11 PM CDT) Pathologist [facility] Zinc 48(L) 60 - 106 mcg/dL [facility] Comment: ADDITIONAL INFORMATION This test was developed and its performance characteristics determined by [facility] in a manner consistent with CLIA requirements. This test has not been cleared or approved by the U.S. Food and Drug Administration. Test Performed by: [facility] [address] [place] [address] Line Assigner: Dinora Richard Ph.D.; CLIA# [id number] Testing performed by: [facility], [address] [place] [address]., [id number] Blood 04/15/2025 12:1 1 PM CDT 04/15/2025 12:43 PM CDT Randa Her OUTREACH ASSOCIATE LAB BLOOD ORDERABLES Fin al Result Performing Organization Address [facility] de Phone Number MIGEL [address] [facility] [place] [address] [facility] * Vitamin K (04/15/2025 12:11 PM CDT) Phylloquinone (Vit K) 0.17 0.10 - 2.20 ng/mL [facility] Comment: ADDITIONAL INFORMATION This test was developed and its performance characteristics determined by [facility] in a manner consistent with CLIA requirements. This test has not been cleared or approved by the U.S. Food and Drug Administration. Test Performed by: [facility] [address] [place] [address] Line Assigner: Dinora Richard Ph.D.; CLIA# [id number] Testing performed by: [facility], [address] [place] [address], [address] Blood 04/15/2025 12:1 1 PM CDT 04/15/2025 12:43 PM CDT Randa Her LAB BLOOD ORDERABLES Fin al Result Performing Organization Address [facility] Co de Phone Number [address] [address] [place] ref [facility] * (ABNORMAL) Vitamin D 25 hydroxy (04/15/2025 12:11 PM CDT) Vitamin D 25-OH 21.0(L) 30.0 - 80.0 ng/mL Blood 04/15/2025 12:1 1 PM CDT 04/15/2025 2:28 PM CDT Randa Her LAB BLOOD ORDERABLES Fin al Result Performing Organization Address [facility] Co de Phone Number [address] [address] * (ABNORMAL) Vitamin B1 (04/15/2025 12:11 PM CDT) Thiamine (Vit B1) 63(L) 70 - 180 nmol/L [facility] Comment: ADDITIONAL INFORMATION This test was developed and its performance characteristics determined by [facility] in a manner consistent with CLIA requirements. This test has not been cleared or approved by the U.S. Food and Drug Administration. Test Performed by: [facility] [address] [place] [address] Line Assigner: Dinora Richard Ph.D.; CLIA# [id number] Testing performed by: [address] [address] Blood 04/15/2025 12:1 1 PM CDT 04/15/2025 12:41 PM CDT Randa Her OUTREACH ASSOCIATE LAB BLOOD ORDERABLES Fin al Result Performing Organization Address City/[facility]/ZIP Co de Phone Number MARIEL[address] [place] [address] [place] ref [facility] * Folate (04/15/2025 12:11 PM CDT) Folic acid 15.3 >=5.0 ng/mL Comment:Testing performed by : [address] [address] Blood 04/15/2025 12:1 1 PM CDT 04/15/2025 12:41 PM CDT Randa Her OUTREACH ASSOCIATE LAB BLOOD ORDERABLES Fin al Result Performing Organization Address City/[facility] Co de Phone Number [address] [place] [address] * Vitamin B12 (04/15/2025 12:11 PM CDT) Vitamin B12 407 230 - 1,250 pg/mL Comment:Testing performed by : [address] [address] Blood 04/15/2025 12:1 1 PM CDT 04/15/2025 12:41 PM CDT Randa Her OUTREACH ASSOCIATE LAB BLOOD ORDERABLES Fin al Result Performing Organization Address City/[facility]/ZIP Co de Phone Number CER[address] [place] [address] * Drugs of Abuse Screen, Urine with Reflex Confirmation (04/15/2025 11:53 AM CDT) [facility] Amphetamine, ur Not Detected CutOff 500ng/mL Comment: Interpretive Data - Amphetamines: Samples containing greater than 500 ng/mL d-methamphetamine or other cross-reacting amphetamine compounds are reported as positive. Amphetamine immunoassays are subject to significant false positive rates due to cross-reactivity of non-amphetamine drugs. Confirmatory testing required for definitive results. Current Interpretive Data was last reviewed 2023. Testing performed by: [address] [address] Barbiturates, ur Not Detected CutOff 200ng/mL MIGEL Comment: Interpretive Data - Barbiturates: Samples containing greater than 200 ng/mL secobarbital or other cross-reacting barbiturate compounds are reported as positive. False positive and false negative results are possible. Confirmatory testing required for definitive results. Current Interpretive Data was last reviewed 2023. Testing performed by: [address] [address] Benzodiazepines, ur Not Detected CutOff 100ng/mL MIGEL Comment: Interpretive Data - Benzodiazepines: Samples containing greater than 100 ng/mL nordiazepam or other cross-reacting compounds are reported as positive. False positive and false negative results are possible. Confirmatory testing required for definitive results. Current Interpretive Data was last reviewed 2023. Testing performed by: [address] [address] Cannabinoids, ur Not Detected CutOff 50 ng/mL [facility] Comment: Interpretive Data - Cannabinoids: Samples containing greater than 50 ng/mL delta-9 THC -COOH or other cross- reacting compounds are reported as positive. False positive and false negative results are possible. Confirmatory testing required for definitive results. Current Interpretive Data was last reviewed 2023. Testing performed by: [address] [address] Cocaine, ur Not Detected CutOff 150ng/mL [facility] Comment: Interpretive Data - Cocaine: Samples containing greater than 150 ng/mL benzoylecgonine or other cross- reacting compounds are reported as positive. False positive and false negative results are possible. Confirmatory testing required for definitive results. Current Interpretive Data was last reviewed 2023. Testing performed by: [address] [address] Fentanyl, Ur Not Detected CutOff 5 ng/mL [facility] Comment: Interpretive Data - Fentanyl: Samples containing greater than 1 ng/mL fentanyl or other cross-reacting fentanyl compounds are reported as positive. False positive and false negative results are possible. Confirmatory testing required for definitive results. Current Interpretive Data was last reviewed 2023. Testing performed by: [address] [address] Methadone, ur Not Detected CutOff 300ng/mL [facility] Comment: Interpretive Data - Methadone: Samples containing greater than 300 ng/mL d,l-methadone or other cross-reacting compounds are reported as positive. False positive and false negative results are possible. Confirmatory testing required for definitive results. Current Interpretive Data was last reviewed 2023. Testing performed by: [address] [address] Opiates, ur Not Detected CutOff 300ng/mL [facility] Comment: Interpretive Data - Opiates: Samples containing greater than 300 ng/mL morphine or other cross-reacting compounds are reported as positive. False positive and false negative results are possible. Confirmatory testing required for definitive results. Current Interpretive Data was last reviewed 2023. Testing performed by: [address] [address] Oxycodone, ur Not Detected CutOff 100ng/mL [facility] Comment: Interpretive Data - Oxycodone: Samples containing greater than 100 ng/mL oxycodone or other cross-reacting compounds are reported as positive. False positive and false negative results are possible. Confirmatory testing required for definitive results. Current Interpretive Data was last reviewed 2023. Testing performed by: [address] [address] Phencyclidine, ur Not Detected CutOff 25 ng/mL [facility] Comment: Interpretive Data - Phencyclidine: Samples containing greater than 25 ng/mL phencyclidine or other cross-reacting compounds are reported as positive. False positive and false negative results are possible. Confirmatory testing required for definitive results. Current Interpretive Data was last reviewed 2023. Testing performed by: [address] [address] Urine Creatinine 132 mg/dL MIGEL VELAZQUEZ Comment: Interpretive Data Urine Creatinine: < 10 mg/dL is extremely dilute = or > 10 but < 20 mg/dL is dilute = or > 20 mg/dL is normal Current Interpretive Data was last revised on 2017. Testing performed by: [facility], [address] [place] [address]., [address] Urine 04/15/2025 11:5 3 AM CDT 04/15/2025 [...] LAB URINE ORDERABLES Fin al Result MIGEL [address] [facility] Department [place] [address] * Urine culture Urine, clean voided (04/15/2025 11:53 AM CDT) Report Final Report: Less than 100,000 colonies/mL (clinically insignificant growth based on current clinical standards) Comment:Testing performed by : [facility], [address] [facility], [place]., [address] Organism (CLINICALLY INSIGNIFICANT GROWTH MIGEL VELAZQUEZ Urine, clean voided 04/15/2025 11:53 AM CDT 04/15/2025 9:30 PM CDT Narrative MIGEL VELAZQUEZ - 04/17/2025 4:07 AM CDT Testing performed by [facility] Microbiology Laboratory ([phone]) Randa Her NP LAB MICROBIOLOGY - [facility] ORDERABLES Final Result MIGEL [address] [facility] Department [place] [address] * US OB Under 14 Weeks W [...] Not identified Mean sac diameter: 0.32 cm [place]-rump length: Not applicable heart rate: Not applicable [...] Sim Sullivan M.D. MF: PHILLIP Report ID: [id number] Reading Location: [id number] Procedure Note Sim Sullivan, DO - 03/16/2025 [...] Not identified Mean sac diameter: 0.32 cm [place]-rump length: Not applicable heart rate: Not applicable [...] Sim Sullivan M.D. MF: PHILLIP Report ID: [id number] Reading Location: [place] [address] us Sonal PHAM IMG OB US PROCEDURES Final Result * (ABNORMAL) POCT hCG, urine (03/16/2025 6:56 PM CDT) [facility] HCG, ur, POC Positive(A) Negative Comment:Testing performed by : [address] [address] POC Performer [phone] MIGEL VELAZQUEZ Comment:Testing performed by : [address] [address] Urine 03/16/2025 6:56 PM CDT 03/16/2025 6:56 PM CDT us Notinfile Unknown LAB POCT ORDERABLES - DEVICE F inal Result MIGEL VELAZQUEZ [address] [facility] Department [place] [address] * eGFR (03/16/2025 6:54 PM [...] was last reviewed 2021. Testing performed by: [address] [address] Blood 03/16/2025 6:54 PM CDT 03/16/2025 7:02 PM CDT us Sonal PHAM LAB BLOOD ORDERABLES Final Result MIGEL [address] [facility] Department [place] [address] * Differential, auto (03/16/2025 6:54 PM CDT) Neutrophil abs 2.77 1.50 - 6.50 K/cumm Comment:Testing performed by : [address] [address] Imm gran abs 0.01 0.00 - 0.10 K/cumm MIGEL Comment:Testing performed by : [address] [address] Lymphocyte abs 1.53 0.80 - 3.30 K/cumm MIGEL Comment:Testing performed by : [address] [address] Monocyte abs 0.48 0.20 - 0.80 K/cumm MIGEL Comment:Testing performed by : [address] [address] Eosinophil abs 0.02 0.00 - 0.50 K/cumm MIGEL Comment:Testing performed by : [address] [address] Basophil abs 0.01 0.00 - 0.10 K/cumm MIGEL Comment:Testing performed by : [address] [address] Neutrophil pct 57.5 % [facility] Comment: Interpretive Data Percent cell count reference ranges are not reported, since discordance with absolute values may lead to misinterpretation of CBC data. Current Interpretive Data was last revised on 2017. Testing performed by: [address] [address] Imm gran pct 0.2 % [facility] Comment: Interpretive Data Percent cell count reference ranges are not reported, since discordance with absolute values may lead to misinterpretation of CBC data. Current Interpretive Data was last revised on 2017. Testing performed by: [address] [address] Lymphocyte pct 31.7 % [facility] Comment: Interpretive Data Percent cell count reference ranges are not reported, since discordance with absolute values may lead to misinterpretation of CBC data. Current Interpretive Data was last revised on 2017. Testing performed by: [address] [address] Monocyte pct 10.0 % [facility] Comment: Interpretive Data Percent cell count reference ranges are not reported, since discordance with absolute values may lead to misinterpretation of CBC data. Current Interpretive Data was last revised on 2017. Testing performed by: [address] [address] Eosinophil pct 0.4 % [facility] Comment: Interpretive Data Percent cell count reference ranges are not reported, since discordance with absolute values may lead to misinterpretation of CBC data. Current Interpretive Data was last revised on 2017. Testing performed by: [address] [address] Basophil pct 0.2 % [facility] Comment: Interpretive Data Percent cell count reference ranges are not reported, since discordance with absolute values may lead to misinterpretation of CBC data. Current Interpretive Data was last revised on 2017. Testing performed by: [address] [address] Blood 03/16/2025 6:54 PM CDT 03/16/2025 7:02 PM CDT Sonal PHAM LAB BLOOD ORDERABLES Final Result [facility] [address] [facility] [place] [address] * (ABNORMAL) Urinalysis reflex to microscopic and culture Urine (03/16/2025 6:54 PM CDT) Color, ur Yellow Yellow Comment:Testing performed by : [address] [address] Clarity, ur Clear Clear MIGEL Comment:Testing performed by : [address] [address] Specific gravity, ur 1.023 1.003 - 1.030 MIGEL Comment:Testing performed by : [address] [address] pH, urine 8.0 MIGEL Comment: Interpretive Data U rine pH is affected by diet, medications, systemic acid-base disturbances, and renal tubular function. pH may affect urinary stone formation. For example, urine pH below 6.0 may help reduce the tendency for calcium phosphate stones and pH greater than 6.0 may reduce the tendency for uric acid stone formation. Source: [facility] [employer] Current Interpretive Data was last revised on 2017 Testing performed by: [address] [address] Protein, ur ql Trace(A) Negative MIGEL Comment:Testing performed by : [address] [address] Glucose, ur ql Negative Negative MIGEL Comment:Testing performed by : [address] [address] Ketones, ur Negative Negative MIGEL VELAZQUEZ Comment:Testing performed by : [address] [address] Bilirubin, ur Negative Negative MIGEL VELAZQUEZ Comment:Testing performed by : [address], [place]., [address] Blood, ur Negative Negative MIGEL VELAZQUEZ Comment:Testing performed by : [address], [place]., [address] Urobilinogen, ur 2.0(A) <2.0 mg/dL MIGEL VELAZQUEZ Comment:Testing performed by : [address], [place]., [address] Nitrite, ur Negative Negative MIGEL VELAZQUEZ Comment:Testing performed by : [address] [address] Leukocyte esterase, ur 1+(A) Negative MIGEL VELAZQUEZ Comment:Testing performed by : [address] [address] UA reflex comment Reflex to microscopic UA will be performed. MIGEL VELAZQUEZ Comment:Testing performed by : [address] [address] Urine 03/16/2025 6:54 PM CDT 03/16/2025 7:02 PM CDT us Sonal PHAM LAB MICROBIOLOGY - GENERAL ORDERABLES Final Result MIGEL [address] [facility] Department of Laboratories [place], [place] [id number] * (ABNORMAL) CBC with auto differential (03/16/2025 6:54 PM CDT) WBC 4.82 3.80 - 9.90 K/cumm Comment:Testing performed by : [address] [address] Hgb 9.8(L) 11.9 - 15.5 g/dL MIGEL VELAZQUEZ Comment:Testing performed by : [address] [address] Hct 30.4(L) 35.6 - 45.5 % MIGEL VELAZQUEZ Comment:Testing performed by : [address] [address] Plt 282 150 - 400 K/cumm MIGEL VELAZQUEZ Comment:Testing performed by : [address] [address] MPV 9.6 9.1 - 12.3 fL MIGEL VELAZQUEZ Comment:Testing performed by : [address] [address] RBC 3.47(L) 3.90 - 5.20 M/cumm MIGEL VELAZQUEZ Comment:Testing performed by : [address] [address] MCV 87.6 81.3 - 96.4 fL MIGEL VELAZQUEZ Comment:Testing performed by : [address] [address] MCH 28.2 27.1 - 33.3 pg MIGEL VELAZQUEZ Comment:Testing performed by : [address] [address] MCHC 32.2(L) 32.3 - 35.7 g/dL MIGEL VELAZQUEZ Comment:Testing performed by : [address] [address] RDW CV 23.4(H) 11.1 - 14.9 % MIGEL VELAZQUEZ Comment:Testing performed by : [address] [address] RDW SD 74.1(H) 35.7 - 48.1 fL MIGEL VELAZQUEZ Comment:Testing performed by : [address] [address] NRBC abs 0.00 0.00 - 0.01 K/cumm MIGEL VELAZQUEZ Comment:Testing performed by : [address] [address] Blood Venous blood specimen / Unknown 03/16/2025 6:54 PM CDT 03/16/2025 7:02 PM CDT Sonal PHAM LAB BLOOD ORDERABLES Final Result MIGEL VELAZQUEZ [address] [facility] Department [place] [address] * (ABNORMAL) Urinalysis, microscopic only (03/16/2025 6:54 PM CDT) WBC, ur 0-5 0 - 5 /HPF Comment:Testing performed by : [address] [address] RBC, ur 0-2 0 - 2 /HPF MIGEL Comment:Testing performed by : [address] [address] Epithelial cells, squamous, ur 21-50(A) 0 - 5 /HPF MIGEL Comment:Testing performed by : [address] [address] Culture Reflex Comment Reflex conditions for urine culture (WBC >10) not met. MIGEL Comment:Testing performed by : [address] [address] Urine 03/16/2025 6:54 PM CDT 03/16/2025 7:02 PM CDT Sonal PHAM LAB URINE ORDERABLES Final Result MIGEL [address] [facility] [place] [address] * (ABNORMAL) hCG, blood, quantitative (03/16/2025 6:54 [...] last revised on 2023 Testing performed by: [address] [address] Blood 03/16/2025 6:54 PM CDT 03/16/2025 7:02 PM CDT Sonal PHAM LAB BLOOD ORDERABLES Final Result MIGEL [address] [place] [address] * Lipase (03/16/2025 6:54 PM CDT) Pathologist [facility] Lipase 37 10 - 99 Units/L Comment:Testing performed by : [address] [address] Blood Venous blood specimen / Unknown 03/16/2025 6:54 PM CDT 03/16/2025 7:02 PM CDT Sonal PHAM LAB BLOOD ORDERABLES Final Result Performing Organization Address City/[facility] Co de Phone Number MIGEL [address] [address] * (ABNORMAL) Comprehensive metabolic panel (03/16/2025 6:54 PM CDT) [facility] Sodium 135 135 - 145 mmol/L Comment:Testing performed by : [address] [address] Potassium, pl 4.2 3.3 - 4.9 mmol/L MIGEL Comment:Testing performed by : [address] [address] Chloride 106 97 - 110 mmol/L MIGEL Comment:Testing performed by : [address] [address] CO2 20(L) 22 - 32 mmol/L MIGEL Comment:Testing performed by : [address] [address] Anion gap 9 2 - 15 mmol/L MIGEL Comment:Testing performed by : [address] [address] BUN 5(L) 6 - 25 mg/dL MIGEL Comment:Testing performed by : [address] [address] Creatinine 0.76 0.60 - 1.10 mg/dL MIGEL Comment:Testing performed by : [address] [address] Glucose 106 70 - 199 mg/dL MIGEL [...] was last revised 2022. Testing performed by: [address] [address] Calcium 8.4(L) 8.5 - 10.3 mg/dL MIGEL Comment:Testing performed by : [address] [address] Bilirubin, total 0.2 0.1 - 1.2 mg/dL MIGEL Comment:Testing performed by : [address] [address] Protein, pl 6.8 6.5 - 8.5 g/dL MIGEL Comment:Testing performed by : [address] [address] Albumin 3.7 3.5 - 5.0 g/dL MIGEL Comment:Testing performed by : [address] [address] Alk phos 114 40 - 130 Units/L MIGEL Comment:Testing performed by : [address] [address] ALT 17 7 - 45 Units/L MIGEL Comment:Testing performed by : [address] [address] AST 36 10 - 45 Units/L MIGEL Comment:Testing performed by : [address] [address] Blood 03/16/2025 6:54 PM CDT 03/16/2025 7:02 PM CDT Sonal PHAM LAB BLOOD ORDERABLES Final Result MIGEL VELAZQUEZ [address] [facility] Department [place] [address] * (ABNORMAL) High Risk HPV DNA Detection with Genotyping (Molecular component) (05/25/2024 1:44 PM CDT) HPV HR 16 Not Detected Not Detected [facility] Comment:Testing performed by : [facility], [address] [place]., [address] HPV HR 18 Not Detected Not Detected MIGEL VELAZQUEZ Comment:Testing performed by : [facility], [address] [facility], [address] HPV HR Non 16/18 Detected(A) Not Detected [...] this test have been verified by the [facility] Molecular Infectious Disease laboratory. Correlate with separately reported cytology results, as applicable. Interpretive data last revised 23 Testing performed by: [facility], [address] [place]., [address] Endocervical 05/25/2024 1:44 PM CDT 05/26/2024 2:45 PM CDT Narrative MIGEL VELAZQUEZ - 05/26/2024 10:40 PM CDT Clinical history and diagnosis->LP: 2017 Number of vials->1 Testing type->Screening Last menstrual period (date if known)->04/24/2024 Chelsey Fajardo MD LAB BODY FLUIDS AND STOOLS ORDERABLES Final Result MIGEL MH [address] [facility] Department [place] [address] [facility] from Last 3 Months or Most Recently Relevant to Health Maintenance Insurance [facility] Member Subscriber Plan / Payer ( fective 2021-Present) Name:Edilson Donovan Relation to Subscriber:Self Name:Edilson Donovan Payer ID:[id number] (NAIC) Group ID:Not on file Type:MEDICAID RISK OTHER Address: ATTN: CLAIMS DEPT [address] [facility] [place] [id number] [facility] Advance Directives For more information, please contact: [phone] * Full Code (Latest Code Status on File) Date Activated Date Inactivated Comments 06/02/2023 4:53 AM 06/05/2023 10:00 PM * Full Code Date Activated Date Inactivated Comments 06/01/2023 7:55 PM 06/02/2023 1:58 AM Full CPR in case of cardiopulmonary arrest Care Teams Licsw Relationship Specialty Start Date End Date No, Physician PCP - General 11/22/22 Chelsey Fajardo MD [address] [place] [address] Consulting Physician Obstetrics and Gynecology 04/24/24
--- OUTSIDE RECORDS SUMMARY | 2025-06-15 10:21 | XMS_ITS | Encounter Summary ---
Author Organization [facility] Healthcare Address [address] [place] [address] Care Team Providers Care Training And Development Rep Name Role Phone No, Physician Primary Care Provider [phone] Chelsey Fajardo MD Unavailable [phone] Encounter Details Date Type Department Care Team (Latest Contact Info) Description 04/19/2025 Results Follow-Up [facility] Medical [facility] Obstetrical Gynecology [address] [phone] Randa Her, JIM [address] [address] Comprehensive metabolic panel, Varicella Zoster IgG antibody Blood, Urine culture Urine, clean voided, Additional followed-up results: 11 Social History Tobacco Use Types Packs/Day Years Used Date Smoking Tobacco: Never Smokeless Tobacco: Never Alcohol Use Standard Drinks/Week Comments Yes 0 (1 standard drink = 0.6 oz pur e alcohol) [facility] Utilities Answer Date Recorded In the past 12 months has [employer], gas, oil, or water [employer] threatened to shut off services in your [...] How often do you attend chur or gnosticism services? More than 4 times per year 09/11/2023 Do you belong to any clubs o r organizations such as taoism groups, unions, fraternal or athletic groups, or [...] in a custodial (including now)? 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 Gender Identity Not on file Sexual Orientation Not on file documented as of this encounter Plan of Treatment Upcoming Encounters Date Type Department Care Team (Late st Contact Info) Description 11/18/2025 6:00 PM CDT Hospital Encounter [facility] [address] [place] [address] Red Dewey MD [address] [id number] documented as of this encounter Visit Diagnoses Not on filedocumented in this encounter Care Teams Training And Development Rep Relationship Specialty Start Date End Date No, Physician PCP - General 11/22/22 Chelsey Fajardo MD [facility] [id number] Consulting Physician Obstetrics and Gynecology 04/24/24 documented as of this encounter
--- OUTSIDE RECORDS SUMMARY | 2025-06-15 10:21 | XMS_ITS | Clinical Summary ---
Author Organization [facility] Address [address] [place] [address] Phone Care Team Providers Care [employer] Yard Supervisor Name Role Phone Gorge Ding MD Primary Care Provider [phone] Allergies No known active allergies Medications losartan [...] (#1) 2025 Medical Devices Implanted Type Area Bleach Packer Device Identifier Shelf Expiration Date Model / Serial / Lot Seamguard Endogia 60 Blck [id number] - [id number] Implanted:Qty : 1 on 07/07/2018 by Bernardino Byrne MD at [facility] N/A: Abdomen [employer] [id number] / / Description:Natalie castillo, nurse Fernanda Kinney not available. Seamguard Endogia 60 Blck [id number] - [id number] Implanted:Qty : 1 on 07/07/2018 by Bernardino Byrne MD at [facility] N/A: Abdomen [employer] [id number] / / Description:Natalie Kinney not available to update record. Seamguard Endogia 60 Prpl [id number] - [id number] Implanted:Qty : 1 on 07/07/2018 by Bernardino Byrne MD at [facility] N/A: Abdomen [employer] [id number] / / Seamguard Endogia 60 Prpl [id number] - [id number] Implanted:Qty : 1 on 07/07/2018 by Bernardino Byrne MD at [facility] N/A: Abdomen [employer] [id number] [id number] / / Seamguard Endogia 60 Prpl [id number] - [id number] Implanted:Qty : 1 on 07/07/2018 by Bernardino yBrne MD at [facility] N/A: Abdomen [employer] [id number] / / Insurance [employer] (INTERNAL) [facility] Internal Plans Advance Directives For more information, please contact: [phone] * Full Code (Latest Code Status on File) Date Activated Date Inactivated Comments 07/07/2018 11:58 AM 07/08/2018 7:07 PM Care Teams [employer] G[employer] Yard Supervisor Relationship Specialty Start Date End Date Gorge Ding MD [address] [facility] [address] [place] [address] PCP - General Internal Medicine 06/30/18
[2025-06-15 10:23] LABS: Influenza A QL RT-PCR Negative (Negative); Influenza B QL RT-PCR Negative (Negative); RSV RNA, RT-PCR Negative (Negative); SARS-CoV-2 RNA PCR Negative (Negative)
--- NOTE | 2025-06-15 10:29 | ED.URI ---
HPI - URI/Sore Throat General Chief Complaint: Upper Respiratory Infection Stated Complaint: flu/covid check Time Seen by Provider: 06/15/25 09:22 Source: patient Mode of arrival: ambulatory Limitations: no limitations History of Present Illness HPI Narrative: Patient is a 34-year-old female who presents the ED with report of URI symptoms. Patient reports she began feeling ill yesterday with dry cough, congestion, sore throat, headache, body aches. Denies sick contacts. Denies shortness of breath, fevers, chest pain. Has not taken anything for her symptoms. Patient is currently 17 weeks gestation. Sees Ob in [place], [place]. Denies abdominal pain or vaginal bleeding. Related Data Home Medications ?Medication ?Instructions ?Recorded ?Confirmed ?Last Taken ?Type amlodipine 10 mg tablet 10 mg PO DAILY 10/29/23 10/29/23 Unknown History Allergies Allergy/AdvReac Type Severity Reaction Status Date / Time No Known Allergies Allergy Verified 03/23/25 16:40 Review of Systems Review of Systems: All systems reviewed & are unremarkable except as noted in HPI. All systems reviewed & are unremarkable except as noted in HPI and below PMFSH Social History Social History Smoking status: Never smoker Exam Narrative: GENERAL: Well appearing, well-nourished, non-toxic, in no acute distress. HEAD: Normocephalic, atraumatic. RESPIRATORY: Airway patent, respirations nonlabored. Clear to auscultation bilaterally, no rales, rhonchi, wheezing. No focal lung sounds. CARDIOVASCULAR: Regular rate and rhythm without murmurs, rubs, or gallops. MUSCULOSKELETAL: Moves all extremities. No gross deformities. SKIN: Warm, dry, normal color. NEURO: A&O X3. Speech clear. Cranial nerves II-XII grossly intact. Steady gait. No ataxic movements. PSYCHIATRIC: Appropriate mood and affect. Normal interaction. Course Vital Signs Vital signs: Vital Signs Temperature 98.3 F 06/15/25 09:16 Pulse Rate 97 06/15/25 09:16 Respiratory Rate 18 06/15/25 09:16 Blood Pressure 142/105 H 06/15/25 09:16 Pulse Oximetry 100 06/15/25 09:16 Oxygen Delivery Room Air 06/15/25 09:16 Temperature 98.3 F 06/15/25 09:16 Pulse Rate 97 06/15/25 09:16 Respiratory Rate 18 06/15/25 09:16 Blood Pressure 142/105 H 06/15/25 09:16 Pulse Oximetry 100 06/15/25 09:16 Oxygen Delivery Room Air 06/15/25 09:16 MDM - URI/Sore Throat MDM Narrative Medical decision making narrative: URI symptoms since yesterday. Currently 17 weeks gestation. Declined Tylenol in the ED. Discussed obtaining chest x-ray, however patient politely declined this as well. Feel this is reasonable. Vital signs are otherwise stable. She was mildly hypertensive here. Does have history of this and is on labetalol. She does admit to missing a few doses of this but took the medication just prior to arrival. COVID, influenza, RSV negative. Discussed this with patient. Discussed high likelihood of viral URI and continued management of such including [id number] medications that are safe in . Patient otherwise safe for D/C. Given return precautions. Discharged in stable condition. Medical Records Attestation: I reviewed the patient's medical records. Lab Data Attestation: I reviewed the patient's lab results. Labs: Lab Results 06/15/25 Range/Units 09:43 Influenza A (RT-PCR) Negative (Negative) Influenza B (RT-PCR) Negative (Negative) RSV (RT-PCR) Negative (Negative) SARS-CoV-2 RNA (RT-PCR) Negative (Negative) Discharge Plan Discharge Clinical Impression: 17 weeks gestation of Upper respiratory infection Qualifiers: URI type: unspecified URI Qualified Code(s): J06.9 - Acute upper respiratory infection, unspecified Patient Disposition: Home Condition: Stable Instructions: Antibiotic Form, Upper Respiratory Infection (ED), Viral Syndrome (ED), Cold Symptoms (ED) Additional Instructions: You tested negative for COVID, influenza, RSV. You likely have a viral upper respiratory infection. You may take Tylenol, Mucinex, Robitussin/Delsym for your symptoms. These are safe in . Follow-up with your OBGYN for further evaluation as needed. Return to the ED if you experience worsening or severe symptoms, difficulty breathing, severe chest pain, unable to keep down food or drink, abdominal pain, vaginal bleeding, or any other symptoms of concern. Patient Language: Croatian Prescriptions: No Action hydrocortisone [Proctosol HC] 2.5 % cream with perineal applicator 1 applic RECTAL HS PRN (Reason: hemorrhoids) 15 Days Qty: 30 0RF amlodipine 10 mg tablet 10 mg PO DAILY acetaminophen [Tylenol Extra Strength] 500 mg tablet 1,000 mg PO Q6H PRN (Reason: pain) Qty: 50 0RF Follow-up/Referrals: PHYSICIAN,INSIDE SALES ADVERTISING EXECUTIVE [Primary Care Provider, Internal Medicine] Time of Disposition: 10:32
== END 2025-06-15 10:35 | disposition home or self-care (01) ==
PROVIDERS: Emergency Provider Physician Assistant
DX: O99.512 Diseases of the respiratory system complicating pregnancy, second trimester (principal); J06.9 Acute upper respiratory infection, unspecified; Z20.822 Contact with and (suspected) exposure to COVID-19; Z3A.17 17 weeks gestation of pregnancy
CPT/HCPCS: 87637; 99283